=== PATIENT | male | born 1965 | race African-American/Black ===

== ENCOUNTER 2016-11-16 10:01 | Emergency (ER) | payer BC, OTHER ==
[2016-11-16 10:14] VITALS: TEMP 98.3; BMI 34.0
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
[2016-11-16] MEDS ORDERED: LOSARTAN POTASSIUM 50 MG TABLET (FP) PO ONE (10:40)
[2016-11-16] MEDS ORDERED: LOSARTAN POTASSIUM 25 MG TABLET ONE (10:47)
[2016-11-16] MEDS ORDERED: ACETAMINOPHEN 1000 MG/100 ML VIAL (NON FORMULARY) IVPB ONE (10:55)
[2016-11-16] MEDS ORDERED: METOCLOPRAMIDE HCL INJECTION 10 MG/2 ML VIAL IVPB ONE (10:55)
--- NOTE | 2016-11-16 10:58 | PDOC ---
*Physical Exam - Vital Signs Last Vital Signs Temp Pulse Resp BP Pulse Ox 98.3 F 112 H 18 164/114 100 11/16/16 10:10 11/16/16 10:10 11/16/16 10:10 11/16/16 10:10 11/16/16 10:10 ED Treatment Course - LABORATORY CBC & Chemistry Diagram: 11/16/16 10:41 11/16/16 10:41 Medical Decision Making - Medical Decision Making 11/16/16 10:57 Pt seen by the Advanced Practice Provider under my direct supervision Ancillary studies reviewed I agree with plan as outlined by the Advanced Practice Provider VEENA Sal *DC/Admit/Observation/Transfer Diagnosis at time of Disposition: Headache, Hyperglycemia, Elevated CK-MB level - Discharge Dispostion Disposition: AGAINST MEDICAL ADVICE Condition at time of disposition: Improved - Patient Instructions Additional Instructions: Return to the ER immediately with any worsening or concerning symptoms
[2016-11-16] MEDS ORDERED: METOCLOPRAMIDE HCL INJECTION 10 MG/2 ML VIAL ONE (11:07)
[2016-11-16 11:14] LABS: BASOPHIL 0.9 % (0-2.0); EOSINOPHIL 2.9 % (0-4.5); MCH 31.2 pg (25.7-33.7); MCHC 35.4 g/dl (32.0-35.9); NEUTROPHILS 60.9 % (42.8-82.8); PLATELET COUNT 208 K/MM3 (134-434); RDW 13.4 % (11.9-15.9)
[2016-11-16] MEDS ORDERED: ACETAMINOPHEN INJECTION 100 ML IVPB ONE (11:18)
[2016-11-16 11:33] LABS: ALBUMIN 3.9 g/dl (3.4-5.0); ANION GAP 12 (8-16); BILIRUBIN,TOTAL 0.5 mg/dL (0.2-1.0); CALCIUM 8.5 mg/dL (8.5-10.1); CO2 28 mmol/L (21-32); COCKROFT - GAULT 150.25
[2016-11-16 11:35] LABS: ALK PHOS 183 U/L (45-117); TROPONIN I < 0.02 ng/ml (0.00-0.05)
[2016-11-16] MEDS ORDERED: SODIUM CHLORIDE 1,000 ML IV STA ×2 (11:51→12:35)
[2016-11-16 11:58] LABS: INR 0.92 (0.82-1.09); PROTHROMBIN TIME (PATIENT) 10.1 SEC (9.98-11.88)
[2016-11-16 11:59] LABS: GLUCOSE,RANDOM 329 mg/dL (74-106)
[2016-11-16 13:23] VITALS: BP 146/82; PULSE 100
== END 2016-11-16 15:00 | disposition left against medical advice (07) ==
LOC: JER 10:01
PROC: 3E0337Z Introduction of Electrolytic and Water Balance Substance into Peripheral Vein, Percutaneous Approach (ICD-10-PCS; principal; 2016-11-16)
PROC: 3E033NZ Introduction of Analgesics, Hypnotics, Sedatives into Peripheral Vein, Percutaneous Approach (ICD-10-PCS; 2016-11-16)
PROC: 3E033GC Introduction of Other Therapeutic Substance into Peripheral Vein, Percutaneous Approach (ICD-10-PCS; 2016-11-16)
DX: R51 Headache (principal); E11.65 Type 2 diabetes mellitus with hyperglycemia; V44.5XXA Car driver injured in collision with heavy transport vehicle or bus in traffic accident, initial encounter; Y92.414 Local residential or business street as the place of occurrence of the external cause; Y93.89 Activity, other specified
CPT/HCPCS: 36415; 70450-TC; 80053; 82550; 82553; 84484; 85025; 85610; 86850; 86900; 86901; 99283-25

== ENCOUNTER 2017-01-09 05:21 | Observation (INO) | payer OTHER ==
[2017-01-09 05:38] VITALS: BMI 33.3
--- NOTE | 2017-01-09 05:48 | PDOC ---
History of Present Illness - General Chief Complaint: Chest Pain Stated Complaint: BLOOD PRESSURE PROBLEM Time Seen by Provider: 01/09/17 05:34 - History of Present Illness Initial Comments: 01/09/17 06:39 51M with pmh of untreated HTN IDDM2 presents with headache 9/10, nausea, dizziness and right flank pain waking him up in the middle of the night. Not taking medications. Last tested blood sugar 250's this afternoon. No episodes of vomiting. No sweating. 01/09/17 07:25 Past History - Past Medical History Allergies/Adverse Reactions: Allergies Allergy/AdvReac Type Severity Reaction Status Date / Time levofloxacin [From Levaquin] Allergy Verified 01/09/17 05:30 metformin Allergy Verified 01/09/17 05:30 Home Medications: Ambulatory Orders Glipizide [Glipizide ER] 30 mg PO DAILY 11/12/14 Insulin Glargine,Hum.rec.anlog [Lantus Solostar PEN -] 60 units SQ ASDIR Aspirin [Aspirin EC] 81 mg PO DAILY 08/27/15 Losartan Potassium [Cozaar] 25 mg PO DAILY 11/16/16 Diabetes: Yes HTN: Yes - Psycho/Social/Smoking Cessation Hx Anxiety: No Suicidal Ideation: No Smoking History: Never smoked Have you smoked in the past 12 months: No Information on smoking cessation initiated: No Hx Alcohol Use: No Drug/Substance Use Hx: No Substance Use Type: Alcohol Hx Substance Use Treatment: No Review of Systems - Review of Systems Constitutional: No: Chills, Diaphoresis, Night Sweats, Weakness HEENTM: No: Recent change in vision Respiratory: No: Cough, Orthopnea, Wheezing, Hemoptysis Cardiac (ROS): Yes: See HPI ABD/GI: Yes: Abdominal Distended, Abdominal cramping : No: Symptoms Reported Musculoskeletal: No: Symptoms Reported Neurological: Yes: Headache. No: Symptoms reported, Numbness *Physical Exam - Vital Signs Last Vital Signs Temp Pulse Resp BP Pulse Ox 98.5 F 128 H 18 151/86 98 01/09/17 05:30 01/09/17 05:30 01/09/17 05:30 01/09/17 05:30 01/09/17 05:30 - Physical Exam General Appearance: Yes: Nourished, Appropriately Dressed, Mild Distress HEENT: positive: EOMI, DANDRE, Normal Voice Respiratory/Chest: positive: Lungs Clear, Normal Breath Sounds. negative: Respiratory Distress Cardiovascular: positive: S1, S2, Tachycardia. negative: Edema Gastrointestinal/Abdominal: positive: Tenderness (on upper right quadrant) ED Treatment Course - LABORATORY CBC & Chemistry Diagram: 01/09/17 05:58 01/09/17 05:58 - ADDITIONAL ORDERS Additional order review: Laboratory Results 01/09/17 01/09/17 01/09/17 05:58 05:58 05:39 INR 0.91 PTT (Actin FS) 33.1 Sodium 129 L Potassium 3.6 Chloride 88 L Carbon Dioxide 28 Anion Gap 13 BUN 11 Creatinine 1.0 Creat Clearance w eGFR > 60 Random Glucose 337 H* Calcium 7.6 L Total Bilirubin 1.0 D Alkaline Phosphatase 194 H Creatine Kinase 234 D Troponin I < 0.02 Total Protein 7.3 Albumin 3.3 L Urine Color Ltyellow Urine Appearance Clear Urine pH 5.0 Urine Protein 2+ H Urine Glucose (UA) 3+ H Urine Ketones 1+ H Urine Blood 1+ H Urine Nitrite Negative Urine Bilirubin Negative Urine Urobilinogen Negative Ur Leukocyte Esterase Negative Urine RBC 1 Urine WBC <1 Hyaline Casts 1 Urine Mucus Rare 01/09/17 05:58 RBC 4.00 MCV 87.1 MCHC 39.1 H RDW 13.2 MPV 8.9 Neutrophils % 74.7 D Lymphocytes % 16.8 D Monocytes % 5.2 Eosinophils % 2.1 Basophils % 1.2 - RADIOLOGY Radiology Studies Ordered: Category Date Time Status ABDOMEN US -LIMITED [US] Stat Ultrasound 01/09/17 06:29 Ordered Medical Decision Making - Medical Decision Making 01/09/17 07:29 51M presenting with headache, abdominal pain and dizziness. Tachycardic. Patient was evaluated for acs. Sent EKG and troponin which showed Left ventricular hypertrophy and strain but with normal trops. No previous EKG to compare. glucose 350. R/o biliary colic vs acute cholecystitis vs pancreatitis vs gastritis. Ordered right upper quadrant ultrasound and labs. Consider CTA to rule out pulmonary embolism. Patient to be admitted
[2017-01-09 06:08] LABS: BASOPHIL 1.2 % (0-2.0); EOSINOPHIL 2.1 % (0-4.5); MCHC 39.1 g/dl (32.0-35.9); MEAN CELL VOLUME 87.1 fl (80-96); MEAN PLT VOLUME 8.9 fl (7.5-11.1); NEUTROPHILS 74.7 % (42.8-82.8); PLATELET COUNT 246 K/MM3 (134-434); RDW 13.2 % (11.9-15.9); WHITE BLOOD COUNT 7.4 K/mm3 (4.0-10.0)
[2017-01-09 06:22] LABS: INR 0.91 (0.82-1.09)
[2017-01-09 06:25] LABS: ACTIVATED PTT 33.1 SECONDS (26.9-34.4)
[2017-01-09 06:32] LABS: ALBUMIN 3.3 g/dl (3.4-5.0); ANION GAP 13 (8-16); CO2 28 mmol/L (21-32)
[2017-01-09 06:34] LABS: TROPONIN I < 0.02 ng/ml (0.00-0.05)
[2017-01-09 06:44] LABS: ALK PHOS 194 U/L (45-117); CALCIUM 7.6 mg/dL (8.5-10.1); TOT PROT 7.3 g/dl (6.4-8.2)
[2017-01-09 06:46] LABS: GLUCOSE,RANDOM 337 mg/dL (74-106)
[2017-01-09] MEDS ORDERED: SODIUM CHLORIDE 1,000 ML IV STA (06:48)
[2017-01-09 06:51] LABS: URINE APPEARANCE CLEAR; URINE BILIRUBIN NEGATIVE (NEGATIVE); URINE COLOR LTYELLOW; URINE GLUCOSE (UA) 3+ (NEGATIVE); URINE KETONE 1+ (NEGATIVE); URINE LEUK ESTERASE NEGATIVE (NEGATIVE); URINE NITRITE NEGATIVE (NEGATIVE); URINE UROBILINOGEN NEGATIVE mg/dL (0.2-1.0)
[2017-01-09] MEDS ORDERED: CALCIUM GLUCONATE 10% - 1,000 MG/10 ML VIAL IVPB ONE (06:51)
[2017-01-09 06:55] LABS: URINE BLOOD 1+ (NEGATIVE); URINE PROTEIN 2+ (NEGATIVE)
--- NOTE | 2017-01-09 06:55 | PDOC ---
Attending Attestation - Resident Resident Name: GrimesClifford - ED Attending Attestation I have performed the following: I have examined & evaluated the patient, The case was reviewed & discussed with the resident, I agree w/resident's findings & plan, Exceptions are as noted - HPI HPI: 01/09/17 06:47 51-year-old male with past medical history of hypertension, diabetes presents to the emergency department with chest pain and right upper quadrant pain. The patient reports that he ate some heavy foods yesterday including fries, pizza. What the bed in his usual state of health. Woke up approximately 2:00 in the morning with reproducible right arm pain, tension-like global headache my chest discomfort relieved with movements, dizziness and right upper quadrant pain. The patient reports nausea but denies vomiting. Denies fevers. Denies prior history of gallstones. Came into the ED for further evaluation. - Physicial Exam PE: 01/09/17 06:50 GENERAL: Awake, alert, and fully oriented, in no acute distress. HEAD: No signs of trauma EYES: PERRLA, EOMI, sclera anicteric, conjunctiva clear ENT: Auricles normal inspection, hearing grossly normal, nares patent, oropharynx clear without exudates. NECK: Normal ROM, supple, no lymphadenopathy, JVD, or masses LUNGS: Breath sounds equal, clear to auscultation bilaterally. No wheezes, and no crackles HEART: Regular rate and rhythm, normal S1 and S2, no murmurs, rubs or gallops. Tachycardic ABDOMEN: Soft, normoactive bowel sounds. No guarding, no rebound. No masses. TTP epigastric and RUQ. EXTREMITIES: Normal range of motion, no edema. No clubbing or cyanosis. No cords, erythema, or tenderness NEUROLOGICAL: Cranial nerves II through XII grossly intact. Normal speech, normal gait SKIN: Warm, Dry, normal turgor, no rashes or lesions noted. - Medical Decision Making 01/09/17 06:51 Patient's chest pain is somewhat atypical for acute coronary syndrome but given the risk factors, we will need to have troponin sent. What is also abnormal is the patient' EKG which shows left ventricular hypertrophy which strain and sent millimeter ST depressions in V4 through V6. We'll also need to rule out biliary colic versus acute cholecystitis versus pancreatitis versus gastritis. Right upper quadrant ultrasound and labs. Patient is noticeably uncomfortable and tachycardic. If the workup is negative, should consider potential CT angiogram to rule out pulmonary embolism. Ultimately, the patient admitted to the hospital for further evaluation. Heart Score/ECG Review - History History: Slightly suspicious - Electrocardiogram EKG: Non specific repolarization disturbance - Age Age: 45-65 - Risk Factors Risk Factors Heart Score: Yes Hx Hypertension, Yes Hx Diabetes Based on the list above the patient has:: 1-2 risk factors #1 ECG reviewed & interpreted by me at: 05:35 01/09/17 06:50 NSR 121, LVH with strain, submm STD V4-V6, QTC 462 msec, no ROBERT
[2017-01-09] MEDS ORDERED: CALCIUM GLUCONATE 10% - 1,000 MG/10 ML VIAL ONE (07:01)
[2017-01-09 07:03] LABS: URINE HYALINE CAST 1 /lpf; URINE MUCUS RARE; URINE RBC 1 /hpf (0-3); URINE WBC <1 /hpf (3-5)
--- NOTE | 2017-01-09 07:59 | PDOC ---
*Physical Exam - Vital Signs Last Vital Signs Temp Pulse Resp BP Pulse Ox 98.5 F 128 H 18 151/86 98 01/09/17 05:30 01/09/17 05:30 01/09/17 05:30 01/09/17 05:30 01/09/17 05:30 <Gian Pate - Last Filed: 01/09/17 13:33> - Vital Signs Last Vital Signs Temp Pulse Resp BP Pulse Ox 98.0 F 112 H 16 169/97 97 01/10/17 07:25 01/10/17 07:25 01/10/17 07:30 01/10/17 07:25 01/10/17 07:30 <Tita De La Paz - Last Filed: 01/10/17 08:27> ED Treatment Course - LABORATORY CBC & Chemistry Diagram: 01/09/17 05:58 01/09/17 05:58 - ADDITIONAL ORDERS Additional order review: Laboratory Results 01/09/17 01/09/17 01/09/17 05:58 05:58 05:58 INR 0.91 PTT (Actin FS) 33.1 Sodium 129 L Potassium 3.6 Chloride 88 L Carbon Dioxide 28 Anion Gap 13 BUN 11 Creatinine 1.0 Creat Clearance w eGFR > 60 Random Glucose 337 H* Calcium 7.6 L Total Bilirubin 1.0 D AST ALT Alkaline Phosphatase 194 H Creatine Kinase 234 D Creatine Kinase Index 1.2 CK-MB (CK-2) 2.713 CK-MB (CK-2) Rel Index Cancelled Troponin I < 0.02 Total Protein 7.3 Albumin 3.3 L Urine Color Urine Appearance Urine pH Urine Protein Urine Glucose (UA) Urine Ketones Urine Blood Urine Nitrite Urine Bilirubin Urine Urobilinogen Ur Leukocyte Esterase Urine RBC Urine WBC Hyaline Casts Urine Mucus 01/09/17 05:39 INR PTT (Actin FS) Sodium Potassium Chloride Carbon Dioxide Anion Gap BUN Creatinine Creat Clearance w eGFR Random Glucose Calcium Total Bilirubin AST ALT Alkaline Phosphatase Creatine Kinase Creatine Kinase Index CK-MB (CK-2) CK-MB (CK-2) Rel Index Troponin I Total Protein Albumin Urine Color Ltyellow Urine Appearance Clear Urine pH 5.0 Urine Protein 2+ H Urine Glucose (UA) 3+ H Urine Ketones 1+ H Urine Blood 1+ H Urine Nitrite Negative Urine Bilirubin Negative Urine Urobilinogen Negative Ur Leukocyte Esterase Negative Urine RBC 1 Urine WBC <1 Hyaline Casts 1 Urine Mucus Rare 01/09/17 05:58 RBC 4.00 MCV 87.1 MCHC 39.1 H RDW 13.2 MPV 8.9 Neutrophils % 74.7 D Lymphocytes % 16.8 D Monocytes % 5.2 Eosinophils % 2.1 Basophils % 1.2 <RioRealtroychari - Last Filed: 01/09/17 13:33> - LABORATORY CBC & Chemistry Diagram: 01/10/17 05:35 01/10/17 05:35 - ADDITIONAL ORDERS Additional order review: 01/09/17 01/09/17 09:41 05:58 RBC 4.00 MCV 87.1 MCHC 39.1 H RDW 13.2 MPV 8.9 Neutrophils % 74.7 D Lymphocytes % 16.8 D Monocytes % 5.2 Eosinophils % 2.1 Basophils % 1.2 POC Glucometer [id number] - Medications Given in the ED: ED Medications Discontinued Medications Generic Name Dose Route Start Last Admin Trade Name Freq PRN Reason Stop Dose Admin Amlodipine Besylate 10 mg 01/09/17 16:00 01/09/17 16:20 Norvasc - PO 10 mg DAILY PAULINA Administration Calcium Gluconate 1,000 mg 01/09/17 06:51 01/09/17 07:55 Calcium Gluconate 10% - IVPB 01/09/17 06:52 1,000 mg ONCE ONE Administration Sodium Chloride 1,000 mls @ 1,000 mls/hr 01/09/17 06:48 01/09/17 07:55 Normal Saline - IV 01/09/17 07:47 1,000 mls/hr ASDIR STA Administration Potassium Chloride 40 meq 01/09/17 15:44 01/09/17 16:20 K-Dur - PO 01/09/17 15:45 40 meq ONCE ONE Administration <Tita De La Paz - Last Filed: 01/10/17 08:27> Medical Decision Making - Medical Decision Making 01/09/17 07:55 Patient was signed out to the oncoming team at 7:10 AM as a possible admission for abdominal, chest and arm pain with multiple risk factors for thrombus or cardiac event. Trop negative but EKG with LV strain pattern possibly concerning for PE. Also at risk for biliary stone, particularly with the presenting story. Will hold of on CTA at the moment. Pending the rest of his labs and abdominal US. 01/09/17 07:59 01/09/17 09:50 Abd US negative and EKG although similar to an EKG from 07/2015, patient is still tachycardic so will scan for PE. Abd US did show fatty infiltration vs. hepatocellular disease. 01/09/17 09:52 01/09/17 13:33 CTA demonstrating possible Left Lower Segmental PE. Will admit patient to tele . <Gian Pate - Last Filed: 01/09/17 13:33> *DC/Admit/Observation/Transfer - Discharge Dispostion Admit: Yes - Attestations Physician Attestion: 01/09/17 13:35 I, Dr. Gian Pate, attest that this document has been prepared under my direction and personally reviewed by me in its entirety. I further attest, that it accurately reflects all work, treatment, procedures and medical decision -making performed by me. <Gian Pate - Last Filed: 01/09/17 13:33> <Tita De La Paz - Last Filed: 01/10/17 08:27> Diagnosis at time of Disposition: Pulmonary embolism - Discharge Dispostion Condition at time of disposition: Stable
[2017-01-09] MEDS: APIXABAN 5 MG TABLET PO SCH ×2 (13:36→21:11)
--- NOTE | 2017-01-09 13:51 | HP ---
Admitting History and Physical - Primary Care Physician PCP: Dr. Cindy Velazquez - Admission Chief Complaint: "Dizziness and abdominal gas" History of Present Illness: 51M with history of HTN HLD DM hypertriglyceridemia alcohol abuse who presents to the ED with a few hour history of dizziness and feeling "gassy". He states he woke up between 4:30am-5am and started to experience these symptoms. He also had palpitations during the episode. During the interview he stated he still feels his heart racing. He noted he had some right lateral thoracic cramping which went away with stretching. Nothing made it better but upon arrival to the ED he felt better. He also endorses mild nausea upon awakening but he states it was mostly not noticeable. He denies vomiting fevers chills chest pain or shortness of breath. He denies radiation to arm or jaw. He denies recent sick contacts or recent travel. In the ED patient had a CTA of the chest to rule out PE and there is concern for a RLL filling defect however per the radiologists read it is most likely artifact. He states his left leg swells at times and feels like it may be swollen when compared to the right. he states he has been laying in bed for most of the day lately and not moving around much. Patient has been non compliant with his medications. Per the patient last time he filled his prescriptions was in july and last time he took his medications was in august of this year. He states he has been having some insurance issues. History Source: Patient Limitations to Obtaining History: Poor Historian - Past Medical History Cardiovascular: Yes: HTN, Hyperlipdemia, Other (hypertriglyceridemia) Hepatobiliary: Yes: Other (fatty liver) Psych: Yes: Addictions (alcohol abuse) Endocrine: Yes: Diabetes Mellitus - Past Surgical History Past Surgical History: Yes: None Additional Past Surgical History: minor surgery-repair of wrist laceration - Smoking History Smoking history: Former smoker Have you smoked in the past 12 months: No - Alcohol/Substance Use Hx Alcohol Use: Yes Number of Drinks Daily: 6 History of Substance Use: reports: None - Social History ADL: Independent History of Recent Travel: No Home Medications - Allergies Allergies/Adverse Reactions: Allergies Allergy/AdvReac Type Severity Reaction Status Date / Time levofloxacin [From Levaquin] Allergy Verified 01/09/17 05:30 metformin Allergy Verified 01/09/17 05:30 - Home Medications Home Medications: Ambulatory Orders Aspirin [Aspirin EC] 81 mg PO DAILY 08/27/15 Losartan Potassium [Cozaar] 50 mg PO DAILY 11/16/16 Glipizide 10 mg PO BID 01/09/17 Insulin Degludec [Tresiba Flextouch U-100] 50 unit SQ DAILY 01/09/17 Family Disease History - Family Disease History Family Disease History: Diabetes: Mother, Heart Disease: Father ( of [place] in 40's ) Review of Systems - Review of Systems Constitutional: reports: No Symptoms Eyes: reports: No Symptoms HENT: reports: No Symptoms Neck: reports: No Symptoms Cardiovascular: reports: Palpitations Respiratory: reports: No Symptoms Gastrointestinal: reports: Bloating Genitourinary: reports: No Symptoms Breasts: reports: No Symptoms Reported Musculoskeletal: reports: Muscle Cramps (right lateral chest cramping briefly today) Integumentary: reports: No Symptoms Neurological: reports: Dizziness Endocrine: reports: No Symptoms Physical Examination Vital Signs: Vital Signs Temperature 98.5 F 01/09/17 05:30 Pulse Rate 116 H 01/09/17 09:30 Respiratory Rate 18 01/09/17 05:30 Blood Pressure 149/79 01/09/17 09:30 O2 Sat by Pulse Oximetry (%) 95 01/09/17 09:30 BP in both arms equal and elevated 160/100 Constitutional: Yes: Well Nourished, No Distress, Calm Eyes: Yes: Conjunctiva Clear HENT: Yes: Atraumatic, Normocephalic Neck: Yes: Supple, Trachea Midline Cardiovascular: Yes: Tachycardia, S1, S2. No: Murmur Respiratory: Yes: WNL, Regular, CTA Bilaterally Gastrointestinal: Yes: Normal Bowel Sounds, Soft Musculoskeletal: Yes: WNL Extremities: Yes: WNL. No: Calf Tenderness Edema: No Neurological: Yes: Alert, Oriented ...Motor Strength: WNL Psychiatric: Yes: Alert, Oriented Labs: CBC, BMP 01/09/17 05:58 01/09/17 05:58 Imaging - Results Cat Scan: Report Reviewed, Image Reviewed Ultrasound: Report Reviewed Assessment/Plan 51M with multiple medical problems non complicant with medications presents to the hospital with dizziness and bloating found to have a possible PE. Problem List: Pulmonary embolism-unprovoked event hyponatremia hypocalcemia lung nodules Dizziness uncontrolled hypertension uncontrolled IDDM hyperlipidemia hypertriglyceridemia Plan: Admit patient to telemetry Start eliquis 10mg po BID for 7 days then 5mg po BID Duplex US for DVT study Echo Insulin Sliding scale call pharmacy to verify medications Restart home medications once verified Will need hypercoagulable work up as outpatient Check HbA1c Lipid panel and triglycerides monitor for signs/symptoms of withdrawals-treat PRN Calcium repletion IVF pulmonology consult for lung nodule Trend CBC 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 - New Patient This patient is new to me today: Yes Date on this admission: 01/09/17 - Critical Care Critical Care patient: No
[2017-01-09] MEDS ORDERED: POTASSIUM CHLORIDE TABS 20 MEQ TABLET.ER (FP) PO ONE ×2 (15:44→16:23)
[2017-01-09] MEDS ORDERED: amLODIPine BESYLATE 5 MG TABLET (FP) PO SCH (15:45)
[2017-01-09] MEDS ORDERED: amLODIPine BESYLATE 10 MG TABLET (FP) PO SCH (16:00)
--- NOTE | 2017-01-09 16:19 | HP ---
CHIEF COMPLAINT: "My heart was pounding out of my chest" PCP: [facility] HISTORY OF PRESENT ILLNESS: Pt is an 51yo M with PMHx of HTN, HLD, DM2, Alcohol Use who presented to the ER after he woke up with sudden palpitations. The patient had been spending most of his hours in his bed for the past couple of days and woke up suddenly with palpitations, which were associated with mild headache, mild dizziness, and nausea. He had no shortness of breath, denies any pleuritic chest pain or chest pressure, denies fevers or chills. He has a history of leg swelling at times. Of note, patient had not been taking his HTN and DM2 medications for a couple of months because of an insurance issue. ER course was notable for: (1) Labs (2) EKG (new inverted T waves in lateral leads, signs of new LVH, no S1Q3T3 sign ), troponins (neg x2) (3) CTA Chest Recent Travel: Denies PAST MEDICAL HISTORY: HTN, HLD, HyperTG, DM2, Alcohol Use PAST SURGICAL HISTORY: '95 - cut to R arm --> shilo Social History: Smokin pack year smoking history Alcohol: 1 pint per day, last drink was yesterday, 2 glasses Drugs: Denies Family History: Allergies levofloxacin [From Levaquin] Allergy (Verified 01/09/17 05:30) metformin Allergy (Verified 01/09/17 05:30) HOME MEDICATIONS: Home Medications Medication Instructions Recorded Aspirin [Aspirin EC] 81 mg PO DAILY 08/27/15 Losartan Potassium [Cozaar] 50 mg PO DAILY 11/16/16 Glipizide 10 mg PO BID 01/09/17 Insulin Degludec [Tresiba 50 unit SQ DAILY 01/09/17 Flextouch U-100] REVIEW OF SYSTEMS CONSTITUTIONAL: Absent:fever, chills, diaphoresis, generalized weakness, malaise, loss of appetite, weight change HEENT: Absent: rhinorrhea, nasal congestion, throat pain, throat swelling, difficulty swallowing, mouth swelling, ear pain, eye pain, visual changes CARDIOVASCULAR: Absent: chest pain, syncope, irregular heart rate, lightheadedness Present: palpitations RESPIRATORY: Absent: cough, shortness of breath, dyspnea with exertion, orthopnea, wheezing, stridor, hemoptysis GASTROINTESTINAL: Absent: nausea, abdominal distension, vomiting, diarrhea, constipation, melena, hematochezia GENITOURINARY: Absent: dysuria, frequency, urgency, hesitancy, hematuria, flank pain, genital pain MUSCULOSKELETAL: Absent: myalgia, arthralgia, joint swelling, back pain, neck pain SKIN: Absent: rash, itching, pallor HEMATOLOGIC/IMMUNOLOGIC: Absent: easy bleeding, easy bruising, lymphadenopathy, frequent infections ENDOCRINE: Absent: unexplained weight gain, unexplained weight loss, heat intolerance, cold intolerance NEUROLOGIC: Absent: headache, focal weakness or paresthesias, dizziness, unsteady gait, seizure, mental status changes, bladder or bowel incontinence PSYCHIATRIC: Absent: anxiety, depression, suicidal or homicidal ideation, hallucinations. PHYSICAL EXAMINATION Vital Signs Temperature 98.5 F 01/09/17 05:30 Pulse Rate 113 H 01/09/17 13:30 Respiratory Rate 18 01/09/17 05:30 Blood Pressure 147/78 01/09/17 13:30 O2 Sat by Pulse Oximetry (%) 94 L 01/09/17 13:30 GENERAL: Awake, alert, and fully oriented, in no acute distress. Sitting comfortable in side of bed, no labored breathing HEENT: PERRLA, EOMi, supple neck, moist mucous membranes Heart: S1, S2, Tachycardia, regular rhythm. No murmurs, rubs, or gallops Lung: CTABL, no wheezes, no rhonchi, no rales Abd: Soft, nontender, obese but not distended, normoactive bowel sounds UPPER EXTREMITIES: 2+ pulses, warm, well-perfused. No cyanosis. No clubbing. No peripheral edema. LOWER EXTREMITIES: 2+ pulses, warm, well-perfused. No calf tenderness. No peripheral edema. DIABETIC FOOT EXAM: Scabbed ulcer on L sole + Scabbed ulcer on R great toe. No active open lesions. No proprioception or vibratory sensation on bilateral feet NEUROLOGICAL: Full neurological exam was completed. Oriented x3, Cranial nerves II-XII intact. Sensation was intact in face and body bilaterally, muscle strength was 5/5 in all extremities. Reflexes were 2+. FTN test was within normal limits. Normal speech. Normal gait. PSYCHIATRIC: Cooperative. Good eye contact. Appropriate mood and affect. LABS: CBC, BMP 01/09/17 05:58 01/09/17 05:58 Laboratory Results - last 24 hr 01/09/17 01/09/17 01/09/17 05:39 05:58 05:58 WBC 7.4 D RBC 4.00 Hgb 13.6 Hct 34.9 L MCV 87.1 MCH 34.0 H MCHC 39.1 H RDW 13.2 Plt Count 246 MPV 8.9 Neutrophils % 74.7 D Lymphocytes % 16.8 D Monocytes % 5.2 Eosinophils % 2.1 Basophils % 1.2 INR PTT (Actin FS) Sodium 129 L Potassium 3.6 Chloride 88 L Carbon Dioxide 28 Anion Gap 13 BUN 11 Creatinine 1.0 Creat Clearance w eGFR > 60 POC Glucometer Random Glucose 337 H* Calcium 7.6 L Total Bilirubin 1.0 D AST ALT Alkaline Phosphatase 194 H Creatine Kinase 234 D Creatine Kinase Index 1.2 CK-MB (CK-2) 2.713 CK-MB (CK-2) Rel Index Troponin I < 0.02 Total Protein 7.3 Albumin 3.3 L Urine Color Ltyellow Urine Appearance Clear Urine pH 5.0 Ur Specific [place] 1.015 Urine Protein 2+ H Urine Glucose (UA) 3+ H Urine Ketones 1+ H Urine Blood 1+ H Urine Nitrite Negative Urine Bilirubin Negative Urine Urobilinogen Negative Ur Leukocyte Esterase Negative Urine RBC 1 Urine WBC <1 Hyaline Casts 1 Urine Mucus Rare 01/09/17 01/09/17 01/09/17 05:58 05:58 09:41 WBC RBC Hgb Hct MCV MCH MCHC RDW Plt Count MPV Neutrophils % Lymphocytes % Monocytes % Eosinophils % Basophils % INR 0.91 PTT (Actin FS) 33.1 Sodium Potassium Chloride Carbon Dioxide Anion Gap BUN Creatinine Creat Clearance w eGFR POC Glucometer [phone] Random Glucose Calcium Total Bilirubin AST ALT Alkaline Phosphatase Creatine Kinase Creatine Kinase Index CK-MB (CK-2) CK-MB (CK-2) Rel Index Cancelled Troponin I Total Protein Albumin Urine Color Urine Appearance Urine pH Ur Specific [place] Urine Protein Urine Glucose (UA) Urine Ketones Urine Blood Urine Nitrite Urine Bilirubin Urine Urobilinogen Ur Leukocyte Esterase Urine RBC Urine WBC Hyaline Casts Urine Mucus Troponins - negative x2 Corrected Na+ for hyperglycemia is 131.4 Corrected Ca2+ for hypoalbuminemia is 8.2 ALP - 194 (months ago was 184) AST/ALT - WNL RADIOLOGY: RUQ U/S: No stones, liver disease (fatty liver vs hepatocellular disease) CTA Chest: Questionable linear Pulmonary Embolism in the RLL segment with incidental pulmonary nodules ASSESSMENT/PLAN: This is a 51yo male with a history of HTN, HLD, Alcohol Use who presented with tachycardia, found to have a findings of a probable PE on imaging. # Possible Pulmonary Embolism - The patient's sudden tachycardia and inadequate mobility are risk factors for a thromboembolic event - Findings on CTA could be PE vs Artifact, Radiologist Dr. Bhandari commented that the study quality was not ideal due to timing of contrast. - Spoke to patient about the risks and benefits of anticoagulation. Explained the different types of anticoagulation: Coumadin, Lovenox, NOACs. Discussed which agents were reversible, which were not. Also discussed the risks of not being put on anticoagulation. Pt has low risk of bleeds, pt chose NOACs. We will plan initially to start treatment of PE with Eliquis 10mg PO BID x 7days -- > 5mg PO BID for 3-6 months until we r/o PE - Will order a Duplex BLLE U/S to check for DVTs. If DVTs are positive, will continue tx for DVT. If DVT is negative, will ask patient if he wants to stay for another better quality CTA to r/o PE. - Echocardiogram pending # Hypertension - uncontrolled - Pt came in with high blood pressure after not taking his BP medications for 3 months - Pt takes Losartan at home, but will start treat patient with Amlodipine 10mg po QD incase plan is to do another CTA, Amlodipine is safer on kidneys - Monitor BPs # Insulin Dependent Diabetes Mellitus - uncontrolled - Pt came in with high blood glucose after not taking his insulin for 3 months - Will start Levemir 25U QHS + Sliding Scale Insulin - Monitor BGMs, A1C pending - Asked patient about starting neurontin for diabetic neuropathy, pt refused, but agreed to check his feet more often # Hyponatremia - Could be due to hypovolemia, on IVF NS 75mL/hr - There is also a component of pseudohyponatremia from hyperglycemia # Dizziness - Cold be due to hypovolemia, on IVF NS 75mL/hr # Hypocalcemia - Replace with Calcium + Vitamin D QD # Incidental Pulmonary Nodules - Pt has no hx of cancer, will consult pulmonology Dr. Gregory # Hx of Alcohol Abuse - The patient's last drink was yesterday, 2 glasses. Though the patient never had signs of withdrawal after cessation, will continue to monitor. If pt exhibits signs of withdrawal, consider Librium # Hx of Hyperlipidemia - Will order a lipid panel, check for hypertriglyceridemia - If LDL high, consider starting a statin # FEN - Fluids: IV NS 75mL/hr - Electrolytes: Monitor - Nutrition: Diabetic Diet # Prophylaxis - DVT: On Eliquis - GI: Not indicated # Disposition - Will work with casework manager to determine insurance issues. Pt states that he had [employer] BS when he was working, now on medicaid, pharmacy unable to fill meds. This patients medications have been reconciled with his home pharmacy This case was discussed with the Senior Resident Dr. Jacobson and the Attending Physician Dr. Scott, who agree with the plan. Visit type - Emergency Visit Emergency Visit: Yes ED Registration Date: 01/09/17 Care time: The patient presented to the Emergency Department on the above date and was hospitalized for further evaluation of their emergent condition. - New Patient This patient is new to me today: Yes Date on this admission: 01/09/17 - Critical Care Critical Care patient: No
[2017-01-09] MEDS: SODIUM CHLORIDE 1,000 ML IV SCH (16:20)
[2017-01-09] MEDS ORDERED: amLODIPine BESYLATE 5 MG TABLET (FP) ONE (16:23)
--- NOTE | 2017-01-09 16:36 | PN ---
Teaching Attending Note Name of Resident: Mckinley Llamas ATTENDING PHYSICIAN STATEMENT I saw and evaluated the patient. I reviewed the resident's note and discussed the case with the resident. I agree with the resident's findings and plan as documented. SUBJECTIVE: CC: palpitations and R sided CP . HPI: pt woke up this am with palpitatins and R sided chest pain described as cramps , which lasted fro few min . he denies chelsea SOB, of light headedness. he denied any cough or hemoptasis . he reports being sedentary in last 2-3 weeks with moving from bed to couch with loss of interest . he reprots drinking 1 pint of vodka almost daily, last drink 2 days ago. denies any withdrawal sx before . had h/p DM, HLP, hypertriglycederemia , and was hospitalized last year with acute pancreatitis . he also has h/o alchol abuse. OBJECTIVE: VS reviewed. NAD , awake , alert and oriented x 3 . HEENT: MMM, no facial droop, EOMI. round equal pupils , reactive to light . tongue and uvula at mid line . no JVD , no LAP in neck CV: RRR, no MRG. No JVD. Lungs : CTAB Abd : non pitting edema on L foot , DP 2+ b/l . Hufman sign Neg b/l. no edema or erythema on rest of LE , or on upper extremities. radial Pulse 2+ b/l . Neuro: no facial droop, EOMI. round equal pupils , reactive to light . tongue and uvula at mid line. nl facial sensation. strength 5/5 in upper and lower ext proximally and distally . EKG: L axis, sinus rhythm, inverted T waves in lateral leads. no S1, Qor T in III CT scan of chest reviewed. ASSESSMENT AND PLAN: 51 y/o man with h/o ALcohol abuse, pancreatitis , hypertriglyceredemia, HTN adn DM , who presented with palpitation and R sided transient CP. 1- Sinus tachycardia : given CT scan findings, and his recent immobilization , with sinus tachy and R sided CP , this could be representing symptoms and signs of PE, although the findings on Ct scan were with questionable artifact, after resident discussion with radiologist. Tachycardia can be due to hypovolemia , given his alcohol drinking and his hyponatremia. - Will treat as a PE , start eliquis 10 mg BID x 1 week then 5 BID x 3-6 months - check US of legs , given L foot swelling - offered repeat CT scan in 2 days after hydration , with risk of renal injury to confirm or r/o PE , but chose to be treated. - check echo . -He might need w/u for hypercoagulable state after AC is finished. - hemodynamically stable. trop neg x 2. - repeat EKD , to evaluate TWI inlateral leads ( probably due to tachycardia ) 2- Lung nodules , consult pulm 3- DM with sever hyperglycemia :not taking any medications at home - start levemir 25 units - SSI 4- Hyponatremia : corrected 131. likey due to volume depletion - gentle hydrationtill am - repeat level 5- Hyperlipidemia , and hypertriglyceredemia : repeat lipid panel in am 6- likely form fatty liver and alcohol use . US with dylan liver and no other pathology. trend dispo : tele monitoring
[2017-01-09] MEDS: INSULIN SLIDING SCALE (NOVOLOG) 1 VIAL SQ SCH ×2 (17:20→21:12)
[2017-01-09] MEDS ORDERED: INSULIN REGULAR HUMAN 100 UNITS/ML *VIAL ONE (17:27)
[2017-01-09] MEDS ORDERED: INSULIN (NOVOLOG) ASPART 100 UNITS/ML 10ML VIAL ONE (20:59)
[2017-01-09] MEDS: CALCIUM 500MG/VIT-D 200 UNITS COMBO TABLET (FP) PO SCH (21:12)
[2017-01-09] MEDS ORDERED: INSULIN DETEMIR 100 UNITS/ML MDV SQ SCH (22:00)
[2017-01-10] MEDS: SODIUM CHLORIDE 1,000 ML IV SCH ×2 (03:17→11:58)
[2017-01-10] MEDS: INSULIN SLIDING SCALE (NOVOLOG) 1 VIAL SQ SCH ×4 (06:21→21:52)
[2017-01-10 07:10] LABS: MCH 31.1 pg (25.7-33.7); MCHC 35.8 g/dl (32.0-35.9); MEAN PLT VOLUME 9.5 fl (7.5-11.1); PLATELET COUNT 191 K/MM3 (134-434); RDW 13.3 % (11.9-15.9); WHITE BLOOD COUNT 5.3 K/mm3 (4.0-10.0)
[2017-01-10 07:29] LABS: ALBUMIN 3.4 g/dl (3.4-5.0); ANION GAP 9 (8-16); CALCIUM 8.9 mg/dL (8.5-10.1); CHOLESTEROL 376 mg/dL (50-200); CO2 27 mmol/L (21-32); CREATININE 0.7 mg/dL (0.7-1.3); GLUCOSE,RANDOM 199 mg/dL (74-106); LDL CHOLESTEROL (ONLY SJRH) 91 mg/dL (5-100); TOT PROT 7.3 g/dl (6.4-8.2)
[2017-01-10 07:38] LABS: ALK PHOS 190 U/L (45-117); BILIRUBIN,TOTAL 0.9 mg/dL (0.2-1.0)
[2017-01-10 07:40] LABS: MAGNESIUM 1.8 mg/dL (1.8-2.4); SGOT/AST 68 U/L (15-37)
[2017-01-10] MEDS: APIXABAN 5 MG TABLET PO SCH ×2 (09:44→21:53)
[2017-01-10] MEDS: CALCIUM 500MG/VIT-D 200 UNITS COMBO TABLET (FP) PO SCH ×2 (09:44→21:53)
[2017-01-10] MEDS ORDERED: LOSARTAN POTASSIUM 50 MG TABLET (FP) PO SCH (10:00)
--- NOTE | 2017-01-10 10:43 | PN ---
Progress Note (short form) - Note Progress Note: PULMONARY CONSULTATION DICTATED 01/10/17 IMP ? RLL PE VS ARTIFACT BILATERAL PULMONARY NODULES ? MALIGNANT,?INFLAMMATORY HTN DM ETOH ABUSE HLD LIKELY OSAS PLAN ANTICOAGULATION CONSIDER REPEAT CTA ECHO PET SCAN OUTPATIENT SLEEP SCREEN DR SCHMIDT Problem List - Problems (1) Pulmonary embolism Code(s): I26.99 - OTHER PULMONARY EMBOLISM WITHOUT ACUTE COR PULMONALE (2) Hyperglycemia Code(s): R73.9 - HYPERGLYCEMIA, UNSPECIFIED (3) Insulin dependent diabetes mellitus Code(s): E11.9 - TYPE 2 DIABETES MELLITUS WITHOUT COMPLICATIONS Z79.4 - INTERNET ARCHITECT (CURRENT) USE OF INSULIN (4) Lung nodule, multiple Code(s): R91.8 - OTHER NONSPECIFIC ABNORMAL FINDING OF LUNG FIELD
--- NOTE | 2017-01-10 10:53 | PN ---
Progress Note (short form) - Note Progress Note: Subjective: no cp or SOB . had no fever or chills . denies palpitations Objective: Vital Signs: Last Vital Signs Temp Pulse Resp BP Pulse Ox 98.0 F 112 H 16 169/97 97 01/10/17 07:25 01/10/17 07:25 01/10/17 07:30 01/10/17 07:25 01/10/17 07:30 Laboratory Results - last 24 hr 01/09/17 01/09/17 01/09/17 05:39 17:15 17:18 WBC RBC Hgb Hct MCV MCH MCHC RDW Plt Count MPV D-Dimer Cancelled Sodium Potassium Chloride Carbon Dioxide Anion Gap BUN Creatinine Creat Clearance w eGFR POC Glucometer [phone] Random Glucose Hemoglobin A1c % Calcium Phosphorus Magnesium Total Bilirubin AST ALT Alkaline Phosphatase Total Protein Albumin Triglycerides Cholesterol Total LDL Cholesterol HDL Cholesterol Urine Color Ltyellow Urine Appearance Clear Urine pH 5.0 Ur Specific [place] 1.015 Urine Protein 2+ H Urine Glucose (UA) 3+ H Urine Ketones 1+ H Urine Blood 1+ H Urine Nitrite Negative Urine Bilirubin Negative Urine Urobilinogen Negative Ur Leukocyte Esterase Negative Urine RBC 1 Urine WBC <1 Hyaline Casts 1 Urine Mucus Rare 01/09/17 01/10/17 01/10/17 20:32 05:35 05:35 WBC 5.3 RBC 3.91 L Hgb 12.2 D Hct 34.0 L MCV 87.0 MCH 31.1 MCHC 35.8 RDW 13.3 Plt Count 191 D MPV 9.5 D-Dimer Sodium 132 L Potassium 3.7 Chloride 96 L Carbon Dioxide 27 Anion Gap 9 BUN 6 L D Creatinine 0.7 D Creat Clearance w eGFR > 60 POC Glucometer 328 Random Glucose 199 H D Hemoglobin A1c % Calcium 8.9 Phosphorus 3.0 D Magnesium 1.8 Total Bilirubin 0.9 AST 68 H D ALT TNP Alkaline Phosphatase 190 H Total Protein 7.3 Albumin 3.4 Triglycerides 1767 H Cholesterol 376 H Total LDL Cholesterol 91 HDL Cholesterol 56 Urine Color Urine Appearance Urine pH Ur Specific [place] Urine Protein Urine Glucose (UA) Urine Ketones Urine Blood Urine Nitrite Urine Bilirubin Urine Urobilinogen Ur Leukocyte Esterase Urine RBC Urine WBC Hyaline Casts Urine Mucus 01/10/17 01/10/17 01/10/17 05:35 05:36 06:20 WBC RBC Hgb Hct MCV MCH MCHC RDW Plt Count MPV D-Dimer 883 H Sodium Potassium Chloride Carbon Dioxide Anion Gap BUN Creatinine Creat Clearance w eGFR POC Glucometer 206 Random Glucose Hemoglobin A1c % 10.7 H Calcium Phosphorus Magnesium Total Bilirubin AST ALT Alkaline Phosphatase Total Protein Albumin Triglycerides Cholesterol Total LDL Cholesterol HDL Cholesterol Urine Color Urine Appearance Urine pH Ur Specific [place] Urine Protein Urine Glucose (UA) Urine Ketones Urine Blood Urine Nitrite Urine Bilirubin Urine Urobilinogen Ur Leukocyte Esterase Urine RBC Urine WBC Hyaline Casts Urine Mucus Physical Exam: NAD , awake , alert and oriented x 3. HEENT: MMM, . no JVD CV: RRR, no MRG. No JVD. Lungs : CTAB Ext : non pitting edema on L foot , DP 2+ b/l . Hufman sign Neg b/l. no edema or erythema on rest of LE , or on upper extremities. radial Pulse 2+ b/l . ASSESSMENT AND PLAN: 51 y/o man with h/o ALcohol abuse, pancreatitis , hypertriglyceredemia, HTN adn DM , who presented with palpitation and R sided transient CP. 1- Possible PE : seen on Ct scan . - cont AC with eliquis , day 08/04 on 10 bID - US with no DVT - echo pending - offered the pt again repeating CT scan after hydration, to confirm or r/o PE, given the risk of bleed with his alcohol use .Given his risk for contrast induced nephropathy, he is hesitant , and he will think about it - IVF to hydrate before CT scan 2- HTN: -dc losartan toprtect kidneys in case CT is repeated - add norvasc 3- Lung nodules ,d/w Dr. Gregory - PET scan as outpt 4- DM with sever hyperglycemia :not taking any medications at home - increase levemir to 30 - SSI 4- Hyponatremia : likey due to volume depletion - IVF 5- Hyperlipidemia , and hypertriglyceredemia : -Lipid panel shows TG > 1000. '' -He has no signs of pancreatitis. -start Gemfibrozil 600 BID - LDL is above goal , but will not start statin now , given his slightly elevated ALk phos , and his alcoholism. can be started as out pt if his LFTS remains stable. 6-LFTS abn, likely form fatty liver and alcohol use . US with dylan liver and no other pathology. 7- ALcohol dependence : monitor for signs of withdrawal Visit type - Emergency Visit Emergency Visit: Yes ED Registration Date: 01/09/17 Care time: The patient presented to the Emergency Department on the above date and was hospitalized for further evaluation of their emergent condition. - New Patient This patient is new to me today: No - Critical Care Critical Care patient: No
--- NOTE | 2017-01-10 13:31 | EKG ---
Test Reason : Blood Pressure : / mmHG Vent. Rate : 115 BPM Atrial Rate : 115 BPM P-R Int : 164 ms QRS Dur : 070 ms QT Int : 324 ms P-R-T Axes : 054 -18 124 degrees QTc Int : 448 ms SINUS TACHYCARDIA T WAVE ABNORMALITY, CONSIDER LATERAL ISCHEMIA ABNORMAL ECG WHEN COMPARED WITH ECG OF 09-JAN-2017 05:32, NO SIGNIFICANT CHANGE WAS FOUND Confirmed by TANJA CAMARENA MD ([id number]) on 01/10/2017 1:30:49 PM Referred By: Confirmed By:TANJA CAMARENA MD
--- NOTE | 2017-01-10 13:32 | EKG ---
Test Reason : Blood Pressure : / mmHG Vent. Rate : 121 BPM Atrial Rate : 121 BPM P-R Int : 156 ms QRS Dur : 070 ms QT Int : 326 ms P-R-T Axes : 059 -18 143 degrees QTc Int : 462 ms SINUS TACHYCARDIA LEFT VENTRICULAR HYPERTROPHY WITH REPOLARIZATION ABNORMALITY ABNORMAL ECG WHEN COMPARED WITH ECG OF 24-AUG-2015 22:01, CRITERIA FOR SEPTAL INFARCT ARE NO LONGER PRESENT INVERTED T WAVES HAVE REPLACED NONSPECIFIC T WAVE ABNORMALITY IN LATERAL LEADS Confirmed by TANJA CAMARENA MD ([id number]) on 01/10/2017 1:31:45 PM Referred By: Confirmed By:TANJA CAMARENA MD
--- NOTE | 2017-01-10 13:47 | EKG ---
Test Reason : Blood Pressure : / mmHG Vent. Rate : 105 BPM Atrial Rate : 105 BPM P-R Int : 158 ms QRS Dur : 072 ms QT Int : 344 ms P-R-T Axes : 046 -16 145 degrees QTc Int : 454 ms SINUS TACHYCARDIA POSSIBLE LEFT ATRIAL ENLARGEMENT LEFT VENTRICULAR HYPERTROPHY CANNOT RULE OUT SEPTAL INFARCT , AGE UNDETERMINED T WAVE ABNORMALITY, CONSIDER LATERAL ISCHEMIA ABNORMAL ECG WHEN COMPARED WITH ECG OF 09-JAN-2017 09:33, MINIMAL CRITERIA FOR SEPTAL INFARCT ARE NOW PRESENT Confirmed by TANJA CAMARENA MD ([id number]) on 01/10/2017 1:47:19 PM Referred By: Confirmed By:TANJA CAMARENA MD
[2017-01-10] MEDS: GEMFIBROZIL 600 MG TABLET (FP) PO SCH (17:11)
[2017-01-10] MEDS ORDERED: INSULIN DETEMIR 100 UNITS/ML MDV SQ SCH (22:00)
[2017-01-11] MEDS: GEMFIBROZIL 600 MG TABLET (FP) PO SCH ×2 (06:02→16:11)
[2017-01-11] MEDS: INSULIN SLIDING SCALE (NOVOLOG) 1 VIAL SQ SCH ×3 (06:02→16:11)
[2017-01-11] MEDS ORDERED: INSULIN DETEMIR 100 UNITS/ML MDV SQ ONE (07:36)
[2017-01-11 07:44] LABS: ALBUMIN 3.3 g/dl (3.4-5.0); ANION GAP 10 (8-16); BILIRUBIN,TOTAL 0.9 mg/dL (0.2-1.0); CALCIUM 8.8 mg/dL (8.5-10.1); CO2 28 mmol/L (21-32); CREATININE 0.8 mg/dL (0.7-1.3)
[2017-01-11 07:45] LABS: ALK PHOS 264 U/L (45-117)
[2017-01-11 08:02] LABS: BILIRUBIN,DIRECT 0.2 mg/dL (0.0-0.2)
[2017-01-11 08:05] LABS: GLUCOSE,RANDOM 303 mg/dL (74-106)
--- NOTE | 2017-01-11 08:20 | PN ---
Physical Exam: SUBJECTIVE: Patient seen and examined this AM. No complaints, no SOB, no CP, wants to go home as soon as possible. OBJECTIVE: Vital Signs Period Temp Pulse Resp BP Sys/Pena Pulse Ox Last 24 Hr 97.6 F-99 F 104-106 16-18 140-150/73-89 97-97 GENERAL: Awake, alert, and fully oriented, in no acute distress. Sitting comfortable in side of bed, no labored breathing HEENT: PERRLA, EOMi, supple neck, moist mucous membranes Heart: S1, S2, Tachycardia, regular rhythm. No murmurs, rubs, or gallops Lung: CTABL, no wheezes, no rhonchi, no rales Abd: Soft, nontender, obese but not distended, normoactive bowel sounds UPPER EXTREMITIES: 2+ pulses, warm, well-perfused. No cyanosis. No clubbing. No peripheral edema. LOWER EXTREMITIES: 2+ pulses, warm, well-perfused. No calf tenderness. No peripheral edema. DIABETIC FOOT EXAM: Scabbed ulcer on L sole + Scabbed ulcer on R great toe. No active open lesions. No proprioception or vibratory sensation on bilateral feet NEUROLOGICAL: Full neurological exam was completed. Oriented x3, Cranial nerves II-XII intact. Sensation was intact in face and body bilaterally, muscle strength was 5/5 in all extremities. Reflexes were 2+. FTN test was within normal limits. Normal speech. Normal gait. PSYCHIATRIC: Cooperative. Good eye contact. Appropriate mood and affect. Laboratory Results - last 24 hr 01/10/17 01/10/17 01/10/17 05:35 06:20 11:43 D-Dimer 883 H Sodium Potassium Chloride Carbon Dioxide Anion Gap BUN Creatinine POC Glucometer 329 Random Glucose Hemoglobin A1c % 10.7 H Calcium Total Bilirubin Direct Bilirubin AST ALT Alkaline Phosphatase Total Protein Albumin 01/10/17 01/10/17 01/11/17 17:13 21:51 05:28 D-Dimer Sodium Potassium Chloride Carbon Dioxide Anion Gap BUN Creatinine POC Glucometer 390 289 344 Random Glucose Hemoglobin A1c % Calcium Total Bilirubin Direct Bilirubin AST ALT Alkaline Phosphatase Total Protein Albumin 01/11/17 01/11/17 05:35 05:35 D-Dimer Sodium 132 L Potassium 4.2 Chloride 94 L Carbon Dioxide 28 Anion Gap 10 BUN 8 D Creatinine 0.8 POC Glucometer Random Glucose 303 H* D Hemoglobin A1c % Calcium 8.8 Total Bilirubin 0.9 Cancelled Direct Bilirubin 0.2 Cancelled AST TNP Cancelled ALT TNP Cancelled Alkaline Phosphatase 264 H D Cancelled Total Protein Cancelled Albumin 3.3 L Cancelled Active Medications Generic Name Dose Route Start Last Admin Trade Name Freq PRN Reason Stop Dose Admin Amlodipine Besylate 10 mg 01/11/17 10:00 Norvasc - PO DAILY PAULINA Apixaban 10 mg 01/09/17 13:15 01/10/17 21:53 Eliquis - PO 01/15/17 22:01 10 mg BID PAULINA Administration Calcium Carbonate/Cholecalciferol 1 tab 01/09/17 22:00 01/10/17 21:53 Os-Jus 500+D - PO 1 tab BID PAULINA Administration Gemfibrozil 600 mg 01/10/17 16:30 01/11/17 06:02 Lopid - PO 600 mg BID@0700,1630 PAULINA Administration Sodium Chloride 1,000 mls @ 100 mls/hr 01/10/17 11:00 01/10/17 11:58 Normal Saline - IV 100 mls/hr ASDIR PAULINA Administration Insulin Aspart 1 vial 01/09/17 16:30 01/11/17 06:02 Novolog Vial Sliding Scale - SQ 8 units ACHS PAULINA Administration Protocol Insulin Detemir 30 units 01/10/17 22:00 01/10/17 21:52 Levemir Vial SQ 30 units HS PAULINA Administration Insulin Detemir 15 units 01/11/17 07:36 01/11/17 07:53 Levemir Vial SQ 01/11/17 07:37 15 units ONCE ONE Administration ASSESSMENT/PLAN: This is a 51yo male with a history of HTN, HLD, Alcohol Use who presented with tachycardia, recent immobility, and found to have a findings of a probable PE on imaging. # Possible Pulmonary Embolism - Neg BLLE U/S; CTA questionable PE vs artifact, started PE treatment Eliquis 10mg PO BID x 7 days (until 01/15) --> 5mg PO BID for 3-6 months - Will order D-Dimer, if D-dimer negative, pt does not need AC; if positive --> V/Q - Will restart patient's home dose of Losartan 50mg PO - Echocardiogram pending - O/P workup for hypercoagulable state # Hypertension - uncontrolled - Was not taking home meds - Will restart patient's home dose of Losartan 50mg PO - Monitor BPs # Insulin Dependent Diabetes Mellitus - uncontrolled - Increased Levemir to 45mg QHS, continue SSI - Monitor BGMs, A1C 10.7 # Hyponatremia - resolving - Increased to 132 after IV NS # Hypocalcemia - resolved - Resolved after replacement with Calcium + Vitamin D QD # Incidental Pulmonary Nodules - Pt has no hx of cancer, will consult pulmonology Dr. Gregory # Hx of Alcohol Abuse -Last drink was on 01/08, no signs of withdrawal, continue to monitor # Hyperlipidemia w/ HyperTG - Total Chol 276, LDL 91, TG 1767, asymptomatic - Start Gemfibrozil 600mg PO BID - Pt is statin candidate (diabetic >40yo), increased risk of hepatic dysfunction with concominant alcohol use + baseline liver dz and increased risk of rhabdomyolysis - Manager Of [facility] about low chol diet # Liver Disease - RUQ U/S shows findings of liver disease, likely from alcohol Abuse + CALI. - Transaminitis AST 68 - F/u o/p # Possible TENA - Evaluate for sleep study outpatient # FEN - Fluids: IV NS 100mL/hr - Electrolytes: Monitor - Nutrition: Diabetic Diet # Prophylaxis - DVT: On Eliquis - GI: Not indicated # Disposition - Will work with counseling case manager to determine insurance issues. Visit type - Emergency Visit Emergency Visit: No - New Patient This patient is new to me today: No - Critical Care Critical Care patient: No - Discharge Referral Referred to [facility] Med P.C.: No
--- NOTE | 2017-01-11 08:41 | PN ---
Teaching Attending Note Name of Resident: Mckinley Llamas ATTENDING PHYSICIAN STATEMENT I saw and evaluated the patient. I reviewed the resident's note and discussed the case with the resident. I agree with the resident's findings and plan as documented. SUBJECTIVE: Patient pleasant and anxious to go home, and questioning about the timing of the exam. Denies any CP or SOB. OBJECTIVE: Vital Signs Temperature 98.7 F 01/11/17 07:17 Pulse Rate 106 H 01/11/17 07:17 Respiratory Rate 18 01/11/17 07:19 Blood Pressure 144/87 01/11/17 07:17 O2 Sat by Pulse Oximetry (%) 97 01/11/17 07:19 Gen: A&Ox3 in NAD, resting comfortably, no aggitation HEENT: PERRLA, EOMI, MMM CVS: RRR, no M/G/R Lungs: CTA, no R/W Abd: Soft , BS+ Ext: nl ROM, 2+ pulses, no edema Neuro: no focal deficits, no tremors ASSESSMENT AND PLAN: DM2 uncontrolled- increase basal insulin to 15 units am and continue 30Units pm and RISS, adjust as needed. hold losartan for today. R/O PE Ddimer positive- CTA stat, patient continuosly hydrated with NS @100cc to avoid gonzález and Mucomyst given prophylactically. Plans and risk and benefits discussed with patient in detail and he expressed understanding and agreement to have CTA done Case d/w senior technical architect Dr Gregory and CTA recommended instead of VQ for visualizing potential subsegmental PE. Alcohol dependence, not in W/D, continue to monitor and patient counselled on alcohol cessation and complications of alcoholism discussed. CAGE 1 ( annoyed by critizing).
[2017-01-11 08:55] LABS: TOT PROT 7.1 g/dl (6.4-8.2)
[2017-01-11] MEDS: LOSARTAN POTASSIUM 50 MG TABLET (FP) PO SCH ×2 (09:34→09:39)
[2017-01-11] MEDS: APIXABAN 5 MG TABLET PO SCH (09:39)
[2017-01-11] MEDS: CALCIUM 500MG/VIT-D 200 UNITS COMBO TABLET (FP) PO SCH (09:40)
[2017-01-11] MEDS ORDERED: amLODIPine BESYLATE 10 MG TABLET (FP) PO SCH (10:00)
--- NOTE | 2017-01-11 11:15 | PN ---
Progress Note, Physician History of Present Illness: PULMONARY ALERT,NAD,-CP,-SOB,-COUGH. PT REFUSED SLEEP SCREEN - Current Medication List Current Medications: Active Medications Apixaban (Eliquis -) 10 mg PO BID [facility] Stop: 01/15/17 22:01 Last Admin: 01/11/17 09:39 Dose: 10 mg Calcium Carbonate/Cholecalciferol (Os-Jus 500+D -) 1 tab PO BID [facility] Last Admin: 01/11/17 09:40 Dose: 1 tab Gemfibrozil (Lopid -) 600 mg PO BID@0700,1630 [facility] Last Admin: 01/11/17 06:02 Dose: 600 mg Sodium Chloride (Normal Saline -) 1,000 mls @ 100 mls/hr IV ASDIR [facility] Last Admin: 01/10/17 11:58 Dose: 100 mls/hr Insulin Aspart (Novolog Vial Sliding Scale -) 1 vial SQ ACHS [facility] PRN Reason: Protocol Last Admin: 01/11/17 06:02 Dose: 8 units Insulin Detemir (Levemir Vial) 30 units SQ HS [facility] Last Admin: 01/10/17 21:52 Dose: 30 units Losartan Potassium (Cozaar -) 50 mg PO DAILY [facility] Last Admin: 01/11/17 09:39 Dose: 50 mg - Objective Vital Signs: Vital Signs Temperature 98.7 F 01/11/17 07:17 Pulse Rate 106 H 01/11/17 07:17 Respiratory Rate 18 01/11/17 07:19 Blood Pressure 144/87 01/11/17 07:17 O2 Sat by Pulse Oximetry (%) 97 01/11/17 07:19 Constitutional: Yes: Well Nourished, Calm Eyes: Yes: WNL HENT: Yes: WNL Neck: Yes: Supple Cardiovascular: Yes: Regular Rate and Rhythm Extremities: Yes: WNL Edema: No Labs: CBC, BMP 01/10/17 05:35 01/11/17 05:35 INR, PTT INR 0.91 (0.82-1.09) 01/09/17 05:58 Problem List - Problems (1) Pulmonary embolism Code(s): I26.99 - OTHER PULMONARY EMBOLISM WITHOUT ACUTE COR PULMONALE (2) Hyperglycemia Code(s): R73.9 - HYPERGLYCEMIA, UNSPECIFIED (3) Insulin dependent diabetes mellitus Code(s): E11.9 - TYPE 2 DIABETES MELLITUS WITHOUT COMPLICATIONS Z79.4 - 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 RLL PE VS ARTIFACT BILATERAL PULMONARY NODULES ? MALIGNANT,?INFLAMMATORY HTN DM ETOH ABUSE HLD LIKELY OSAS PLAN ANTICOAGULATION REPEAT CTA PET SCAN OUTPATIENT SLEEP SCREEN DR SCHMIDT Problem List - Problems (1) Pulmonary embolism Code(s): I26.99 - OTHER PULMONARY EMBOLISM WITHOUT ACUTE COR PULMONALE (2) Hyperglycemia Code(s): R73.9 - HYPERGLYCEMIA, UNSPECIFIED (3) Insulin dependent diabetes mellitus Code(s): E11.9 - TYPE 2 DIABETES MELLITUS WITHOUT COMPLICATIONS Z79.4 - CORRECTION (CURRENT) USE OF INSULIN (4) Lung nodule, multiple Code(s): R91.8 - OTHER NONSPECIFIC ABNORMAL FINDING OF LUNG FIELD
[2017-01-11] MEDS: SODIUM CHLORIDE 1,000 ML IV SCH (11:36)
[2017-01-11] MEDS ORDERED: ACETYLCYSTEINE 20% 200MG/ML 4 ML VIAL *FOR ORAL / INH USE ONLY PO ONE (11:41)
[2017-01-11 14:16] VITALS: PULSE 102
[2017-01-11 18:26] VITALS: BP 159/94; TEMP 98
--- NOTE | 2017-01-11 19:19 | DS ---
Physical Exam: SUBJECTIVE: Patient seen and examined this AM. No CP, no SOB, no fever, no chills. OBJECTIVE: Vital Signs Period Temp Pulse Resp BP Sys/Pena Pulse Ox Last 24 Hr 97.6 F-99 F 102-106 18-18 126-159/73-94 97-97 PHYSICAL EXAM GENERAL: The patient is awake, alert, and fully oriented, in no acute distress. HEAD: Normal with no signs of trauma. EYES: PERRL, extraocular movements intact, sclera anicteric, conjunctiva clear. ENT: Ears normal, nares patent, oropharynx clear without exudates, moist mucous membranes. NECK: Trachea midline, full range of motion, supple. LUNGS: Breath sounds equal, clear to auscultation bilaterally, no wheezes, no crackles, no accessory muscle use. HEART: Regular rate and rhythm, S1, S2 without murmur, rub or gallop. ABDOMEN: Soft, nontender, nondistended, normoactive bowel sounds, no guarding, no rebound, no hepatosplenomegaly, no masses. EXTREMITIES: 2+ pulses, warm, well-perfused, no edema. NEUROLOGICAL: Cranial nerves II through XII grossly intact. Normal speech, gait not observed. PSYCH: Normal mood, normal affect. SKIN: Warm, dry, normal turgor, no rashes or lesions noted. LABS Laboratory Results - last 24 hr 01/10/17 01/11/17 01/11/17 21:51 05:28 05:35 D-Dimer Sodium 132 L Potassium 4.2 Chloride 94 L Carbon Dioxide 28 Anion Gap 10 BUN 8 D Creatinine 0.8 POC Glucometer 289 344 Random Glucose 303 H* D Calcium 8.8 Total Bilirubin 0.9 Direct Bilirubin 0.2 AST TNP ALT TNP Alkaline Phosphatase 264 H D Total Protein 7.1 Albumin 3.3 L 01/11/17 01/11/17 01/11/17 05:35 08:15 11:20 D-Dimer 755 H Sodium Potassium Chloride Carbon Dioxide Anion Gap BUN Creatinine POC Glucometer 289 Random Glucose Calcium Total Bilirubin Cancelled Direct Bilirubin Cancelled AST Cancelled ALT Cancelled Alkaline Phosphatase Cancelled Total Protein Cancelled Albumin Cancelled 01/11/17 15:45 D-Dimer Sodium Potassium Chloride Carbon Dioxide Anion Gap BUN Creatinine POC Glucometer 303 Random Glucose Calcium Total Bilirubin Direct Bilirubin AST ALT Alkaline Phosphatase Total Protein Albumin HOSPITAL COURSE: Date of Admission:01/09/17 Date of Discharge: 01/11/17 Mr. Negrete is a 51yo M with a history of HTN, HLD, Alcohol Use who presented with tachycardia, recent immobility, and found to have a findings of a probable Pulmonary Embolism on imaging, but second CTA two days later shows no Pulmonary Embolism. # Ruled Out Pulmonary Embolism - The initial CTA was a suboptimal study and showed questionable PE vs artifact , and was initially started on Eliquis. We obtained a d-dimer which was positive and bilateral duplex ultrasound was negative. The patient is a high risk for bleeding because he is an alcoholic. We decided to go forth with another CTA after fluids and N-acetylcysteine to protect his kidneys, which showed no pulmonary embolism, and anticoagulation was discontinued. # Hyperlipidemia w/ HyperTG - The patient's lipid panel shows total cholesterol 276, LDL 91, but patient's TG 1767, asymptomatic. We started Gemfibrozil 600mg PO BID. Though the patient is a statin candidate (diabetic >40yo), we did not put this patient on a statin because of an increased risk of hepatic dysfunction with concominant alcohol use and baseline liver disease. We counseled the patient about adhering to a low cholesterol diet. # Insulin Dependent Diabetes Mellitus - uncontrolled - The patient's A1C is 10.4. We will continue the patient's home insulin levemir and glipizide # Other - Hx of Alcohol Abuse -no signs of withdrawal in the hospital - HTN - Was not taking home meds due to an insurance issue. We continued the patient's home Losartan dose with stable BPs - Incidental Pulmonary Nodules - The patient has no hx of cancer and should be worked up for a hypercoagulable state as an outpatient - Liver Disease - A RUQ U/S shows findings of liver disease, likely from alcohol Abuse + CALI. We urge the patient to followup outpatient - Possible TENA - Evaluate for sleep study The patient was made aware of the hospital course and plan and is in accordance. Minutes to complete discharge: 55 Discharge Summary Reason For Visit: PULMONARY EMBOLISM Current Active Problems Lung nodule, multiple (Acute) Pulmonary embolism (Acute) Hyperglycemia (Chronic) Insulin dependent diabetes mellitus (Chronic) Condition: Improved - Instructions Diet, Activity, Other Instructions: You were admitted because your heart was beating too fast. We were worried about a blood clot in your lungs. We ordered a cat scan of your chest which showed a possible blood clot. We treated you with blood thinners, but because we were worried about you being on long-term blood thinners, we decided to repeat the cat scan. The repeat cat scan shows that you have no clot in your lungs so you do not have to be on blood thinners. We do want you do adhere to a strict low fat and low carb diet. We want you to stop drinking alcohol completely, because your liver is progressively getting worse. For your diabetes, we are going to continue your glipizide and your tresiba, but we also want you to have a sliding scale insulin. Someone from pharmacy should have come talked to you about how to use it. We are giving you supply for Insulin Sliding scale 1 vial only. Please call your insurance tomorrow and try to figure out the problem as your insurance doesn't cover Insulin at this time. Please reactivate the insurance. Please followup with your primary care doctor Dr. Velazquez. If you have any serious symptoms please return to the Emergency Department NOTE TO THE PRIMARY CARE DOCTOR: - Started patient on sliding scale insulin - We started the patient on fibrates because of hypertriglyceridemia, though patient is a statin candidate, we did not give it to him because of risk of rhabdo. - Please get a BMP in 1 week to check kidney function with Cr - Please get a sleep study outpatient - The patient has pulmonary nodules, recommend PET scan as outpatient Referrals: Isaiah Gregory MD [Staff Physician] - 1 Week Tee Ness MD [Staff Physician] - 1 Week Tish Velazquez [Non Staff, Medical] - 1 Week - Home Medications Comprehensive Discharge Medication List: Ambulatory Orders Aspirin [Aspirin EC] 81 mg PO DAILY 08/27/15 Insulin Degludec [Tresiba Flextouch U-100] 50 unit SQ DAILY 01/09/17 Gemfibrozil [Lopid -] 600 mg PO BID@0700,1630 #20 tablet 01/11/17 Glipizide 10 mg PO BID #20 tab 01/11/17 Insulin Lispro [Humalog Kwikpen U-200] 200 unit SQ AC #1 insuln.pen 01/11/17 Losartan Potassium [Cozaar] 50 mg PO DAILY #20 tab 01/11/17 This patient is new to me today: No Emergency Visit: No Critical Care patient: No - Discharge Referral Referred to [facility] Med P.C.: No
--- NOTE | 2017-01-12 08:34 | CONS ---
PULMONARY CONSULTATION DATE OF CONSULTATION: 01/10/2017 REFERRING PHYSICIAN: Daron Scott MD HISTORY OF PRESENT ILLNESS: The patient is a 51-year-old black male with a past medical history of hypertension, hyperlipidemia, insulin-dependent diabetes mellitus, hypertriglyceridemia, EtOH abuse, history of asthma during childhood, tobacco use, approximately 1 pack per day for 20 years, quit 10 years ago, admitted to [facility] with complaint of feeling lightheaded and gassy. Also states he woke up on the morning of admission with complaint of palpitations. He also had some right-sided chest discomfort. He denied any nausea or vomiting. He also complained of some right lateral thoracic cramping which would improve after stretching. He presented to the emergency room with the above. In the emergency room, he had a CT angiogram of the chest performed which revealed evidence of a questionable embolus in the right lower lobe segmental pulmonary artery versus possible artifact from 2 adjacent vessels. Patient was admitted. He was started on anticoagulation. He was also noted to have pulmonary nodules, 2 in the left upper lobe and left lower lobe and right lower lobe. has history of smoking, quit 10 years ago. He denies any history of occupational exposure to chemicals or fumes. He states for the past month or so, he has also been relatively sedentary, lying in bed, just not feeling himself. He states he is a heavy snore and has had witnessed apneic episodes. He denies any hemoptysis. Denies any weight loss or night sweats. There is no previous history of PE in the past. PAST MEDICAL HISTORY: Again includes hypertension, hyperlipidemia, EtOH, asthma, diabetes, and hypertriglyceridemia. SOCIAL HISTORY: No occupational exposure. History of smoking, quit 10 years ago. Positive EtOH on a daily basis. REVIEW OF SYSTEMS: No orthopnea. No PND. No chest pain at this time. Positive occasional palpitations. Positive tiredness. No fever. No weight loss. NO night sweats. No hemoptysis. No abdominal pain. CURRENT MEDICATIONS: Include Levemir, NovoLog, Norvasc, and Eliquis. PHYSICAL EXAMINATION: General: The patient is a well-developed, obese male, awake, alert, in no acute distress. Vital Signs: He is currently afebrile. Heart rate is 112, blood pressure 169/97, respiratory rate is 16, O2 saturation is 97% on room air. HEENT: Normocephalic, atraumatic. Neck: Supple. Heart: Tachycardic with a normal S1, S2. Chest: Clear. Abdomen: Soft. Bowel sounds are positive. Extremities: No cyanosis or edema. LABORATORY DATA: WBC is 5.3, hemoglobin 12.2, hematocrit 34.0, with a platelet count of 191,000. INR is 0.91. D-dimer is 883. Serum sodium is 132. Hemoglobin A1c is 10.7. BUN 6, creatinine 0.7. Triglycerides are 1767, cholesterol is 376. Chest CT as noted. IMPRESSION: 1. Questionable right lower lobe pulmonary embolism versus artifact. Patient is increased risk secondary to sedentary lifestyle. 2. Bilateral pulmonary nodules, etiology to be determined. Cannot exclude possible malignant etiology versus inflammatory. 3. Hypertension. 4. Likely obstructive sleep apnea syndrome. 5. Hyperlipidemia. PLAN: 1. Continue anticoagulation. 2. Would recommend followup CTA to get better visualization of the right lower lobe pulmonary arteries since patient is high risk for long-term anticoagulation due to history of EtOH. 3. Obtain sleep screen. 4. Also, outpatient followup of pulmonary nodules. Consider PET scan as an outpatient. BRIELLE SCHMIDT M.D. MILES/[id number]
== END 2017-01-11 20:18 | disposition home or self-care (01) ==
LOC: JER 05:21 → J4W 12:30 → INTOOBSV 13:35 → JERBED 13:35 → UNDOADMOB 13:35 → J4W 20:25 → JERBED 20:25
PROVIDERS: ADMIT Internal Medicine; ATTEND Internal Medicine
PROC: 3E013VG Introduction of Insulin into Subcutaneous Tissue, Percutaneous Approach (ICD-10-PCS; principal; 2017-01-09)
PROC: 3E0337Z Introduction of Electrolytic and Water Balance Substance into Peripheral Vein, Percutaneous Approach (ICD-10-PCS; 2017-01-09)
DX: I26.99 Other pulmonary embolism without acute cor pulmonale (principal); E87.1 Hypo-osmolality and hyponatremia; E83.51 Hypocalcemia; R91.8 Other nonspecific abnormal finding of lung field; R42 Dizziness and giddiness; I10 Essential (primary) hypertension; E11.65 Type 2 diabetes mellitus with hyperglycemia; Z79.4 Long term (current) use of insulin; E78.5 Hyperlipidemia, unspecified; E78.1 Pure hyperglyceridemia; F10.10 Alcohol abuse, uncomplicated; Z79.82 Long term (current) use of aspirin; K76.0 Fatty (change of) liver, not elsewhere classified; R00.2 Palpitations; Z79.01 Long term (current) use of anticoagulants
CPT/HCPCS: 36415; 71275-TC; 76705-TC; 80048; 80053; 80061; 80076; 81003; 81015; 82550; 82553; 83036; 83721; 83735; 84100; 84484; 85025; 85027; 85379; 85610; 85730; 93005; 93010; 93970-TC; 99284-25; G0378

== ENCOUNTER 2017-01-14 00:31 | Emergency (ER) | payer OTHER ==
[2017-01-14 00:58] VITALS: BP 104/60; PULSE 109; TEMP 98.2; BMI 32.1
--- NOTE | 2017-01-14 01:31 | PDOC ---
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 Pt describes it as the room spinning. He was seen in the ED and discharged on Wednesday after having a two-day evaluation for shortness of breath, tachycardia, and suspicion for PE. Tests turned out to be negative. He reports that he was started on a new medication which potential side effects can be dizziness but he admits that he has only taken a few doses. Pt denies any chest pain or palpitations. On exam, pt reports that he feels unsteady when ambulating. <Jesenia Boggs - Last Filed: 01/14/17 01:34> - General History Source: Patient <Jose Luis López - Last Filed: 01/14/17 03:14> - General Chief Complaint: Lightheaded Stated Complaint: DIZZINESS Time Seen by Provider: 01/14/17 01:21 Past History <Jesenia Boggs - Last Filed: 01/14/17 01:34> - Past Medical History Diabetes: Yes HTN: Yes - Psycho/Social/Smoking Cessation Hx Anxiety: No Suicidal Ideation: No Smoking History: Never smoked Have you smoked in the past 12 months: No Information on smoking cessation initiated: No Hx Alcohol Use: No Drug/Substance Use Hx: No Substance Use Type: Alcohol Hx Substance Use Treatment: No <Jose Luis López - Last Filed: 01/14/17 03:14> - Past Medical History Allergies/Adverse Reactions: Allergies Allergy/AdvReac Type Severity Reaction Status Date / Time levofloxacin [From Levaquin] Allergy Verified 01/09/17 05:30 metformin Allergy Verified 01/09/17 05:30 Home Medications: Ambulatory Orders Aspirin [Aspirin EC] 81 mg PO DAILY 08/27/15 Insulin Degludec [Tresiba Flextouch U-100] 50 unit SQ DAILY 01/09/17 Gemfibrozil [Lopid -] 600 mg PO BID@0700,1630 #20 tablet 01/11/17 Glipizide 10 mg PO BID #20 tab 01/11/17 Insulin Lispro [Humalog Kwikpen U-200] 200 unit SQ AC #1 insuln.pen 01/11/17 Losartan Potassium [Cozaar] 50 mg PO DAILY #20 tab 01/11/17 Review of Systems - Review of Systems Able to Perform ROS?: Yes Comments:: 01/14/17 01:35 CONSTITUTIONAL: Absent: fever, chills, diaphoresis, generalized weakness, malaise, loss of appetite HEENT: Absent: rhinorrhea, nasal congestion, throat pain, throat swelling, difficulty swallowing, mouth swelling, ear pain, eye pain, visual Changes CARDIOVASCULAR: Present: lightheadedness Absent: chest pain, syncope, palpitations, irregular heart rate, peripheral edema RESPIRATORY: Absent: cough, shortness of breath, dyspnea with exertion, orthopnea, wheezing, stridor, hemoptysis GASTROINTESTINAL: Absent: abdominal pain, abdominal distension, nausea, vomiting, diarrhea, constipation, melena, hematochezia GENITOURINARY: Absent: dysuria, frequency, urgency, hesitancy, hematuria, flank pain, genital pain MUSCULOSKELETAL: Absent: myalgia, arthralgia, joint swelling SKIN: Absent: rash, itching, pallor HEMATOLOGIC/IMMUNOLOGIC: Absent: easy bleeding, easy bruising, lymphadenopathy, frequent infections ENDOCRINE: Absent: unexplained weight gain, unexplained weight loss, heat intolerance, cold intolerance NEUROLOGIC: Present: dizziness, unsteady gait Absent: headache, focal weakness or paresthesias, seizure, mental status changes, bladder or bowel incontinence PSYCHIATRIC: Absent: anxiety, depression, suicidal or homicidal ideation, hallucinations. <Jesenia Boggs - Last Filed: 01/14/17 01:34> *Physical Exam - Vital Signs Last Vital Signs Temp Pulse Resp BP Pulse Ox 98.2 F 109 H 16 104/60 98 01/14/17 00:55 01/14/17 00:55 01/14/17 00:55 01/14/17 00:55 01/14/17 00:55 - Physical Exam Comments: 01/14/17 01:36 GENERAL: Well developed, well nourished. Awake and alert. No acute distress. HEENT: Normocephalic, atraumatic. PERRLA, EOMI. No conjunctival pallor. Sclera are non- icteric. Moist mucous membranes. Oropharynx is clear. NECK: Supple. Full ROM. No JVD. Carotid pulses 2+ and symmetric, without bruits. No thyromegaly. No lymphadenopathy. CARDIOVASCULAR: Regular rate and rhythm. No murmurs, rubs, or gallops. Distal pulses are 2+ and symmetric. PULMONARY: No evidence of respiratory distress. Lungs clear to auscultation bilaterally. No wheezing, rales or rhonchi. ABDOMINAL: Soft. Non-tender. Non-distended. No rebound or guarding. No organomegaly. Normoactive bowel sounds. MUSCULOSKELETAL Normal range of motion at all joints. No bony deformities or tenderness. No CVA tenderness. EXTREMITIES: No cyanosis. No clubbing. No edema. No calf tenderness. SKIN: Warm and dry. Normal capillary refill. No rashes. No jaundice. NEUROLOGICAL: Alert, awake, appropriate. Cranial nerves 2-12 intact. No deficits to light touch and temperature in face, upper extremities and lower extremities. No motor deficits in the in face, upper extremities and lower extremities. Normoreflexic in the upper and lower extremities. Normal speech. PSYCHIATRIC: Cooperative. Good eye contact. Appropriate mood and affect. <Jesenia Boggs - Last Filed: 01/14/17 01:34> - Vital Signs Last Vital Signs Temp Pulse Resp BP Pulse Ox 98.2 F 109 H 16 104/60 98 01/14/17 00:55 01/14/17 00:55 01/14/17 00:55 01/14/17 00:55 01/14/17 00:55 <Jose Luis López - Last Filed: 01/14/17 03:14> ED Treatment Course - ADDITIONAL ORDERS Additional order review: Laboratory Results 01/14/17 00:48 POC Glucometer [id number] 01/14/17 00:48 POC Glucometer [id number] <Jesenia Boggs - Last Filed: 01/14/17 01:34> - LABORATORY CBC & Chemistry Diagram: 01/14/17 01:55 01/14/17 01:55 - ADDITIONAL ORDERS Additional order review: Laboratory Results 01/14/17 00:48 POC Glucometer [id number] 01/14/17 00:48 POC Glucometer [id number] - RADIOLOGY Radiology Studies Ordered: Category Date Time Status CHEST X-RAY PORTABLE* [RAD] Stat Radiology 01/14/17 01:28 Ordered <Jose Luis López - Last Filed: 01/14/17 03:14> Medical Decision Making - Medical Decision Making 01/14/17 03:10 Dr. López: The scribe's documentation has been prepared under my direction and personally reviewed by me in its entirery. I confirm that the note above accurately reflects all work, treatment, procedures, and medical decision making performed by me. patient does not want to stay to follow-up total CPK. BP is 110 systolic. Patient will AGAINST MEDICAL ADVICE and take RESPONSIBILITY OF HIS CONDITION. <Jose Luis López - Last Filed: 01/14/17 03:14> *DC/Admit/Observation/Transfer - Attestations Scribe Attestion: 01/14/17 01:37 Documentation prepared by Jesenia Boggs, acting as spanish medical interpreter for Jose Luis López MD. <Jesenia Boggs - Last Filed: 01/14/17 01:34> - Discharge Dispostion Admit: No <Jose Luis López - Last Filed: 01/14/17 03:14> Diagnosis at time of Disposition: Left against medical advice, Dizziness, Lightheadedness - Discharge Dispostion Disposition: AGAINST MEDICAL ADVICE Condition at time of disposition: Guarded - Patient Instructions Printed Discharge Instructions: DI for Dizziness-Nonvertigo Additional Instructions: By signing against medical advise, you take on responsiblity of your care. Please follow up with your doctor as soon as possible to re-evaluate your symptoms.
[2017-01-14 02:07] LABS: BASO % 0.9 % (0-2.0); EOS % 2.1 % (0-4.5); HEMATOCRIT 36.2 % (35.4-49); HEMOGLOBIN 12.3 GM/dL (11.7-16.9); LYMPH % 26.8 % (8-40); MCH 29.6 pg (25.7-33.7); MCHC 33.9 g/dl (32.0-35.9); MEAN CELL VOLUME 87.4 fl (80-96); MEAN PLT VOLUME 9.2 fl (7.5-11.1); MONO % 8.3 % (3.8-10.2); NEUT % 61.9 % (42.8-82.8); PLATELET COUNT 211 K/MM3 (134-434); RBC 4.15 M/mm3 (4.00-5.60); RDW 13.3 % (11.9-15.9); WHITE BLOOD COUNT 5.1 K/mm3 (4.0-10.0)
[2017-01-14 02:16] LABS: INR 0.98 (0.82-1.09); PROTHROMBIN TIME (PATIENT) 10.8 SEC (9.98-11.88)
[2017-01-14 02:27] LABS: ALBUMIN 3.6 g/dl (3.4-5.0); ANION GAP 13 (8-16); BLOOD UREA NITROGEN 12 mg/dL (7-18); CALCIUM 9.2 mg/dL (8.5-10.1); CHLORIDE 96 mmol/L (98-107); CO2 25 mmol/L (21-32); CREATININE 1.5 mg/dL (0.7-1.3); GLUCOSE,RANDOM 198 mg/dL (74-106); LIPASE 184 U/L (73-393); MAGNESIUM 1.8 mg/dL (1.8-2.4); POTASSIUM 4.1 mmol/L (3.5-5.1); SGOT/AST 45 U/L (15-37); SGPT/ALT 71 U/L (12-78); SODIUM 134 mmol/L (136-145); TOT PROT 7.5 g/dl (6.4-8.2)
[2017-01-14 02:31] LABS: ALK PHOS 186 U/L (45-117); BILIRUBIN,TOTAL 0.8 mg/dL (0.2-1.0); CREATINE PHOSPHOKINASE 525 IU/L (39-308)
[2017-01-14 03:20] LABS: CK-MB 6.257 ng/ml (0.5-3.6)
[2017-01-14 03:22] LABS: CK INDEX 1.2 % (0.0-5.0)
--- NOTE | 2017-01-14 16:33 | EKG ---
Test Reason : Blood Pressure : / mmHG Vent. Rate : 104 BPM Atrial Rate : 104 BPM P-R Int : 158 ms QRS Dur : 074 ms QT Int : 344 ms P-R-T Axes : 050 -08 119 degrees QTc Int : 452 ms SINUS TACHYCARDIA MINIMAL VOLTAGE CRITERIA FOR LVH, MAY BE NORMAL VARIANT T WAVE ABNORMALITY, CONSIDER LATERAL ISCHEMIA ABNORMAL ECG WHEN COMPARED WITH ECG OF 09-JAN-2017 17:48, MINIMAL CRITERIA FOR SEPTAL INFARCT ARE NO LONGER PRESENT T WAVE INVERSION LESS EVIDENT IN LATERAL LEADS Confirmed by RENATA MONTOYA MD ([id number]) on 01/14/2017 4:33:19 PM Referred By: Confirmed By:RENATA MONTOYA MD
== END 2017-01-14 03:18 | disposition left against medical advice (07) ==
LOC: JER 00:31
DX: R42 Dizziness and giddiness (principal)
CPT/HCPCS: 36415; 71020-TC; 80053; 82550; 82553; 83690; 83735; 84484; 85025; 85610; 93005; 93010; 99281-25

== ENCOUNTER 2017-02-14 18:26 | Inpatient (IN) | payer OTHER ==
[2017-02-14 18:35] VITALS: BMI 33.0
[2017-02-14] MEDS ORDERED: SODIUM CHLORIDE 500 ML IV STA (19:50)
[2017-02-14] MEDS ORDERED: morphine CARPU-JECT 4 MG/1 ML DISP.SYRIN IVPUSH ONE (19:52)
[2017-02-14] MEDS ORDERED: VANCOMYCIN 1 GRAM (PRE-DOCKED) 250 ML IVPB ONE (20:53)
[2017-02-14] MEDS ORDERED: morphine CARPU-JECT 2 MG/1 ML DISP.SYRIN ONE (20:53)
[2017-02-14 21:10] LABS: BASOPHIL 1.1 % (0-2.0); EOSINOPHIL 0.8 % (0-4.5); MCH 30.6 pg (25.7-33.7); MCHC 34.8 g/dl (32.0-35.9); MEAN CELL VOLUME 87.9 fl (80-96); MEAN PLT VOLUME 8.3 fl (7.5-11.1); NEUTROPHILS 73.2 % (42.8-82.8); PLATELET COUNT 393 K/MM3 (134-434); RDW 13.5 % (11.9-15.9); WHITE BLOOD COUNT 9.3 K/mm3 (4.0-10.0)
[2017-02-14 21:36] LABS: ALBUMIN 3.5 g/dl (3.4-5.0); ALK PHOS 285 U/L (45-117); ANION GAP 6 (8-16); CALCIUM 9.1 mg/dL (8.5-10.1); CO2 29 mmol/L (21-32); GLUCOSE,RANDOM 132 mg/dL (74-106); SGOT/AST 50 U/L (15-37); SGPT/ALT 42 U/L (12-78); TOT PROT 7.9 g/dl (6.4-8.2)
[2017-02-14] MEDS: VANCOMYCIN 1,000 MG in DEXTROSE 5%-WATER - 250 ML IVPB SCH (22:16)
--- NOTE | 2017-02-14 22:19 | PDOC ---
History of Present Illness - General Chief Complaint: Wound Infection Stated Complaint: POST SURGERY Time Seen by Provider: 02/14/17 19:05 History Source: Patient, Significant Other Exam Limitations: No Limitations - History of Present Illness Initial Comments: 02/14/17 22:15 52yo Male patient w/ Pmhx: DM presents to ED c/o left great toe infection. Patient states Feb 02, went to see tours captain and had toe nails cut down, he states smelling foul odor beginning Wednesday, that got worse. Patient states he tried to clean foot with bleach and alcohol, but smell got worse, so he came in for evaluation. Associated Chills. Denies fever, rash, cough, CP, back pain, Abd pain, n/v/d, or any other complaints at this time. Timing/Duration: getting worse Severity: moderate Modifying Factors: worse with: cold therapy, eating, immobilization, medication , movement, rest, other Associated Symptoms: denies: denies symptoms, chest pain, cough, diaphoresis, fever/chills, headaches, loss of appetite, malaise, nausea/vomiting, rash, seizure, shortness of breath, syncope, weakness, other Aspirin Received prior to arrival: No: no aspirin today, unknown, 81 mg x 1, 81 mg x 2, 81 mg x 3, 81 mg x 4, 325 mg x 1, provided at home, provided by EMS, provided by ED [facility] Contraindications(Core Measure): No: Allergy, Other, Active Blding w/i 24 hrs., Plavix, Receiving Warfarin Past History - Travel Traveled outside of the country in the last 30 days: No Close contact w/someone who was outside of country & ill: No - Past Medical History Allergies/Adverse Reactions: Allergies Allergy/AdvReac Type Severity Reaction Status Date / Time levofloxacin [From Levaquin] Allergy Verified 02/14/17 18:30 metformin Allergy Verified 02/14/17 18:30 Home Medications: Ambulatory Orders Aspirin [Aspirin EC] 81 mg PO DAILY 08/27/15 Insulin Degludec [Tresiba Flextouch U-100] 50 unit SQ DAILY 01/09/17 Gemfibrozil [Lopid -] 600 mg PO BID@0700,1630 #20 tablet 01/11/17 Glipizide 10 mg PO BID #20 tab 01/11/17 Insulin Lispro [Humalog Kwikpen U-200] 200 unit SQ AC #1 insuln.pen 01/11/17 Losartan Potassium [Cozaar] 50 mg PO DAILY #20 tab 01/11/17 Diabetes: Yes HTN: Yes - Psycho/Social/Smoking Cessation Hx Anxiety: No Suicidal Ideation: No Smoking History: Never smoked Have you smoked in the past 12 months: No Information on smoking cessation initiated: No Hx Alcohol Use: No Drug/Substance Use Hx: No Substance Use Type: Alcohol Hx Substance Use Treatment: No Review of Systems - Review of Systems Able to Perform ROS?: Yes Is the patient limited Kazakh proficient: No Constitutional: Yes: Chills. No: Fever, Weakness Respiratory: No: Stridor, Wheezing Cardiac (ROS): No: Chest Pain ABD/GI: No: Constipated, Diarrhea, Nausea, Vomiting, Abdominal cramping : No: Burning, Dysuria, Hematuria Musculoskeletal: No: Back Pain Integumentary: No: Bruising, Erythema, Rash Neurological: No: Headache, Numbness, Tremors All Other Systems: Reviewed and Negative *Physical Exam - Vital Signs Last Vital Signs Temp Pulse Resp BP Pulse Ox 99.1 F 117 H 18 146/82 100 02/14/17 18:31 02/14/17 18:31 02/14/17 18:31 02/14/17 18:31 02/14/17 18:31 - Physical Exam General Appearance: Yes: Nourished, Appropriately Dressed. No: Apparent Distress, Mild Distress, Moderate Distress, Severe Distress Respiratory/Chest: positive: Lungs Clear, Normal Breath Sounds. negative: Chest Tender, Respiratory Distress, Accessory Muscle Use, Labored Respiration, Rapid RR, Stridor, Wheezing Cardiovascular: positive: Regular Rhythm, Regular Rate Gastrointestinal/Abdominal: positive: Normal Bowel Sounds, Soft. negative: Distended, Guarding, Rebound, Tenderness Musculoskeletal: positive: Normal Inspection. negative: CVA Tenderness, Decreased Range of Motion, Vertebral Tenderness Extremity: positive: Normal Range of Motion, Tender (LLE), Swelling (Left foot ) , Calf Tenderness (LLE). negative: Normal Inspection, Erythema, Inflammation Integumentary: positive: Normal Color, Dry, Warm, Swelling. negative: Erythema , Ecchymosis, Bruising Neurologic: positive: design center consultant II-XII NML intact, Fully Oriented, Alert, Normal Mood/ Affect, Normal Response, Motor Strength 10/30 ED Treatment Course - LABORATORY CBC & Chemistry Diagram: 02/14/17 21:00 02/14/17 21:00 - ADDITIONAL ORDERS Additional order review: Laboratory Results 02/14/17 02/14/17 21:00 21:00 Sodium 132 L Potassium 3.9 Chloride 97 L Carbon Dioxide 29 Anion Gap 6 L BUN 8 D Creatinine 1.0 D Creat Clearance w eGFR > 60 Random Glucose 132 H D Lactic Acid 2.3 H* Calcium 9.1 Total Bilirubin 1.0 D AST 50 H ALT 42 D Alkaline Phosphatase 285 H D Total Protein 7.9 Albumin 3.5 02/14/17 21:00 RBC 3.81 L MCV 87.9 MCHC 34.8 RDW 13.5 MPV 8.3 Neutrophils % 73.2 Lymphocytes % 16.8 D Monocytes % 8.1 Eosinophils % 0.8 Basophils % 1.1 - RADIOLOGY Radiology Studies Ordered: Category Date Time Status FOOT-LEFT [RAD] Stat Radiology 02/14/17 19:50 Ordered DUPLEX VASCUL US-1 LEG [US] Stat Ultrasound 02/14/17 19:51 Taken - Medications Given in the ED: ED Medications Discontinued Medications Generic Name Dose Route Start Last Admin Trade Name Freq PRN Reason Stop Dose Admin Sodium Chloride 500 mls @ 500 mls/hr 02/14/17 19:50 02/14/17 21:00 Normal Saline - IV 02/14/17 20:49 500 mls/hr ASDIR STA Administration Morphine Sulfate 4 mg 02/14/17 19:52 02/14/17 21:00 Morphine Injection - IVPUSH 02/14/17 19:53 4 mg ONCE ONE Administration *DC/Admit/Observation/Transfer Diagnosis at time of Disposition: Diabetic foot infection Cellulitis Qualifiers: Site of cellulitis: extremity Site of cellulitis of extremity: lower extremity Laterality: left Qualified Code(s): L03.116 - Cellulitis of left lower limb - Discharge Dispostion Condition at time of disposition: Stable Admit: Yes
[2017-02-15] MEDS ORDERED: PIPERACILLIN/TAZOB 3.375 GM/50 ML PRE-DOCKED IV ONE (03:04)
[2017-02-15] MEDS ORDERED: PIPERACILLIN/TAZOB 3.375 GM 50 ML IVPB ONE (03:09)
[2017-02-15] MEDS ORDERED: morphine CARPU-JECT 4 MG/1 ML DISP.SYRIN IVPUSH ONE (03:13)
[2017-02-15] MEDS ORDERED: morphine CARPU-JECT 10 MG/1 ML DISP.SYRIN ONE (03:16)
--- NOTE | 2017-02-15 04:22 | HP ---
CHIEF COMPLAINT: Left Great Toe Infection PCP: Doctor Not on Staff HISTORY OF PRESENT ILLNESS: This is a 52 y/o male with a past medical history of Diabetes Mellitus. Who presents to the ED with pain, foul smelling drainage from his left great toe. Patient reports having his toenails clipped by his network development coordinator on 02/02. He reports noting a foul smell in his shoe and removed his sock to see serous drainage last Wednesday. Patient now reports increased swelling and pain to his left great toe radiating to his LLE. Patient reports having a subjective fever and chills. Patient denies cough, dizziness, SOB, CP, AP, N/V/D, constipation, dysuria. Patient denies any recent sick contacts. ER course was notable for: (1) Sepsis Criteria met: T max 99.1, P 117, LA 2.3 (2) Doppler of LLE- neg DVT (3) Xray- no evidence of osteomyelitis Recent Travel: None PAST MEDICAL HISTORY: DM HTN HLD Alcohol Abuse PAST SURGICAL HISTORY: None Social History: Smoking: Never Alcohol: Alcohol Abuse hx Drugs: Denies Lives alone- Independent Family History: Allergies levofloxacin [From Levaquin] Allergy (Verified 02/14/17 18:30) metformin Allergy (Verified 02/14/17 18:30) HOME MEDICATIONS: Home Medications Medication Instructions Recorded Aspirin [Aspirin EC] 81 mg PO DAILY 08/27/15 Insulin Degludec [Tresiba 50 unit SQ DAILY 01/09/17 Flextouch U-100] Gemfibrozil [Lopid -] 600 mg PO BID@0700,1630 #20 tablet 01/11/17 Glipizide 10 mg PO BID #20 tab 01/11/17 Insulin Lispro [Humalog Kwikpen 200 unit SQ AC #1 insuln.pen 01/11/17 U-200] Losartan Potassium [Cozaar] 50 mg PO DAILY #20 tab 01/11/17 REVIEW OF SYSTEMS CONSTITUTIONAL: fever, chills Absent: diaphoresis, generalized weakness, malaise, loss of appetite, weight change HEENT: Absent: rhinorrhea, nasal congestion, throat pain, throat swelling, difficulty swallowing, mouth swelling, ear pain, eye pain, visual changes CARDIOVASCULAR: Absent: chest pain, syncope, palpitations, irregular heart rate, lightheadedness , peripheral edema RESPIRATORY: Absent: cough, shortness of breath, dyspnea with exertion, orthopnea, wheezing, stridor, hemoptysis GASTROINTESTINAL: Absent: abdominal pain, abdominal distension, nausea, vomiting, diarrhea, constipation, melena, hematochezia GENITOURINARY: Absent: dysuria, frequency, urgency, hesitancy, hematuria, flank pain, genital pain MUSCULOSKELETAL: LLE pain/swelling Absent: myalgia, arthralgia, joint swelling, back pain, neck pain SKIN: serous drainage, odor from L- Toe DIP Absent: rash, itching, pallor HEMATOLOGIC/IMMUNOLOGIC: Absent: easy bleeding, easy bruising, lymphadenopathy, frequent infections ENDOCRINE: Absent: unexplained weight gain, unexplained weight loss, heat intolerance, cold intolerance NEUROLOGIC: Absent: headache, focal weakness or paresthesias, dizziness, unsteady gait, seizure, mental status changes, bladder or bowel incontinence PSYCHIATRIC: Absent: anxiety, depression, suicidal or homicidal ideation, hallucinations. PHYSICAL EXAMINATION Vital Signs - 24 hr 02/14/17 18:31 Temperature 99.1 F Pulse Rate 117 H Respiratory 18 Rate Blood Pressure 146/82 O2 Sat by Pulse 100 Oximetry (%) GENERAL: Obese, awake, alert, and fully oriented, in no acute distress. HEAD: Normal with no signs of trauma. EYES: Pupils equal, round and reactive to light, extraocular movements intact, sclera anicteric, conjunctiva clear. No lid lag. EARS, NOSE, THROAT: Ears normal, nares patent, oropharynx clear without exudates. Moist mucous membranes. NECK: Normal range of motion, supple without lymphadenopathy, JVD, or masses. LUNGS: Breath sounds equal, clear to auscultation bilaterally. No wheezes, and no crackles. No accessory muscle use. HEART: Regular rate and rhythm, normal S1 and S2 without murmur, rub or gallop. ABDOMEN: Firm, nontender, distended, normoactive bowel sounds, no guarding, no rebound, no masses. No splenomegaly. +hepatomegaly MUSCULOSKELETAL: Normal range of motion at all joints. No bony deformities or tenderness. No CVA tenderness. UPPER EXTREMITIES: 2+ pulses, warm, well-perfused. No cyanosis. No clubbing. No peripheral edema. LOWER EXTREMITIES: 2+ pulses, warm, well-perfused. + left calf tenderness. +2 LLE peripheral edema. NEUROLOGICAL: Cranial nerves II-XII intact. Normal speech. Gait not observed. PSYCHIATRIC: Cooperative. Good eye contact. Appropriate mood and affect. SKIN: Warm, dry, normal turgor, no rashes, normal capillary refill. +callouses to B/L feet, dry flaky soles, diabetic ulcer approx. dime size to left great toe ventral aspect, with foul smelling odor noted. Laboratory Results - last 24 hr 02/14/17 02/14/17 02/14/17 21:00 21:00 21:00 WBC 9.3 D RBC 3.81 L Hgb 11.6 L Hct 33.5 L MCV 87.9 MCH 30.6 MCHC 34.8 RDW 13.5 Plt Count 393 D MPV 8.3 Neutrophils % 73.2 Lymphocytes % 16.8 D Monocytes % 8.1 Eosinophils % 0.8 Basophils % 1.1 Sodium 132 L Potassium 3.9 Chloride 97 L Carbon Dioxide 29 Anion Gap 6 L BUN 8 D Creatinine 1.0 D Creat Clearance w eGFR > 60 Random Glucose 132 H D Lactic Acid 2.3 H* Calcium 9.1 Total Bilirubin 1.0 D AST 50 H ALT 42 D Alkaline Phosphatase 285 H D Total Protein 7.9 Albumin 3.5 ASSESSMENT/PLAN: This is a 52 y/o male with a PMHx of: DM, HTN, HLD, Alcohol Abuse. Admitted to M /S Cellulitis of left Great Toe, Sepsis, Diabetic Foot Infection for further evaluation of their emergent condition. Impression: 1. Cellulitis - Started on Vancomycin/Zosyn in ED, - ID Consult, Continue Empiric Therapy for broad spectrum coverage - Vascular Consult- possible debridement - Wound Care Nurse - No leukocytosis, Low grade Temp, tacyhcardiac, LA elevated, given NS Bolus in ED - Trend LA - Doppler of LLE- neg DVT - Xray of left foot- neg osteomyelitis - Elevate extremity - Monitor vitals - Monitor CBC 2. Sepsis - Met- no leukocytosis, Low grade Temp, tacyhcardiac, LA elevated, given NS Bolus in ED - Blood Cultures -pending - Urinalysis- pending - Urine culture- pending - Follow up with LA - Started on Vanco/Zosyn - Monitor vitals - Monitor CBC,BMP 2. Diabetic Foot Infection See Above 3. Diabetes Mellitus - BGMs - ISS - HgbA1c in am - Monitor renal function 4. Hyperlipidemia - Continue home med 5. FEN - Tolerates PO fluids - Replete lytes prn - Low Na, Low Cholesterol, Diabetic Diet 6. DVT Prophylaxis - OOB - Heparin SQ Code Status: Full Code Requires Inpatient Admission Problem List - Problem (1) Cellulitis Code(s): L03.90 - CELLULITIS, UNSPECIFIED Qualifiers: Site of cellulitis: extremity Site of cellulitis of extremity: lower extremity Laterality: left Qualified Code(s): L03.116 - Cellulitis of left lower limb (2) Diabetic foot infection Code(s): E11.69 - TYPE 2 DIABETES MELLITUS WITH OTHER SPECIFIED COMPLICATION L08.9 - LOCAL INFECTION OF THE SKIN AND SUBCUTANEOUS TISSUE, UNSP (3) HTN (hypertension) Code(s): I10 - ESSENTIAL (PRIMARY) HYPERTENSION (4) HLD (hyperlipidemia) Code(s): E78.5 - HYPERLIPIDEMIA, UNSPECIFIED (5) Diabetes mellitus Code(s): E11.9 - TYPE 2 DIABETES MELLITUS WITHOUT COMPLICATIONS (6) DVT prophylaxis Code(s): UKG6643 - Visit type - Emergency Visit Emergency Visit: Yes ED Registration Date: 02/14/17 Care time: The patient presented to the Emergency Department on the above date and was hospitalized for further evaluation of their emergent condition. - New Patient This patient is new to me today: Yes Date on this admission: 02/15/17 - Critical Care Critical Care patient: No
[2017-02-15] MEDS: HEPARIN NA (PORCINE) 5,000 UNITS/ML 1ML VIAL SQ SCH ×3 (06:24→21:27)
[2017-02-15 09:23] LABS: BASOPHIL 0.6 % (0-2.0); EOSINOPHIL 1.4 % (0-4.5); MCH 30.9 pg (25.7-33.7); MCHC 35.4 g/dl (32.0-35.9); MEAN CELL VOLUME 87.3 fl (80-96); MEAN PLT VOLUME 9.3 fl (7.5-11.1); NEUTROPHILS 71.7 % (42.8-82.8); PLATELET COUNT 347 K/MM3 (134-434); RDW 13.7 % (11.9-15.9); WHITE BLOOD COUNT 7.8 K/mm3 (4.0-10.0)
[2017-02-15] MEDS ORDERED: PIPERACILLIN/TAZOB 3.375 GM/50 ML PRE-DOCKED IVPB SCH (10:00)
[2017-02-15] MEDS ORDERED: VANCOMYCIN 1,250 MG in DEXTROSE 5%-WATER - 250 ML IVPB SCH (10:00)
[2017-02-15] MEDS: VANCOMYCIN 1,000 MG in DEXTROSE 5%-WATER - 250 ML IVPB SCH (10:02)
[2017-02-15 10:05] LABS: ANION GAP 10 (8-16); CALCIUM 8.7 mg/dL (8.5-10.1); CO2 27 mmol/L (21-32); GLUCOSE,RANDOM 244 mg/dL (74-106)
--- NOTE | 2017-02-15 10:59 | EKG ---
Test Reason : Blood Pressure : / mmHG Vent. Rate : 102 BPM Atrial Rate : 102 BPM P-R Int : 164 ms QRS Dur : 084 ms QT Int : 348 ms P-R-T Axes : 057 -17 077 degrees QTc Int : 453 ms SINUS TACHYCARDIA POSSIBLE LEFT ATRIAL ENLARGEMENT CANNOT RULE OUT SEPTAL INFARCT , AGE UNDETERMINED POOR R WAVE PROGRESSION ABNORMAL ECG WHEN COMPARED WITH ECG OF 14-JAN-2017 01:49, T WAVE VARIATION Confirmed by BASILIA ROMERO, SOREN ([id number]) on 02/15/2017 10:58:50 AM Referred By: Confirmed By:SOREN CUI MD
[2017-02-15] MEDS ORDERED: DEXTROSE 5%-WATER - 50 ML IVPB ONE ×2 (11:09→20:30)
[2017-02-15] MEDS ORDERED: PIPERACILLIN/TAZOBACTAM 3.375 GM VIAL IVPB ONE ×2 (11:09→20:29)
[2017-02-15] MEDS ORDERED: PIPERACILLIN/TAZOB 3.375 GM 3.375 GM in DEXTROSE 5%-WATER - 50 ML IVPB ONE (11:15)
[2017-02-15] MEDS ORDERED: INSULIN (NOVOLOG) ASPART 100 UNITS/ML 10ML VIAL ONE ×2 (11:29→20:29)
--- NOTE | 2017-02-15 14:30 | CONSULT ---
Consult Consult Specialty:: infectious diseases Reason for Consultation:: lt foot great toe infection - History of Present Illness Chief Complaint: foul smell from the toe with swelling History of Present Illness: 52 y/o male with a past medical history of Diabetes Mellitus. admitted with pain, foul smelling drainage from his left great toe. 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 He reports noting a foul smell in his shoe and removed his sock to see serous drainage last Wednesday. Patient now reports increased swelling and pain to his left great toe radiating to his LLE. Patient reports having a subjective fever and chills. he mentions that when he was waking up he was sweating - History Source History Provided By: Patient Limitations to Obtaining History: No Limitations - Past Medical History Cardio/Vascular: Yes: HTN, Hyperlipdemia, Other (hypertriglyceridemia) Hepatobiliary: Yes: Other (fatty liver) Psych: Yes: Addictions (alcohol abuse) Endocrine: Yes: Diabetes Mellitus - Past Surgical History Past Surgical History: Yes: None - Alcohol/Substance Use Hx Alcohol Use: No Number of Drinks Daily: 6 History of Substance Use: reports: None - Smoking History Smoking history: Never smoked Have you smoked in the past 12 months: No - Social History ADL: Independent History of Recent Travel: No Home Medications - Allergies Allergies/Adverse Reactions: Allergies Allergy/AdvReac Type Severity Reaction Status Date / Time levofloxacin [From Levaquin] Allergy Verified 02/14/17 18:30 metformin Allergy Verified 02/14/17 18:30 - Home Medications Home Medications: Ambulatory Orders Aspirin [Aspirin EC] 81 mg PO DAILY 08/27/15 Insulin Degludec [Tresiba Flextouch U-100] 50 unit SQ DAILY 01/09/17 Gemfibrozil [Lopid -] 600 mg PO BID@0700,1630 #20 tablet 01/11/17 Glipizide 10 mg PO BID #20 tab 01/11/17 Insulin Lispro [Humalog Kwikpen U-200] 200 unit SQ AC #1 insuln.pen 01/11/17 Losartan Potassium [Cozaar] 50 mg PO DAILY #20 tab 01/11/17 Family Disease History - Family Disease History Family Disease History: Diabetes: Mother, Heart Disease: Father ( of [place] in 40's ) Review of Systems - Review of Systems Constitutional: reports: Fever, Night Sweats Eyes: reports: No Symptoms HENT: reports: No Symptoms Neck: reports: No Symptoms Cardiovascular: reports: No Symptoms Respiratory: reports: No Symptoms Gastrointestinal: reports: No Symptoms Musculoskeletal: reports: Muscle Pain, Other Integumentary: reports: Change in Color, Other Neurological: reports: No Symptoms Endocrine: reports: No Symptoms Hematology/Lymphatic: reports: No Symptoms Psychiatric: reports: No Symptoms Physical Exam Vital Signs: Vital Signs Temperature 100 F H 02/15/17 09:00 Pulse Rate 99 H 02/15/17 09:00 Respiratory Rate 18 02/15/17 09:00 Blood Pressure 104/60 02/15/17 09:00 O2 Sat by Pulse Oximetry (%) 94 L 02/15/17 09:00 Constitutional: Yes: Well Nourished, No Distress, Calm, Obese Eyes: Yes: Conjunctiva Clear HENT: Yes: Atraumatic Neck: Yes: Supple, Trachea Midline Cardiovascular: Yes: Regular Rate and Rhythm Respiratory: Yes: Regular, CTA Bilaterally Gastrointestinal: Yes: Normal Bowel Sounds, Soft Musculoskeletal: Yes: Other Extremities: Yes: Other Edema: LLE: 1+ Peripheral Pulses WNL: (left could not be felt) Integumentary: Yes: Onychomycosis, Other (swelling of the toe on the left foot callouses to B/L feet, dry flaky soles, diabetic ulcer to left great toe ventral aspect, with foul smelling odor noted.) Wound/Incision: Yes: Clean/Dry Neurological: Yes: Alert, Oriented Psychiatric: Yes: Alert, Oriented Labs: CBC, BMP 02/15/17 08:50 02/15/17 08:50 Imaging - Results X-ray: Image Reviewed Assessment/Plan looking at patients picture patient came in sepsis and i think it is coming from his foot I am also worried about osteo of that toe Cellulitis Sepsis Diabetic Foot Infection . Diabetes Mellitus Hyperlipidemia plan await for blood cx if there is draiange send wound cx get mri of the foot abx
[2017-02-15] MEDS ORDERED: PIPERACILLIN/TAZOB 3.375 GM 3.375 GM in DEXTROSE 5%-WATER - 50 ML IVPB SCH (14:45)
--- NOTE | 2017-02-15 15:16 | PN ---
Physical Exam: SUBJECTIVE: Patient seen and examined at the bedside. Denies any chest pain or shortness of breath. States his pain in controlled with the morphine. OBJECTIVE: Elevated BGMs: Levemir 10units @ hs, tighter glycemic Novolog scale Vital Signs Period Temp Pulse Resp BP Sys/Pena Pulse Ox Last 24 Hr 98.8 F-100 F 99-102 18-18 104-152/60-91 94-96 GENERAL: The patient is awake, alert, and fully oriented, in no acute distress. HEAD: Normal with no signs of trauma. EYES: PERRL, extraocular movements intact, sclera anicteric, conjunctiva clear. No ptosis. ENT: Ears normal, nares patent, oropharynx clear without exudates, moist mucous membranes. NECK: Trachea midline, full range of motion, supple. LUNGS: Breath sounds equal, clear to auscultation bilaterally, no wheezes, no crackles, no accessory muscle use. HEART: Regular rate and rhythm, S1, S2 without murmur, rub or gallop. ABDOMEN: Soft, nontender, nondistended, normoactive bowel sounds, no guarding, no rebound, no hepatosplenomegaly, no masses. NEUROLOGICAL: Normal speech, gait not observed. PSYCH: Normal mood, normal affect. LOWER EXTREMITIES: + left calf tenderness. +2 pitting edema, negative for DVT of left leg PSYCHIATRIC: Cooperative. Appropriate mood and affect. SKIN: dry callous scally heels, +fungal toe nails, dry flaky soles, round diabetic ulcer to left great toe ventral aspect, + foul smelling odor noted, no drainage Laboratory Results - last 24 hr 02/15/17 02/15/17 02/15/17 04:20 06:24 08:50 WBC 7.8 RBC 3.20 L Hgb 9.9 L D Hct 28.0 L D MCV 87.3 MCH 30.9 MCHC 35.4 RDW 13.7 Plt Count 347 MPV 9.3 D Neutrophils % 71.7 Lymphocytes % 16.1 Monocytes % 10.2 Eosinophils % 1.4 Basophils % 0.6 Sodium Potassium Chloride Carbon Dioxide Anion Gap BUN Creatinine POC Glucometer 226 Random Glucose Lactic Acid 1.0 Calcium 02/15/17 02/15/17 08:50 11:02 WBC RBC Hgb Hct MCV MCH MCHC RDW Plt Count MPV Neutrophils % Lymphocytes % Monocytes % Eosinophils % Basophils % Sodium 133 L Potassium 4.0 Chloride 96 L Carbon Dioxide 27 Anion Gap 10 BUN 10 D Creatinine 1.0 POC Glucometer 339 Random Glucose 244 H D Lactic Acid Calcium 8.7 Active Medications Generic Name Dose Route Start Last Admin Trade Name Freq PRN Reason Stop Dose Admin Heparin Sodium (Porcine) 5,000 unit 02/15/17 06:00 02/15/17 13:37 Heparin - SQ Not Given TID [facility] Vancomycin HCl 1,250 mg/ 250 mls @ 166.667 mls/hr 02/15/17 10:00 Dextrose IVPB Q12H [facility] Vancomycin HCl 1,250 mg/ 250 mls @ 250 mls/hr 02/15/17 14:45 Dextrose IVPB DAILY [facility] Protocol Piperacillin Sod/Tazobactam 50 mls @ 100 mls/hr 02/15/17 14:45 Sod 3.375 gm/ Dextrose IVPB Q8H-IV [facility] Protocol Insulin Aspart 1 vial 02/15/17 16:30 Novolog Vial Sliding Scale - SQ ACHS [facility] Protocol Morphine Sulfate 4 mg 02/15/17 05:33 Morphine Injection - IVPUSH Q6H PRN PAIN Piperacillin Sod/Tazobactam Sod 3.375 gm 02/15/17 10:00 Zosyn 3.375gm Ivpb (Pre-Docked) IVPB Q8H-IV [facility] Protocol ASSESSMENT/PLAN: Patient is a 52 year old male with a significant past medical history of diabetes mellitus, hypertension, hyperlipidemia and ETOH abuse. He was admitted on 02/15/2017 for cellulitis and foul odor of his left foot, great toe. ID SIRS: Sepsis secondary to left great toe cellulitis - acute A/P: Started on Vanco and Zosyn in the ER Vascular consulted, ID following LLE doppler negative for DVT MRI of left foot to rule out osteomylitis Pain management with Morphine Blood cultures pending Wound cultures ordered if wound begins to drain Lactic acidosis now resolved Monitor vitals, labs Endocrine: Diabetes - chronic A/P: elevated glucose Tighter glycemic control, started on Levemir @10 units at HS Hgba1c F.E.N. Fluids: tolerating PO Electrolytes: monitor with BMP, hyponatremia @133, NS @50cc/hr x 1 liter Nutrition: diabetic diet Prophylaxis: DVT: on Heparin GI: Protonix Disposition: Requires inpatient hospitalization. Full code. Visit type - Emergency Visit Emergency Visit: Yes ED Registration Date: 02/15/17 Care time: The patient presented to the Emergency Department on the above date and was hospitalized for further evaluation of their emergent condition. - New Patient This patient is new to me today: Yes Date on this admission: 02/15/17 - Critical Care Critical Care patient: No - Discharge Referral Referred to [facility] Med P.C.: No
[2017-02-15] MEDS: VANCOMYCIN 1,250 MG in DEXTROSE 5%-WATER - 250 ML IVPB SCH (15:56)
[2017-02-15] MEDS ORDERED: SODIUM CHLORIDE 1,000 ML IV SCH (16:00)
[2017-02-15] MEDS: INSULIN SLIDING SCALE (NOVOLOG) 1 VIAL SQ SCH ×2 (16:13→21:29)
[2017-02-15] MEDS ORDERED: INSULIN SLIDING SCALE (NOVOLOG) 1 VIAL SQ SCH (16:30)
[2017-02-15] MEDS: LOSARTAN POTASSIUM 25 MG TABLET PO SCH (17:13)
--- NOTE | 2017-02-15 20:38 | CONSULT ---
Consult - Past Medical History Cardio/Vascular: Yes: HTN, Hyperlipdemia, Other (hypertriglyceridemia) Hepatobiliary: Yes: Other (fatty liver) Psych: Yes: Addictions (alcohol abuse) Endocrine: Yes: Diabetes Mellitus - Past Surgical History Past Surgical History: Yes: None - Alcohol/Substance Use Hx Alcohol Use: No Number of Drinks Daily: 6 History of Substance Use: reports: None - Smoking History Smoking history: Never smoked Have you smoked in the past 12 months: No - Social History ADL: Independent History of Recent Travel: No Home Medications - Allergies Allergies/Adverse Reactions: Allergies Allergy/AdvReac Type Severity Reaction Status Date / Time levofloxacin [From Levaquin] Allergy Verified 02/14/17 18:30 metformin Allergy Verified 02/14/17 18:30 - Home Medications Home Medications: Ambulatory Orders Aspirin [Aspirin EC] 81 mg PO DAILY 08/27/15 Insulin Degludec [Tresiba Flextouch U-100] 50 unit SQ DAILY 01/09/17 Gemfibrozil [Lopid -] 600 mg PO BID@0700,1630 #20 tablet 01/11/17 Glipizide 10 mg PO BID #20 tab 01/11/17 Insulin Lispro [Humalog Kwikpen U-200] 200 unit SQ AC #1 insuln.pen 01/11/17 Losartan Potassium [Cozaar] 50 mg PO DAILY #20 tab 01/11/17 Family Disease History - Family Disease History Family Disease History: Diabetes: Mother, Heart Disease: Father ( of [place] in 40's ) Physical Exam Vital Signs: Vital Signs Temperature 98.3 F 02/15/17 15:43 Pulse Rate 95 H 02/15/17 15:43 Respiratory Rate 18 02/15/17 15:43 Blood Pressure 149/88 02/15/17 15:43 O2 Sat by Pulse Oximetry (%) 94 L 02/15/17 09:00 Labs: CBC, BMP 02/15/17 08:50 02/15/17 08:50 Assessment/Plan VAscular surgery 52yo Male patient w/ Pmhx: DM presents to ED c/o left great toe infection. Patient states Feb 02, went to see water pump assembler and had toe nails cut down, he states smelling foul odor beginning Wednesday, that got worse. Patient states he tried to clean foot with bleach and alcohol, but smell got worse, so he came in for evaluation. Associated Chills. Denies fever, rash, cough, CP, back pain, Abd pain, n/v/d, or any other complaints at this time. PE Head - NC/AT Lung - cTA Heart - RRR abd - soft,nt,nd ext - left great toe swelling, drainage. Wound on toe probes to subcutaneous tissue. odor present. Pt has palpable DP pulse in foot. A/P Left great toe wound secondary to neuropathy. Awaiting MRI to rule out osteo. From a vascular Standpoint -- pt has palpable pulses. If positive for osteo -- pt will need picc line and antibiotics. Pt is a candidate for Hyperbaric oxygen therapy. Gentamycin ointment to toe Sami Bland DO
[2017-02-15] MEDS: PIPERACILLIN/TAZOB 3.375 GM 3.375 GM in DEXTROSE 5%-WATER - 50 ML IVPB SCH (21:13)
[2017-02-15] MEDS: morphine CARPU-JECT 4 MG/1 ML DISP.SYRIN IVPUSH PRN (21:14)
[2017-02-15] MEDS: GENTAMICIN SO4 0.1% TOPICAL OINTMENT 15 GM/TUBE TUBE TP SCH (21:31)
[2017-02-15] MEDS ORDERED: INSULIN DETEMIR 100 UNITS/ML MDV SQ SCH (22:00)
[2017-02-16] MEDS ORDERED: PIPERACILLIN/TAZOBACTAM 3.375 GM VIAL IVPB ONE ×3 (01:43→17:10)
[2017-02-16] MEDS ORDERED: DEXTROSE 5%-WATER - 50 ML IVPB ONE ×3 (01:44→17:10)
[2017-02-16] MEDS: PIPERACILLIN/TAZOB 3.375 GM 3.375 GM in DEXTROSE 5%-WATER - 50 ML IVPB SCH ×3 (01:57→17:15)
[2017-02-16] MEDS ORDERED: glipiZIDE 5 MG TABLET (FP) ONE ×2 (06:07→16:35)
[2017-02-16] MEDS: glipiZIDE 10 MG TABLET (FP) PO SCH ×2 (06:18→16:45)
[2017-02-16] MEDS: HEPARIN NA (PORCINE) 5,000 UNITS/ML 1ML VIAL SQ SCH ×3 (06:18→21:49)
[2017-02-16] MEDS: GEMFIBROZIL 600 MG TABLET (FP) PO SCH ×2 (06:19→16:44)
[2017-02-16] MEDS: INSULIN SLIDING SCALE (NOVOLOG) 1 VIAL SQ SCH ×4 (06:19→21:51)
[2017-02-16] MEDS: morphine CARPU-JECT 4 MG/1 ML DISP.SYRIN IVPUSH PRN (06:25)
[2017-02-16] MEDS ORDERED: GEMFIBROZIL 600 MG TABLET (FP) PO SCH (07:00)
[2017-02-16] MEDS ORDERED: INSULIN DETEMIR 100 UNITS/ML MDV SQ ONE (07:52)
[2017-02-16 07:53] LABS: BASOPHIL 0.4 % (0-2.0); EOSINOPHIL 1.7 % (0-4.5); MCH 30.2 pg (25.7-33.7); MCHC 34.4 g/dl (32.0-35.9); MEAN CELL VOLUME 87.6 fl (80-96); MEAN PLT VOLUME 8.6 fl (7.5-11.1); NEUTROPHILS 74.5 % (42.8-82.8); PLATELET COUNT 356 K/MM3 (134-434); RDW 13.5 % (11.9-15.9); WHITE BLOOD COUNT 8.8 K/mm3 (4.0-10.0)
[2017-02-16] MEDS ORDERED: PT OWN MED DRAWER 7, Y5N ONE ×4 (07:53→16:42)
[2017-02-16] MEDS ORDERED: INSULIN (NOVOLOG) ASPART 100 UNITS/ML 10ML VIAL ONE ×2 (07:53→20:12)
[2017-02-16 08:14] LABS: ANION GAP 11 (8-16); CALCIUM 8.9 mg/dL (8.5-10.1); CO2 28 mmol/L (21-32)
[2017-02-16 08:19] LABS: ALK PHOS 259 U/L (45-117); BILIRUBIN,TOTAL 0.9 mg/dL (0.2-1.0); CREATININE 1.1 mg/dL (0.7-1.3); SGOT/AST 29 U/L (15-37); SGPT/ALT 33 U/L (12-78); TOT PROT 7.1 g/dl (6.4-8.2)
[2017-02-16] MEDS ORDERED: INSULIN DETEMIR 100 UNITS/ML MDV SQ SCH ×3 (08:45→10:30)
[2017-02-16 08:50] LABS: GLUCOSE,RANDOM 310 mg/dL (74-106)
[2017-02-16] MEDS: GENTAMICIN SO4 0.1% TOPICAL OINTMENT 15 GM/TUBE TUBE TP SCH (09:39)
[2017-02-16] MEDS: LOSARTAN POTASSIUM 25 MG TABLET PO SCH (09:39)
[2017-02-16] MEDS: VANCOMYCIN 1,250 MG in DEXTROSE 5%-WATER - 250 ML IVPB SCH (10:28)
--- NOTE | 2017-02-16 15:18 | PN ---
Progress Note, Physician History of Present Illness: patient stable doing well no new issues - Current Medication List Current Medications: Active Medications Gemfibrozil (Lopid -) 600 mg PO BID@0700,1630 [facility] Last Admin: 02/16/17 06:19 Dose: 600 mg Gentamicin Sulfate (Garamycin 0.1% Ointment -) 1 applic TP DAILY [facility] Last Admin: 02/16/17 09:39 Dose: 1 applic Glipizide (Glucotrol -) 10 mg PO BID@0700,1630 [facility] Last Admin: 02/16/17 06:18 Dose: 10 mg Heparin Sodium (Porcine) (Heparin -) 5,000 unit SQ TID [facility] Last Admin: 02/16/17 14:08 Dose: Not Given Vancomycin HCl 1,250 mg/ (Dextrose) 250 mls @ 250 mls/hr IVPB DAILY [facility] PRN Reason: Protocol Last Admin: 02/16/17 10:28 Dose: 250 mls/hr Piperacillin Sod/Tazobactam (Sod 3.375 gm/ Dextrose) 50 mls @ 100 mls/hr IVPB Q8H-IV [facility] PRN Reason: Protocol Last Admin: 02/16/17 09:38 Dose: 100 mls/hr Sodium Chloride (Normal Saline -) 1,000 mls @ 50 mls/hr IV ASDIR [facility] Stop: 02/16/17 15:50 Last Admin: 02/15/17 16:00 Dose: 50 mls/hr Insulin Aspart (Novolog Vial Sliding Scale -) 1 vial SQ ACHS [facility] PRN Reason: Protocol Last Admin: 02/16/17 11:34 Dose: 8 units Insulin Detemir (Levemir Vial) 15 units SQ BID@0700,2200 [facility] Last Admin: 02/16/17 10:28 Dose: 15 units Losartan Potassium (Cozaar -) 50 mg PO DAILY [facility] Last Admin: 02/16/17 09:39 Dose: 50 mg Morphine Sulfate (Morphine Injection -) 4 mg IVPUSH Q6H PRN PRN Reason: PAIN Last Admin: 02/16/17 06:25 Dose: 4 mg - Objective Vital Signs: Vital Signs Temperature 99 F 02/16/17 14:44 Pulse Rate 99 H 02/16/17 14:44 Respiratory Rate 17 02/16/17 14:44 Blood Pressure 141/87 02/16/17 14:44 O2 Sat by Pulse Oximetry (%) 94 L 02/16/17 09:00 Constitutional: Yes: No Distress, Calm, Obese Cardiovascular: Yes: Regular Rate and Rhythm Respiratory: Yes: Regular, CTA Bilaterally Gastrointestinal: Yes: Normal Bowel Sounds, Soft Musculoskeletal: Yes: WNL Extremities: Yes: Other Integumentary: Yes: Other Wound/Incision: Yes: Clean/Dry Neurological: Yes: Alert, Oriented Psychiatric: Yes: Alert, Oriented Labs: CBC, BMP 02/16/17 06:00 02/16/17 06:00 - ....Imaging MRI: Report Reviewed, Image Reviewed Assessment/Plan looking at patients picture patient came in sepsis and i think it is coming from his foot I am also worried about osteo of that toe Cellulitis Sepsis Diabetic Foot Infection . Diabetes Mellitus Hyperlipidemia wound cx pending mri of the foot noted plan i would suggest draiange of the abscess mri does show osteo depending on what podiatry does and the cx will plan further mgmt
--- NOTE | 2017-02-16 18:02 | PN ---
Physical Exam: SUBJECTIVE: Patient seen and examined. Denies pain or discomfort. OBJECTIVE: Elevated BGMs: Levemir adjusted to 20units BID for tighter glycemic Novolog scale Podiatry consulted Vital Signs Period Temp Pulse Resp BP Sys/Pena Pulse Ox Last 24 Hr 98.1 F-99.5 F 92-108 17-18 125-155/64-87 94-94 GENERAL: The patient is awake, alert, and fully oriented, in no acute distress. HEAD: Normal with no signs of trauma. EYES: PERRL, extraocular movements intact, sclera anicteric, conjunctiva clear. No ptosis. ENT: Ears normal, nares patent, oropharynx clear without exudates, moist mucous membranes. NECK: Trachea midline, full range of motion, supple. LUNGS: Breath sounds equal, clear to auscultation bilaterally, no wheezes, no crackles, no accessory muscle use. HEART: Regular rate and rhythm, S1, S2 without murmur, rub or gallop. ABDOMEN: Soft, nontender, nondistended, normoactive bowel sounds, no guarding, no rebound, no hepatosplenomegaly, no masses. NEUROLOGICAL: Normal speech, gait not observed. PSYCH: Normal mood, normal affect. LOWER EXTREMITIES: + left calf tenderness. +2 pitting edema, negative for DVT of left leg PSYCHIATRIC: Cooperative. Appropriate mood and affect. SKIN: dry callous scally heels, +fungal toe nails, dry flaky soles, round diabetic ulcer to left great toe ventral aspect, + foul smelling odor noted, no drainage Laboratory Results - last 24 hr 02/15/17 02/16/17 02/16/17 21:26 06:00 06:00 WBC 8.8 RBC 3.44 L Hgb 10.4 L Hct 30.2 L MCV 87.6 MCH 30.2 MCHC 34.4 RDW 13.5 Plt Count 356 MPV 8.6 Neutrophils % 74.5 Lymphocytes % 15.3 Monocytes % 8.1 Eosinophils % 1.7 Basophils % 0.4 Sodium 133 L Potassium 4.4 Chloride 94 L Carbon Dioxide 28 Anion Gap 11 BUN 13 D Creatinine 1.1 Creat Clearance w eGFR > 60 POC Glucometer 292 Random Glucose 310 H* D Hemoglobin A1c % Calcium 8.9 Total Bilirubin 0.9 AST 29 D ALT 33 D Alkaline Phosphatase 259 H Total Protein 7.1 Albumin 3.0 L 02/16/17 02/16/17 02/16/17 06:00 06:17 11:31 WBC RBC Hgb Hct MCV MCH MCHC RDW Plt Count MPV Neutrophils % Lymphocytes % Monocytes % Eosinophils % Basophils % Sodium Potassium Chloride Carbon Dioxide Anion Gap BUN Creatinine Creat Clearance w eGFR POC Glucometer 346 258 Random Glucose Hemoglobin A1c % 10.0 H D Calcium Total Bilirubin AST ALT Alkaline Phosphatase Total Protein Albumin 02/16/17 16:39 WBC RBC Hgb Hct MCV MCH MCHC RDW Plt Count MPV Neutrophils % Lymphocytes % Monocytes % Eosinophils % Basophils % Sodium Potassium Chloride Carbon Dioxide Anion Gap BUN Creatinine Creat Clearance w eGFR POC Glucometer 230 Random Glucose Hemoglobin A1c % Calcium Total Bilirubin AST ALT Alkaline Phosphatase Total Protein Albumin Active Medications Generic Name Dose Route Start Last Admin Trade Name Freq PRN Reason Stop Dose Admin Gemfibrozil 600 mg 02/15/17 16:44 02/16/17 16:44 Lopid - PO 600 mg BID@0700,1630 [facility] Administration Gentamicin Sulfate 1 applic 02/15/17 20:45 02/16/17 09:39 Garamycin 0.1% Ointment - TP 1 applic DAILY [facility] Administration Glipizide 10 mg 02/16/17 07:00 02/16/17 16:45 Glucotrol - PO 10 mg BID@0700,1630 [facility] Administration Heparin Sodium (Porcine) 5,000 unit 02/15/17 06:00 02/16/17 14:08 Heparin - SQ Not Given TID [facility] Vancomycin HCl 1,250 mg/ 250 mls @ 250 mls/hr 02/15/17 14:45 02/16/17 10:28 Dextrose IVPB 250 mls/hr DAILY [facility] Administration Protocol Piperacillin Sod/Tazobactam 50 mls @ 100 mls/hr 02/15/17 18:00 02/16/17 17:15 Sod 3.375 gm/ Dextrose IVPB 100 mls/hr Q8H-IV [facility] Administration Protocol Insulin Aspart 1 vial 02/15/17 16:30 02/16/17 16:45 Novolog Vial Sliding Scale - SQ 6 units ACHS [facility] Administration Protocol Insulin Detemir 15 units 02/16/17 10:30 02/16/17 10:28 Levemir Vial SQ 15 units BID@0700,2200 [facility] Administration Losartan Potassium 50 mg 02/15/17 16:45 02/16/17 09:39 Cozaar - PO 50 mg DAILY [facility] Administration Morphine Sulfate 4 mg 02/15/17 05:33 02/16/17 06:25 Morphine Injection - IVPUSH 4 mg Q6H PRN Administration PAIN ASSESSMENT/PLAN: Patient is a 52 year old male with a significant past medical history of diabetes mellitus, hypertension, hyperlipidemia and ETOH abuse. He was admitted on 02/15/2017 for cellulitis and foul odor of his left foot, great toe. 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 Fluids: tolerating PO/NS @ 50cc x 1 liter for hyponatremia Electrolytes: monitor with BMP Nutrition: diabetic diet Prophylaxis: DVT: on Heparin GI: Protonix Disposition: Requires inpatient hospitalization. Full code. Visit type - Emergency Visit Emergency Visit: Yes ED Registration Date: 02/15/17 Care time: The patient presented to the Emergency Department on the above date and was hospitalized for further evaluation of their emergent condition. - New Patient This patient is new to me today: No - Critical Care Critical Care patient: No - Discharge Referral Referred to [facility] Med P.C.: No
[2017-02-16] MEDS ORDERED: SODIUM CHLORIDE 1,000 ML IV SCH (18:15)
[2017-02-16] MEDS: INSULIN DETEMIR 100 UNITS/ML MDV SQ SCH (21:49)
[2017-02-17] MEDS ORDERED: PIPERACILLIN/TAZOBACTAM 3.375 GM VIAL IVPB ONE ×3 (00:42→17:03)
[2017-02-17] MEDS ORDERED: DEXTROSE 5%-WATER - 50 ML IVPB ONE ×3 (00:42→17:03)
[2017-02-17] MEDS: PIPERACILLIN/TAZOB 3.375 GM 3.375 GM in DEXTROSE 5%-WATER - 50 ML IVPB SCH ×4 (00:58→17:11)
[2017-02-17] MEDS ORDERED: glipiZIDE 5 MG TABLET (FP) ONE (05:37)
[2017-02-17] MEDS ORDERED: PT OWN MED DRAWER 7, Y5N ONE ×2 (05:38→07:43)
[2017-02-17] MEDS: HEPARIN NA (PORCINE) 5,000 UNITS/ML 1ML VIAL SQ SCH ×2 (06:00→14:26)
[2017-02-17 07:27] LABS: BASOPHIL 0.5 % (0-2.0); EOSINOPHIL 2.9 % (0-4.5); MCH 30.1 pg (25.7-33.7); MCHC 34.7 g/dl (32.0-35.9); MEAN CELL VOLUME 86.6 fl (80-96); MEAN PLT VOLUME 8.4 fl (7.5-11.1); NEUTROPHILS 72.1 % (42.8-82.8); PLATELET COUNT 333 K/MM3 (134-434); RDW 13.8 % (11.9-15.9); WHITE BLOOD COUNT 7.7 K/mm3 (4.0-10.0)
--- NOTE | 2017-02-17 07:39 | PN ---
Progress Note (short form) - Note Progress Note: PT presents for Podiatry consult with diabetic foot infection of the left foot. Seen at bedside in NAD. Pt states went to [employer] last week for routine diabetic foot care , subsequently developed infection , noticed foul smell from his foot and went to ER for evaluation and treatment. PT is a longstanding diabetic under fair control . Pt states there has been time where he was unable to take diabetic medications due to insurance but has been taking medications recently. PMH IDDM ,HTN ALL: Levaquin, Metformin PSH Hand sx for laceration WALLACE: Palpable pedal pulses . NVS decreased . Epicritic sensations grossly decreased . (++) edema noted left foot . Negative Danyell's sign Left great toe plantar ulceration. , (+) edema (+) erythema. Plantar fluctuance. Mal odor noted. Ulcer probes deep, negative undermining noted NO signs of granulation tissue Non tender on palpation. Negative adenopathy or lymphangitis MRI Suggestive of osteomyelitis left great toe. Impression : Diabetic foot infection left foot Osteomyelitis Plan: Labs Reviewed Diagnostic studies reviewed Sterile dressing change Pt to OR for Incision and Drainage , Bone biopsy and culture of left great toe for care home IVABX as per Infectious Disease Discussed risks , benefits , alternatives as well as possible complications of proposed surgical procedures. PT understands Thank you for courtesy of this consult
[2017-02-17] MEDS ORDERED: INSULIN DETEMIR 100 UNITS/ML MDV SQ ONE (07:43)
[2017-02-17] MEDS ORDERED: INSULIN (NOVOLOG) ASPART 100 UNITS/ML 10ML VIAL ONE ×2 (07:43→16:48)
[2017-02-17] MEDS: GENTAMICIN SO4 0.1% TOPICAL OINTMENT 15 GM/TUBE TUBE TP SCH (08:00)
[2017-02-17] MEDS: LOSARTAN POTASSIUM 25 MG TABLET PO SCH (10:12)
[2017-02-17 10:53] LABS: ALBUMIN 2.8 g/dl (3.4-5.0); ANION GAP 9 (8-16); BILIRUBIN,TOTAL 0.7 mg/dL (0.2-1.0); CALCIUM 9.1 mg/dL (8.5-10.1); CO2 25 mmol/L (21-32); CREATININE 0.8 mg/dL (0.7-1.3); GLUCOSE,RANDOM 148 mg/dL (74-106); SGOT/AST 63 U/L (15-37); SGPT/ALT 52 U/L (12-78)
[2017-02-17 10:54] LABS: ALK PHOS 286 U/L (45-117)
[2017-02-17] MEDS: VANCOMYCIN 1,250 MG in DEXTROSE 5%-WATER - 250 ML IVPB SCH (11:20)
[2017-02-17] MEDS: INSULIN SLIDING SCALE (NOVOLOG) 1 VIAL SQ SCH ×4 (11:24→22:30)
--- NOTE | 2017-02-17 16:33 | PN ---
Progress Note, Physician History of Present Illness: patient stable doing well no new issues patient going for surgery tomorrow - Current Medication List Current Medications: Active Medications Gemfibrozil (Lopid -) 600 mg PO BID@0700,1630 [facility] Last Admin: 02/16/17 16:44 Dose: 600 mg Gentamicin Sulfate (Garamycin 0.1% Ointment -) 1 applic TP DAILY [facility] Last Admin: 02/17/17 08:00 Dose: Not Given Glipizide (Glucotrol -) 10 mg PO BID@0700,1630 [facility] Last Admin: 02/16/17 16:45 Dose: 10 mg Heparin Sodium (Porcine) (Heparin -) 5,000 unit SQ TID [facility] Last Admin: 02/17/17 14:26 Dose: Not Given Vancomycin HCl 1,250 mg/ (Dextrose) 250 mls @ 250 mls/hr IVPB DAILY [facility] PRN Reason: Protocol Last Admin: 02/17/17 11:20 Dose: 250 mls/hr Piperacillin Sod/Tazobactam (Sod 3.375 gm/ Dextrose) 50 mls @ 100 mls/hr IVPB Q8H-IV [facility] PRN Reason: Protocol Last Admin: 02/17/17 10:13 Dose: 100 mls/hr Sodium Chloride (Normal Saline -) 1,000 mls @ 50 mls/hr IV ASDIR [facility] Stop: 02/17/17 18:12 Last Admin: 02/16/17 19:27 Dose: 50 mls/hr Insulin Aspart (Novolog Vial Sliding Scale -) 1 vial SQ ACHS [facility] PRN Reason: Protocol Last Admin: 02/17/17 11:24 Dose: Not Given Insulin Detemir (Levemir Vial) 20 units SQ BID@0700,2200 [facility] Last Admin: 02/16/17 21:49 Dose: 20 units Losartan Potassium (Cozaar -) 50 mg PO DAILY [facility] Last Admin: 02/17/17 10:12 Dose: 50 mg Morphine Sulfate (Morphine Injection -) 4 mg IVPUSH Q6H PRN PRN Reason: PAIN Last Admin: 02/16/17 06:25 Dose: 4 mg - Objective Vital Signs: Vital Signs Temperature 98.9 F 02/17/17 14:36 Pulse Rate 100 H 02/17/17 14:36 Respiratory Rate 17 02/17/17 14:36 Blood Pressure 147/91 08/23/17 14:36 O2 Sat by Pulse Oximetry (%) 94 L 02/17/17 09:00 Constitutional: Yes: No Distress, Calm, Obese Cardiovascular: Yes: Regular Rate and Rhythm Respiratory: Yes: Regular, CTA Bilaterally Gastrointestinal: Yes: Normal Bowel Sounds, Soft Musculoskeletal: Yes: WNL Extremities: Yes: Other Wound/Incision: Yes: Open to air, Draining Neurological: Yes: Alert, Oriented Labs: CBC, BMP 02/17/17 06:00 02/17/17 05:50 Assessment/Plan looking at patients picture patient came in sepsis and i think it is coming from his foot I am also worried about osteo of that toe Cellulitis Sepsis Diabetic Foot Infection . Diabetes Mellitus Hyperlipidemia wound cx pending mri of the foot noted plan continue current mgmt patient for or tomorrow
[2017-02-17] MEDS: GEMFIBROZIL 600 MG TABLET (FP) PO SCH ×2 (17:07→19:55)
[2017-02-17] MEDS: glipiZIDE 10 MG TABLET (FP) PO SCH ×2 (17:07→19:54)
[2017-02-17] MEDS: morphine CARPU-JECT 2 MG/1 ML DISP.SYRIN IVPUSH PRN (17:35)
--- NOTE | 2017-02-17 17:45 | PN ---
Progress Note (short form) - Note Progress Note: Subjective: The patient was seen and examined at the bedside, he has no complaints at this time. Current Medications Generic Name Dose Route Start Last Admin Trade Name Fresoham PRN Reason Stop Dose Admin Gemfibrozil 600 mg 02/15/17 16:44 02/17/17 17:07 Lopid - PO 600 mg BID@0700,1630 [facility] Administration Gentamicin Sulfate 1 applic 02/15/17 20:45 02/17/17 08:00 Garamycin 0.1% Ointment - TP Not Given DAILY [facility] Glipizide 10 mg 02/16/17 07:00 02/17/17 17:07 Glucotrol - PO 10 mg BID@0700,1630 [facility] Administration Heparin Sodium (Porcine) 5,000 unit 02/15/17 06:00 02/17/17 14:26 Heparin - SQ Not Given TID [facility] Vancomycin HCl 1,250 mg/ 250 mls @ 250 mls/hr 02/15/17 14:45 02/17/17 11:20 Dextrose IVPB 250 mls/hr DAILY [facility] Administration Protocol Piperacillin Sod/Tazobactam 50 mls @ 100 mls/hr 02/15/17 18:00 02/17/17 17:11 Sod 3.375 gm/ Dextrose IVPB 100 mls/hr Q8H-IV [facility] Administration Protocol Sodium Chloride 1,000 mls @ 50 mls/hr 02/16/17 18:15 02/16/17 19:27 Normal Saline - IV 02/17/17 18:12 50 mls/hr ASDIR [facility] Administration Insulin Aspart 1 vial 02/15/17 16:30 02/17/17 17:10 Novolog Vial Sliding Scale - SQ 8 units ACHS [facility] Administration Protocol Insulin Detemir 20 units 02/16/17 18:02 02/16/17 21:49 Levemir Vial SQ 20 units BID@0700,2200 [facility] Administration Losartan Potassium 50 mg 02/15/17 16:45 02/17/17 10:12 Cozaar - PO 50 mg DAILY [facility] Administration Morphine Sulfate 4 mg 02/17/17 17:27 Morphine Injection - IVPUSH Q6H PRN PAIN Objective: Vital Signs Period Temp Pulse Resp BP Sys/Pena Pulse Ox Last 24 Hr 98.9 F-99 F 97-100 17-20 119-147/82-98 94-94 Physical Exam: General: NAD, A&Ox3 Lungs: CTA bilaterally Heart: RRR, S1S2 Abd: Soft, non-tender, non-distended Ext: Warm, well-perfused. Dressing on left foot with yellowish drainage CBCD WBC 7.7 K/mm3 (4.0-10.0) 02/17/17 06:00 RBC 3.26 M/mm3 (4.00-5.60) L 02/17/17 06:00 Hgb 9.8 GM/dL (11.7-16.9) L 02/17/17 06:00 Hct 28.2 % (35.4-49) L 02/17/17 06:00 MCV 86.6 fl (80-96) 02/17/17 06:00 MCHC 34.7 g/dl (32.0-35.9) 02/17/17 06:00 RDW 13.8 % (11.9-15.9) 02/17/17 06:00 Plt Count 333 K/MM3 (134-434) 02/17/17 06:00 MPV 8.4 fl (7.5-11.1) 02/17/17 06:00 CMP Sodium 134 mmol/L (136-145) L 02/17/17 05:50 Potassium 4.0 mmol/L (3.5-5.1) 02/17/17 05:50 Chloride 100 mmol/L (98-107) 02/17/17 05:50 Carbon Dioxide 25 mmol/L (21-32) 02/17/17 05:50 Anion Gap 9 (8-16) 02/17/17 05:50 BUN 8 mg/dL (7-18) D 02/17/17 05:50 Creatinine 0.8 mg/dL (0.7-1.3) D 02/17/17 05:50 Creat Clearance w eGFR > 60 (>60) 02/17/17 05:50 Random Glucose 148 mg/dL (74-106) H D 02/17/17 05:50 Calcium 9.1 mg/dL (8.5-10.1) 02/17/17 05:50 Total Bilirubin 0.7 mg/dL (0.2-1.0) D 02/17/17 05:50 AST 63 U/L (15-37) H D 02/17/17 05:50 ALT 52 U/L (12-78) D 02/17/17 05:50 Alkaline Phosphatase 286 U/L (45-117) H 02/17/17 05:50 Total Protein 7.0 g/dl (6.4-8.2) 02/17/17 05:50 Albumin 2.8 g/dl (3.4-5.0) L 02/17/17 05:50 Microbiology 02/15/17 17:00 Toe - Left Hallux Gram Stain - Final 02/15/17 17:00 Toe - Left Hallux Wound Culture - Preliminary Strep Agalactiae Group B Presumptive Mssa (Pbp2a Neg) Pending Organism Streptococcus Viridans Diphtheroid/Corynebacterium 02/14/17 21:30 Blood - Peripheral Venous Blood Culture - Preliminary NO GROWTH OBTAINED AFTER 48 HOURS, INCUBATION TO CONTINUE FOR 3 DAYS. 02/14/17 21:00 Blood - Peripheral Venous Blood Culture - Preliminary NO GROWTH OBTAINED AFTER 48 HOURS, INCUBATION TO CONTINUE FOR 3 DAYS. Assessment: This is a 52 year old male with PMHx of DM, HTN, hyperlipidemia who presented to the ED with pain, foul smelling drainage from his left great toe. Plan: 1) ID: Left great toe osteomyelitis - Culture as above - Continue Vancomycin - Continue Zosyn - For I&D tomorrow, bone biopsy and culture - Will determine from results correction abx - Appreciate podiatry consult - Appreciate ID consult 2) Endocrine: DM - BGM ACHS - ISS ACHS - Continue Glipizide - Levemir 20u sq bid, dose increased on 02/16. Continue to monitor BGM and adjust dose accordingly 3) Cardiology: HTN - Losartan 50mg po daily 4) F/E/N: - Monitor electrolytes - Diabetic, low sodium diet 5) Prophylaxis: - Heparin 5000 u sq tid on hold for surgery tomorrow - OOB ambulating 6) Dispo: - Requires continued inpatient care CODE STATUS: FULL CODE Visit type - Emergency Visit Emergency Visit: Yes ED Registration Date: 02/15/17 Care time: The patient presented to the Emergency Department on the above date and was hospitalized for further evaluation of their emergent condition. - New Patient This patient is new to me today: Yes Date on this admission: 02/17/17 - Critical Care Critical Care patient: No
[2017-02-17] MEDS: INSULIN DETEMIR 100 UNITS/ML MDV SQ SCH ×2 (19:54→22:29)
[2017-02-18] MEDS ORDERED: PIPERACILLIN/TAZOBACTAM 3.375 GM VIAL IVPB ONE ×3 (02:25→17:41)
[2017-02-18] MEDS ORDERED: DEXTROSE 5%-WATER - 50 ML IVPB ONE ×3 (02:26→17:42)
[2017-02-18] MEDS: PIPERACILLIN/TAZOB 3.375 GM 3.375 GM in DEXTROSE 5%-WATER - 50 ML IVPB SCH ×3 (02:46→17:51)
[2017-02-18] MEDS: INSULIN SLIDING SCALE (NOVOLOG) 1 VIAL SQ SCH ×4 (06:35→21:56)
[2017-02-18] MEDS: GEMFIBROZIL 600 MG TABLET (FP) PO SCH ×2 (06:35→17:24)
[2017-02-18] MEDS: glipiZIDE 10 MG TABLET (FP) PO SCH ×2 (06:35→17:24)
[2017-02-18] MEDS: INSULIN DETEMIR 100 UNITS/ML MDV SQ SCH ×2 (06:35→21:57)
[2017-02-18] MEDS ORDERED: INSULIN DETEMIR 100 UNITS/ML MDV SQ ONE (07:04)
[2017-02-18] MEDS ORDERED: PT OWN MED DRAWER 7, Y5N ONE (07:05)
[2017-02-18 07:40] LABS: BASOPHIL 0.7 % (0-2.0); EOSINOPHIL 4.2 % (0-4.5); MCH 29.8 pg (25.7-33.7); MCHC 34.3 g/dl (32.0-35.9); MEAN CELL VOLUME 86.7 fl (80-96); MEAN PLT VOLUME 8.5 fl (7.5-11.1); NEUTROPHILS 68.4 % (42.8-82.8); PLATELET COUNT 399 K/MM3 (134-434); RDW 13.9 % (11.9-15.9); WHITE BLOOD COUNT 6.7 K/mm3 (4.0-10.0)
[2017-02-18 08:06] LABS: ALBUMIN 3.1 g/dl (3.4-5.0); ANION GAP 9 (8-16); CO2 26 mmol/L (21-32); GLUCOSE,RANDOM 223 mg/dL (74-106)
[2017-02-18 08:09] LABS: ALK PHOS 312 U/L (45-117); BILIRUBIN,TOTAL 0.6 mg/dL (0.2-1.0); INR 1.1 (0.82-1.09); PROTHROMBIN TIME (PATIENT) 12.1 SEC (9.98-11.88); SGOT/AST 51 U/L (15-37); SGPT/ALT 49 U/L (12-78); TOT PROT 7.4 g/dl (6.4-8.2)
[2017-02-18 08:12] LABS: ACTIVATED PTT 33.1 SECONDS (26.9-34.4)
[2017-02-18] MEDS: LOSARTAN POTASSIUM 25 MG TABLET PO SCH (09:57)
[2017-02-18] MEDS: VANCOMYCIN 1,250 MG in DEXTROSE 5%-WATER - 250 ML IVPB SCH (10:02)
[2017-02-18 10:24] LABS: URINE APPEARANCE CLEAR; URINE BILIRUBIN NEGATIVE (NEGATIVE); URINE BLOOD NEGATIVE (NEGATIVE); URINE COLOR YELLOW; URINE GLUCOSE (UA) 3+ (NEGATIVE); URINE KETONE NEGATIVE (NEGATIVE); URINE LEUK ESTERASE NEGATIVE (NEGATIVE); URINE NITRITE NEGATIVE (NEGATIVE); URINE UROBILINOGEN 4.0 E.U/dl mg/dL (0.2-1.0)
[2017-02-18 10:25] LABS: URINE PROTEIN 2+ (NEGATIVE)
[2017-02-18] MEDS: SODIUM CHLORIDE 1,000 ML IV SCH (11:27)
[2017-02-18] MEDS: GENTAMICIN SO4 0.1% TOPICAL OINTMENT 15 GM/TUBE TUBE TP SCH (12:23)
[2017-02-18] MEDS: morphine CARPU-JECT 2 MG/1 ML DISP.SYRIN IVPUSH PRN ×2 (12:31→22:08)
[2017-02-18] MEDS ORDERED: MIDAZOLAM HCL 2 MG/2 ML SINGLE DOSE VIAL ONE ×2 (14:09→14:22)
[2017-02-18] MEDS ORDERED: LIDOCAINE HCL/PF 2% SDV 5ML VIAL ONE (14:22)
[2017-02-18] MEDS ORDERED: PROPOFOL 20 ML ONE (14:23)
[2017-02-18] MEDS ORDERED: LIDOCAINE HCL/PF 2% SDV 5ML VIAL INF ONE (14:30)
[2017-02-18] MEDS ORDERED: LIDOCAINE HCL 2% (20ML MULTI-DOSE VIAL) NR ONE (14:32)
[2017-02-18] MEDS ORDERED: oxyCODONE HCL 5 MG TABLET PO PRN ×2 (14:34→15:09)
--- NOTE | 2017-02-18 14:34 | PN ---
Physical Exam: SUBJECTIVE: Patient seen and examined. He has tenderness to his L leg when touched, morphine helps the pain. OBJECTIVE: Vital Signs Period Temp Pulse Resp BP Sys/Pena Pulse Ox Last 24 Hr 98 F-98.9 F 94-100 16-21 139-163/77-97 94-94 PE Neuro: alert, awake, cn 2-12intact Pulm: CTAB CV: s1 s2 rrr no mrg Abd: s nt nd + bs Ext: L foot +1 edema. tenderness from ankle to posterior knee, great toe with yellow discharge CBCD WBC 6.7 K/mm3 (4.0-10.0) 02/18/17 06:00 RBC 3.56 M/mm3 (4.00-5.60) L 02/18/17 06:00 Hgb 10.6 GM/dL (11.7-16.9) L 02/18/17 06:00 Hct 30.9 % (35.4-49) L 02/18/17 06:00 MCV 86.7 fl (80-96) 02/18/17 06:00 MCHC 34.3 g/dl (32.0-35.9) 02/18/17 06:00 RDW 13.9 % (11.9-15.9) 02/18/17 06:00 Plt Count 399 K/MM3 (134-434) 02/18/17 06:00 MPV 8.5 fl (7.5-11.1) 02/18/17 06:00 CMP Sodium 133 mmol/L (136-145) L 02/18/17 06:00 Potassium 4.4 mmol/L (3.5-5.1) 02/18/17 06:00 Chloride 98 mmol/L (98-107) 02/18/17 06:00 Carbon Dioxide 26 mmol/L (21-32) 02/18/17 06:00 Anion Gap 9 (8-16) 02/18/17 06:00 BUN 14 mg/dL (7-18) D 02/18/17 06:00 Creatinine 1.0 mg/dL (0.7-1.3) D 02/18/17 06:00 Creat Clearance w eGFR > 60 (>60) 02/18/17 06:00 Calcium 9.0 mg/dL (8.5-10.1) 02/18/17 06:00 Total Bilirubin 0.6 mg/dL (0.2-1.0) 02/18/17 06:00 AST 51 U/L (15-37) H 02/18/17 06:00 ALT 49 U/L (12-78) 02/18/17 06:00 Alkaline Phosphatase 312 U/L (45-117) H 02/18/17 06:00 Total Protein 7.4 g/dl (6.4-8.2) 02/18/17 06:00 Albumin 3.1 g/dl (3.4-5.0) L 02/18/17 06:00 02/18/17 06:00 INR 1.10 PTT (Actin FS) 33.1 Active Medications Generic Name Dose Route Start Last Admin Trade Name Freq PRN Reason Stop Dose Admin Gemfibrozil 600 mg 02/15/17 16:44 02/18/17 06:35 Lopid - PO Not Given BID@0700,1630 [facility] Gentamicin Sulfate 1 applic 02/15/17 20:45 02/18/17 12:23 Garamycin 0.1% Ointment - TP 1 applic DAILY [facility] Administration Glipizide 10 mg 02/16/17 07:00 02/18/17 06:35 Glucotrol - PO Not Given BID@0700,1630 [facility] Heparin Sodium (Porcine) 5,000 unit 02/15/17 06:00 02/17/17 14:26 Heparin - SQ Not Given TID [facility] Vancomycin HCl 1,250 mg/ 250 mls @ 250 mls/hr 02/15/17 14:45 02/18/17 10:02 Dextrose IVPB 250 mls/hr DAILY [facility] Administration Protocol Piperacillin Sod/Tazobactam 50 mls @ 100 mls/hr 02/15/17 18:00 02/18/17 09:42 Sod 3.375 gm/ Dextrose IVPB 100 mls/hr Q8H-IV [facility] Administration Protocol Sodium Chloride 1,000 mls @ 83 mls/hr 02/18/17 11:00 02/18/17 11:27 Normal Saline - IV 83 mls/hr ASDIR [facility] Administration Insulin Aspart 1 vial 02/15/17 16:30 02/18/17 11:19 Novolog Vial Sliding Scale - SQ Not Given ACHS [facility] Protocol Insulin Detemir 20 units 02/16/17 18:02 02/18/17 06:35 Levemir Vial SQ Not Given BID@0700,2200 [facility] Losartan Potassium 50 mg 02/15/17 16:45 02/18/17 09:57 Cozaar - PO 50 mg DAILY [facility] Administration Morphine Sulfate 4 mg 02/17/17 17:27 02/18/17 12:31 Morphine Injection - IVPUSH 4 mg Q6H PRN Administration PAIN Microbiology 02/15/17 17:00 Gram Stain - Final Toe - Left Hallux Wound Culture - Preliminary Strep Agalactiae Group B Staphylococcus Aureus Pending Organism Streptococcus Viridans Diphtheroid/Corynebacterium 02/14/17 21:30 Blood Culture - Preliminary Blood - Peripheral Venous NO GROWTH OBTAINED AFTER 72 HOURS, INCUBATION TO CONTINUE FOR 2 DAYS. 02/14/17 21:00 Blood Culture - Preliminary Blood - Peripheral Venous NO GROWTH OBTAINED AFTER 72 HOURS, INCUBATION TO CONTINUE FOR 2 DAYS. Assessment: 52 year old male with PMHx of DM II, HTN, HLD admitted with foul smelling drainage from his left great toe. Plan: 1. Left great toe osteomyelitis - For biopsy and cx in OR today 1400 - Continue Vancomycin - Continue Zosyn - Will need PICC for roasterman abx 2. DM II - Increase Levemir 23units BID - BGM, ISS, ACHS - Continue Glipizide - Continue Gemfibrozil 3. HTN - Losartan 50mg daily 4. Elevated alk phos - Likely due to above process 5. Prophylaxis - Resume heparin tomorrow - OOB ambulating Visit type - Emergency Visit Emergency Visit: Yes ED Registration Date: 02/15/17 Care time: The patient presented to the Emergency Department on the above date and was hospitalized for further evaluation of their emergent condition. - New Patient This patient is new to me today: Yes Date on this admission: 02/18/17 - Critical Care Critical Care patient: No
--- NOTE | 2017-02-18 14:39 | PN ---
Progress Note (short form) - Note Progress Note: Seen in holding area of OR for Incision and drainage and cultures of right great toe Discussed risks benefits alternatives as well as possible complications Consent obtained Medically cleared PT to OR for proposed procedure
[2017-02-18] MEDS ORDERED: ceFAZolin SODIUM 1 GM VIAL IVPB ONE (14:48)
--- NOTE | 2017-02-18 15:05 | OP ---
Operative Note - Note: Operative Date: 02/18/17 Pre-Operative Diagnosis: osteomyelitis left great toe Operation: Incision and Drainage , bone biospy and culture left hallux Findings: bone infection Surgeon: Russ Diaz Specimens Removed: bone/soft tissue Drains & Tubes with Location: packing
[2017-02-18] MEDS ORDERED: PROMETHAZINE HCL 25 MG/1 ML VIAL IVPUSH PRN (15:09)
[2017-02-18] MEDS ORDERED: ONDANSETRON 4 MG/2 ML VIAL IVPUSH PRN (15:09)
--- NOTE | 2017-02-18 15:32 | PN ---
Progress Note, Physician History of Present Illness: doing well no new issues - Current Medication List Current Medications: Active Medications Docusate Sodium (Colace -) 100 mg PO BID [facility] Fentanyl (Sublimaze Injection -) 25 mcg IVPUSH [id number] PRN PRN Reason: PAIN Stop: 02/21/17 15:10 Gemfibrozil (Lopid -) 600 mg PO BID@0700,1630 [facility] Last Admin: 02/18/17 06:35 Dose: Not Given Gentamicin Sulfate (Garamycin 0.1% Ointment -) 1 applic TP DAILY [facility] Last Admin: 02/18/17 12:23 Dose: 1 applic Glipizide (Glucotrol -) 10 mg PO BID@0700,1630 [facility] Last Admin: 02/18/17 06:35 Dose: Not Given Heparin Sodium (Porcine) (Heparin -) 5,000 unit SQ TID [facility] Vancomycin HCl 1,250 mg/ (Dextrose) 250 mls @ 250 mls/hr IVPB DAILY [facility] PRN Reason: Protocol Last Admin: 02/18/17 10:02 Dose: 250 mls/hr Piperacillin Sod/Tazobactam (Sod 3.375 gm/ Dextrose) 50 mls @ 100 mls/hr IVPB Q8H-IV [facility] PRN Reason: Protocol Last Admin: 02/18/17 09:42 Dose: 100 mls/hr Sodium Chloride (Normal Saline -) 1,000 mls @ 83 mls/hr IV ASDIR [facility] Last Admin: 02/18/17 11:27 Dose: 83 mls/hr Insulin Aspart (Novolog Vial Sliding Scale -) 1 vial SQ ACHS [facility] PRN Reason: Protocol Last Admin: 02/18/17 11:19 Dose: Not Given Insulin Detemir (Levemir Vial) 23 units SQ BID@0700,2200 [facility] Losartan Potassium (Cozaar -) 50 mg PO DAILY [facility] Last Admin: 02/18/17 09:57 Dose: 50 mg Morphine Sulfate (Morphine Injection -) 4 mg IVPUSH Q6H PRN PRN Reason: PAIN Last Admin: 02/18/17 12:31 Dose: 4 mg Ondansetron HCl (Zofran Injection) 4 mg IVPUSH Q6H PRN PRN Reason: NAUSEA AND/OR VOMITING Stop: 02/18/17 21:10 Oxycodone HCl (Roxicodone -) 5 mg PO Q4H PRN PRN Reason: PAIN Oxycodone HCl (Roxicodone -) 5 mg PO Q4H PRN PRN Reason: MILD PAIN Stop: 02/19/17 15:08 Promethazine HCl (Phenergan Injection -) 12.5 mg IVPUSH Q6H PRN PRN Reason: NAUSEA-FOR RESCUE AFTER 15 MIN Stop: 02/18/17 21:10 - Objective Vital Signs: Vital Signs Temperature 98 F 02/18/17 13:50 Pulse Rate 96 H 02/18/17 13:50 Respiratory Rate 16 02/18/17 13:50 Blood Pressure 149/87 02/18/17 13:50 O2 Sat by Pulse Oximetry (%) 94 L 02/18/17 09:00 Constitutional: Yes: No Distress, Calm Cardiovascular: Yes: Regular Rate and Rhythm Respiratory: Yes: Regular, CTA Bilaterally Gastrointestinal: Yes: Normal Bowel Sounds, Soft Musculoskeletal: Yes: WNL Extremities: Yes: Other Neurological: Yes: Alert, Oriented Psychiatric: Yes: Alert Labs: CBC, BMP 02/18/17 06:00 02/18/17 06:00 INR, PTT INR 1.10 (0.82-1.09) 02/18/17 06:00 Assessment/Plan looking at patients picture patient came in sepsis and i think it is coming from his foot I am also worried about osteo of that toe Cellulitis Sepsis Diabetic Foot Infection . Diabetes Mellitus Hyperlipidemia plan await for final plan' once we have everything we will decie further rest as per primary
--- NOTE | 2017-02-18 15:44 | OP ---
DATE OF OPERATION: 02/18/2017 SURGEON: Russ Otero DPM SIFTING OPERATOR: Dr. Bassett, resident PREOPERATIVE DIAGNOSIS: Osteomyelitis, left foot, with diabetic foot infection. POSTOPERATIVE DIAGNOSIS: Osteomyelitis, left foot, with diabetic foot infection. PROCEDURE: Incision and drainage left great toe with bone biopsy and bone culture left great toe. DESCRIPTION OF PROCEDURE: Patient identified as the patient. He was brought to the operating room and placed on the operating room in supine position. No tourniquet was utilized during the procedure. The left foot and leg are prepped and draped in the usual sterile manner, utilizing aseptic technique. Attention was then directed to the distal aspect of the left foot where a well placed 3-cm fishmouth incision was made overlying the distal aspect of the hallux. The incision was deepened via sharp and blunt dissection, paying careful attention to all neurovascular structures, ligating encountered. The incision was deepened to the level of the distal phalanx which was identified, and at this time a soft tissue culture was done deep. The wound was then copiously flushed with sterile saline. At this time, the distal phalanx, and the distal tip of the distal phalanx, freed from all soft tissue attachments and resected utilizing a double action bone cutter. The area was then rasped to smooth contour taking great care to make sure no bony spicules emanated from this area. The wound was then pulse lavaged with normal saline and bacitracin. The wound was then packed with 1/4 inch iodoform gauze and loosely reapproximated with 3-0 nylon in simple suture fashion. At this time on the back table, the bone was sectioned off for a bone culture and a bone biopsy. Wound was then dressed in Xeroform, gauze, 4x4s, Chantel, and Abner wrap. The patient was noted to tolerate the procedure and anesthesia well, left the operating room with vital signs stable, neurovascular status intact. RUSS OTERO DPM [id number]
[2017-02-18] MEDS ORDERED: INSULIN (NOVOLOG) ASPART 100 UNITS/ML 10ML VIAL ONE (17:43)
[2017-02-18] MEDS: DOCUSATE SODIUM 100 MG CAPSULE (FP) PO SCH (21:58)
[2017-02-19] MEDS ORDERED: PIPERACILLIN/TAZOBACTAM 3.375 GM VIAL IVPB ONE ×3 (02:08→17:03)
[2017-02-19] MEDS ORDERED: DEXTROSE 5%-WATER - 50 ML IVPB ONE ×3 (02:08→17:03)
[2017-02-19] MEDS: PIPERACILLIN/TAZOB 3.375 GM 3.375 GM in DEXTROSE 5%-WATER - 50 ML IVPB SCH ×3 (02:42→17:40)
[2017-02-19] MEDS ORDERED: glipiZIDE 5 MG TABLET (FP) ONE (06:07)
[2017-02-19] MEDS ORDERED: PT OWN MED DRAWER 7, Y5N ONE ×3 (06:08→11:14)
[2017-02-19] MEDS: GEMFIBROZIL 600 MG TABLET (FP) PO SCH ×2 (06:30→17:39)
[2017-02-19] MEDS: HEPARIN NA (PORCINE) 5,000 UNITS/ML 1ML VIAL SQ SCH ×3 (06:31→22:13)
[2017-02-19] MEDS: INSULIN SLIDING SCALE (NOVOLOG) 1 VIAL SQ SCH ×4 (06:32→22:15)
[2017-02-19] MEDS: glipiZIDE 10 MG TABLET (FP) PO SCH ×2 (06:32→17:39)
[2017-02-19] MEDS: INSULIN DETEMIR 100 UNITS/ML MDV SQ SCH ×2 (06:33→22:14)
[2017-02-19] MEDS ORDERED: INSULIN DETEMIR 100 UNITS/ML MDV SQ ONE (06:49)
[2017-02-19] MEDS ORDERED: INSULIN (NOVOLOG) ASPART 100 UNITS/ML 10ML VIAL ONE ×2 (06:49→11:13)
[2017-02-19 07:37] LABS: ALBUMIN 3.1 g/dl (3.4-5.0); ANION GAP 8 (8-16); CALCIUM 9.5 mg/dL (8.5-10.1); CO2 27 mmol/L (21-32); GLUCOSE,RANDOM 261 mg/dL (74-106)
[2017-02-19 07:41] LABS: ALK PHOS 277 U/L (45-117); BILIRUBIN,TOTAL 0.8 mg/dL (0.2-1.0); CREATININE 1.1 mg/dL (0.7-1.3); SGOT/AST 22 U/L (15-37); SGPT/ALT 46 U/L (12-78)
--- NOTE | 2017-02-19 08:31 | PN ---
Progress Note (short form) - Note Progress Note: Podiatry: Seen/evaluated at bedside, NAD. Denies F/V/N/C/SOB/CP. S/p L great toe incision and drainage, bone bx POD # 1. AFebrile, VSS. Pain improved. WALLACE: L foot: post-surgical wound distal tuft of great toe with sutures, packing in place; no purulent drainage, no fluctuance, no periwound erythema, no ascending cellulitis, no soft tissue crepitus, no signs of active infection. Minimal tenderness to palpation. WBC: 6.7 OR Cx: pending L foot MRI: osteomyelitis, early abscess distal tuft of great toe Imp: 52 year old IDDM M s/p L great toe incision/drainage with bone bx POD # 1 1. C/w IV abx per ID 2. Packing removed, DSD L great toe 3. Will continue with local wound care until cultures return 4. Will need PICC line for Tx of osteomyelitis 5. Glycemic control 6. Upon discharge, will f/u with me in wound care center Rain Siddiqui DPM
[2017-02-19] MEDS: LOSARTAN POTASSIUM 25 MG TABLET PO SCH (11:10)
[2017-02-19] MEDS: DOCUSATE SODIUM 100 MG CAPSULE (FP) PO SCH ×3 (11:10→22:13)
[2017-02-19] MEDS: VANCOMYCIN 1,250 MG in DEXTROSE 5%-WATER - 250 ML IVPB SCH (11:15)
[2017-02-19] MEDS: SODIUM CHLORIDE 1,000 ML IV SCH (11:15)
[2017-02-19] MEDS: morphine CARPU-JECT 2 MG/1 ML DISP.SYRIN IVPUSH PRN (11:34)
--- NOTE | 2017-02-19 14:40 | PN ---
Progress Note, Physician History of Present Illness: patient stable doing well no new issues post op now - Current Medication List Current Medications: Active Medications Docusate Sodium (Colace -) 100 mg PO BID [facility] Last Admin: 02/19/17 11:29 Dose: Not Given Gemfibrozil (Lopid -) 600 mg PO BID@0700,1630 [facility] Last Admin: 02/19/17 06:30 Dose: Not Given Gentamicin Sulfate (Garamycin 0.1% Ointment -) 1 applic TP DAILY [facility] Last Admin: 02/18/17 12:23 Dose: 1 applic Glipizide (Glucotrol -) 10 mg PO BID@0700,1630 [facility] Last Admin: 02/19/17 06:32 Dose: 10 mg Heparin Sodium (Porcine) (Heparin -) 5,000 unit SQ TID [facility] Last Admin: 02/19/17 06:31 Dose: Not Given Vancomycin HCl 1,250 mg/ (Dextrose) 250 mls @ 250 mls/hr IVPB DAILY [facility] PRN Reason: Protocol Last Admin: 02/19/17 11:15 Dose: 250 mls/hr Piperacillin Sod/Tazobactam (Sod 3.375 gm/ Dextrose) 50 mls @ 100 mls/hr IVPB Q8H-IV [facility] PRN Reason: Protocol Last Admin: 02/19/17 11:09 Dose: 100 mls/hr Sodium Chloride (Normal Saline -) 1,000 mls @ 83 mls/hr IV ASDIR [facility] Last Admin: 02/19/17 11:15 Dose: 83 mls/hr Insulin Aspart (Novolog Vial Sliding Scale -) 1 vial SQ ACHS [facility] PRN Reason: Protocol Last Admin: 02/19/17 11:22 Dose: 6 units Insulin Detemir (Levemir Vial) 23 units SQ BID@0700,2200 [facility] Last Admin: 02/19/17 06:33 Dose: 23 units Losartan Potassium (Cozaar -) 50 mg PO DAILY [facility] Last Admin: 02/19/17 11:10 Dose: 50 mg Morphine Sulfate (Morphine Injection -) 4 mg IVPUSH Q6H PRN PRN Reason: PAIN Last Admin: 02/19/17 11:34 Dose: 4 mg Oxycodone HCl (Roxicodone -) 5 mg PO Q4H PRN PRN Reason: PAIN Oxycodone HCl (Roxicodone -) 5 mg PO Q4H PRN PRN Reason: MILD PAIN Stop: 02/19/17 15:08 - Objective Vital Signs: Vital Signs Temperature 98 F 02/19/17 11:07 Pulse Rate 92 H 02/19/17 11:07 Respiratory Rate 20 02/19/17 11:07 Blood Pressure 158/90 02/19/17 11:07 O2 Sat by Pulse Oximetry (%) 97 02/19/17 09:00 Constitutional: Yes: No Distress, Calm Cardiovascular: Yes: Regular Rate and Rhythm Respiratory: Yes: Regular, CTA Bilaterally Gastrointestinal: Yes: Normal Bowel Sounds, Soft Musculoskeletal: Yes: Other Extremities: Yes: Other Wound/Incision: Yes: Dressing Dry and Intact Neurological: Yes: Alert, Oriented Psychiatric: Yes: Alert Labs: CBC, BMP 02/18/17 06:00 02/19/17 06:15 INR, PTT INR 1.10 (0.82-1.09) 02/18/17 06:00 Assessment/Plan looking at patients picture patient came in sepsis and i think it is coming from his foot I am also worried about osteo of that toe Cellulitis Sepsis Diabetic Foot Infection . Diabetes Mellitus Hyperlipidemia wound cx pending mri of the foot noted plan continue current mgmt await for cx tomorrow
--- NOTE | 2017-02-19 16:30 | PN ---
Physical Exam: SUBJECTIVE: Patient seen and examined. He has no pain, morphine is helping. OBJECTIVE: Vital Signs Period Temp Pulse Resp BP Sys/Pena Pulse Ox Last 24 Hr 97 F-98.8 F 82-92 10-20 127-158/72-97 97-98 PE Neuro: alert, awake, cn 2-12intact Pulm: CTAB CV: s1 s2 rrr no mrg Abd: s nt nd + bs Ext: L foot in dressing, sanguinous drainage, no pitting edema Laboratory Results - last 24 hr 02/18/17 02/18/17 02/19/17 16:41 21:54 06:15 Sodium 132 L Potassium 4.4 Chloride 97 L Carbon Dioxide 27 Anion Gap 8 BUN 20 H D Creatinine 1.1 Creat Clearance w eGFR > 60 POC Glucometer 212 308 Random Glucose 261 H Calcium 9.5 Total Bilirubin 0.8 D AST 22 D ALT 46 Alkaline Phosphatase 277 H Total Protein 8.0 Albumin 3.1 L Active Medications Generic Name Dose Route Start Last Admin Trade Name Freq PRN Reason Stop Dose Admin Docusate Sodium 100 mg 02/18/17 22:00 02/19/17 11:29 Colace - PO Not Given BID [facility] Gemfibrozil 600 mg 02/15/17 16:44 02/19/17 06:30 Lopid - PO Not Given BID@0700,1630 [facility] Gentamicin Sulfate 1 applic 02/15/17 20:45 02/18/17 12:23 Garamycin 0.1% Ointment - TP 1 applic DAILY [facility] Administration Glipizide 10 mg 02/16/17 07:00 02/19/17 06:32 Glucotrol - PO 10 mg BID@0700,1630 [facility] Administration Heparin Sodium (Porcine) 5,000 unit 02/19/17 06:00 02/19/17 15:22 Heparin - SQ Not Given TID [facility] Vancomycin HCl 1,250 mg/ 250 mls @ 250 mls/hr 02/15/17 14:45 02/19/17 11:15 Dextrose IVPB 250 mls/hr DAILY [facility] Administration Protocol Piperacillin Sod/Tazobactam 50 mls @ 100 mls/hr 02/15/17 18:00 02/19/17 11:09 Sod 3.375 gm/ Dextrose IVPB 100 mls/hr Q8H-IV [facility] Administration Protocol Sodium Chloride 1,000 mls @ 83 mls/hr 02/18/17 11:00 02/19/17 11:15 Normal Saline - IV 83 mls/hr ASDIR [facility] Administration Insulin Aspart 1 vial 02/15/17 16:30 02/19/17 11:22 Novolog Vial Sliding Scale - SQ 6 units ACHS [facility] Administration Protocol Insulin Detemir 23 units 02/18/17 22:00 02/19/17 06:33 Levemir Vial SQ 23 units BID@0700,2200 [facility] Administration Losartan Potassium 50 mg 02/15/17 16:45 02/19/17 11:10 Cozaar - PO 50 mg DAILY [facility] Administration Morphine Sulfate 4 mg 02/17/17 17:27 02/19/17 11:34 Morphine Injection - IVPUSH 4 mg Q6H PRN Administration PAIN Oxycodone HCl 5 mg 02/18/17 14:34 Roxicodone - PO Q4H PRN PAIN Assessment: 52 year old male with PMHx of DM II, HTN, HLD admitted with foul smelling drainage from his left great toe. Plan: 1. Left great toe osteomyelitis - s/p L great toe incision/drainage with bone bx 02/18 - Cultures pending - Wound care follow up - PICC line for osteo once sensitivies return - Continue vanco/zosyn 2. DM II - Increase Levemir 25units BID - BGM, ISS, ACHS - Per pt no longer on PO antidiabetics, only on lantus and novolog - Will likely need additional coverage/standing with meals, will monitor sugars 3. HTN - Per pt takes lisinopril 10mg daily - Will stop losartan 50mg 4. Elevated alk phos - Downtrending - Likely due to above process 5. Prophylaxis - Heparin sq - OOB ambulating Visit type - Emergency Visit Emergency Visit: Yes ED Registration Date: 02/15/17 Care time: The patient presented to the Emergency Department on the above date and was hospitalized for further evaluation of their emergent condition. - New Patient This patient is new to me today: No - Critical Care Critical Care patient: No
[2017-02-19] MEDS ORDERED: morphine CARPU-JECT 2 MG/1 ML DISP.SYRIN IVPUSH PRN (16:57)
[2017-02-19] MEDS: GENTAMICIN SO4 0.1% TOPICAL OINTMENT 15 GM/TUBE TUBE TP SCH (17:39)
[2017-02-20] MEDS ORDERED: PIPERACILLIN/TAZOBACTAM 3.375 GM VIAL IVPB ONE ×3 (00:42→16:19)
[2017-02-20] MEDS ORDERED: DEXTROSE 5%-WATER - 50 ML IVPB ONE ×3 (00:42→16:20)
[2017-02-20] MEDS: PIPERACILLIN/TAZOB 3.375 GM 3.375 GM in DEXTROSE 5%-WATER - 50 ML IVPB SCH ×3 (02:10→17:14)
[2017-02-20] MEDS: SODIUM CHLORIDE 1,000 ML IV SCH ×3 (03:13→17:15)
[2017-02-20] MEDS: HEPARIN NA (PORCINE) 5,000 UNITS/ML 1ML VIAL SQ SCH ×3 (06:13→21:10)
[2017-02-20] MEDS: INSULIN DETEMIR 100 UNITS/ML MDV SQ SCH ×2 (06:19→22:27)
[2017-02-20] MEDS: INSULIN SLIDING SCALE (NOVOLOG) 1 VIAL SQ SCH ×4 (06:20→22:27)
[2017-02-20] MEDS ORDERED: INSULIN (NOVOLOG) ASPART 100 UNITS/ML 10ML VIAL ONE (07:40)
[2017-02-20] MEDS ORDERED: INSULIN DETEMIR 100 UNITS/ML MDV SQ ONE (07:40)
[2017-02-20] MEDS ORDERED: PT OWN MED DRAWER 7, Y5N ONE (08:07)
[2017-02-20] MEDS: DOCUSATE SODIUM 100 MG CAPSULE (FP) PO SCH ×2 (09:19→21:10)
[2017-02-20] MEDS: VANCOMYCIN 1,250 MG in DEXTROSE 5%-WATER - 250 ML IVPB SCH (09:22)
[2017-02-20] MEDS: LISINOPRIL 10 MG TABLET (FP) PO SCH (09:22)
[2017-02-20] MEDS: GENTAMICIN SO4 0.1% TOPICAL OINTMENT 15 GM/TUBE TUBE TP SCH (12:04)
--- NOTE | 2017-02-20 12:44 | PN ---
Progress Note, Physician History of Present Illness: patient stable doing well no new issues post op - Current Medication List Current Medications: Active Medications Docusate Sodium (Colace -) 100 mg PO BID [facility] Last Admin: 02/20/17 09:19 Dose: Not Given Gentamicin Sulfate (Garamycin 0.1% Ointment -) 1 applic TP DAILY [facility] Last Admin: 02/20/17 12:04 Dose: Not Given Heparin Sodium (Porcine) (Heparin -) 5,000 unit SQ TID [facility] Last Admin: 02/20/17 06:13 Dose: Not Given Vancomycin HCl 1,250 mg/ (Dextrose) 250 mls @ 250 mls/hr IVPB DAILY [facility] PRN Reason: Protocol Last Admin: 02/20/17 09:22 Dose: 250 mls/hr Piperacillin Sod/Tazobactam (Sod 3.375 gm/ Dextrose) 50 mls @ 100 mls/hr IVPB Q8H-IV [facility] PRN Reason: Protocol Last Admin: 02/20/17 09:22 Dose: 100 mls/hr Sodium Chloride (Normal Saline -) 1,000 mls @ 83 mls/hr IV ASDIR [facility] Last Admin: 02/20/17 11:41 Dose: Not Given Insulin Aspart (Novolog Vial Sliding Scale -) 1 vial SQ ACHS [facility] PRN Reason: Protocol Last Admin: 02/20/17 11:59 Dose: 8 units Insulin Detemir (Levemir Vial) 30 units SQ BID@0700,2200 [facility] Lisinopril (Prinivil) 10 mg PO DAILY [facility] Last Admin: 02/20/17 09:22 Dose: 10 mg Morphine Sulfate (Morphine Injection -) 2 mg IVPUSH Q6H PRN PRN Reason: PAIN Last Admin: 02/20/17 10:18 Dose: 2 mg Oxycodone HCl (Roxicodone -) 5 mg PO Q4H PRN PRN Reason: PAIN - Objective Vital Signs: Vital Signs Temperature 97.7 F 02/20/17 10:00 Pulse Rate 92 H 02/20/17 10:00 Respiratory Rate 18 02/20/17 10:00 Blood Pressure 168/81 02/20/17 10:00 O2 Sat by Pulse Oximetry (%) 97 02/20/17 10:00 Constitutional: Yes: No Distress, Calm, Obese Cardiovascular: Yes: Regular Rate and Rhythm Respiratory: Yes: Regular, CTA Bilaterally Gastrointestinal: Yes: Normal Bowel Sounds, Soft Musculoskeletal: Yes: Other Extremities: Yes: Other Wound/Incision: Yes: Dressing Dry and Intact Neurological: Yes: Alert, Oriented Psychiatric: Yes: Alert Labs: CBC, BMP 02/18/17 06:00 02/19/17 06:15 INR, PTT INR 1.10 (0.82-1.09) 02/18/17 06:00 Assessment/Plan looking at patients picture patient came in sepsis and i think it is coming from his foot I am also worried about osteo of that toe Cellulitis Sepsis Diabetic Foot Infection . Diabetes Mellitus Hyperlipidemia wound cx pending mri of the foot noted plan continue current mgmt will stop vanco cx reports noted awaiting for gram stain
--- NOTE | 2017-02-20 14:31 | PN ---
Physical Exam: SUBJECTIVE: Patient seen and examined at the bedside. He denies any pain or discomfort. OBJECTIVE: Levemir increased to 30 units BID for elevated blood sugars Hyponatremia - on IVF of NS @ 83 Vital Signs Period Temp Pulse Resp BP Sys/Pena Pulse Ox Last 24 Hr 97.7 F-98.3 F 91-101 18-20 140-168/77-90 97-97 GENERAL: The patient is awake, alert, and fully oriented, in no acute distress. HEAD: Normal with no signs of trauma. EYES: PERRL, extraocular movements intact, sclera anicteric, conjunctiva clear. No ptosis. ENT: Ears normal, nares patent, oropharynx clear without exudates, moist mucous membranes. NECK: Trachea midline, full range of motion, supple. LUNGS: Breath sounds equal, clear to auscultation bilaterally, no wheezes, no crackles, no accessory muscle use. HEART: Regular rate and rhythm, S1, S2 without murmur, rub or gallop. ABDOMEN: Soft, nontender, nondistended, normoactive bowel sounds, no guarding, no rebound, no hepatosplenomegaly, no masses. NEUROLOGICAL: Normal speech, gait not observed. PSYCH: Normal mood, normal affect. LOWER EXTREMITIES: + left calf tenderness. +2 pitting edema, negative for DVT of left leg PSYCHIATRIC: Cooperative. Appropriate mood and affect. SKIN: dry callous scally heels, +fungal toe nails, dry flaky soles - left foot bandage Laboratory Results - last 24 hr 02/19/17 02/19/17 02/20/17 17:35 22:13 06:17 POC Glucometer 266 250 336 02/20/17 11:58 POC Glucometer 261 Active Medications Generic Name Dose Route Start Last Admin Trade Name Freq PRN Reason Stop Dose Admin Docusate Sodium 100 mg 02/18/17 22:00 02/20/17 09:19 Colace - PO Not Given BID [facility] Gentamicin Sulfate 1 applic 02/15/17 20:45 02/20/17 12:04 Garamycin 0.1% Ointment - TP Not Given DAILY [facility] Heparin Sodium (Porcine) 5,000 unit 02/19/17 06:00 02/20/17 13:17 Heparin - SQ Not Given TID [facility] Piperacillin Sod/Tazobactam 50 mls @ 100 mls/hr 02/15/17 18:00 02/20/17 09:22 Sod 3.375 gm/ Dextrose IVPB 100 mls/hr Q8H-IV [facility] Administration Protocol Sodium Chloride 1,000 mls @ 83 mls/hr 02/18/17 11:00 02/20/17 11:41 Normal Saline - IV Not Given ASDIR [facility] Insulin Aspart 1 vial 02/15/17 16:30 02/20/17 11:59 Novolog Vial Sliding Scale - SQ 8 units ACHS [facility] Administration Protocol Insulin Detemir 30 units 02/20/17 22:00 Levemir Vial SQ BID@0700,2200 [facility] Lisinopril 10 mg 02/20/17 10:00 02/20/17 09:22 Prinivil PO 10 mg DAILY [facility] Administration Morphine Sulfate 2 mg 02/19/17 16:57 02/20/17 10:18 Morphine Injection - IVPUSH 2 mg Q6H PRN Administration PAIN Oxycodone HCl 5 mg 02/18/17 14:34 Roxicodone - PO Q4H PRN PAIN ASSESSMENT/PLAN: Patient is a 52 year old male with a significant past medical history of diabetes mellitus, hypertension, hyperlipidemia and ETOH abuse. He was admitted on 02/15/2017 for cellulitis and foul odor of his left foot, great toe. ID SIRS: Sepsis secondary to left great toe cellulitis - acute A/P: S/P L great toe incision/drainage with bone biopsy on 02/18/2017 Antibiotics stopped by ID, awaiting final wound cultures MRI of left foot consistent with osteomylitis, +abscess WBC stable On Gentamin ointment and wound care to left foot Blood cultures negative Monitor vitals, labs As per ID, patient will need correction antibiotics pending wound final report Will order PICC prior to discharge Endocrine: Diabetes - chronic A/P: elevated glucose Tighter glycemic control, Levemir @ 30 units BID F.E.N. Fluids: NS @ 83cc x 1 liter for hyponatremia Electrolytes: monitor with BMP Nutrition: diabetic diet Prophylaxis: DVT: on Heparin GI: Protonix Disposition: Requires inpatient hospitalization. Full code. Visit type - Emergency Visit Emergency Visit: Yes ED Registration Date: 02/15/17 Care time: The patient presented to the Emergency Department on the above date and was hospitalized for further evaluation of their emergent condition. - New Patient This patient is new to me today: No - Critical Care Critical Care patient: No - Discharge Referral Referred to [facility] Med P.C.: No
--- NOTE | 2017-02-20 15:13 | PN ---
Progress Note (short form) - Note Progress Note: Podiatry: Seen/evaluated at bedside, NAD. Pain controlled, denies F/V/N/C/SOB/CP. S/p L great toe incision and drainage, bone biopsy. Afebrile, VSS. WALLACE: L foot: dressing C/D/I, no active bleeding noted. Sutures coapted with some slough of surrounding skin, (+) serous drainage, no purulence, no fluctuance, no ascending cellulitis, no soft tissue crepitus, no signs of active infection. Minimal tenderness to palpation. WBC: 6.7 Bone Cx: strep B Imp: 52 year old DM M s/p L great toe incision/drainage, bone biopsy 1. C/w IV abx per ID 2. Awaiting finalized cultures. 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 Bactroban + DSD L great toe 4. Partial WB L foot with surgical shoe 5. F/u in wound care center upon discharge Rain Siddiqui DPM
[2017-02-20] MEDS ORDERED: MUPIROCIN 2% TOPICAL OINTMENT 22 GM TUBE TP SCH (22:00)
[2017-02-20] MEDS: morphine CARPU-JECT 4 MG/1 ML DISP.SYRIN IVPUSH PRN (23:56)
[2017-02-21] MEDS ORDERED: DEXTROSE 5%-WATER - 50 ML IVPB ONE ×2 (00:17→07:49)
[2017-02-21] MEDS ORDERED: PIPERACILLIN/TAZOBACTAM 3.375 GM VIAL IVPB ONE ×2 (00:17→07:49)
[2017-02-21] MEDS: PIPERACILLIN/TAZOB 3.375 GM 3.375 GM in DEXTROSE 5%-WATER - 50 ML IVPB SCH ×2 (01:16→09:52)
[2017-02-21] MEDS: HEPARIN NA (PORCINE) 5,000 UNITS/ML 1ML VIAL SQ SCH ×3 (05:51→21:41)
[2017-02-21] MEDS: INSULIN SLIDING SCALE (NOVOLOG) 1 VIAL SQ SCH ×4 (06:16→21:41)
[2017-02-21] MEDS: INSULIN DETEMIR 100 UNITS/ML MDV SQ SCH ×2 (06:31→21:40)
[2017-02-21 07:10] LABS: BASOPHIL 1.2 % (0-2.0); EOSINOPHIL 3.3 % (0-4.5); MCHC 34.5 g/dl (32.0-35.9); MEAN CELL VOLUME 86.7 fl (80-96); MEAN PLT VOLUME 8.3 fl (7.5-11.1); NEUTROPHILS 66.5 % (42.8-82.8); PLATELET COUNT 427 K/MM3 (134-434)
[2017-02-21 07:26] LABS: ALBUMIN 3.2 g/dl (3.4-5.0); ANION GAP 8 (8-16); CALCIUM 9.2 mg/dL (8.5-10.1); CO2 28 mmol/L (21-32); SGOT/AST 10 U/L (15-37); SGPT/ALT 28 U/L (12-78)
[2017-02-21 07:29] LABS: ALK PHOS 219 U/L (45-117); BILIRUBIN,TOTAL 0.4 mg/dL (0.2-1.0); GLUCOSE,RANDOM 327 mg/dL (74-106); TOT PROT 7.6 g/dl (6.4-8.2)
[2017-02-21] MEDS: morphine CARPU-JECT 4 MG/1 ML DISP.SYRIN IVPUSH PRN ×2 (09:51→21:50)
[2017-02-21] MEDS: MUPIROCIN 2% TOPICAL OINTMENT 22 GM TUBE TP SCH (09:52)
[2017-02-21] MEDS: LISINOPRIL 10 MG TABLET (FP) PO SCH (09:53)
[2017-02-21] MEDS: DOCUSATE SODIUM 100 MG CAPSULE (FP) PO SCH ×2 (09:53→21:42)
[2017-02-21] MEDS: SODIUM CHLORIDE 1,000 ML IV SCH (09:57)
[2017-02-21] MEDS ORDERED: LOSARTAN POTASSIUM 25 MG TABLET PO ONE (12:35)
[2017-02-21] MEDS ORDERED: PICC LINE 8 ML FLUSH PROTOCOL IVPUSH PRN (12:53)
--- NOTE | 2017-02-21 12:54 | PN ---
Physical Exam: SUBJECTIVE: Patient seen and examined at the bedside. He denies any chest pain or discomfort. States the pain is being managed with morphine. OBJECTIVE: PICC ordered for tomorrow/will need vanco for 4 weeks as per ID Discharge planning Will need to follow up in wound care center upon discharge Vital Signs Period Temp Pulse Resp BP Sys/Pena Pulse Ox Last 24 Hr 98.1 F-98.2 F 91-96 18-20 140-173/84-97 95-97 GENERAL: The patient is awake, alert, and fully oriented, in no acute distress. HEAD: Normal with no signs of trauma. EYES: PERRL, extraocular movements intact, sclera anicteric, conjunctiva clear. No ptosis. ENT: Ears normal, nares patent, oropharynx clear without exudates, moist mucous membranes. NECK: Trachea midline, full range of motion, supple. LUNGS: Breath sounds equal, clear to auscultation bilaterally, no wheezes, no crackles, no accessory muscle use. HEART: Regular rate and rhythm, S1, S2 without murmur, rub or gallop. ABDOMEN: Soft, nontender, nondistended, normoactive bowel sounds, no guarding, no rebound, no hepatosplenomegaly, no masses. NEUROLOGICAL: Normal speech, gait not observed. PSYCH: Normal mood, normal affect. LOWER EXTREMITIES: + left calf tenderness. +2 pitting edema, negative for DVT of left leg PSYCHIATRIC: Cooperative. Appropriate mood and affect. SKIN: dry callous scally heels, +fungal toe nails, dry flaky soles - left foot bandage Laboratory Results - last 24 hr 02/20/17 02/20/17 02/21/17 16:27 22:25 05:53 WBC RBC Hgb Hct MCV MCH MCHC RDW Plt Count MPV Neutrophils % Lymphocytes % Monocytes % Eosinophils % Basophils % Sodium Potassium Chloride Carbon Dioxide Anion Gap BUN Creatinine Creat Clearance w eGFR POC Glucometer 218 279 329 Random Glucose Calcium Total Bilirubin AST ALT Alkaline Phosphatase Total Protein Albumin 02/21/17 02/21/17 02/21/17 06:15 06:15 12:19 WBC 6.0 RBC 3.58 L Hgb 10.7 L Hct 31.1 L MCV 86.7 MCH 30.0 MCHC 34.5 RDW 14.0 Plt Count 427 MPV 8.3 Neutrophils % 66.5 Lymphocytes % 21.2 Monocytes % 7.8 Eosinophils % 3.3 Basophils % 1.2 Sodium 135 L Potassium 4.0 Chloride 99 Carbon Dioxide 28 Anion Gap 8 BUN 15 D Creatinine 1.0 Creat Clearance w eGFR > 60 POC Glucometer 278 Random Glucose 327 H* D Calcium 9.2 Total Bilirubin 0.4 D AST 10 L D ALT 28 D Alkaline Phosphatase 219 H D Total Protein 7.6 Albumin 3.2 L Active Medications Generic Name Dose Route Start Last Admin Trade Name Freq PRN Reason Stop Dose Admin Docusate Sodium 100 mg 02/18/17 22:00 02/21/17 09:53 Colace - PO Not Given BID [facility] Heparin Sodium (Porcine) 5,000 unit 02/19/17 06:00 02/21/17 05:51 Heparin - SQ Not Given TID [facility] Piperacillin Sod/Tazobactam 50 mls @ 100 mls/hr 02/15/17 18:00 02/21/17 09:52 Sod 3.375 gm/ Dextrose IVPB 100 mls/hr Q8H-IV [facility] Administration Protocol Insulin Aspart 1 vial 02/15/17 16:30 02/21/17 12:20 Novolog Vial Sliding Scale - SQ 8 units ACHS [facility] Administration Protocol Insulin Detemir 35 units 02/21/17 08:00 Levemir Vial SQ BID@0700,2200 [facility] Lisinopril 10 mg 02/21/17 12:33 Prinivil PO 02/21/17 12:34 ONCE ONE Lisinopril 20 mg 02/22/17 10:00 Prinivil PO DAILY [facility] Losartan Potassium 25 mg 02/21/17 12:35 Cozaar - PO 02/21/17 12:36 ONCE ONE Losartan Potassium 25 mg 02/22/17 10:00 Cozaar - PO DAILY [facility] Morphine Sulfate 2 mg 02/20/17 23:53 02/21/17 09:51 Morphine Injection - IVPUSH 2 mg Q6H PRN Administration PAIN Mupirocin 1 applic 02/21/17 10:00 02/21/17 09:52 Bactroban 2% Ointment - TP 1 applic DAILY [facility] Administration Oxycodone HCl 5 mg 02/18/17 14:34 Roxicodone - PO Q4H PRN PAIN ASSESSMENT/PLAN: Patient is a 52 year old male with a significant past medical history of diabetes mellitus, hypertension, hyperlipidemia and ETOH abuse. He was admitted on 02/15/2017 for cellulitis and foul odor of his left foot, great toe. ID SIRS: Sepsis secondary to left great toe cellulitis - improved A/P: S/P L great toe incision/drainage with bone biopsy on 02/18/2017 Wound/bone microbiology report noted As per ID, patient will need Vancomycin for 4 more weeks PICC line tomorrow Will need to follow up on wound clinic Blood cultures negative Endocrine: Diabetes - chronic A/P: elevated glucose Tighter glycemic control, Levemir @ 35 units BID F.E.N. Fluids: tolerating PO Electrolytes: monitor with BMP Nutrition: diabetic diet Prophylaxis: DVT: on Heparin GI: Protonix Disposition: Requires inpatient hospitalization. Full code. Visit type - Emergency Visit Emergency Visit: Yes ED Registration Date: 02/15/17 Care time: The patient presented to the Emergency Department on the above date and was hospitalized for further evaluation of their emergent condition. - New Patient This patient is new to me today: No - Critical Care Critical Care patient: No - Discharge Referral Referred to [facility] Med P.C.: No
[2017-02-21] MEDS ORDERED: LISINOPRIL 10 MG TABLET (FP) PO ONE (13:00)
--- NOTE | 2017-02-21 13:05 | PN ---
Progress Note, Physician History of Present Illness: doing well no new issues dressing changed no fevers - Current Medication List Current Medications: Active Medications Docusate Sodium (Colace -) 100 mg PO BID [facility] Last Admin: 02/21/17 09:53 Dose: Not Given Heparin Sodium (Porcine) (Heparin -) 5,000 unit SQ TID [facility] Last Admin: 02/21/17 05:51 Dose: Not Given IV Flush (Picc Line Flush) 8 ml IVPUSH PRN PRN PRN Reason: Protocol Piperacillin Sod/Tazobactam (Sod 3.375 gm/ Dextrose) 50 mls @ 100 mls/hr IVPB Q8H-IV [facility] PRN Reason: Protocol Last Admin: 02/21/17 09:52 Dose: 100 mls/hr Insulin Aspart (Novolog Vial Sliding Scale -) 1 vial SQ ACHS [facility] PRN Reason: Protocol Last Admin: 02/21/17 12:20 Dose: 8 units Insulin Detemir (Levemir Vial) 35 units SQ BID@0700,2200 [facility] Lisinopril (Prinivil) 20 mg PO DAILY [facility] Losartan Potassium (Cozaar -) 25 mg PO DAILY [facility] Morphine Sulfate (Morphine Injection -) 2 mg IVPUSH Q6H PRN PRN Reason: PAIN Last Admin: 02/21/17 09:51 Dose: 2 mg Mupirocin (Bactroban 2% Ointment -) 1 applic TP DAILY [facility] Last Admin: 02/21/17 09:52 Dose: 1 applic Oxycodone HCl (Roxicodone -) 5 mg PO Q4H PRN PRN Reason: PAIN - Objective Vital Signs: Vital Signs Temperature 98.1 F 02/21/17 09:30 Pulse Rate 96 H 02/21/17 09:30 Respiratory Rate 18 02/21/17 09:30 Blood Pressure 162/97 02/21/17 09:30 O2 Sat by Pulse Oximetry (%) 95 02/21/17 10:02 Constitutional: Yes: No Distress, Calm, Obese Cardiovascular: Yes: Regular Rate and Rhythm Respiratory: Yes: Regular, CTA Bilaterally Gastrointestinal: Yes: Normal Bowel Sounds, Soft Musculoskeletal: Yes: WNL Extremities: Yes: Other Wound/Incision: Yes: Dressing Dry and Intact Neurological: Yes: Alert, Oriented Psychiatric: Yes: Alert, Oriented Labs: CBC, BMP 02/21/17 06:15 08/27/17 06:15 INR, PTT INR 1.10 (0.82-1.09) 02/18/17 06:00 Assessment/Plan looking at patients picture patient came in sepsis and i think it is coming from his foot I am also worried about osteo of that toe Cellulitis Sepsis Diabetic Foot Infection . Diabetes Mellitus Hyperlipidemia wound cx pending mri of the foot noted plan continue current mgmt all cx result noted will start patient on vanco will stop all abx will need vanco for 4 weeks
[2017-02-21] MEDS: VANCOMYCIN 1,250 MG in DEXTROSE 5%-WATER - 250 ML IVPB SCH (14:54)
[2017-02-21] MEDS ORDERED: PT OWN MED DRAWER 7, Y5N ONE (15:24)
[2017-02-21] MEDS ORDERED: amLODIPine BESYLATE 10 MG TABLET (FP) PO ONE (18:15)
[2017-02-22] MEDS: HEPARIN NA (PORCINE) 5,000 UNITS/ML 1ML VIAL SQ SCH ×2 (06:18→14:07)
[2017-02-22] MEDS: INSULIN SLIDING SCALE (NOVOLOG) 1 VIAL SQ SCH ×3 (06:20→17:06)
[2017-02-22] MEDS: INSULIN DETEMIR 100 UNITS/ML MDV SQ SCH (06:20)
[2017-02-22 07:08] LABS: BASOPHIL 0.9 % (0-2.0); EOSINOPHIL 3.2 % (0-4.5); MCHC 34.7 g/dl (32.0-35.9); MEAN CELL VOLUME 86.6 fl (80-96); MEAN PLT VOLUME 8.2 fl (7.5-11.1); NEUTROPHILS 62.6 % (42.8-82.8); PLATELET COUNT 400 K/MM3 (134-434); RDW 13.8 % (11.9-15.9); WHITE BLOOD COUNT 5.5 K/mm3 (4.0-10.0)
[2017-02-22 07:27] LABS: ALBUMIN 3.2 g/dl (3.4-5.0); ANION GAP 8 (8-16); CALCIUM 9.1 mg/dL (8.5-10.1); CO2 28 mmol/L (21-32); CREATININE 0.9 mg/dL (0.7-1.3); GLUCOSE,RANDOM 300 mg/dL (74-106); SGOT/AST 11 U/L (15-37); SGPT/ALT 23 U/L (12-78)
[2017-02-22 07:29] LABS: ALK PHOS 192 U/L (45-117); BILIRUBIN,TOTAL 0.5 mg/dL (0.2-1.0); TOT PROT 7.4 g/dl (6.4-8.2)
--- NOTE | 2017-02-22 09:01 | DS ---
Physical Exam: SUBJECTIVE: Patient seen and examined. Patient is agreeing to be discharged to a nursing facility for continued IV antibiotics of Vanco and wound care. OBJECTIVE: For a PICC line today prior to d/c Vital Signs Period Temp Pulse Resp BP Sys/Pena Pulse Ox Last 24 Hr 97.7 F-98.6 F 91-99 18-20 139-183/81-107 95-95 PHYSICAL EXAM GENERAL: The patient is awake, alert, and fully oriented, in no acute distress. HEAD: Normal with no signs of trauma. EYES: PERRL, extraocular movements intact, sclera anicteric, conjunctiva clear. No ptosis. ENT: Ears normal, nares patent, oropharynx clear without exudates, moist mucous membranes. NECK: Trachea midline, full range of motion, supple. LUNGS: Breath sounds equal, clear to auscultation bilaterally, no wheezes, no crackles, no accessory muscle use. HEART: Regular rate and rhythm, S1, S2 without murmur, rub or gallop. ABDOMEN: Soft, nontender, nondistended, normoactive bowel sounds, no guarding, no rebound, no hepatosplenomegaly, no masses. NEUROLOGICAL: Normal speech, gait not observed. PSYCH: Normal mood, normal affect. LOWER EXTREMITIES: + left calf tenderness. +2 pitting edema, negative for DVT of left leg PSYCHIATRIC: Cooperative. Appropriate mood and affect. SKIN: dry callous scally heels, +fungal toe nails, dry flaky soles - left foot bandage . LABS Laboratory Results - last 24 hr 02/21/17 02/21/17 02/21/17 12:19 16:27 21:37 WBC RBC Hgb Hct MCV MCH MCHC RDW Plt Count MPV Neutrophils % Lymphocytes % Monocytes % Eosinophils % Basophils % Sodium Potassium Chloride Carbon Dioxide Anion Gap BUN Creatinine Creat Clearance w eGFR POC Glucometer 278 285 229 Random Glucose Calcium Total Bilirubin AST ALT Alkaline Phosphatase Total Protein Albumin 02/22/17 02/22/17 02/22/17 05:41 06:10 06:10 WBC 5.5 RBC 3.51 L Hgb 10.6 L Hct 30.4 L MCV 86.6 MCH 30.0 MCHC 34.7 RDW 13.8 Plt Count 400 MPV 8.2 Neutrophils % 62.6 Lymphocytes % 24.8 Monocytes % 8.5 Eosinophils % 3.2 Basophils % 0.9 Sodium 134 L Potassium 4.3 Chloride 98 Carbon Dioxide 28 Anion Gap 8 BUN 12 Creatinine 0.9 Creat Clearance w eGFR > 60 POC Glucometer 332 Random Glucose 300 H Calcium 9.1 Total Bilirubin 0.5 D AST 11 L ALT 23 Alkaline Phosphatase 192 H Total Protein 7.4 Albumin 3.2 L HOSPITAL COURSE: Date of Admission:02/15/17 Date of Discharge: 02/22/17 ASSESSMENT/PLAN: Patient is a 52 year old male with a significant past medical history of diabetes mellitus, hypertension, hyperlipidemia and ETOH abuse. He was admitted on 02/15/2017 for cellulitis and foul odor of his left foot, great toe. Imagin02/15/2017: MRI of left great toe compatible with osteomylitis ID: SIRS: Sepsis secondary to left great toe cellulitis - improving, will need an additional 4 weeks of Vancomycin A/P: S/P L great toe incision/drainage with bone biopsy on 02/18/2017 MRI of left great toe compatible with osteomylitis Wound/bone microbiology report noted As per ID, patient will need Vancomycin for 4 more weeks, PICC line prior to discharge today Daily wound care orders as outlined in d/c orders Blood cultures negative Endocrine: Diabetes - chronic A/P: elevated glucose Tighter glycemic control of the sliding scale, Levemir increased to @ 40 units BID Titrate Levemir if blood glucose remains elevated, check BGMs ac/hs Cardiology: Hypertension - BP elevated - chronic A/P: stopped infusion of IVF Added Norvasc 10 mg daily and increased Lisinopril to 20mg daily, on Cozaar Monitor blood pressures and titrate medications F.E.N. Fluids: tolerating PO Electrolytes: monitor with BMP, mild hyponatremia, monitor with labs Nutrition: diabetic diet Prophylaxis: DVT: on Heparin GI: Protonix Disposition: Patient is willing to go to rehab for continued antibiotic therapy. Full code. Minutes to complete discharge: 60 Discharge Summary Reason For Visit: DIABETIC FOOT INFECTION,CELLULITIS Current Active Problems Cellulitis (Acute) DVT prophylaxis (Acute) Diabetes mellitus (Acute) Diabetic foot infection (Acute) HLD (hyperlipidemia) (Acute) HTN (hypertension) (Acute) Condition: Stable - Instructions Diet, Activity, Other Instructions: Mr. Negrete You were admitted with a diabetic foot infection, cellulitis and osteomylitis of the left great toe. You will need 4 weeks of vancomycin daily. Please monitor VANCO trough and CBC, BMP, ESR and CRP weekly. Follow up in wound clinic as an outpatient with Dr. Bland at [phone] Please monitor blood pressures with the increase of Lisinopril and addition of Norvasc. Please call with any questions that you may have. WOUND CARE ORDERS to left toe, must be done daily and if soiled - Clean toe/foot with a sterile saline and pat dry - Bactroban + DSD L great toe - Partial WB L foot with surgical shoe - F/u in wound care center upon discharge Jesika Salazar [facility] [phone] Referrals: Madalyn Hennessy MD [Staff Physician] - Clint Siddiqui MD [Staff Physician] - Sami Bland MD [Staff Physician] - Disposition: RESIDENTIAL FACILITY - Home Medications Comprehensive Discharge Medication List: Ambulatory Orders Aspirin [Aspirin EC] 81 mg PO DAILY 08/27/15 Insulin Degludec [Tresiba Flextouch U-100] 50 unit SQ DAILY 01/09/17 Gemfibrozil [Lopid -] 600 mg PO BID@0700,1630 #20 tablet 01/11/17 Glipizide 10 mg PO BID #20 tab 01/11/17 Insulin Lispro [Humalog Kwikpen U-200] 200 unit SQ AC #1 insuln.pen 01/11/17 Losartan Potassium [Cozaar] 50 mg PO DAILY #20 tab 01/11/17 This patient is new to me today: No Emergency Visit: Yes ED Registration Date: 02/15/17 Care time: The patient presented to the Emergency Department on the above date and was hospitalized for further evaluation of their emergent condition. Critical Care patient: No - Discharge Referral Referred to [facility] Med P.C.: No
[2017-02-22] MEDS ORDERED: INSULIN DETEMIR 100 UNITS/ML MDV SQ SCH (09:27)
[2017-02-22] MEDS ORDERED: PT OWN MED DRAWER 7, Y5N ONE (09:33)
[2017-02-22] MEDS: DOCUSATE SODIUM 100 MG CAPSULE (FP) PO SCH (09:37)
[2017-02-22] MEDS ORDERED: oxyCODONE HCL 5 MG TABLET PO PRN (09:45)
[2017-02-22] MEDS ORDERED: LOSARTAN POTASSIUM 25 MG TABLET PO SCH (10:00)
[2017-02-22] MEDS ORDERED: amLODIPine BESYLATE 10 MG TABLET (FP) PO SCH (10:00)
[2017-02-22] MEDS ORDERED: amLODIPine BESYLATE 5 MG TABLET (FP) PO SCH (10:00)
[2017-02-22] MEDS ORDERED: LOSARTAN POTASSIUM 25 MG TABLET PO ONE (10:00)
[2017-02-22] MEDS ORDERED: LISINOPRIL 20 MG TABLET (FP) PO SCH (10:00)
[2017-02-22] MEDS: VANCOMYCIN 1,250 MG in DEXTROSE 5%-WATER - 250 ML IVPB SCH (11:29)
[2017-02-22] MEDS: MUPIROCIN 2% TOPICAL OINTMENT 22 GM TUBE TP SCH (11:59)
--- NOTE | 2017-02-22 12:45 | PN ---
Progress Note, Physician History of Present Illness: doing well no new issues - Current Medication List Current Medications: Active Medications Amlodipine Besylate (Norvasc -) 10 mg PO DAILY [facility] Last Admin: 02/22/17 09:37 Dose: 10 mg Docusate Sodium (Colace -) 100 mg PO BID [facility] Last Admin: 02/22/17 09:37 Dose: Not Given Heparin Sodium (Porcine) (Heparin -) 5,000 unit SQ TID [facility] Last Admin: 02/22/17 06:18 Dose: Not Given IV Flush (Picc Line Flush) 8 ml IVPUSH PRN PRN PRN Reason: Protocol Vancomycin HCl 1,250 mg/ (Dextrose) 250 mls @ 125 mls/hr IVPB DAILY [facility] PRN Reason: Protocol Last Admin: 02/22/17 11:29 Dose: 125 mls/hr Insulin Aspart (Novolog Vial Sliding Scale -) 1 vial SQ ACHS [facility] PRN Reason: Protocol Last Admin: 02/22/17 12:14 Dose: 6 units Insulin Detemir (Levemir Vial) 40 units SQ BID@0700,2200 [facility] Lisinopril (Prinivil) 20 mg PO DAILY [facility] Last Admin: 02/22/17 09:37 Dose: 20 mg Losartan Potassium (Cozaar -) 25 mg PO DAILY [facility] Last Admin: 02/22/17 09:37 Dose: 25 mg Morphine Sulfate (Morphine Injection -) 2 mg IVPUSH Q6H PRN PRN Reason: PAIN Last Admin: 02/21/17 21:50 Dose: 2 mg Mupirocin (Bactroban 2% Ointment -) 1 applic TP DAILY [facility] Last Admin: 02/22/17 11:59 Dose: 1 applic Oxycodone HCl (Roxicodone -) 10 mg PO Q4H PRN PRN Reason: PAIN Last Admin: 02/22/17 09:53 Dose: 10 mg - Objective Vital Signs: Vital Signs Temperature 98.4 F 02/22/17 09:47 Pulse Rate 95 H 02/22/17 09:47 Respiratory Rate 20 02/22/17 09:47 Blood Pressure 144/83 02/22/17 09:47 O2 Sat by Pulse Oximetry (%) 97 02/22/17 09:00 Constitutional: Yes: No Distress, Calm, Obese Respiratory: Yes: Regular, CTA Bilaterally Gastrointestinal: Yes: Normal Bowel Sounds, Soft Musculoskeletal: Yes: Other Extremities: Yes: Other Wound/Incision: Yes: Dressing Dry and Intact Neurological: Yes: Alert, Oriented Psychiatric: Yes: Alert, Oriented Labs: CBC, BMP 02/22/17 06:10 02/22/17 06:10 INR, PTT INR 1.10 (0.82-1.09) 02/18/17 06:00 Assessment/Plan looking at patients picture patient came in sepsis and i think it is coming from his foot I am also worried about osteo of that toe Cellulitis Sepsis Diabetic Foot Infection . Diabetes Mellitus Hyperlipidemia plan patient to continue abx for 4 weeks vanco trough to be followed and vanco dose adjusted cbc bmp esr,crp weekly rest as per priamry team
[2017-02-22 13:57] VITALS: BP 142/86; PULSE 91; TEMP 98.2
--- NOTE | 2017-02-22 15:25 | PATH ---
Surgical Pathology Report Patient Name: ANNA CLINE [facility]. Rec. #: [id number] /Age/Gender: 1965 (Age: 52) / M Account: [id number] Location: [address] [place] [address]/[facility] Taken: 02/18/2017 Received: 02/19/2017 Reported: 02/22/2017 Physicians: Russ Diaz M.D. Specimen(s) Received BONE BIOPSY LEFT GREAT TOE Clinical History Osteomyelitis left great toe Final Diagnosis BONE, LEFT GREAT TOE, BIOPSY: BONE WITH ACUTE OSTEOMYELITIS, AND SOFT TISSUE WITH GANGRENOUS NECROSIS. Electronically Signed Santos Bartlett M.D. Gross Description Received in formalin, labeled "bone biopsy left great toe" are 2 porras, irregular portions of bone measuring 0.7 and 1.0 cm. in greatest dimension. The specimens are submitted in toto in one cassette following decalcification. AF/02/19/2017 final/02/19/2017
== END 2017-02-22 17:54 | disposition home health service (06) | DRG 710 ==
LOC: JER 18:26 → JERBED 02-15 03:21 → J5S 02-15 05:22
PROVIDERS: ADMIT Internal Medicine; ATTEND Nurse Practitioner Family
PROC: 0QTP0ZZ Resection of Left Metatarsal, Open Approach (ICD-10-PCS; 2017-02-18)
PROC: 0H9NXZZ Drainage of Left Foot Skin, External Approach (ICD-10-PCS; principal; 2017-02-18 14:00)
PROC: 0QBR0ZX Excision of Left Toe Phalanx, Open Approach, Diagnostic (ICD-10-PCS; 2017-02-18 14:00)
PROC: 02HV33Z Insertion of Infusion Device into Superior Vena Cava, Percutaneous Approach (ICD-10-PCS; 2017-02-22)
DX: A41.9 Sepsis, unspecified organism (principal); E11.69 Type 2 diabetes mellitus with other specified complication; M86.172 Other acute osteomyelitis, left ankle and foot; I10 Essential (primary) hypertension; E78.5 Hyperlipidemia, unspecified; L03.032 Cellulitis of left toe; E87.1 Hypo-osmolality and hyponatremia; E11.40 Type 2 diabetes mellitus with diabetic neuropathy, unspecified
CPT/HCPCS: 36415; 36569; 71020-TC; 73630-TC-LT; 73718-LT; 77001-TC; 80048; 80053; 81003; 81015; 83036; 83605; 85025; 85610; 85730; 87040; 87070; 87075; 87186; 87205; 88304-TC; 88311-TC; 93005; 93010; 93971-TC; 94760; 99284-25; C1751

== ENCOUNTER 2018-12-21 03:41 | Emergency (ER) | payer OTHER ==
[2018-12-21 03:55] VITALS: BMI 33.2
[2018-12-21 04:44] LABS: INR 0.92 (0.83-1.09); PROTHROMBIN TIME (PATIENT) 10.8 SEC (9.7-13.0)
[2018-12-21 05:10] LABS: ALBUMIN 3.7 g/dl (3.4-5.0); BILIRUBIN,TOTAL 0.6 mg/dL (0.2-1); BLOOD UREA NITROGEN 12.8 mg/dL (7-18); CALCIUM 8.5 mg/dL (8.5-10.1); CREATININE 1.3 mg/dL (0.55-1.3); POTASSIUM 3.2 mmol/L (3.5-5.1); TOT PROT 7.5 g/dl (6.4-8.2)
--- NOTE | 2018-12-21 05:34 | PDOC ---
History of Present Illness - General Chief Complaint: Blood Sugar Problem Stated Complaint: BLOOD SUGAR PROBLEM Time Seen by Provider: 12/21/18 03:43 - History of Present Illness Initial Comments: 12/21/18 05:29 53 yo M With h/o HTN, Etoh abuse, IDDM (poorly controlled), who p/w AMS, hypoglycemia. EMS report patient with increased somnolence and BS~47 on arrival. BS improved to 90 following oral glucose. Patient poor historian. Somnolent on encounter. Patient poor historian. Patient states that he called EMS following home sugar 30's. Patient partially responding to questioning. Now without complaints. Denies LOC. Endorses alcohol use the evening of 12/20/18. Patient denies SAEED, vision change, palpitations, cough, wheezing, orthopena, PND , leg swelling/pain, N/V, F,C, CP, SOB, urinary complaints, hematuria, BPR, abdominal pain, diarrhea, constipation, lightheadedness, sensory changes. PMHx: as noted above ROS: as noted SHx: IVDA, tobacco use Allergies: Levaquin, Metformin Past History - Past Medical History Allergies/Adverse Reactions: Allergies Allergy/AdvReac Type Severity Reaction Status Date / Time levofloxacin [From Levaquin] Allergy Verified 02/14/17 18:30 metformin Allergy Verified 02/14/17 18:30 Home Medications: Ambulatory Orders Aspirin [Aspirin EC] 81 mg PO DAILY 08/27/15 Gemfibrozil [Lopid -] 600 mg PO BID@0700,1630 #20 tablet 01/11/17 Glipizide 10 mg PO BID #20 tab 01/11/17 Amlodipine Besylate [Norvasc -] 10 mg PO DAILY #30 tablet 02/22/17 Docusate Sodium [Colace -] 100 mg PO BID #30 tab 02/22/17 Insulin (Levemir) [Levemir Vial] 40 units SQ BID@0700,2200 ml 02/22/17 Insulin Sliding Scale [Novolog Vial Sliding Scale -] 1 vial SQ ACHS units 02/22 Lisinopril [Prinivil] 20 mg PO DAILY tablet 02/22/17 Losartan Potassium [Cozaar] 25 mg PO DAILY #30 tablet 02/22/17 Mupirocin Ointment [Bactroban 2% Ointment -] 1 applic TP DAILY applic 02/22/17 Collagenase Clostridium Hist. [Santyl] 1 applic TP DAILY #90 oint...g. 03/12/17 Collagenase Clostridium Hist. [Santyl] 1 applic TP DAILY #90 oint...g. 03/26/17 Diabetes: Yes HTN: Yes - Suicide/Smoking/Psychosocial Hx Smoking History: Unknown if ever smoked Have you smoked in the past 12 months: No Hx Alcohol Use: No Drug/Substance Use Hx: No Substance Use Type: Alcohol Hx Substance Use Treatment: No Review of Systems - Review of Systems Comments:: 12/21/18 06:07 GENERAL/CONSTITUTIONAL: + Weakness. No fever or chills. HEAD, EYES, EARS, NOSE AND THROAT: No change in vision. No ear pain or discharge. No sore throat. CARDIOVASCULAR: No chest pain or shortness of breath RESPIRATORY: No cough, wheezing, or hemoptysis. GASTROINTESTINAL: No nausea, vomiting, diarrhea or constipation. GENITOURINARY: No dysuria, frequency, or change in urination. MUSCULOSKELETAL: No joint or muscle swelling or pain. No neck or back pain. SKIN: No rash NEUROLOGIC: No headache, vertigo, loss of consciousness, or change in strength/ sensation. ENDOCRINE: No increased thirst. No abnormal weight change HEMATOLOGIC/LYMPHATIC: No anemia, easy bleeding, or history of blood clots. ALLERGIC/IMMUNOLOGIC: No hives or skin allergy. *Physical Exam - Vital Signs Last Vital Signs Temp Pulse Resp BP Pulse Ox 98.1 F 81 16 110/71 96 12/21/18 03:45 12/21/18 03:45 12/21/18 03:45 12/21/18 03:45 12/21/18 03:45 - Physical Exam Comments: 12/21/18 06:07 GENERAL: Awake, alert, and fully oriented, in no acute distress HEAD: No signs of trauma, normocephalic, atraumatic EYES: PERRLA, EOMI, sclera anicteric, conjunctiva clear ENT: Auricles normal inspection, hearing grossly normal, nares patent, oropharynx clear without exudates. Moist mucosa NECK: Normal ROM, supple, no lymphadenopathy, JVD, or masses LUNGS: No distress, speaks full sentences, clear to auscultation bilaterally HEART: Regular rate and rhythm, normal S1 and S2, no murmurs, rubs or gallops, peripheral pulses normal and equal bilaterally. ABDOMEN: Soft, nontender, normoactive bowel sounds. No guarding, no rebound. No masses EXTREMITIES : Normal inspection, Normal range of motion, no edema. No clubbing or cyanosis. NEUROLOGICAL: Cranial nerves II through XII grossly intact. Normal speech, normal gait, no focal sensorimotor deficits SKIN: Warm, Dry, normal turgor, no rashes or lesions noted ED Treatment Course - LABORATORY CBC & Chemistry Diagram: 12/21/18 04:00 12/21/18 04:00 - ADDITIONAL ORDERS Additional order review: Laboratory Results 12/21/18 12/21/18 12/21/18 04:00 04:00 03:46 PT with INR 10.80 INR 0.92 Sodium 135 L Potassium 3.2 L Chloride 98 Carbon Dioxide 23 Anion Gap 13 BUN 12.8 Creatinine 1.3 Est GFR (CKD-EPI)AfAm 72.71 Est GFR (CKD-EPI)NonAf 62.73 POC Glucometer 131 Random Glucose 133 H Calcium 8.5 Total Bilirubin 0.6 AST 73 H ALT 55 Alkaline Phosphatase 124 H Total Protein 7.5 Albumin 3.7 Alcohol, Quantitative 197.8 H 12/21/18 03:46 POC Glucometer 131 Medical Decision Making - Medical Decision Making 12/21/18 06:01 53 yo M With h/o HTN, Etoh abuse, IDDM (poorly controlled), who p/w AMS, hypoglycemia. Vitals wnl, AF, A&OX3. Physical exam unremarkable. Denies oral anti-hyperglycemic control. Suspect hypoglycemia 2/2 Etoh and Insulin use. Will evaluate for medication or exogenous insulin overdose, adrenal insufficency, systemic illness. 12/21/18 06:02 ED course: 12/21/18 06:03 Laboratory Tests EKG: NSR with absent LVH. TWI I, AvL. Qt 517. Absent ROBERT, STD. Nml R wave progression. Absent Q waves. 12/21/18 12/21/18 04:00 04:00 WBC 4.4 Hgb 12.3 Hct 34.1 L Plt Count 247 D Sodium 135 L Potassium 3.2 L BUN 12.8 Creatinine 1.3 Random Glucose 133 H Alcohol, Quantitative 197.8 H 12/21/18 06:07 Patient awake, alert, interactive on exam Stable for d/c with return precautions Advised to f/u pmd *DC/Admit/Observation/Transfer Diagnosis at time of Disposition: Hypoglycemia - Discharge Dispostion Condition at time of disposition: Stable Decision to Admit order: No - Referrals - Patient Instructions Printed Discharge Instructions: DI for Hypoglycemia Additional Instructions: Please return to the emergency department with any new or worsening symptoms or concerns. Please follow up with your primary care physician within 72 hours. - Post Discharge Activity
[2018-12-21 05:41] LABS: BASO % 0.7 % (0-2.0); EOS % 0.6 % (0-4.5); HEMATOCRIT 34.1 % (35.4-49); HEMOGLOBIN 12.3 GM/dL (11.7-16.9); LYMPH % 20.7 % (8-40); MEAN CELL VOLUME 94.5 fl (80-96); MONO % 6.9 % (3.8-10.2); NEUT % 71.1 % (42.8-82.8); PLATELET COUNT 247 K/MM3 (134-434); RDW 15.2 % (11.9-15.9); WHITE BLOOD COUNT 4.4 K/mm3 (4.0-10.0)
--- NOTE | 2018-12-21 06:02 | PDOC ---
Documentation entered by Juan Vitale SCRIBE, acting as scribe for Edelmira Mcbride DO. Edelmira Mcbride DO: This documentation has been prepared by the Iam renteria Daniel, SCRIBE, under my direction and personally reviewed by me in its entirety. I confirm that the documentation accurately reflects all work , treatment, procedures, and medical decision making performed by me. Attending Attestation - Resident Resident Name: Venkat Hankins - ED Attending Attestation I have performed the following: I have examined & evaluated the patient, The case was reviewed & discussed with the resident, I agree w/resident's findings & plan - HPI HPI: 12/21/18 03:58 The patient is a 53 year old male with a past medical history of diabetes brought in today for evaluation of unresponsiveness. As per EMS, the patient was found unresponsive and had a blood sugar in the 40s and was given glucagon. EMS reports that his blood sugar shelton to the 90s and became responsive again. Patient reports that he called EMS because he felt tired. Patient has blood sugar in 120s in ER. Patient denies headache, lightheadedness. Denies fever, chills. Denies chest pain, shortness of breath. Denies nausea, vomiting, diarrhea, abdominal pain. Allergies: levofloxacin, metformin - Physicial Exam PE: 12/21/18 03:58 Agree with the resident's physical exam. - Medical Decision Making 12/21/18 06:01 53-year-old male called EMS because he felt sleepy Found to have a blood sugar in the 40s on arrival which responded to glucagon Condition improved, he is easily arousable in the emergency department Blood alcohol level also elevated consistent with given history Patient states that he did eat dinner Patient advised not to mix insulin with alcohol intake He has no further complaints at this time Patient to be discharged home with recommended follow up with his primary care physician for review of insulin regimen
[2018-12-21 07:23] VITALS: BP 124/77; PULSE 90; TEMP 98
--- NOTE | 2018-12-21 08:05 | EKG ---
Test Reason : Blood Pressure : / mmHG Vent. Rate : 083 BPM Atrial Rate : 083 BPM P-R Int : 166 ms QRS Dur : 084 ms QT Int : 440 ms P-R-T Axes : 045 -16 097 degrees QTc Int : 517 ms NORMAL SINUS RHYTHM MINIMAL VOLTAGE CRITERIA FOR LVH, MAY BE NORMAL VARIANT T WAVE ABNORMALITY, CONSIDER LATERAL ISCHEMIA PROLONGED QT ABNORMAL ECG WHEN COMPARED WITH ECG OF 15-FEB-2017 04:17, CRITERIA FOR SEPTAL INFARCT ARE NO LONGER PRESENT INVERTED T WAVES HAVE REPLACED NONSPECIFIC T WAVE ABNORMALITY IN LATERAL LEADS QT HAS LENGTHENED Confirmed by MIGUE ROMERO, TANJA ([id number]) on 12/21/2018 8:04:52 AM Referred By: Confirmed By:TANJA CAMARENA MD
== END 2018-12-21 06:00 | disposition home or self-care (01) ==
LOC: JER 03:41
DX: E11.649 Type 2 diabetes mellitus with hypoglycemia without coma (principal); I10 Essential (primary) hypertension
CPT/HCPCS: 36415; 80053; 80307; 82962; 85025; 85610; 93005; 93010; 99282-25

== ENCOUNTER 2019-02-16 16:46 | Inpatient (IN) | payer OTHER ==
[2019-02-16 17:01] VITALS: BMI 33.5
[2019-02-16] MEDS ORDERED: SODIUM CHLORIDE 1,000 ML IV STA (17:07)
[2019-02-16] MEDS ORDERED: ONDANSETRON 4 MG/2 ML VIAL IVPUSH ONE (17:07)
--- NOTE | 2019-02-16 17:09 | PDOC ---
Rapid Medical Evaluation Chief Complaint: Syncope/Near Syncope Time Seen by Provider: 02/16/19 17:06 Medical Evaluation: Allergies Allergy/AdvReac Type Severity Reaction Status Date / Time levofloxacin [From Levaquin] Allergy Verified 02/16/19 16:56 metformin Allergy Verified 02/16/19 16:56 Vital Signs Temp Pulse Resp BP Pulse Ox 98.2 F 102 H 17 162/101 H 95 02/16/19 16:56 02/16/19 16:56 02/16/19 16:56 02/16/19 16:56 02/16/19 16:56 02/16/19 17:08 Pt c/o: dizziness, n/v, had head ct done at [facility] last week but did not get results, on Pt on brief exam: hr 102, 162/101, + vomiting in triage x 1 Pt ordered for: labs, ekg, ivf, zofrna, urine, cxr Pt to proceed to the ED Discharge Disposition - Diagnosis Dizziness - Referrals Referrals: Rich Arauz MD [Primary Care Provider] - - Patient Instructions - Post Discharge Activity
--- NOTE | 2019-02-16 18:04 | PDOC ---
History of Present Illness - General Chief Complaint: Syncope/Near Syncope Stated Complaint: DIZZZINESS/VOMITING Time Seen by Provider: 02/16/19 17:06 - History of Present Illness Initial Comments: 02/16/19 18:02 54m with pmh of etoh abuse, HTN and diabetes presetns to the ed after a fall sustained today associated with nausea and vomiting. Nausea worse upon movement. Patient states that for the past month he has suffered frequent falls and loss of consciousness associated with nausea. Says he already got a ct scan that was normal, was supposed to get an MRI and a heart monitor but that never materialized. PCP: Rich Arauz, allegedly. Past History - Past Medical History Allergies/Adverse Reactions: Allergies Allergy/AdvReac Type Severity Reaction Status Date / Time levofloxacin [From Levaquin] Allergy Verified 02/16/19 16:56 metformin Allergy Verified 02/16/19 16:56 Home Medications: Ambulatory Orders Aspirin [Aspirin EC] 81 mg PO DAILY 08/27/15 Gemfibrozil [Lopid -] 600 mg PO BID@0700,1630 #20 tablet 01/11/17 Amlodipine Besylate [Norvasc -] 10 mg PO DAILY #30 tablet 02/22/17 Docusate Sodium [Colace -] 100 mg PO BID #30 tab 02/22/17 Insulin (Levemir) [Levemir Vial] 40 units SQ BID@0700,2200 ml 02/22/17 Insulin Sliding Scale [Novolog Vial Sliding Scale -] 1 vial SQ ACHS units 02/22 Lisinopril [Prinivil] 20 mg PO DAILY tablet 02/22/17 Losartan Potassium [Cozaar] 25 mg PO DAILY #30 tablet 02/22/17 Collagenase Clostridium Hist. [Santyl] 1 applic TP DAILY #90 oint...g. 03/12/17 Collagenase Clostridium Hist. [Santyl] 1 applic TP DAILY #90 oint...g. 03/26/17 COPD: No Diabetes: Yes HTN: Yes - Suicide/Smoking/Psychosocial Hx Smoking History: Never smoked Have you smoked in the past 12 months: No Hx Alcohol Use: No Drug/Substance Use Hx: No Substance Use Type: Alcohol Hx Substance Use Treatment: No *Physical Exam - Vital Signs Last Vital Signs Temp Pulse Resp BP Pulse Ox 98.2 F 102 H 17 162/101 H 95 08/22/19 16:56 02/16/19 16:56 02/16/19 16:56 02/16/19 16:56 02/16/19 16:56 - Physical Exam General Appearance: Yes: Nourished, Appropriately Dressed, Moderate Distress HEENT: positive: EOMI, DANDRE, Normal ENT Inspection Respiratory/Chest: positive: Lungs Clear, Normal Breath Sounds. negative: Chest Tender, Respiratory Distress Cardiovascular: positive: Regular Rhythm, S1, S2, Tachycardia Gastrointestinal/Abdominal: positive: Normal Bowel Sounds, Soft, Protuberent. negative: Tender Musculoskeletal: positive: Normal Inspection. negative: CVA Tenderness Extremity: positive: Normal Capillary Refill, Normal Inspection, Normal Range of Motion Integumentary: positive: Normal Color, Dry, Warm Neurologic: positive: Fully Oriented, Alert, Normal Response, Other (slow speech ) ED Treatment Course - LABORATORY CBC & Chemistry Diagram: 02/16/19 18:00 02/16/19 18:00 Medical Decision Making - Medical Decision Making 02/16/19 18:46 54m with pmh of dm2, htn presents with a month of vertigo, syncope. Will r.o arrhythmia, cerebellar stroke, hypoglycemia, BPPV,. Will giove meclizine, already got zofran in triage. CT head pending and labs including cardiac profile. Probable admission to [facility] observation. 02/16/19 19:02 EKG: Normal sinus rhythm, Possible left atrial enlargement. T wave abnormality, consider lateral ischemia Patient signed out to Dr. Diggs for continued care. *DC/Admit/Observation/Transfer Diagnosis at time of Disposition: Dizziness - Referrals Referrals: Rich Arauz MD [Primary Care Provider] - - Patient Instructions - Post Discharge Activity
[2019-02-16] MEDS ORDERED: ONDANSETRON 4 MG/2 ML VIAL ONE ×2 (18:15→23:24)
[2019-02-16] MEDS ORDERED: MECLIZINE HCL 25 MG TABLET (FP) PO ONE (18:38)
[2019-02-16 18:39] LABS: BASO % 0.4 % (0-2.0); EOS % 0.7 % (0-4.5); HEMATOCRIT 35.3 % (35.4-49); HEMOGLOBIN 12.4 GM/dL (11.7-16.9); LYMPH % 19.1 % (8-40); MCH 32.6 pg (25.7-33.7); MCHC 35.1 g/dl (32.0-35.9); MEAN CELL VOLUME 92.7 fl (80-96); MEAN PLT VOLUME 8.7 fl (7.5-11.1); MONO % 5.5 % (3.8-10.2); NEUT % 74.3 % (42.8-82.8); PLATELET COUNT 229 K/MM3 (134-434); RBC 3.81 M/mm3 (4.00-5.60); WHITE BLOOD COUNT 4.4 K/mm3 (4.0-10.0)
[2019-02-16 19:16] LABS: ALBUMIN 4.2 g/dl (3.4-5.0); ALK PHOS 137 U/L (45-117); ANION GAP 11 MMOL/L (8-16); BILIRUBIN,TOTAL 1.4 mg/dL (0.2-1); BLOOD UREA NITROGEN 9.1 mg/dL (7-18); CALCIUM 9.3 mg/dL (8.5-10.1); CHLORIDE 98 mmol/L (98-107); CO2 28 mmol/L (21-32); POTASSIUM 4.4 mmol/L (3.5-5.1); SGOT/AST 39 U/L (15-37); SGPT/ALT 33 U/L (13-61); SODIUM 137 mmol/L (136-145); TOT PROT 8.2 g/dl (6.4-8.2)
[2019-02-16 19:19] LABS: GLUCOSE,RANDOM 324 mg/dL (74-106)
--- NOTE | 2019-02-16 19:36 | PDOC ---
*Physical Exam - Vital Signs Last Vital Signs Temp Pulse Resp BP Pulse Ox 98.2 F 102 H 17 162/101 H 95 02/16/19 16:56 02/16/19 16:56 02/16/19 16:56 02/16/19 16:56 02/16/19 16:56 Vital Signs - Vital Signs #1 Blood Pressure: 180/100 MAP: 126 BP Location: Left Arm Blood Pressure Position: Sitting Pulse Rate: 82 Respiratory Rate: 14 O2 Sat by Pulse Oximetry (%): 98 Oxygen Delivery Method: Room Air ED Treatment Course - LABORATORY CBC & Chemistry Diagram: 02/16/19 18:00 02/16/19 18:00 - ADDITIONAL ORDERS Additional order review: Laboratory Results 02/16/19 02/16/19 18:00 18:00 Sodium 137 Potassium 4.4 Chloride 98 Carbon Dioxide 28 Anion Gap 11 BUN 9.1 Creatinine 1.0 Est GFR (CKD-EPI)AfAm 99.15 Est GFR (CKD-EPI)NonAf 85.55 Random Glucose 324 H* Calcium 9.3 Magnesium 2.0 Total Bilirubin 1.4 H AST 39 H ALT 33 Alkaline Phosphatase 137 H Creatine Kinase 254 Creatine Kinase Index 1.8 CK-MB (CK-2) 4.6 H Troponin I < 0.02 Total Protein 8.2 Albumin 4.2 Alcohol, Quantitative < 3.0 02/16/19 18:00 RBC 3.81 L MCV 92.7 MCHC 35.1 RDW 14.0 MPV 8.7 Neutrophils % 74.3 Lymphocytes % 19.1 Monocytes % 5.5 Eosinophils % 0.7 Basophils % 0.4 - Medications Given in the ED: ED Medications Discontinued Medications Generic Name Dose Route Start Last Admin Trade Name Freq PRN Reason Stop Dose Admin Sodium Chloride 1,000 mls @ 1,000 mls/hr 02/16/19 17:07 02/16/19 18:05 Normal Saline - IV 02/16/19 18:06 1,000 mls/hr ASDIR STA Administration Ondansetron HCl 4 mg 02/16/19 17:07 02/16/19 18:10 Zofran Injection IVPUSH 02/16/19 17:08 4 mg ONCE ONE Administration Medical Decision Making - Medical Decision Making Pt was signed out to me by resident Dr. Grimes, who explained the presentation, ED course, any pending results, and needed interventions. Pending results include CT scan and admission. Pt is currently stable and is lying comfortably. 02/16/19 19:33 Labs WNL for pt, troponin and ECG with no changes. 02/16/19 19:35 Pt being admitted to hospitalist team for intractable vertigo -- team paged Provided insulin and home dose amlodipine as pt unable to take his medications this morning. pt still vertiginous after zofran, 1 L IV NS, and meclizine 02/16/19 19:50 Pt admitted to hospitalist team (Dr. 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
[2019-02-16] MEDS ORDERED: INSULIN REGULAR HUMAN 100 UNITS/ML *VIAL SQ ONE (19:37)
[2019-02-16] MEDS ORDERED: amLODIPine BESYLATE 10 MG TABLET (FP) PO ONE (19:47)
[2019-02-16] MEDS ORDERED: MECLIZINE HCL 25 MG TABLET (FP) ONE (20:01)
[2019-02-16] MEDS ORDERED: amLODIPine BESYLATE 5 MG TABLET (FP) ONE (20:01)
[2019-02-16] MEDS ORDERED: INSULIN (NOVOLOG) ASPART 100 UNITS/ML 10ML VIAL ONE (20:35)
[2019-02-16] MEDS: INSULIN SLIDING SCALE (NOVOLOG) 1 VIAL SQ SCH (20:45)
--- NOTE | 2019-02-16 21:15 | PDOC ---
Documentation entered by Ashley Dominguez SCRIBE, acting as scribe for Sydney Wise MD. Sydney Wise MD: This documentation has been prepared by the scribe, Ashley Dominguez SCRIBE, under my direction and personally reviewed by me in its entirety. I confirm that the documentation accurately reflects all work, treatment, procedures, and medical decision making performed by me. Attending Attestation - Resident Resident Name: Clifford Grimes - [facility] HPI: 02/16/19 19:29 The patient is a 54-year-old male with a past medical history of HTN, DM, and ETOH abuse presents to the emergency department for evaluation for multiple syncopal episodes, with a new onset of nausea and vomiting. The patient reports a history of spontaneous syncopal episodes for the past month, with intermittent episodes of dizziness before passing out. The patient reports when he woke up today, he felt dizzy. The patient reports he stayed in bed, and when he stood up, he immediately passed out. The patient reports the episode felt like someone hit me on the head prior to passing out. The patient reports he had 4 episodes of LOC today, denies being confused after gaining conscious. The patient reports today he felt nauseous and had multiple episodes of vomiting, which is a new presentation. The patient reports about 2 weeks prior he was noted to have slurred speech, and the patient states hes been speaking more slowly than usual. Denies urinary or bowel incontinence. - Physicial Exam PE: 02/16/19 20:18 GENERAL: Awake and alert. Mildly uncomfortable. LUNGS: Breath sounds equal, clear to auscultation bilaterally. No wheezes, and no crackles HEART: Regular rate and rhythm, normal S1 and S2, no murmurs, rubs or gallops ABDOMEN: Soft, nontender, nondistended. EXTREMITIES: No lower extremity edema. NEUROLOGICAL: Alert and oriented x3. Cranial nerve grossly intact. Speech appropriate but somewhat slow. Very mild word finding difficulty. - Medical Decision Making 02/16/19 21:11 Pt presents to the ED complaining of intermittent syncope and vertigo. Vomiting an vertiginous in the ED. Differential includes CVA, BPV, less likely ACS. Labs are unremarkable. CT checked to rule out intracranial bleed or other intracranial pathology and is negative. EKG shows no arrhythmia. Will admit to medicine for syncope work up and MRI.
[2019-02-16] MEDS ORDERED: ONDANSETRON 8 MG TABLET (FP) PO PRN (21:17)
[2019-02-16 21:34] LABS: ACETONE SERUM TRACE (NEGATIVE)
[2019-02-16] MEDS ORDERED: HEPARIN NA (PORCINE) 5,000 UNITS/ML 1ML VIAL ONE (21:48)
--- NOTE | 2019-02-16 21:59 | HP ---
CHIEF COMPLAINT: Dizziness, fall PCP: Dr. Rich Arauz HISTORY OF PRESENT ILLNESS: Patient is a 54 year old male with PMH of HTN, IDDM, and ETOH use who presents with persistent dizziness and syncopal episodes over the past month. Pt has been experiencing intermittent dizziness one year ago. Over the past month, he has had several syncopal episodes that he does not fully remember. He usually experiences dizziness and nausea prior to these episodes, but denies vertigo, lightheadedness, chest pain, SOB, palpitations, or tinnitus. Several of these episodes have been witnessed by his sons who say he usually is out for only several seconds. He denies any residual weakness, confusion, urinary incontinence, or slurred speech after these episodes. Today, pt felt increasingly nauseous and vomited nbnb x4. He denies any fevers or chills. He had another syncopal episode this afternoon. Pt states that he has addressed these issues with his PCP who had him f/u with a installation tech. Per pt, he recently received an echo and carotid US that were unremarkable. He denies a history of any arrhythmias or valvular problems. He was supposed to f/u with a holter monitor and stress test but has not yet done so. Pt has never seen a neurologist or ENT for these issues. ER course was notable for: (1) CT head: no acute intracranial pathology (2) EKG: NSR, no ischemic changes (3) Recent Travel: denies PAST MEDICAL HISTORY: HTN IDDM HLD PAST SURGICAL HISTORY: Wrist sx L toe sx Social History: Smoking: denies Alcohol: 2 drinks/day, last drink 48 hours ago, CIWA: 1 Drugs: denies Family History: Father: [place] Mother: [place] Allergies levofloxacin [From Levaquin] Allergy (Verified 02/16/19 16:56) metformin Allergy (Verified 02/16/19 16:56) HOME MEDICATIONS: Home Medications Medication Instructions Recorded Aspirin [Aspirin EC] 81 mg PO DAILY 08/27/15 Gemfibrozil [Lopid -] 600 mg PO BID@0700,1630 #20 tablet 01/11/17 Amlodipine Besylate [Norvasc -] 10 mg PO DAILY #30 tablet 02/22/17 Docusate Sodium [Colace -] 100 mg PO BID #30 tab 02/22/17 Insulin (Levemir) [Levemir Vial] 40 units SQ BID@0700,2200 ml 02/22/17 Insulin Sliding Scale [Novolog 1 vial SQ ACHS units 02/22/17 Vial Sliding Scale -] Lisinopril [Prinivil] 20 mg PO DAILY tablet 02/22/17 Losartan Potassium [Cozaar] 25 mg PO DAILY #30 tablet 02/22/17 Collagenase Clostridium Hist. 1 applic TP DAILY #90 oint...g. 03/12/17 [Santyl] Collagenase Clostridium Hist. 1 applic TP DAILY #90 oint...g. 03/26/17 [Santyl] REVIEW OF SYSTEMS CONSTITUTIONAL: Absent: fever, chills, diaphoresis, generalized weakness, malaise, loss of appetite, weight change HEENT: Absent: rhinorrhea, nasal congestion, throat pain, throat swelling, difficulty swallowing, mouth swelling, ear pain, eye pain, visual changes CARDIOVASCULAR: syncope Absent: chest pain, palpitations, irregular heart rate, lightheadedness, peripheral edema RESPIRATORY: Absent: cough, shortness of breath, dyspnea with exertion, orthopnea, wheezing, stridor, hemoptysis GASTROINTESTINAL: nausea, vomiting Absent: abdominal pain, abdominal distension, diarrhea, constipation, melena, hematochezia GENITOURINARY: Absent: dysuria, frequency, urgency, hesitancy, hematuria, flank pain, genital pain MUSCULOSKELETAL: Absent: myalgia, arthralgia, joint swelling, back pain, neck pain SKIN: Absent: rash, itching, pallor HEMATOLOGIC/IMMUNOLOGIC: Absent: easy bleeding, easy bruising, lymphadenopathy, frequent infections ENDOCRINE: Absent: unexplained weight gain, unexplained weight loss, heat intolerance, cold intolerance NEUROLOGIC: dizziness Absent: headache, focal weakness or paresthesias, unsteady gait, seizure, mental status changes, bladder or bowel incontinence PSYCHIATRIC: Absent: anxiety, depression, suicidal or homicidal ideation, hallucinations. PHYSICAL EXAMINATION Vital Signs - 24 hr 02/16/19 02/16/19 16:56 20:02 Temperature 98.2 F Pulse Rate 102 H Pulse Rate [#1] 82 Respiratory 17 Rate Respiratory 14 Rate [#1] Blood Pressure 162/101 H Blood Pressure 180/100 H [#1] O2 Sat by Pulse 95 Oximetry (%) O2 Sat by Pulse 98 Oximetry (%) [ #1] GENERAL: Awake, alert, and fully oriented, in no acute distress. HEAD: Normal with no signs of trauma. EYES: Pupils equal, round and reactive to light, extraocular movements intact, sclera anicteric, conjunctiva clear. No lid lag. EARS, NOSE, THROAT: Ears normal, nares patent, oropharynx clear without exudates. Moist mucous membranes. NECK: Normal range of motion, supple without lymphadenopathy, JVD, or masses. LUNGS: Breath sounds equal, clear to auscultation bilaterally. No wheezes, and no crackles. No accessory muscle use. HEART: Regular rate and rhythm, normal S1 and S2 without murmur, rub or gallop. ABDOMEN: Soft, nontender, not distended, normoactive bowel sounds, no guarding, no rebound, no masses. No hepatomegaly or splenomegaly. MUSCULOSKELETAL: Normal range of motion at all joints. No bony deformities or tenderness. No CVA tenderness. UPPER EXTREMITIES: 2+ pulses, warm, well-perfused. No cyanosis. No clubbing. No peripheral edema. LOWER EXTREMITIES: 2+ pulses, warm, well-perfused. No calf tenderness. No peripheral edema. NEUROLOGICAL: Cranial nerves II-XII intact. Normal speech. Normal gait. [place] Hallpike = no nystagmus PSYCHIATRIC: Cooperative. Good eye contact. Appropriate mood and affect. SKIN: Warm, dry, normal turgor, no rashes or lesions noted, normal capillary refill. Laboratory Results - last 24 hr CBC, BMP 02/16/19 18:00 02/16/19 18:00 ASSESSMENT/PLAN: Patient is a 54 year old male with PMH of HTN, IDDM, and ETOH use who presents with persistent dizziness and syncopal episodes over the past month. #Dizziness and syncope Likely 2/2 autonomic neuropathy from uncontrolled diabetes. Pt has 25+ year hx of diabetes with several year hx of peripheral neuropathy. Last Hgb A1c: 10.2. Unlikely orthostatic hypotension, neg orthatics on exam Unlikely cardiogenic, EKG: NSR, no ischemia, recent echo & carotids done as outpatient, but will obtain records in am. Cannot fully r/o though, so will montior on tele. Recommend holter monitor and stress test as outpt Unlikely BPPV. [place] hallpike: no nystagmus. Pt denies vertigo symptoms CT head: no acute intracranial pathology F/u ESR, CRP, HIV, RPR, UA, Utox for any other underlying etiologi #EtOH Use Pt is a daily drinker. Could also be contributing to dizziness/syncope He states last drink was 48 hours ago, CIWA: 1. EtOH level: <3.0 Gave banana bag in ED Will give thiamine 100mg and folate 1mg daily Frequent CIWA monitoring, check for withdrawal symptoms #IDDM Poorly controlled, Hgb A1C (06/07/17): 10.2%, UA: 3+ glucose Pt takes levemir 35 units SQ at home Will start SSI during admission Frequent FSG monitoring F/u new Hgb A1C #Bilirubinemia Pt denies any abd symptoms F/u RUQ US and direct bili to r/o mechanical obstruction or inflammation #HTN Cont home meds: lisinopril 20mg daily, norvasc 10mg daily Will med-rec in am #DVT ppx Heparin SQ TID #FEN IV NS @ 100ml/hr Diabetic/sodium-controlled diet #Dispo Monitor on tele Visit type - Emergency Visit Emergency Visit: Yes ED Registration Date: 02/16/19 Care time: The patient presented to the Emergency Department on the above date and was hospitalized for further evaluation of their emergent condition. - New Patient This patient is new to me today: Yes Date on this admission: 02/17/19 - Critical Care Critical Care patient: No ATTENDING PHYSICIAN STATEMENT I saw and evaluated the patient. I reviewed the resident's note and discussed the case with the resident. I agree with the resident's findings and plan as documented. SUBJECTIVE: OBJECTIVE: ASSESSMENT AND PLAN:
[2019-02-16] MEDS ORDERED: SODIUM CHLORIDE 1,000 ML IV SCH (22:15)
[2019-02-16] MEDS ORDERED: FOLIC ACID INJECTION - 1 MG, THIAMINE HCL 100 MG, MULTIVIT INJECTION ADULT 10 ML in SOD... IVPB ONE (22:30)
[2019-02-16] MEDS: HEPARIN NA (PORCINE) 5,000 UNITS/ML 1ML VIAL SQ SCH (22:30)
--- NOTE | 2019-02-16 22:56 | PN ---
Teaching Attending Note ATTENDING PHYSICIAN STATEMENT I saw and evaluated the patient. I reviewed the resident's note and discussed the case with the resident. I agree with the resident's findings and plan as documented. Seen and examined; please refer to resident note for further historical information. Briefly, this is a 54 y/o male presenting to the ER for syncope/ falls; he is found to be hyperglycemic and with hypertensive urgency. He did not take his AM medications today. Has been having falls with LOC as OP and was supposed to get workup but was apparently not completed (stress test, etc.) . He reveals a history of 1 year of nausea/vomiting (initially hemetemesis that resolved) VS, labs, imaging reviewed NAD, AAO, resting in bed NC AT EOMI PERRLA RRR s1/2 NT ND _BS CN2-12 wnl, no fnd Normal mood, appropriate behavior EKG reviewed Telemetry ordered ASSESSMENT AND PLAN: Patient presents with syncope; he is noted to be hyperglycemic and have slight elevated bili, alk phos, and CK-MB # Syncope with recurring falls (R/O cardiogenic, neurogenic causes. Not acute and has been going on for months. Consider orthostatic with vomiting and recurring sx; can also consider MRI, etc. but non-acute. He is afebrile and hemodynamcially stable; can also consider autonomic neuropathy). # Hypertensive urgency # Uncontrolled DM with hyperglycemia (followup # Recent likely H. Pylori (Described what appears to be triple therapy; recurring symptoms so will consult Dr. Suarez and review his records before ordering further studies)
[2019-02-16] MEDS ORDERED: ONDANSETRON 4 MG/2 ML VIAL IVPB ONE (23:36)
[2019-02-16] MEDS ORDERED: LISINOPRIL 20 MG TABLET (FP) PO ONE (23:36)
[2019-02-17 00:28] LABS: BILIRUBIN,DIRECT 0.4 mg/dL (0.0-0.2)
[2019-02-17 01:20] LABS: EPI CELLS 0.2 /HPF (0-5/HPF); HYALINE CASTS 0 /lpf (0-8); PH,URINE 6.5 (5.0-8.0); URINE APPEARANCE CLEAR; URINE BACTERIA 0.7 /hpf (NEGATIVE); URINE BILIRUBIN NEGATIVE (NEGATIVE); URINE COLOR YELLOW; URINE GLUCOSE (UA) 3+ (NEGATIVE); URINE KETONE 1+ (NEGATIVE); URINE LEUK ESTERASE NEGATIVE (NEGATIVE); URINE NITRITE NEGATIVE (NEGATIVE); URINE PROTEIN 1+ (NEGATIVE); URINE RBC 0 /hpf (0-4); URINE UROBILINOGEN 0.2 mg/dL (0.2-1.0); URINE WBC 0 /hpf (0-5)
[2019-02-17 01:32] LABS: COCAINE, UR NEGATIVE ng/ml (CUTOFF=300); METHADONE, UR NEGATIVE ng/ml (CUTOFF=300); OPIATES, URI NEGATIVE ng/ml (CUTOFF=300); PHENCYCLIDINE,URINE NEGATIVE ng/ml (CUTOFF=25); URINE AMPHETAMINES NEGATIVE ng/ml (CUTOFF=500); URINE BARBITURATES NEGATIVE ng/ml (CUTOFF=200); URINE BENZODIAZEPINES NEGATIVE ng/ml (CUTOFF=200)
[2019-02-17] MEDS: HEPARIN NA (PORCINE) 5,000 UNITS/ML 1ML VIAL SQ SCH ×3 (06:50→22:03)
[2019-02-17] MEDS: INSULIN SLIDING SCALE (NOVOLOG) 1 VIAL SQ SCH ×3 (07:37→17:20)
[2019-02-17 07:58] LABS: BASO % 0.7 % (0-2.0); EOS % 1.1 % (0-4.5); HEMATOCRIT 33.1 % (35.4-49); HEMOGLOBIN 11.6 GM/dL (11.7-16.9); LYMPH % 25.5 % (8-40); MCH 32.8 pg (25.7-33.7); MCHC 35.1 g/dl (32.0-35.9); MEAN CELL VOLUME 93.4 fl (80-96); MEAN PLT VOLUME 8.7 fl (7.5-11.1); NEUT % 64.7 % (42.8-82.8); PLATELET COUNT 194 K/MM3 (134-434); RBC 3.54 M/mm3 (4.00-5.60); RDW 14.4 % (11.9-15.9); WHITE BLOOD COUNT 4.1 K/mm3 (4.0-10.0)
[2019-02-17] MEDS ORDERED: INSULIN (LEVEMIR) 100 UNITS/ML UNITS SQ ONE (08:11)
[2019-02-17 08:27] LABS: ALBUMIN 3.7 g/dl (3.4-5.0); BILIRUBIN,TOTAL 1.5 mg/dL (0.2-1); BLOOD UREA NITROGEN 8.4 mg/dL (7-18); CALCIUM 8.8 mg/dL (8.5-10.1); CREATININE 0.9 mg/dL (0.55-1.3); MAGNESIUM 1.9 mg/dL (1.8-2.4); POTASSIUM 3.9 mmol/L (3.5-5.1); TOT PROT 7.4 g/dl (6.4-8.2)
[2019-02-17] MEDS ORDERED: diazePAM 2 MG TABLET PO ONE (09:25)
[2019-02-17] MEDS: SODIUM CHLORIDE 1,000 ML IV SCH ×2 (09:40→18:28)
[2019-02-17] MEDS: ASPIRIN COATED 81 MG TABLET.EC PO SCH (10:04)
[2019-02-17] MEDS: FOLIC ACID 1 MG TABLET (FP) PO SCH (10:04)
[2019-02-17] MEDS: amLODIPine BESYLATE 10 MG TABLET (FP) PO SCH (10:05)
[2019-02-17] MEDS: THIAMINE HCL 100 MG TABLET (FP) PO SCH (10:05)
[2019-02-17] MEDS: LISINOPRIL 20 MG TABLET (FP) PO SCH (10:05)
--- NOTE | 2019-02-17 11:46 | EKG ---
Test Reason : Blood Pressure : / mmHG Vent. Rate : 099 BPM Atrial Rate : 099 BPM P-R Int : 156 ms QRS Dur : 072 ms QT Int : 372 ms P-R-T Axes : 049 -28 105 degrees QTc Int : 477 ms NORMAL SINUS RHYTHM POSSIBLE LEFT ATRIAL ENLARGEMENT LEFT VENTRICULAR HYPERTROPHY T WAVE ABNORMALITY, CONSIDER LATERAL ISCHEMIA PROLONGED QT ABNORMAL ECG WHEN COMPARED WITH ECG OF 21-DEC-2018 04:22, NO SIGNIFICANT CHANGE WAS FOUND Confirmed by LINDSAY ROMERO, RENATA ([id number]) on 02/17/2019 11:45:58 AM Referred By: Confirmed By:RENATA MONTOYA MD
--- NOTE | 2019-02-17 13:54 | PN ---
Teaching Attending Note Name of Resident: Kurt Connelly ATTENDING PHYSICIAN STATEMENT I saw and evaluated the patient. I reviewed the resident's note and discussed the case with the resident. I agree with the resident's findings and plan as documented. SUBJECTIVE: No fever or chills. feels very dizzy ( spinning ) , keeps his eyes closed . vertigo is worse with position change in bed and with sitting up. has been having intermittent vertigo in past month but this episode if the longest in duration. due to vertigo, he feels unsteady . OBJECTIVE: NAD, awake, alert, cooperative , no facial droop. EOMI. no JVD CV: possible 2/6 Sm at EZIO. Lungs: CTAB Ext : no edema or erythema. Abd: obese, soft, NT, ND , NL BS Neuro: EOMi , round equal pupils, reactive to light , no facial drorop. tongue at mid line. strength 5/5 in upper and lower extremities proximally and distally . sensation to light touch is absent half way down the leg and in feet. absent proprioception reflexes 1+ knee jerk and 1+ biceps b/l nose to finger Nl declined [place] Halpike ASSESSMENT AND PLAN: 54 y/o man with h/o ETOH abuse, HTN, DM, HLP, long nodules, and other medical problems who presented with dizziness and syncope 1- Vertigo: possible BPV, but need to r/o posterior fossa lesions ( tumor, stroke, ,,,etc). doubt vestibular neuritis. Doubt it is cardiac in origin - start standing meclizine - IVF - get MRI of brain - trial of valium . - tele monitoring - dc zofran and start compazine due to prolonged QTc - checlk B12, and Lyme titers 2- DM: he takes Humolog 30 units TID AC and 30 of Lantus at HS. - received 30 of levemir in am . - cont SSI - will give a smaller dose of levemir in Am, to switch him to his full dose in HS 3- HTN : cont perez emeds 4- Transaminitis: likely due to fatty liver . US reviewed 5- Dispo: HLOC PT eval
[2019-02-17] MEDS ORDERED: PROCHLORPERAZINE INJECTION 10 MG/2 ML VIAL IVPB PRN (14:03)
[2019-02-17] MEDS ORDERED: HEPARIN NA (PORCINE) 5,000 UNITS/ML 1ML VIAL ONE (14:05)
[2019-02-17] MEDS ORDERED: MECLIZINE HCL 25 MG TABLET (FP) ONE (14:05)
[2019-02-17] MEDS: MECLIZINE HCL 25 MG TABLET (FP) PO SCH ×2 (14:18→22:08)
--- NOTE | 2019-02-17 17:42 | PN ---
Physical Exam: SUBJECTIVE: Patient seen at bedside. Discussed his statin medication hes taking. OBJECTIVE: Vital Signs Period Temp Pulse Resp BP Sys/Pena Pulse Ox Last 24 Hr 98.4 F 82-102 14-20 150-180/84-100 94-98 Laboratory Results - last 24 hr 02/16/19 02/16/19 02/16/19 18:00 18:00 18:00 WBC 4.4 RBC 3.81 L Hgb 12.4 Hct 35.3 L MCV 92.7 MCH 32.6 MCHC 35.1 RDW 14.0 Plt Count 229 MPV 8.7 Absolute Neuts (auto) 3.3 Neutrophils % 74.3 Lymphocytes % 19.1 Monocytes % 5.5 Eosinophils % 0.7 Basophils % 0.4 Nucleated RBC % 0 Sodium 137 Potassium 4.4 Chloride 98 Carbon Dioxide 28 Anion Gap 11 BUN 9.1 Creatinine 1.0 Est GFR (CKD-EPI)AfAm 99.15 Est GFR (CKD-EPI)NonAf 85.55 POC Glucometer Random Glucose 324 H* Hemoglobin A1c % Calcium 9.3 Magnesium 2.0 Total Bilirubin 1.4 H Direct Bilirubin 0.4 H AST 39 H ALT 33 Alkaline Phosphatase 137 H Creatine Kinase 254 Creatine Kinase Index 1.8 CK-MB (CK-2) 4.6 H Troponin I < 0.02 C-Reactive Protein 0.3 Total Protein 8.2 Albumin 4.2 TSH 1.09 Urine Color Urine Appearance Urine pH Ur Specific [place] Urine Protein Urine Glucose (UA) Urine Ketones Urine Blood Urine Nitrite Urine Bilirubin Urine Urobilinogen Ur Leukocyte Esterase Urine WBC (Auto) Urine RBC (Auto) Urine Casts (Auto) U Epithel Cells (Auto) Urine Bacteria (Auto) Opiates Screen Methadone Screen Barbiturate Screen Phencyclidine Screen Ur Amphetamines Screen MDMA (Ecstasy) Screen Benzodiazepines Screen Cocaine Screen U Marijuana (THC) Screen Alcohol, Quantitative < 3.0 Acetone, Qual Trace 02/16/19 02/17/19 02/17/19 22:59 00:15 00:15 WBC RBC Hgb Hct MCV MCH MCHC RDW Plt Count MPV Absolute Neuts (auto) Neutrophils % Lymphocytes % Monocytes % Eosinophils % Basophils % Nucleated RBC % Sodium Potassium Chloride Carbon Dioxide Anion Gap BUN Creatinine Est GFR (CKD-EPI)AfAm Est GFR (CKD-EPI)NonAf POC Glucometer 194 Random Glucose Hemoglobin A1c % Calcium Magnesium Total Bilirubin Direct Bilirubin AST ALT Alkaline Phosphatase Creatine Kinase Creatine Kinase Index CK-MB (CK-2) Troponin I C-Reactive Protein Total Protein Albumin TSH Urine Color Yellow Urine Appearance Clear Urine pH 6.5 Ur Specific [place] 1.024 Urine Protein 1+ H Urine Glucose (UA) 3+ H Urine Ketones 1+ H Urine Blood Trace Urine Nitrite Negative Urine Bilirubin Negative Urine Urobilinogen 0.2 Ur Leukocyte Esterase Negative Urine WBC (Auto) 0 Urine RBC (Auto) 0 Urine Casts (Auto) 0 U Epithel Cells (Auto) 0.2 Urine Bacteria (Auto) 0.7 Opiates Screen Negative Methadone Screen Negative Barbiturate Screen Negative Phencyclidine Screen Negative Ur Amphetamines Screen Negative MDMA (Ecstasy) Screen Negative Benzodiazepines Screen Negative Cocaine Screen Negative U Marijuana (THC) Screen Negative Alcohol, Quantitative Acetone, Qual 02/17/19 02/17/19 02/17/19 04:23 06:48 07:04 WBC 4.1 RBC 3.54 L Hgb 11.6 L Hct 33.1 L MCV 93.4 MCH 32.8 MCHC 35.1 RDW 14.4 Plt Count 194 MPV 8.7 Absolute Neuts (auto) 2.7 Neutrophils % 64.7 Lymphocytes % 25.5 D Monocytes % 8.0 Eosinophils % 1.1 Basophils % 0.7 Nucleated RBC % 0 Sodium Potassium Chloride Carbon Dioxide Anion Gap BUN Creatinine Est GFR (CKD-EPI)AfAm Est GFR (CKD-EPI)NonAf POC Glucometer 179 186 Random Glucose Hemoglobin A1c % Calcium Magnesium Total Bilirubin Direct Bilirubin AST ALT Alkaline Phosphatase Creatine Kinase Creatine Kinase Index CK-MB (CK-2) Troponin I C-Reactive Protein Total Protein Albumin TSH Urine Color Urine Appearance Urine pH Ur Specific [place] Urine Protein Urine Glucose (UA) Urine Ketones Urine Blood Urine Nitrite Urine Bilirubin Urine Urobilinogen Ur Leukocyte Esterase Urine WBC (Auto) Urine RBC (Auto) Urine Casts (Auto) U Epithel Cells (Auto) Urine Bacteria (Auto) Opiates Screen Methadone Screen Barbiturate Screen Phencyclidine Screen Ur Amphetamines Screen MDMA (Ecstasy) Screen Benzodiazepines Screen Cocaine Screen U Marijuana (THC) Screen Alcohol, Quantitative Acetone, Qual 02/17/19 02/17/19 02/17/19 07:04 07:04 17:19 WBC RBC Hgb Hct MCV MCH MCHC RDW Plt Count MPV Absolute Neuts (auto) Neutrophils % Lymphocytes % Monocytes % Eosinophils % Basophils % Nucleated RBC % Sodium 138 Potassium 3.9 Chloride 102 Carbon Dioxide 26 Anion Gap 9 BUN 8.4 Creatinine 0.9 Est GFR (CKD-EPI)AfAm 112.62 Est GFR (CKD-EPI)NonAf 97.17 POC Glucometer 167 Random Glucose 187 H Hemoglobin A1c % 9.4 H Calcium 8.8 Magnesium 1.9 Total Bilirubin 1.5 H Direct Bilirubin AST 30 ALT 27 Alkaline Phosphatase 109 Creatine Kinase Creatine Kinase Index CK-MB (CK-2) Troponin I C-Reactive Protein Total Protein 7.4 Albumin 3.7 TSH Urine Color Urine Appearance Urine pH Ur Specific [place] Urine Protein Urine Glucose (UA) Urine Ketones Urine Blood Urine Nitrite Urine Bilirubin Urine Urobilinogen Ur Leukocyte Esterase Urine WBC (Auto) Urine RBC (Auto) Urine Casts (Auto) U Epithel Cells (Auto) Urine Bacteria (Auto) Opiates Screen Methadone Screen Barbiturate Screen Phencyclidine Screen Ur Amphetamines Screen MDMA (Ecstasy) Screen Benzodiazepines Screen Cocaine Screen U Marijuana (THC) Screen Alcohol, Quantitative Acetone, Qual Active Medications Generic Name Dose Route Start Last Admin Trade Name Freq PRN Reason Stop Dose Admin Amlodipine Besylate 10 mg 02/17/19 10:00 02/17/19 10:05 Norvasc - PO 10 mg DAILY PAULINA Administration Aspirin 81 mg 02/17/19 10:00 02/17/19 10:04 Ecotrin - PO 81 mg DAILY PAULINA Administration Atorvastatin Calcium 40 mg 02/17/19 22:00 Lipitor - PO HS PAULINA Folic Acid 1 mg 02/17/19 10:00 02/17/19 10:04 Folic Acid - PO 1 mg DAILY PAULINA Administration Heparin Sodium (Porcine) 5,000 unit 02/16/19 22:00 02/17/19 14:18 Heparin - SQ Not Given TID [facility] Sodium Chloride 1,000 mls @ 75 mls/hr 02/17/19 09:30 02/17/19 09:40 Normal Saline - IV 75 mls/hr ASDIR [facility] Administration Insulin Aspart 1 vial 02/17/19 11:00 02/17/19 17:20 Novolog Vial Sliding Scale - SQ Not Given TIDAC [facility] Protocol Lisinopril 20 mg 02/17/19 10:00 02/17/19 10:05 Prinivil PO Not Given DAILY [facility] Meclizine HCl 25 mg 02/17/19 14:00 02/17/19 14:18 Antivert - PO 25 mg TID PAULINA Administration Prochlorperazine Edisylate 10 mg 02/17/19 14:03 Compazine Injection - IVPB Q6H PRN NAUSEA AND/OR VOMITING Thiamine HCl 100 mg 02/17/19 10:00 02/17/19 10:05 Vitamin B1 - PO 100 mg DAILY PAULINA Administration ASSESSMENT/PLAN: Patient is a 54 year old male with PMH of HTN, IDDM, and ETOH use who presents with persistent dizziness and syncopal episodes over the past month. #Dizziness and syncope possible BPV - need to r/o posterior fossa lesions ( tumor, stroke, ,,,etc). doubt vestibular neuritis. Doubt it is cardiac in origin- negative echo per pt. carotid showing slight closure per pt. recommend holter, stress test as o/p - on standing meclizine - IVF - MRI of brain - small size recent lacunar infarct, focus of restricted diffusion seen in left supraganglionic white matter. - on valium . - tele monitoring - compazine for nausea due to prolonged QTc - checlk B12, and Lyme titers - Last Hgb A1c: 10.2. doubt orthostatic hypotension, neg orthostatics on exam #EtOH Use Pt is a daily drinker. - Could be contributing to dizziness/syncope He states last drink was 48 hours ago, CIWA: 1. EtOH level: <3.0 Gave banana bag in ED on thiamine 100mg and folate 1mg daily Frequent CIWA monitoring, check for withdrawal symptoms #IDDM UA: 3+ glucose 30 units TID AC and 30 of Lantus at HS. - received 30 of levemir in am . Will start SSI during admission Frequent FSG monitoring #Bilirubinemia Pt denies any abd symptoms F/u RUQ US- fatty infiltrate in liver - pt has allergy to metformin will continue to monitor, started pt on atorvastatin 40 M,W,F #HTN Cont home meds: lisinopril 20mg daily, norvasc 10mg daily #DVT ppx Heparin SQ TID #FEN IV NS @ 100ml/hr Diabetic/sodium-controlled diet #Dispo Monitor on tele Visit type - Emergency Visit Emergency Visit: Yes ED Registration Date: 02/16/19 Care time: The patient presented to the Emergency Department on the above date and was hospitalized for further evaluation of their emergent condition. - New Patient This patient is new to me today: No - Critical Care Critical Care patient: No - Discharge Referral Referred to [facility] Med P.C.: No ATTENDING PHYSICIAN STATEMENT I saw and evaluated the patient. I reviewed the resident's note and discussed the case with the resident. I agree with the resident's findings and plan as documented. SUBJECTIVE: OBJECTIVE: ASSESSMENT AND PLAN:
[2019-02-17] MEDS ORDERED: ATORVASTATIN CA 40 MG TABLET (FP) PO SCH (22:00)
[2019-02-18] MEDS: HEPARIN NA (PORCINE) 5,000 UNITS/ML 1ML VIAL SQ SCH ×3 (06:32→21:32)
[2019-02-18] MEDS: MECLIZINE HCL 25 MG TABLET (FP) PO SCH ×3 (06:39→21:49)
[2019-02-18] MEDS: INSULIN SLIDING SCALE (NOVOLOG) 1 VIAL SQ SCH ×3 (06:42→17:36)
--- NOTE | 2019-02-18 09:10 | PN ---
Physical Exam: SUBJECTIVE: Patient seen and examined. Still complains of unsteadiness. Says he feels as if he is moving around in circles. Says he is feeling slightly better than yesterday. He says he is now able to get up on his bed to eat his food. OBJECTIVE: Vital Signs Period Temp Pulse Resp BP Sys/Pena Pulse Ox Last 24 Hr 97.9 F-98.4 F 97-107 18-20 128-158/75-90 95-97 GENERAL: Sitting up in bed. EYES: PERRL, extraocular movements intact, no nystagmus ENT: oropharynx clear without exudates, moist mucous membranes. NECK: supple. LUNGS: Breath sounds equal, clear to auscultation bilaterally HEART: tachycardic, regular rhythm, no Murmurs appreciated ABDOMEN: Soft, nontender, nondistended, normoactive bowel sounds EXTREMITIES: 2+ pulses, warm, well-perfused, no edema. NEUROLOGICAL: Cranial nerves II through XII grossly intact. No facial droop. face symmetric. no nystagmus. sensations intact throughout and equal. 5/5 strength throughout. Laboratory Results - last 24 hr 02/17/19 02/17/19 02/18/19 17:19 22:09 06:34 POC Glucometer 167 234 268 ASSESSMENT/PLAN: Patient is a 54 year old male with PMH of HTN, IDDM, and ETOH use who presents with persistent dizziness and syncopal episodes over the past month. #Vertigo/Dizziness -improvement from yesterday. -positive payal hallpike maneuver -on Meclizine 25mg TID, compazine, -pending lyme titers, hiv -check b12 -neg orthostats on previous exams #Recent Lacunar infarct on MRI -Brain MRI- small size recent lacunar infarct, focus of restricted diffusion seen in left supraganglionic white matter. -neuro consult for MRI findings -tight glucose control -lipid panel with 517 triglyceride -start fenofibrate -decrease lipitor to 20mg #IDDM -tight glucose monitoring.. -transition Lantus back to PM dose -will give 15 U this am and 15 U tonight -SSI -BGMs -9.4 A1c (10.2 in 2017) #Tachycardia -says he's be told that for years, and was supposed to follow up outpatient with a kindergartner. -will check tele -monitor #HTN -cont home lisinopril 20mg, norvasc 10mg #FEN -NS@75 -monitor -diabetic diet #Dvt ppx -hep sq Visit type - Emergency Visit Emergency Visit: Yes ED Registration Date: 02/16/19 Care time: The patient presented to the Emergency Department on the above date and was hospitalized for further evaluation of their emergent condition. - New Patient This patient is new to me today: Yes Date on this admission: 02/18/19 - Critical Care Critical Care patient: No ATTENDING PHYSICIAN STATEMENT I saw and evaluated the patient. I reviewed the resident's note and discussed the case with the resident. I agree with the resident's findings and plan as documented. SUBJECTIVE: OBJECTIVE: ASSESSMENT AND PLAN:
[2019-02-18 09:12] LABS: CHOLESTEROL 170 mg/dL (50-200); HDL CHOLESTEROL 57 mg/dL (40-60); TRIGLYCERIDES 517 mg/dL (0-150)
--- NOTE | 2019-02-18 09:29 | PN ---
Teaching Attending Note Name of Resident: Elizabeth Cancino ATTENDING PHYSICIAN STATEMENT I saw and evaluated the patient. I reviewed the resident's note and discussed the case with the resident. I agree with the resident's findings and plan as documented. SUBJECTIVE: No fever or chills. he still feels dizzy but better than yesterday. vertigo is worse with position change in bed and when he sits up. still can't walk due to unsteadiness OBJECTIVE: NAD, more comfortable and cooperative than yesterday CV: RRR, NO MRG Lungs: CTAB Ext : no edema or erythema. Neuro: EOMI , round equal pupils, reactive to light , no facial drorop.No nystagmus, tongue at mid line. strength 5/5 in upper and lower extremities proximally and distally . sensation to light touch is absent half way down the leg and in feet. absent proprioception in big toes reflexes 2+ knee jerk and 1+ biceps b/l + [place] Halpike on both sides ASSESSMENT AND PLAN: 54 y/o man with h/o ETOH abuse, HTN, DM, HLP, long nodules, and other medical problems who presented with dizziness and syncope 1- Vertigo: likely due to BPV. significantly Improved with current treatment - cont IVF and standing meclizine - tele with no events - MRI showed subacute lacunar infarct, and asmall area of restricted perfusion in L supraganglional area, but this is not contributing to his sx - Lyme and B12 pending . Nl TSH 2- Incidental finding of lacunar infarcts on MRI - Dm and BP control - LDL 63, decrease lipitor to 20 mg daily - cont ASA - neuro input 3- DM: - cont SSI - give 15 units of levemir in am and HS today in transition to his HS 30 units 3- HTN : cont perez Meds 4- Transaminitis: likely due to fatty liver . 5- Dispo: HLOC PT eval dietitian irma
[2019-02-18] MEDS: LISINOPRIL 20 MG TABLET (FP) PO SCH (09:32)
[2019-02-18] MEDS: FOLIC ACID 1 MG TABLET (FP) PO SCH (09:32)
[2019-02-18] MEDS: amLODIPine BESYLATE 10 MG TABLET (FP) PO SCH (09:32)
[2019-02-18] MEDS: ASPIRIN COATED 81 MG TABLET.EC PO SCH (09:33)
[2019-02-18] MEDS: SODIUM CHLORIDE 1,000 ML IV SCH (09:33)
[2019-02-18] MEDS: THIAMINE HCL 100 MG TABLET (FP) PO SCH (09:33)
[2019-02-18] MEDS ORDERED: INSULIN (LEVEMIR) 100 UNITS/ML UNITS SQ ONE ×3 (09:33→22:00)
--- NOTE | 2019-02-18 10:19 | CONSULT ---
Consult - text type - Consultation Consultation Note: PCP: Dr. Rich Arauz HISTORY OF PRESENT ILLNESS: Patient is a 54 year old male with PMH of HTN, IDDM, and ETOH use who presented with persistent dizziness and syncopal episodes over the past month. Pt has been experiencing intermittent dizziness one year ago. Over the past month, he has had several syncopal episodes that he does not fully remember. He usually experiences dizziness and nausea prior to these episodes, but denies vertigo, lightheadedness, chest pain, SOB, palpitations, or tinnitus. Several of these episodes have been witnessed by his sons who say he usually is out for only several seconds. He denies any residual weakness, confusion, urinary incontinence, or slurred speech after these episodes. Today, pt felt increasingly nauseous and vomited nbnb x4. He denies any fevers or chills. He had another syncopal episode this afternoon. Pt states that he has addressed these issues with his PCP who had him f/u with a luggage attendant. Per pt, he recently received an echo and carotid US that were unremarkable. He denies a history of any arrhythmias or valvular problems. He was supposed to f/u with a holter monitor and stress test but has not yet done so. Pt has never seen a neurologist or ENT for these issues. Head CT completed - no acute changes. Brain MRI completed - restricted diffusion in the left supraganglionic white matter measuring 2mm x 4mm., small szie recent lacunar infract. Discussed with hospitalist. Patient reports taking ASA 81mg at home, advised increase to 325mg as patient had CVA on low dose ASA and does not want to take twice daily Aggrenox. Extenisuve conversation about cardiovascular prevention, lifestyle modifications, weight loss, diet adjustment. Patient surprised to learn he had CVA but informed him that therapy can help with symptoms (speech disturbance most noticeable) and measures to prevent recurrence. LDL noted, 63 within normal limits. Has dizziness, improved with mecleizine, likely BPPV. Recent Travel: denies PAST MEDICAL HISTORY: HTN IDDM HLD PAST SURGICAL HISTORY: Wrist sx L toe sx Social History: Smoking: denies Alcohol: 2 drinks/day, last drink 48 hours ago, CIWA: 1 Drugs: denies Family History: Father: [place] Mother: [place] Allergies levofloxacin [From Levaquin] Allergy (Verified 02/16/19 16:56) metformin Allergy (Verified 02/16/19 16:56) HOME MEDICATIONS Ambulatory Orders Aspirin [Aspirin EC] 81 mg PO DAILY 08/27/15 Gemfibrozil [Lopid -] 600 mg PO BID@0700,1630 #20 tablet 01/11/17 Amlodipine Besylate [Norvasc -] 10 mg PO DAILY #30 tablet 02/22/17 Docusate Sodium [Colace -] 100 mg PO BID #30 tab 02/22/17 Insulin (Levemir) [Levemir Vial] 40 units SQ BID@0700,2200 ml 02/22/17 Insulin Sliding Scale [Novolog Vial Sliding Scale -] 1 vial SQ ACHS units 02/22 Lisinopril [Prinivil] 20 mg PO DAILY tablet 02/22/17 Losartan Potassium [Cozaar] 25 mg PO DAILY #30 tablet 02/22/17 Collagenase Clostridium Hist. [Santyl] 1 applic TP DAILY #90 oint...g. 03/12/17 Collagenase Clostridium Hist. [Santyl] 1 applic TP DAILY #90 oint...g. 03/26/17 Dapagliflozin Propanediol [Farxiga] 10 mg PO DAILY 02/17/19 Ezetimibe [Zetia] 10 mg PO DAILY 02/17/19 Insulin Glargine,Hum.rec.anlog [Basaglar Kwikpen U-100] 35 units SQ HS 02/17/19 Insulin Lispro [Admelog] 35 units SQ ASDIR 02/17/19 Lansoprazole [Prevacid] 30 mg PO BID 02/17/19 Losartan Potassium 50 mg PO DAILY 02/17/19 Simvastatin 40 mg PO ASDIR 02/17/19 REVIEW OF SYSTEMS CONSTITUTIONAL: Absent: fever, chills, diaphoresis, generalized weakness, malaise, loss of appetite, weight change HEENT: Absent: rhinorrhea, nasal congestion, throat pain, throat swelling, difficulty swallowing, mouth swelling, ear pain, eye pain, visual changes CARDIOVASCULAR: syncope Absent: chest pain, palpitations, irregular heart rate, lightheadedness, peripheral edema RESPIRATORY: Absent: cough, shortness of breath, dyspnea with exertion, orthopnea, wheezing, stridor, hemoptysis GASTROINTESTINAL: nausea, vomiting Absent: abdominal pain, abdominal distension, diarrhea, constipation, melena, hematochezia GENITOURINARY: Absent: dysuria, frequency, urgency, hesitancy, hematuria, flank pain, genital pain MUSCULOSKELETAL: Absent: myalgia, arthralgia, joint swelling, back pain, neck pain SKIN: Absent: rash, itching, pallor HEMATOLOGIC/IMMUNOLOGIC: Absent: easy bleeding, easy bruising, lymphadenopathy, frequent infections ENDOCRINE: Absent: unexplained weight gain, unexplained weight loss, heat intolerance, cold intolerance NEUROLOGIC: dizziness Absent: headache, focal weakness or paresthesias, unsteady gait, seizure, mental status changes, bladder or bowel incontinence PSYCHIATRIC: Absent: anxiety, depression, suicidal or homicidal ideation, hallucinations. PHYSICAL EXAMINATION Vital Signs Temperature 98.4 F 02/18/19 06:00 Pulse Rate 102 H 02/18/19 06:00 Respiratory Rate 18 02/18/19 06:00 Blood Pressure 128/75 02/18/19 06:00 O2 Sat by Pulse Oximetry (%) 95 02/17/19 21:00 GENERAL: Awake, alert, and fully oriented, in no acute distress. HEAD: Normal with no signs of trauma. EYES: Pupils equal, round and reactive to light, extraocular movements intact, sclera anicteric, conjunctiva clear. No lid lag. EARS, NOSE, THROAT: Ears normal, nares patent, oropharynx clear without exudates. Moist mucous membranes. NECK: Normal range of motion, supple without lymphadenopathy, JVD, or masses. LUNGS: Breath sounds equal, clear to auscultation bilaterally. No wheezes, and no crackles. No accessory muscle use. HEART: Regular rate and rhythm, normal S1 and S2 without murmur, rub or gallop. ABDOMEN: Soft, nontender, not distended, normoactive bowel sounds, no guarding, no rebound, no masses. No hepatomegaly or splenomegaly. MUSCULOSKELETAL: Normal range of motion at all joints. No bony deformities or tenderness. No CVA tenderness. UPPER EXTREMITIES: 2+ pulses, warm, well-perfused. No cyanosis. No clubbing. No peripheral edema. LOWER EXTREMITIES: 2+ pulses, warm, well-perfused. No calf tenderness. No peripheral edema. NEUROLOGICAL: Cranial nerves II-XII intact. Normal speech. Normal gait. [place] Hallpike = no nystagmus PSYCHIATRIC: Cooperative. Good eye contact. Appropriate mood and affect. SKIN: Warm, dry, normal turgor, no rashes or lesions noted, normal capillary refill. CBCD WBC 4.1 K/mm3 (4.0-10.0) 02/17/19 07:04 RBC 3.54 M/mm3 (4.00-5.60) L 02/17/19 07:04 Hgb 11.6 GM/dL (11.7-16.9) L 02/17/19 07:04 Hct 33.1 % (35.4-49) L 02/17/19 07:04 MCV 93.4 fl (80-96) 02/17/19 07:04 MCHC 35.1 g/dl (32.0-35.9) 02/17/19 07:04 RDW 14.4 % (11.9-15.9) 02/17/19 07:04 Plt Count 194 K/MM3 (134-434) 02/17/19 07:04 MPV 8.7 fl (7.5-11.1) 02/17/19 07:04 CMP Sodium 138 mmol/L (136-145) 02/17/19 07:04 Potassium 3.9 mmol/L (3.5-5.1) 02/17/19 07:04 Chloride 102 mmol/L (98-107) 02/17/19 07:04 Carbon Dioxide 26 mmol/L (21-32) 02/17/19 07:04 Anion Gap 9 MMOL/L (8-16) 02/17/19 07:04 BUN 8.4 mg/dL (7-18) 02/17/19 07:04 Creatinine 0.9 mg/dL (0.55-1.3) 02/17/19 07:04 Random Glucose 187 mg/dL (74-106) H 02/17/19 07:04 Calcium 8.8 mg/dL (8.5-10.1) 02/17/19 07:04 Total Bilirubin 1.5 mg/dL (0.2-1) H 02/17/19 07:04 AST 30 U/L (15-37) 02/17/19 07:04 ALT 27 U/L (13-61) 02/17/19 07:04 Alkaline Phosphatase 109 U/L (45-117) 02/17/19 07:04 Total Protein 7.4 g/dl (6.4-8.2) 02/17/19 07:04 Albumin 3.7 g/dl (3.4-5.0) 02/17/19 07:04 CARDIAC ENZYMES Creatine Kinase 254 U/L (26-308) 02/16/19 18:00 Troponin I < 0.02 ng/ml (0.00-0.05) 02/16/19 18:00 ASSESSMENT/PLAN: Patient is a 54 year old male with PMH of HTN, IDDM, and ETOH use who presented with persistent dizziness and syncopal episodes over the past month. Pt has been experiencing intermittent dizziness one year ago. Over the past month, he has had several syncopal episodes that he does not fully remember. He usually experiences dizziness and nausea prior to these episodes, but denies vertigo, lightheadedness, chest pain, SOB, palpitations, or tinnitus. Several of these episodes have been witnessed by his sons who say he usually is out for only several seconds. He denies any residual weakness, confusion, urinary incontinence, or slurred speech after these episodes. Today, pt felt increasingly nauseous and vomited nbnb x4. He denies any fevers or chills. He had another syncopal episode this afternoon. Pt states that he has addressed these issues with his PCP who had him f/u with a luggage attendant. Per pt, he recently received an echo and carotid US that were unremarkable. He denies a history of any arrhythmias or valvular problems. He was supposed to f/u with a holter monitor and stress test but has not yet done so. Pt has never seen a neurologist or ENT for these issues. Head CT completed - no acute changes. Brain MRI completed - restricted diffusion in the left supraganglionic white matter measuring 2mm x 4mm., small szie recent lacunar infract. Discussed with hospitalist. Patient reports taking ASA 81mg at home, advised increase to 325mg as patient had CVA on low dose ASA and does not want to take twice daily Aggrenox. Extenisuve conversation about cardiovascular prevention, lifestyle modifications, weight loss, diet adjustment. Patient surprised to learn he had CVA but informed him that therapy can help with symptoms (speech disturbance most noticeable) and measures to prevent recurrence. LDL noted, 63 within normal limits. Has dizziness, improved with mecleizine, likely BPPV. Continue CVA work up, follow up carotid dopplers, echo. Speech/swallow eval. Medication compliance. Monitor glucose, goal A1C < 6. Goal BMI < 30.
[2019-02-18] MEDS ORDERED: PT OWN MED DRAWER 7, Y5N ONE ×2 (11:04→11:32)
[2019-02-18] MEDS: FENOFIBRIC ACID 135 MG CAP PO SCH (11:11)
[2019-02-18 14:24] LABS: RPR REACTIVE 1:1 (NONREACTIVE)
[2019-02-18] MEDS ORDERED: INSULIN (NOVOLOG) ASPART 100 UNITS/ML 10ML VIAL SQ ONE (21:37)
[2019-02-18] MEDS: ATORVASTATIN CA 20 MG TABLET (FP) PO SCH (21:49)
[2019-02-19] MEDS: HEPARIN NA (PORCINE) 5,000 UNITS/ML 1ML VIAL SQ SCH ×3 (05:03→22:31)
[2019-02-19] MEDS: MECLIZINE HCL 25 MG TABLET (FP) PO SCH ×3 (06:44→22:32)
[2019-02-19] MEDS: INSULIN SLIDING SCALE (NOVOLOG) 1 VIAL SQ SCH ×3 (06:44→17:14)
[2019-02-19] MEDS: amLODIPine BESYLATE 10 MG TABLET (FP) PO SCH (09:55)
[2019-02-19] MEDS: LISINOPRIL 20 MG TABLET (FP) PO SCH (09:55)
[2019-02-19] MEDS: ASPIRIN 325 MG ENTERIC COATED TABLET (FP) PO SCH (09:55)
[2019-02-19] MEDS: FOLIC ACID 1 MG TABLET (FP) PO SCH (09:55)
[2019-02-19] MEDS: THIAMINE HCL 100 MG TABLET (FP) PO SCH (09:56)
--- NOTE | 2019-02-19 10:56 | PN ---
Progress Note (short form) - Note Progress Note: Neurology PCP: Dr. Rich Arauz HISTORY OF PRESENT ILLNESS: Patient is a 54 year old male with PMH of HTN, IDDM, and ETOH use who presented with persistent dizziness and syncopal episodes over the past month. Pt has been experiencing intermittent dizziness one year ago. Over the past month, he has had several syncopal episodes that he does not fully remember. He usually experiences dizziness and nausea prior to these episodes, but denies vertigo, lightheadedness, chest pain, SOB, palpitations, or tinnitus. Several of these episodes have been witnessed by his sons who say he usually is out for only several seconds. He denies any residual weakness, confusion, urinary incontinence, or slurred speech after these episodes. On day of admission, pt felt increasingly nauseous and vomited nbnb x4. He denies any fevers or chills. He had another syncopal episode this afternoon. Pt states that he has addressed these issues with his PCP who had him f/u with a carton counter feeder. Per pt, he recently received an echo and carotid US that were unremarkable. He denies a history of any arrhythmias or valvular problems. He was supposed to f/u with a holter monitor and stress test but has not yet done so. Pt has never seen a neurologist or ENT for these issues. Head CT completed - no acute changes. Brain MRI completed - restricted diffusion in the left supraganglionic white matter measuring 2mm x 4mm., small szie recent lacunar infract. Discussed with hospitalist. Patient reports taking ASA 81mg at home, advised increase to 325mg as patient had CVA on low dose ASA and does not want to take twice daily Aggrenox. Extenisuve conversation about cardiovascular prevention, lifestyle modifications, weight loss, diet adjustment. Patient surprised to learn he had CVA but informed him that therapy can help with symptoms (speech disturbance most noticeable) and measures to prevent recurrence. LDL noted, 63 within normal limits, patient on 20mg statin. Has dizziness, improved with mecleizine, likely BPPV. Carotid doppler completed - small calcified plaque at the right mid common carotid artery, small to moderate size calcified plaques at the right common bifurcation without significant stenosis; small plaques with calcifications at the left common carotid bifurcation without significant stenosis. Allergies Allergy/AdvReac Type Severity Reaction Status Date / Time levofloxacin [From Levaquin] Allergy Verified 02/16/19 16:56 metformin Allergy Verified 02/16/19 16:56 Active Medications Amlodipine Besylate (Norvasc -) 10 mg PO DAILY [facility] Last Admin: 02/19/19 09:55 Dose: 10 mg Aspirin (Ecotrin -) 325 mg PO DAILY [facility] Last Admin: 02/19/19 09:55 Dose: 325 mg Atorvastatin Calcium (Lipitor -) 20 mg PO [facility] Last Admin: 02/18/19 21:49 Dose: 20 mg Fenofibric Acid (Trilipix -) 135 mg PO DAILY [facility] Last Admin: 02/18/19 11:11 Dose: 135 mg Folic Acid (Folic Acid -) 1 mg PO DAILY [facility] Last Admin: 02/19/19 09:55 Dose: 1 mg Heparin Sodium (Porcine) (Heparin -) 5,000 unit SQ TID [facility] Last Admin: 02/19/19 05:03 Dose: Not Given Sodium Chloride (Normal Saline -) 1,000 mls @ 75 mls/hr IV ASDIR [facility] Last Admin: 02/18/19 09:33 Dose: 75 mls/hr Insulin Aspart (Novolog Vial Sliding Scale -) [facility] Last Admin: 02/19/19 06:44 Dose: Not Given Insulin Detemir (Levemir Vial) 30 units SQ [facility] Lisinopril (Prinivil) 20 mg PO DAILY [facility] Last Admin: 02/19/19 09:55 Dose: 20 mg Meclizine HCl (Antivert -) 25 mg PO TID [facility] Last Admin: 02/19/19 06:44 Dose: 25 mg Prochlorperazine Edisylate (Compazine Injection -) 10 mg IVPB Q6H PRN PRN Reason: NAUSEA AND/OR VOMITING Thiamine HCl (Vitamin B1 -) 100 mg PO DAILY [facility] Last Admin: 02/19/19 09:56 Dose: 100 mg PHYSICAL EXAMINATION Vital Signs Temperature 98.4 F 02/18/19 06:00 Pulse Rate 102 H 02/18/19 06:00 Respiratory Rate 18 02/18/19 06:00 Blood Pressure 128/75 02/18/19 06:00 O2 Sat by Pulse Oximetry (%) 95 02/17/19 21:00 GENERAL: Awake, alert, and fully oriented, in no acute distress. HEAD: Normal with no signs of trauma. EYES: Pupils equal, round and reactive to light, extraocular movements intact, sclera anicteric, conjunctiva clear. No lid lag. EARS, NOSE, THROAT: Ears normal, nares patent, oropharynx clear without exudates. Moist mucous membranes. NECK: Normal range of motion, supple without lymphadenopathy, JVD, or masses. LUNGS: Breath sounds equal, clear to auscultation bilaterally. No wheezes, and no crackles. No accessory muscle use. HEART: Regular rate and rhythm, normal S1 and S2 without murmur, rub or gallop. ABDOMEN: Soft, nontender, not distended, normoactive bowel sounds, no guarding, no rebound, no masses. No hepatomegaly or splenomegaly. MUSCULOSKELETAL: Normal range of motion at all joints. No bony deformities or tenderness. No CVA tenderness. UPPER EXTREMITIES: 2+ pulses, warm, well-perfused. No cyanosis. No clubbing. No peripheral edema. LOWER EXTREMITIES: 2+ pulses, warm, well-perfused. No calf tenderness. No peripheral edema. NEUROLOGICAL: Cn intact except slurred speech, right hand 5-/5, sensory intact , gait deferred PSYCHIATRIC: Cooperative. Good eye contact. Appropriate mood and affect. SKIN: Warm, dry, normal turgor, no rashes or lesions noted, normal capillary refill. CBCD WBC 4.1 K/mm3 (4.0-10.0) 02/17/19 07:04 RBC 3.54 M/mm3 (4.00-5.60) L 02/17/19 07:04 Hgb 11.6 GM/dL (11.7-16.9) L 02/17/19 07:04 Hct 33.1 % (35.4-49) L 02/17/19 07:04 MCV 93.4 fl (80-96) 02/17/19 07:04 MCHC 35.1 g/dl (32.0-35.9) 02/17/19 07:04 RDW 14.4 % (11.9-15.9) 02/17/19 07:04 Plt Count 194 K/MM3 (134-434) 02/17/19 07:04 MPV 8.7 fl (7.5-11.1) 02/17/19 07:04 CMP Sodium 138 mmol/L (136-145) 02/17/19 07:04 Potassium 3.9 mmol/L (3.5-5.1) 02/17/19 07:04 Chloride 102 mmol/L (98-107) 02/17/19 07:04 Carbon Dioxide 26 mmol/L (21-32) 02/17/19 07:04 Anion Gap 9 MMOL/L (8-16) 02/17/19 07:04 BUN 8.4 mg/dL (7-18) 02/17/19 07:04 Creatinine 0.9 mg/dL (0.55-1.3) 02/17/19 07:04 Random Glucose 187 mg/dL (74-106) H 02/17/19 07:04 Calcium 8.8 mg/dL (8.5-10.1) 02/17/19 07:04 Total Bilirubin 1.5 mg/dL (0.2-1) H 02/17/19 07:04 AST 30 U/L (15-37) 02/17/19 07:04 ALT 27 U/L (13-61) 02/17/19 07:04 Alkaline Phosphatase 109 U/L (45-117) 02/17/19 07:04 Total Protein 7.4 g/dl (6.4-8.2) 02/17/19 07:04 Albumin 3.7 g/dl (3.4-5.0) 02/17/19 07:04 CARDIAC ENZYMES Creatine Kinase 254 U/L (26-308) 02/16/19 18:00 Troponin I < 0.02 ng/ml (0.00-0.05) 02/16/19 18:00 ASSESSMENT/PLAN: Patient is a 54 year old male with PMH of HTN, IDDM, and ETOH use who presented with persistent dizziness and syncopal episodes over the past month. Pt has been experiencing intermittent dizziness one year ago. Over the past month, he has had several syncopal episodes that he does not fully remember. He usually experiences dizziness and nausea prior to these episodes, but denies vertigo, lightheadedness, chest pain, SOB, palpitations, or tinnitus. Several of these episodes have been witnessed by his sons who say he usually is out for only several seconds. He denies any residual weakness, confusion, urinary incontinence, or slurred speech after these episodes. Today, pt felt increasingly nauseous and vomited nbnb x4. He denies any fevers or chills. He had another syncopal episode this afternoon. Pt states that he has addressed these issues with his PCP who had him f/u with a carton counter feeder. Per pt, he recently received an echo and carotid US that were unremarkable. He denies a history of any arrhythmias or valvular problems. He was supposed to f/u with a holter monitor and stress test but has not yet done so. Pt has never seen a neurologist or ENT for these issues. Head CT completed - no acute changes. Brain MRI completed - restricted diffusion in the left supraganglionic white matter measuring 2mm x 4mm., small szie recent lacunar infract. Discussed with hospitalist. Patient reports taking ASA 81mg at home, advised increase to 325mg as patient had CVA on low dose ASA and does not want to take twice daily Aggrenox. Extenisuve conversation about cardiovascular prevention, lifestyle modifications, weight loss, diet adjustment. Patient surprised to learn he had CVA but informed him that therapy can help with symptoms (speech disturbance most noticeable) and measures to prevent recurrence. LDL noted, 63 within normal limits.LDL noted, 63 within normal limits, patient on 20mg statin. Has dizziness, improved with mecleizine, likely BPPV. Carotid doppler completed - small calcified plaque at the right mid common carotid artery, small to moderate size calcified plaques at the right common bifurcation without significant stenosis; small plaques with calcifications at the left common carotid bifurcation without significant stenosis. Continue CVA work up, echo. Speech/swallow eval. Medication compliance. Monitor glucose, goal A1C < 6. Goal BMI < 30. Likely to benefit from short term rehab, discussed in detail, patient seemed interested as a good transition before going home.
[2019-02-19] MEDS: FENOFIBRIC ACID 135 MG CAP PO SCH (12:16)
[2019-02-19] MEDS: SODIUM CHLORIDE 1,000 ML IV SCH (12:16)
--- NOTE | 2019-02-19 14:58 | PN ---
Progress Note (short form) - Note Progress Note: Subjective: no fever or chills. No SAEED . vertigo is better Objective: Vital Signs: Last Vital Signs Temp Pulse Resp BP Pulse Ox 98.4 F 103 H 20 134/72 97 02/19/19 13:42 02/19/19 13:42 02/19/19 13:42 02/19/19 13:42 02/18/19 21:00 Laboratory Results - last 24 hr 02/17/19 02/18/19 02/18/19 13:00 16:59 20:33 POC Glucometer 325 297 Lyme Screen IgG & IgM <0.91 02/19/19 02/19/19 06:40 11:45 POC Glucometer 153 204 Lyme Screen IgG & IgM Physical Exam: NAD CV: RRR, NO MRG Lungs: CTAB Ext: no edema or erythema. Neuro: EOMI , round equal pupils, reactive to light , no facial drorop.No nystagmus, tongue at mid line. strength 5/5 in upper and lower extremities proximally and distally . sensation to light touch is absent half way down the leg and in feet. absent proprioception in big toes reflexes 2+ knee jerk and 1+ biceps b/l ASSESSMENT AND PLAN: 54 y/o man with h/o ETOH abuse, HTN, DM, HLP, long nodules, and other medical problems who presented with dizziness and syncope 1- Vertigo: likely due to BPV. significantly Improved with current treatment - cont IVF and standing meclizine - tele with no events today - Lyme neg. b12 low normal , start B12 po daily - RPR pending . 2- Incidental finding of lacunar infarcts on MRI : slurred speech might be due to it - Dm and BP control - lipitor - cont ASA - neuro input 3- DM: - cont SSI - cont HS 30 units 3- HTN : cont home Meds 4- Transaminitis: likely due to fatty liver . 5- Hypertriglyceridemia : cont fibrate 5- Dispo: HLOC PT eval Visit type - Emergency Visit Emergency Visit: Yes ED Registration Date: 02/16/19 Care time: The patient presented to the Emergency Department on the above date and was hospitalized for further evaluation of their emergent condition. - New Patient This patient is new to me today: No - Critical Care Critical Care patient: No
[2019-02-19 15:30] LABS: TREPONEMA ANTIBODY REACTIVE (NONREACTIVE)
[2019-02-19] MEDS ORDERED: INSULIN (NOVOLOG) ASPART 100 UNITS/ML 10ML VIAL SQ ONE (21:37)
[2019-02-19] MEDS: ATORVASTATIN CA 20 MG TABLET (FP) PO SCH (22:32)
[2019-02-19] MEDS: INSULIN (LEVEMIR) 100 UNITS/ML UNITS SQ SCH (22:32)
[2019-02-20] MEDS: HEPARIN NA (PORCINE) 5,000 UNITS/ML 1ML VIAL SQ SCH ×3 (06:27→22:30)
[2019-02-20] MEDS: MECLIZINE HCL 25 MG TABLET (FP) PO SCH ×3 (06:28→22:29)
[2019-02-20] MEDS: INSULIN SLIDING SCALE (NOVOLOG) 1 VIAL SQ SCH ×3 (06:28→16:49)
[2019-02-20] MEDS ORDERED: INSULIN (LEVEMIR) 100 UNITS/ML UNITS SQ ONE (07:50)
[2019-02-20] MEDS ORDERED: PT OWN MED DRAWER 7, Y5N ONE (09:04)
--- NOTE | 2019-02-20 09:33 | PN ---
Progress Note (short form) - Note Progress Note: Neurology PCP: Dr. Rich Arauz HISTORY OF PRESENT ILLNESS: Patient is a 54 year old male with PMH of HTN, IDDM, and ETOH use who presented with persistent dizziness and syncopal episodes over the past month. Pt has been experiencing intermittent dizziness one year ago. Over the past month, he has had several syncopal episodes that he does not fully remember. He usually experiences dizziness and nausea prior to these episodes, but denies vertigo, lightheadedness, chest pain, SOB, palpitations, or tinnitus. Several of these episodes have been witnessed by his sons who say he usually is out for only several seconds. He denies any residual weakness, confusion, urinary incontinence, or slurred speech after these episodes. On day of admission, pt felt increasingly nauseous and vomited nbnb x4. He denies any fevers or chills. He had another syncopal episode this afternoon. Pt states that he has addressed these issues with his PCP who had him f/u with a fiscal analyst. Per pt, he recently received an echo and carotid US that were unremarkable. He denies a history of any arrhythmias or valvular problems. He was supposed to f/u with a holter monitor and stress test but has not yet done so. Pt has never seen a neurologist or ENT for these issues. Head CT completed - no acute changes. Brain MRI completed - restricted diffusion in the left supraganglionic white matter measuring 2mm x 4mm., small szie recent lacunar infract. Discussed with hospitalist. Patient reports taking ASA 81mg at home, advised increase to 325mg as patient had CVA on low dose ASA and does not want to take twice daily Aggrenox. Extenisuve conversation about cardiovascular prevention, lifestyle modifications, weight loss, diet adjustment. Patient surprised to learn he had CVA but informed him that therapy can help with symptoms (speech disturbance most noticeable) and measures to prevent recurrence. LDL noted, 63 within normal limits, patient on 20mg statin. Has dizziness, improved with mecleizine, likely BPPV. Carotid doppler completed - small calcified plaque at the right mid common carotid artery, small to moderate size calcified plaques at the right common bifurcation without significant stenosis; small plaques with calcifications at the left common carotid bifurcation without significant stenosis. No new neurologic events, speech seems to be slightly improved. Allergies Allergy/AdvReac Type Severity Reaction Status Date / Time levofloxacin [From Levaquin] Allergy Verified 02/16/19 16:56 metformin Allergy Verified 02/16/19 16:56 Active Medications Amlodipine Besylate (Norvasc -) 10 mg PO DAILY [facility] Last Admin: 02/19/19 09:55 Dose: 10 mg Aspirin (Ecotrin -) 325 mg PO DAILY [facility] Last Admin: 02/19/19 09:55 Dose: 325 mg Atorvastatin Calcium (Lipitor -) 20 mg PO HS [facility] Last Admin: 02/19/19 22:32 Dose: 20 mg Fenofibric Acid (Trilipix -) 135 mg PO DAILY [facility] Last Admin: 02/19/19 12:16 Dose: 135 mg Folic Acid (Folic Acid -) 1 mg PO DAILY [facility] Last Admin: 02/19/19 09:55 Dose: 1 mg Heparin Sodium (Porcine) (Heparin -) 5,000 unit SQ TID [facility] Last Admin: 02/20/19 06:27 Dose: Not Given Sodium Chloride (Normal Saline -) 1,000 mls @ 75 mls/hr IV ASDIR [facility] Last Admin: 02/19/19 12:16 Dose: 75 mls/hr Insulin Aspart (Novolog Vial Sliding Scale -) [facility] Protocol Last Admin: 02/20/19 06:28 Dose: 8 units Insulin Detemir (Levemir Vial) 30 units SQ [facility] Last Admin: 02/19/19 22:32 Dose: 30 units Lisinopril (Prinivil) 20 mg PO DAILY [facility] Last Admin: 02/19/19 09:55 Dose: 20 mg Meclizine HCl (Antivert -) 25 mg PO TID [facility] Last Admin: 02/20/19 06:28 Dose: 25 mg Prochlorperazine Edisylate (Compazine Injection -) 10 mg IVPB Q6H PRN PRN Reason: NAUSEA AND/OR VOMITING Thiamine HCl (Vitamin B1 -) 100 mg PO DAILY [facility] Last Admin: 02/19/19 09:56 Dose: 100 mg PHYSICAL EXAMINATION Vital Signs Period Temp Pulse Resp BP Sys/Pena Pulse Ox Last 24 Hr 97.9 F-98.4 F 94-113 16-20 129-158/72-93 98 GENERAL: Awake, alert, and fully oriented, in no acute distress. HEAD: Normal with no signs of trauma. EYES: Pupils equal, round and reactive to light, extraocular movements intact, sclera anicteric, conjunctiva clear. No lid lag. EARS, NOSE, THROAT: Ears normal, nares patent, oropharynx clear without exudates. Moist mucous membranes. NECK: Normal range of motion, supple without lymphadenopathy, JVD, or masses. LUNGS: Breath sounds equal, clear to auscultation bilaterally. No wheezes, and no crackles. No accessory muscle use. HEART: Regular rate and rhythm, normal S1 and S2 without murmur, rub or gallop. ABDOMEN: Soft, nontender, not distended, normoactive bowel sounds, no guarding, no rebound, no masses. No hepatomegaly or splenomegaly. MUSCULOSKELETAL: Normal range of motion at all joints. No bony deformities or tenderness. No CVA tenderness. UPPER EXTREMITIES: 2+ pulses, warm, well-perfused. No cyanosis. No clubbing. No peripheral edema. LOWER EXTREMITIES: 2+ pulses, warm, well-perfused. No calf tenderness. No peripheral edema. NEUROLOGICAL: Cn intact except slurred speech, right hand 5-/5, sensory intact , gait deferred PSYCHIATRIC: Cooperative. Good eye contact. Appropriate mood and affect. SKIN: Warm, dry, normal turgor, no rashes or lesions noted, normal capillary refill. CBCD WBC 4.1 K/mm3 (4.0-10.0) 02/17/19 07:04 RBC 3.54 M/mm3 (4.00-5.60) L 02/17/19 07:04 Hgb 11.6 GM/dL (11.7-16.9) L 02/17/19 07:04 Hct 33.1 % (35.4-49) L 02/17/19 07:04 MCV 93.4 fl (80-96) 02/17/19 07:04 MCHC 35.1 g/dl (32.0-35.9) 02/17/19 07:04 RDW 14.4 % (11.9-15.9) 02/17/19 07:04 Plt Count 194 K/MM3 (134-434) 02/17/19 07:04 MPV 8.7 fl (7.5-11.1) 02/17/19 07:04 CMP Sodium 138 mmol/L (136-145) 02/17/19 07:04 Potassium 3.9 mmol/L (3.5-5.1) 02/17/19 07:04 Chloride 102 mmol/L (98-107) 02/17/19 07:04 Carbon Dioxide 26 mmol/L (21-32) 02/17/19 07:04 Anion Gap 9 MMOL/L (8-16) 02/17/19 07:04 BUN 8.4 mg/dL (7-18) 02/17/19 07:04 Creatinine 0.9 mg/dL (0.55-1.3) 02/17/19 07:04 Random Glucose 187 mg/dL (74-106) H 02/17/19 07:04 Calcium 8.8 mg/dL (8.5-10.1) 02/17/19 07:04 Total Bilirubin 1.5 mg/dL (0.2-1) H 02/17/19 07:04 AST 30 U/L (15-37) 02/17/19 07:04 ALT 27 U/L (13-61) 02/17/19 07:04 Alkaline Phosphatase 109 U/L (45-117) 02/17/19 07:04 Total Protein 7.4 g/dl (6.4-8.2) 02/17/19 07:04 Albumin 3.7 g/dl (3.4-5.0) 02/17/19 07:04 CARDIAC ENZYMES Creatine Kinase 254 U/L (26-308) 02/16/19 18:00 Troponin I < 0.02 ng/ml (0.00-0.05) 02/16/19 18:00 ASSESSMENT/PLAN: Patient is a 54 year old male with PMH of HTN, IDDM, and ETOH use who presented with persistent dizziness and syncopal episodes over the past month. Pt has been experiencing intermittent dizziness one year ago. Over the past month, he has had several syncopal episodes that he does not fully remember. He usually experiences dizziness and nausea prior to these episodes, but denies vertigo, lightheadedness, chest pain, SOB, palpitations, or tinnitus. Several of these episodes have been witnessed by his sons who say he usually is out for only several seconds. He denies any residual weakness, confusion, urinary incontinence, or slurred speech after these episodes. Today, pt felt increasingly nauseous and vomited nbnb x4. He denies any fevers or chills. He had another syncopal episode this afternoon. Pt states that he has addressed these issues with his PCP who had him f/u with a fiscal analyst. Per pt, he recently received an echo and carotid US that were unremarkable. He denies a history of any arrhythmias or valvular problems. He was supposed to f/u with a holter monitor and stress test but has not yet done so. Pt has never seen a neurologist or ENT for these issues. Head CT completed - no acute changes. Brain MRI completed - restricted diffusion in the left supraganglionic white matter measuring 2mm x 4mm., small szie recent lacunar infract. Discussed with hospitalist. Patient reports taking ASA 81mg at home, advised increase to 325mg as patient had CVA on low dose ASA and does not want to take twice daily Aggrenox. Extenisuve conversation about cardiovascular prevention, lifestyle modifications, weight loss, diet adjustment. Patient surprised to learn he had CVA but informed him that therapy can help with symptoms (speech disturbance most noticeable) and measures to prevent recurrence. LDL noted, 63 within normal limits.LDL noted, 63 within normal limits, patient on 20mg statin. Has dizziness, improved with mecleizine, likely BPPV. Carotid doppler completed - small calcified plaque at the right mid common carotid artery, small to moderate size calcified plaques at the right common bifurcation without significant stenosis; small plaques with calcifications at the left common carotid bifurcation without significant stenosis. Continue CVA work up, echo. Speech/swallow eval. Medication compliance. Monitor glucose, goal A1C < 6. Goal BMI < 30. Likely to benefit from short term rehab, discussed in detail, patient seemed interested as a good transition before going home.
[2019-02-20] MEDS: amLODIPine BESYLATE 10 MG TABLET (FP) PO SCH (10:15)
[2019-02-20] MEDS: THIAMINE HCL 100 MG TABLET (FP) PO SCH (10:15)
[2019-02-20] MEDS: ASPIRIN 325 MG ENTERIC COATED TABLET (FP) PO SCH (10:16)
[2019-02-20] MEDS: LISINOPRIL 20 MG TABLET (FP) PO SCH (10:16)
[2019-02-20] MEDS: FOLIC ACID 1 MG TABLET (FP) PO SCH (10:16)
[2019-02-20] MEDS: FENOFIBRIC ACID 135 MG CAP PO SCH (10:16)
[2019-02-20] MEDS: SODIUM CHLORIDE 1,000 ML IV SCH (10:17)
--- NOTE | 2019-02-20 10:49 | CONSULT ---
Admitting History and Physical - Primary Care Physician PCP: Daron Scott - Admission History of Present Illness: Patient is a 54 year old male with PMH of HTN, IDDM, and ETOH use who presents with persistent dizziness and syncopal episodes over the past month. 54 y/o man with h/o ETOH abuse, HTN, DM, HLP, lung nodules, and other medical problems who presented with dizziness and syncope Vertigo: likely due to BPV Lacunar infarcts on MRI History Source: Patient, Medical Record Limitations to Obtaining History: No Limitations - Past Medical History Cardiovascular: Yes: HTN, Hyperlipdemia, Other (hypertriglyceridemia) Hepatobiliary: Yes: Other (fatty liver) Psych: Yes: Addictions (alcohol abuse) Endocrine: Yes: Diabetes Mellitus - Past Surgical History Past Surgical History: Yes: None - Smoking History Smoking history: Never smoked Have you smoked in the past 12 months: No - Alcohol/Substance Use Hx Alcohol Use: Yes Number of Drinks Daily: 6 History of Substance Use: reports: None - Social History ADL: Independent History of Recent Travel: No History - Admission Reason For Visit: VERTIGO/RECURRENT FALLS - Diagnostics X-ray: Report Reviewed CT Scan: Report Reviewed MRI: Report Reviewed - General Mental Status: Alert and Oriented, Awake and Alert, Able to Follow Commands Attention: Intact Ability to Follow Directions: Excellent Head/Neck Control: WFL - Hearing Hearing: Functional Speech Evaluation - Communication Primary Language: FILIPINO Communication: Yes: Within Normal Limits - Speech Production Able to Make Needs Known: Yes: WNL Intelligibility: Yes: Mildly Impaired (when speaking rapidly) - Speech Characteristics Voice Loudness: Normal Voice Pitch: Yes: Normal Voice Phonatory-based Quality: Yes: Normal Speech Clarity: < 100% Nasal Resonance: Normal Articulation: Yes: Precise Rate of Speech: Too Fast - Language/Auditory Comprehension Follows: Yes: 2 Stage Simple Commands - Language/Verbal Expression Able to Respond to Simple Queries: Yes: WNL Able to Communicate Wants and Needs: Yes: WNL Functional Communication Status: Yes: WNL - Swallow Evaluation/Bedside Assessment Current Nutritional Intake: Regular, Thin Liquids Oral Secretions: Yes: WFL Dentition: Yes: Adequate Facial Symmetry at Rest: Symmetrical Facial Symmetry on Retraction: Symmetrical Facial Movement: Controlled Against Resistance Opening: Normal Against Resistance Closing: Normal Pucker Lips: Normal Smile: Normal Lingual Movement: Normal, Symmetric Lingual Speed of Movement: Normal Lingual Movement Strgth Against Opposition: Normal Lingual Movement Characteristics: Normal Velopharyngeal Movement: Normal Laryngeal Elevation: WFL Laryngeal Movement: Able to Palpate Rate of Intake: WFL Bolus Size: WFL Labial Seal: WFL Chewing: WFL Oral Prep Time: WFL A-P Transit: WFL Pocketing: None Timing of Swallow: WFL Coughing/Throat Clear: No Change in Voice: No Recommendations - Speech Evaluation, Impression/Plan Impression: Mildly impaired intelligibility if speaking rapidly. Oral- peripheral cursory evaluation (-). Diadichokinesis of articluators WNL. Swallowing/language intact. Pt reports reflux, reclines frequently after meals , ETOH abuse. He reports coughing after meals at times, says he gets a tickle in his throat. r/o Laryngopharyngeal reflux.Educated pt on GERD precautions. - Dysphagia Impressions/Plan Swallowing Skills: WFL Dysphagia Impressions: No Impairment *Silent aspiration: cannot be R/O at bedside - Recommendations Diet Consistency: Regular Medication Administration: Whole with water Liquids: Thin Liquids
--- NOTE | 2019-02-20 14:16 | PN ---
Teaching Attending Note Name of Resident: Sherrie Wright ATTENDING PHYSICIAN STATEMENT I saw and evaluated the patient. I reviewed the resident's note and discussed the case with the resident. I agree with the resident's findings and plan as documented. SUBJECTIVE: No fever or chills. No SAEED . feels much better , no more spinning but feels his head is not right. OBJECTIVE: NAD CV: RRR, NO MRG Lungs: CTAB Ext: no edema or erythema. Neuro: EOMI , round equal pupils, reactive to light , no facial droop.No nystagmus, tongue at mid line. strength 5/5 in upper and lower extremities proximally and distally . sensation to light touch is absent half way down the leg and in feet. reflexes 1+ knee jerk and 1+ biceps b/l ASSESSMENT AND PLAN: 54 y/o man with h/o ETOH abuse, HTN, DM, HLP, long nodules, and other medical problems who presented with dizziness and syncope 1- Vertigo: likely due to BPV. significantly Improved - DC IVF. make meclizine PRN fro vertigo - tele with no events - Lyme neg. b12 low normal , start B12 po daily - RPR showed reactive treponemal and low titer of nontreponema.----> will ask about any h/o treated syphilis in past. if any h/o syphilis will call [facility] for previous titers. will ask Id input 2- Incidental finding of lacunar infarcts on MRI: - lipitor - cont ASA - neuro input 3- DM: - cont SSI - cont HS 30 units 3- HTN : cont home Meds 4- Transaminitis: likely due to fatty liver . 5- Hypertriglyceridemia : cont fibrate 5- Dispo: HLOC PT eval . dispo : depends on his ability to ambulate and on ID w/u ( might be need to follow as out pt )
--- NOTE | 2019-02-20 15:11 | ECHO ---
Name: ANNA CLINE Exam:Adult Echocardiogram Study Date: 02/20/2019 08:19 AM Age: 54 yrs Reason For Study: CVA Height: 74 in Weight: 261 lb BSA: 2.4 m2 MMode/2D Measurements & Calculations IVSd: 1.3 cm Ao root diam: 2.7 cm LVIDd: 4.3 cm LA dimension: 3.7 cm LVIDs: 2.8 cm LVPWd: 1.2 cm EDV(Teich): 82.7 ml LVOT diam: 2.0 cm ESV(Teich): 29.5 ml LAV (MOD-bp): 58.5 ml Doppler Measurements & Calculations MV E max arnel: 83.9 cm/sec Ao V2 max: 131.2 cm/sec MV A max arnel: 94.6 cm/sec Ao max P.9 mmHg MV E/A: 0.89 AI P1/2t: 576.1 msec MV dec time: 0.08 sec NIKOLAY(V,D): 2.2 cm2 AI max arnel: 380.1 cm/sec LV V1 max P.4 mmHg AI max P.8 mmHg LV V1 max: 91.7 cm/sec AI dec slope: 193.2 cm/sec2 MR max arnel: 317.4 cm/sec PA V2 max: 112.7 cm/sec MR max P.3 mmHg PA max P.1 mmHg Med Peak E' Arnel: 8.4 cm/sec PI Vmax: 149.3 cm/sec Med E/e': 10.0 Lat Peak E' Arnel: 7.0 cm/sec Lat E/e': 12.1 Procedure A complete two-dimensional transthoracic echocardiogram was performed (2D, M-mode, Doppler and color flow Doppler). Left Ventricle The left ventricle is normal in size. There is mild concentric left ventricular hypertrophy. Left kelli tricular systolic function is normal. Ejection Fraction = 60-65%. No regional wall motion abnormalities noted. Right Ventricle The right ventricle is normal size. The right ventricular systolic function is normal. Atria The left atrial size is normal. LA volume index is 24 ml/m2. Right atrial size is normal. Mitral Valve The mitral valve is normal in structure and function. There is mild mitral regurgitation. Tricuspid Valve The tricuspid valve is normal in structure and function. There is mild tricuspid regurgitation. Aortic Valve There is mild aortic sclerosis.;. Mild aortic regurgitation. Pulmonic Valve The pulmonic valve is not well visualized. Great Vessels The aortic root is normal size. Pericardium/Pleura There is no pericardial effusion. Interpretation Summary The left ventricle is normal in size. There is mild concentric left ventricular hypertrophy. Left ventricular systolic function is normal. No regional wall motion abnormalities noted. Ejection Fraction = 60-65%. The right ventricular systolic function is normal. The left atrial size is normal. Right atrial size is normal. There is mild mitral regurgitation. There is mild tricuspid regurgitation. There is mild aortic sclerosis. Mild aortic regurgitation. There is no pericardial effusion. Previous study is not available for comparison Ciro Bassett MD 02/20/2019 03:10 PM
--- NOTE | 2019-02-20 20:06 | PN ---
Physical Exam: SUBJECTIVE: Patient seen and examined at the bedside. No acute events overnight , patient still endorsing dizziness this morning in addition to blurry vision. Denies blurry vision, CP, SOB, palpitations, or weakness. OBJECTIVE: Vital Signs Period Temp Pulse Resp BP Sys/Pena Pulse Ox Last 24 Hr 97.8 F-98.8 F 94-105 16-19 129-158/72-93 97-98 GENERAL: The patient is awake, alert, and fully oriented, in no acute distress. HEAD: Normal with no signs of trauma. EYES: PERRL, extraocular movements intact, sclera anicteric, conjunctiva clear. No ptosis. No nystagmus. ENT: Ears normal, nares patent, oropharynx clear without exudates, moist mucous membranes. NECK: Trachea midline, supple. LUNGS: Breath sounds equal, clear to auscultation bilaterally, no wheezes, no crackles, no accessory muscle use. HEART: Regular rhythm, tachycardic, normal S1, S2 without murmur. ABDOMEN: Soft, nontender, nondistended, normoactive bowel sounds, no guarding, no rebound. EXTREMITIES: 2+ pulses, warm, well-perfused, no edema. NEUROLOGICAL: Cranial nerves II through XII grossly intact. Normal speech, gait not observed. 5/5 strength throughout. PSYCH: Normal mood, normal affect. SKIN: Warm, dry, normal turgor, no rashes or lesions noted Laboratory Results - last 24 hr 02/19/19 02/20/19 02/20/19 22:30 06:26 11:57 POC Glucometer 225 349 216 02/20/19 16:47 POC Glucometer 210 Active Medications Generic Name Dose Route Start Last Admin Trade Name Grant PRN Reason Stop Dose Admin Amlodipine Besylate 10 mg 02/17/19 10:00 02/20/19 10:15 Norvasc - PO 10 mg DAILY [facility] Administration Aspirin 325 mg 02/19/19 10:00 02/20/19 10:16 Ecotrin - PO 325 mg DAILY [facility] Administration Atorvastatin Calcium 20 mg 02/18/19 09:44 02/19/19 22:32 Lipitor - PO 20 mg HS [facility] Administration Cyanocobalamin 1,000 mcg 02/21/19 10:00 Vitamin B12 - PO DAILY [facility] Fenofibric Acid 135 mg 02/18/19 10:00 02/20/19 10:16 Trilipix - PO 135 mg DAILY [facility] Administration Folic Acid 1 mg 02/17/19 10:00 02/20/19 10:16 Folic Acid - PO 1 mg DAILY [facility] Administration Heparin Sodium (Porcine) 5,000 unit 02/16/19 22:00 02/20/19 14:31 Heparin - SQ Not Given TID [facility] Insulin Aspart 1 vial 02/17/19 11:00 02/20/19 16:49 Novolog Vial Sliding Scale - SQ 4 units TIDAC [facility] Administration Protocol Insulin Detemir 30 units 02/19/19 22:00 02/19/19 22:32 Levemir Vial SQ 30 units HS [facility] Administration Lisinopril 20 mg 02/17/19 10:00 02/20/19 10:16 Prinivil PO 20 mg DAILY [facility] Administration Meclizine HCl 25 mg 02/17/19 14:00 02/20/19 14:26 Antivert - PO 25 mg TID [facility] Administration Prochlorperazine Edisylate 10 mg 02/17/19 14:03 Compazine Injection - IVPB Q6H PRN NAUSEA AND/OR VOMITING Thiamine HCl 100 mg 02/17/19 10:00 02/20/19 10:15 Vitamin B1 - PO 100 mg DAILY [facility] Administration ASSESSMENT/PLAN: Patient is a 54 year old male with PMH of HTN, IDDM, and ETOH use who presents with persistent dizziness and syncopal episodes over the past month. #Vertigo/Dizziness - most likely 2/2 BPV -improved but still present. -continue Meclizine 25mg TID, compazine, - Lyme titers negative - hiv negative - b12 low nl range - PO B12 100mg qDaily -neg orthostats on previous exams - RPR - reactive with low titer, reactive Ab test> patient reported he was previously treated for syphillis at a free clinic in [place] between 200-2001. W - F/U with department of health to find out dates of treatment, titers, and what tx the patient received. #Recent Lacunar infarct on MRI -most likely 2/2 poorly controlled HTN or DM -Brain MRI- small size recent lacunar infarct, focus of restricted diffusion seen in left supraganglionic white matter. -neuro following, appreciate recommendations -tight glucose control -decrease lipitor to 20mg - increase ASA to 325mg PO daily - Speech consult> swallow preserved, full diet with thin liquids #IDDM -tight glucose monitoring.. -Lantus 30 units qHS -SSI -BGMs -9.4 A1c (10.2 in 2017) # Transaminitis- most likely 2/2 fatty liver -lipid panel with 517 triglyceride -start fenofibrate 135mg daily #HTN -cont home lisinopril 20mg, norvasc 10mg #FEN -NS@75 -monitor -diabetic diet #Dvt ppx -hep sq Visit type - Emergency Visit Emergency Visit: Yes ED Registration Date: 02/16/19 Care time: The patient presented to the Emergency Department on the above date and was hospitalized for further evaluation of their emergent condition. - New Patient This patient is new to me today: Yes Date on this admission: 02/20/19 - Critical Care Critical Care patient: No ATTENDING PHYSICIAN STATEMENT I saw and evaluated the patient. I reviewed the resident's note and discussed the case with the resident. I agree with the resident's findings and plan as documented. SUBJECTIVE: OBJECTIVE: ASSESSMENT AND PLAN:
[2019-02-20] MEDS: ATORVASTATIN CA 20 MG TABLET (FP) PO SCH (22:29)
[2019-02-20] MEDS: INSULIN (LEVEMIR) 100 UNITS/ML UNITS SQ SCH (22:30)
[2019-02-21] MEDS: INSULIN SLIDING SCALE (NOVOLOG) 1 VIAL SQ SCH ×3 (06:31→17:07)
[2019-02-21] MEDS: MECLIZINE HCL 25 MG TABLET (FP) PO SCH ×2 (06:31→13:40)
[2019-02-21] MEDS: HEPARIN NA (PORCINE) 5,000 UNITS/ML 1ML VIAL SQ SCH ×2 (06:32→13:42)
--- NOTE | 2019-02-21 09:29 | PN ---
Progress Note (short form) - Note Progress Note: Neurology PCP: Dr. Rich Arauz HISTORY OF PRESENT ILLNESS: Patient is a 54 year old male with PMH of HTN, IDDM, and ETOH use who presented with persistent dizziness and syncopal episodes over the past month. Pt has been experiencing intermittent dizziness one year ago. Over the past month, he has had several syncopal episodes that he does not fully remember. He usually experiences dizziness and nausea prior to these episodes, but denies vertigo, lightheadedness, chest pain, SOB, palpitations, or tinnitus. Several of these episodes have been witnessed by his sons who say he usually is out for only several seconds. He denies any residual weakness, confusion, urinary incontinence, or slurred speech after these episodes. On day of admission, pt felt increasingly nauseous and vomited nbnb x4. He denies any fevers or chills. He had another syncopal episode this afternoon. Pt states that he has addressed these issues with his PCP who had him f/u with a property caretaker. Per pt, he recently received an echo and carotid US that were unremarkable. He denies a history of any arrhythmias or valvular problems. He was supposed to f/u with a holter monitor and stress test but has not yet done so. Pt has never seen a neurologist or ENT for these issues. Head CT completed - no acute changes. Brain MRI completed - restricted diffusion in the left supraganglionic white matter measuring 2mm x 4mm., small szie recent lacunar infract. Discussed with hospitalist. Patient reports taking ASA 81mg at home, advised increase to 325mg as patient had CVA on low dose ASA and does not want to take twice daily Aggrenox. Extenisuve conversation about cardiovascular prevention, lifestyle modifications, weight loss, diet adjustment. Patient surprised to learn he had CVA but informed him that therapy can help with symptoms (speech disturbance most noticeable) and measures to prevent recurrence. LDL noted, 63 within normal limits, patient on 20mg statin. Has dizziness, improved with mecleizine, likely BPPV. Carotid doppler completed - small calcified plaque at the right mid common carotid artery, small to moderate size calcified plaques at the right common bifurcation without significant stenosis; small plaques with calcifications at the left common carotid bifurcation without significant stenosis. No new neurologic events, speech seems to be slightly improved. Echo reviewed and discussed with patient indicating normal left ventricular function along with mild left ventricular hypertrophy and ejection fraction 60-65%. patient inquiring about alcohol intake in which I advised to minimize if not discontinue altogether. Allergies Allergy/AdvReac Type Severity Reaction Status Date / Time levofloxacin [From Levaquin] Allergy Verified 02/16/19 16:56 metformin Allergy Verified 02/16/19 16:56 Active Medications Amlodipine Besylate (Norvasc -) 10 mg PO DAILY [facility] Last Admin: 02/20/19 10:15 Dose: 10 mg Aspirin (Ecotrin -) 325 mg PO DAILY [facility] Last Admin: 02/20/19 10:16 Dose: 325 mg Atorvastatin Calcium (Lipitor -) 20 mg PO HS [facility] Last Admin: 02/20/19 22:29 Dose: 20 mg Cyanocobalamin (Vitamin B12 -) 1,000 mcg PO DAILY [facility] Fenofibric Acid (Trilipix -) 135 mg PO DAILY [facility] Last Admin: 02/20/19 10:16 Dose: 135 mg Folic Acid (Folic Acid -) 1 mg PO DAILY [facility] Last Admin: 02/20/19 10:16 Dose: 1 mg Heparin Sodium (Porcine) (Heparin -) 5,000 unit SQ TID [facility] Last Admin: 02/21/19 06:32 Dose: Not Given Insulin Aspart ([facility]olog Vial Sliding [facility] -) [facility] Last Admin: 02/21/19 06:31 Dose: 2 units Insulin Detemir (Levemir Vial) 30 units SQ [facility] Last Admin: 02/20/19 22:30 Dose: 30 units Lisinopril (Prinivil) 20 mg PO DAILY [facility] Last Admin: 02/20/19 10:16 Dose: 20 mg Meclizine HCl (Antivert -) 25 mg PO TID [facility] Last Admin: 02/21/19 06:31 Dose: 25 mg Prochlorperazine Edisylate (Compazine Injection -) 10 mg IVPB Q6H PRN PRN Reason: NAUSEA AND/OR VOMITING Thiamine HCl (Vitamin B1 -) 100 mg PO DAILY [facility] Last Admin: 02/20/19 10:15 Dose: 100 mg PHYSICAL EXAMINATION Vital Signs Period Temp Pulse Resp BP Sys/Pena Pulse Ox Last 24 Hr 97.3 F-98.8 F 90-102 16-18 144-156/77-88 96-97 GENERAL: Awake, alert, and fully oriented, in no acute distress. HEAD: Normal with no signs of trauma. EYES: Pupils equal, round and reactive to light, extraocular movements intact, sclera anicteric, conjunctiva clear. No lid lag. EARS, NOSE, THROAT: Ears normal, nares patent, oropharynx clear without exudates. Moist mucous membranes. NECK: Normal range of motion, supple without lymphadenopathy, JVD, or masses. LUNGS: Breath sounds equal, clear to auscultation bilaterally. No wheezes, and no crackles. No accessory muscle use. HEART: Regular rate and rhythm, normal S1 and S2 without murmur, rub or gallop. ABDOMEN: Soft, nontender, not distended, normoactive bowel sounds, no guarding, no rebound, no masses. No hepatomegaly or splenomegaly. MUSCULOSKELETAL: Normal range of motion at all joints. No bony deformities or tenderness. No CVA tenderness. UPPER EXTREMITIES: 2+ pulses, warm, well-perfused. No cyanosis. No clubbing. No peripheral edema. LOWER EXTREMITIES: 2+ pulses, warm, well-perfused. No calf tenderness. No peripheral edema. NEUROLOGICAL: Cn intact except slurred speech, right hand 5-/5, sensory intact , gait deferred PSYCHIATRIC: Cooperative. Good eye contact. Appropriate mood and affect. SKIN: Warm, dry, normal turgor, no rashes or lesions noted, normal capillary refill. CBCD WBC 4.1 K/mm3 (4.0-10.0) 02/17/19 07:04 RBC 3.54 M/mm3 (4.00-5.60) L 02/17/19 07:04 Hgb 11.6 GM/dL (11.7-16.9) L 02/17/19 07:04 Hct 33.1 % (35.4-49) L 02/17/19 07:04 MCV 93.4 fl (80-96) 02/17/19 07:04 MCHC 35.1 g/dl (32.0-35.9) 02/17/19 07:04 RDW 14.4 % (11.9-15.9) 02/17/19 07:04 Plt Count 194 K/MM3 (134-434) 02/17/19 07:04 MPV 8.7 fl (7.5-11.1) 02/17/19 07:04 CMP Sodium 138 mmol/L (136-145) 02/17/19 07:04 Potassium 3.9 mmol/L (3.5-5.1) 02/17/19 07:04 Chloride 102 mmol/L (98-107) 02/17/19 07:04 Carbon Dioxide 26 mmol/L (21-32) 02/17/19 07:04 Anion Gap 9 MMOL/L (8-16) 02/17/19 07:04 BUN 8.4 mg/dL (7-18) 02/17/19 07:04 Creatinine 0.9 mg/dL (0.55-1.3) 02/17/19 07:04 Random Glucose 187 mg/dL (74-106) H 02/17/19 07:04 Calcium 8.8 mg/dL (8.5-10.1) 02/17/19 07:04 Total Bilirubin 1.5 mg/dL (0.2-1) H 02/17/19 07:04 AST 30 U/L (15-37) 02/17/19 07:04 ALT 27 U/L (13-61) 02/17/19 07:04 Alkaline Phosphatase 109 U/L (45-117) 02/17/19 07:04 Total Protein 7.4 g/dl (6.4-8.2) 02/17/19 07:04 Albumin 3.7 g/dl (3.4-5.0) 02/17/19 07:04 CARDIAC ENZYMES Creatine Kinase 254 U/L (26-308) 02/16/19 18:00 Troponin I < 0.02 ng/ml (0.00-0.05) 02/16/19 18:00 ASSESSMENT/PLAN: Patient is a 54 year old male with PMH of HTN, IDDM, and ETOH use who presented with persistent dizziness and syncopal episodes over the past month. Pt has been experiencing intermittent dizziness one year ago. Over the past month, he has had several syncopal episodes that he does not fully remember. He usually experiences dizziness and nausea prior to these episodes, but denies vertigo, lightheadedness, chest pain, SOB, palpitations, or tinnitus. Several of these episodes have been witnessed by his sons who say he usually is out for only several seconds. He denies any residual weakness, confusion, urinary incontinence, or slurred speech after these episodes. Today, pt felt increasingly nauseous and vomited nbnb x4. He denies any fevers or chills. He had another syncopal episode this afternoon. Pt states that he has addressed these issues with his PCP who had him f/u with a property caretaker. Per pt, he recently received an echo and carotid US that were unremarkable. He denies a history of any arrhythmias or valvular problems. He was supposed to f/u with a holter monitor and stress test but has not yet done so. Pt has never seen a neurologist or ENT for these issues. Head CT completed - no acute changes. Brain MRI completed - restricted diffusion in the left supraganglionic white matter measuring 2mm x 4mm., small szie recent lacunar infract. Discussed with hospitalist. Patient reports taking ASA 81mg at home, advised increase to 325mg as patient had CVA on low dose ASA and does not want to take twice daily Aggrenox. Extenisuve conversation about cardiovascular prevention, lifestyle modifications, weight loss, diet adjustment. Patient surprised to learn he had CVA but informed him that therapy can help with symptoms (speech disturbance most noticeable) and measures to prevent recurrence. LDL noted, 63 within normal limits.LDL noted, 63 within normal limits, patient on 20mg statin. Has dizziness, improved with mecleizine, likely BPPV. Carotid doppler completed - small calcified plaque at the right mid common carotid artery, small to moderate size calcified plaques at the right common bifurcation without significant stenosis; small plaques with calcifications at the left common carotid bifurcation without significant stenosis. Echo reviewed and discussed with patient indicating normal left ventricular function along with mild left ventricular hypertrophy and ejection fraction 60-65%. patient inquiring about alcohol intake in which I advised to minimize if not discontinue altogether. Medication compliance. Monitor glucose, goal A1C < 6. Goal BMI < 30. Still being planned for short-term rehabilitation, does not feel steady with his gait
[2019-02-21] MEDS ORDERED: CYANOCOBALAMIN 1,000 MCG TABLET (FP) PO SCH (10:00)
--- NOTE | 2019-02-21 10:34 | PN ---
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 Speech intelligibility improves with reduced speech rate. For placement.
[2019-02-21] MEDS ORDERED: PT OWN MED DRAWER 7, Y5N ONE (10:48)
[2019-02-21] MEDS: ASPIRIN 325 MG ENTERIC COATED TABLET (FP) PO SCH (11:03)
[2019-02-21] MEDS: FOLIC ACID 1 MG TABLET (FP) PO SCH (11:03)
[2019-02-21] MEDS: LISINOPRIL 20 MG TABLET (FP) PO SCH (11:03)
[2019-02-21] MEDS: FENOFIBRIC ACID 135 MG CAP PO SCH (11:03)
[2019-02-21] MEDS: amLODIPine BESYLATE 10 MG TABLET (FP) PO SCH (11:04)
[2019-02-21] MEDS: THIAMINE HCL 100 MG TABLET (FP) PO SCH (11:13)
[2019-02-21 13:45] VITALS: BP 129/73; PULSE 97; TEMP 98.2
--- NOTE | 2019-02-21 15:06 | PN ---
Teaching Attending Note Name of Resident: Sherrie Wright ATTENDING PHYSICIAN STATEMENT I saw and evaluated the patient. I reviewed the resident's note and discussed the case with the resident. I agree with the resident's findings and plan as documented. SUBJECTIVE: feels better .still slightly dizzy OBJECTIVE: NAD CV: RRR, NO MRG Lungs: CTAB Ext: no edema or erythema. ASSESSMENT AND PLAN: 54 y/o man with h/o ETOH abuse, HTN, DM, HLP, long nodules, and other medical problems who presented with dizziness and syncope 1- Vertigo: likely due to BPV. -make meclizine PRN - tele with no events again today - start B12 po daily at dc - RPR showed reactive treponemal and low titer of nontreponema.. he was treated in past as per him. will refer to ID for detailed evaluation 2- Incidental finding of lacunar infarcts on MRI: - lipitor - cont ASA - neuro input 3- DM: - cont SSI - cont HS 30 units 3- HTN : cont home Meds 4- Transaminitis: likely due to fatty liver . 5- Hypertriglyceridemia : cont fibrate and need repeat in few weeks 5-dc to rehab .
--- NOTE | 2019-02-21 15:59 | PN ---
Progress Note (short form) - Note Progress Note: ID CONSULT DICTATED PT GIVES HX OF IM PCN TREATMENT FOR SYPHILIS AROUND 2000 IN [place] [facility] CONTACTED AND CONFIRM PT HAS BEEN "SEROFAST" AT 1:1 DATING BACK TO AT LEAST 2009 NO ADDITIONAL TREATMENT ADVISED
--- NOTE | 2019-02-21 17:09 | CONS ---
DATE OF CONSULTATION: DATE OF DICTATION: 02/21/2019 INFECTIOUS DISEASE CONSULTATION HISTORY OF PRESENT ILLNESS: The patient is a 54-year-old male evaluated for positive syphilis serology. The patient was admitted to the hospital on February 16, 2019 with complaints of recurrent syncopal episodes, dizziness, nausea and vomiting for approximately 1 month. He was admitted to the hospital where he was seen in consultation by neurology. MRI showed a recent lacunar infarct. As part of the workup a syphilis serology was performed and was found to be positive 1 to 1 with a positive FTA. The patient reports having primary syphilis around 2000. He was diagnosed in [place], [place], and reports receiving at least 2 IM injections of penicillin. He denies any possibility of reexposure since that time. I contacted the [facility] and confirmed that the patient has had a persistently positive titer of 1 to 1 dating back to at least 2009. They were able to report that he had positive serology in February 2010, January 2013, and November 2018. Titer has remained 1 to 1. They have no records of treatment history. At the present time he is awake, he has no symptoms referable to a sexually transmitted disease. His HIV test and Lyme titer are negative. PAST MEDICAL HISTORY: Positive for diabetes mellitus, hypertension. LABORATORY DATA: White count 4.1, hematocrit 33.1, platelets 194, creatinine 0.9. PHYSICAL EXAMINATION: General: On exam, he is awake and alert, he is not acutely toxic appearing. Vital signs: Afebrile. Temperature 98.2, blood pressure 129/73, pulse 97 regular respirations 20 per minute. HEENT: Sclerae anicteric. Cardiovascular: Heart sounds S1, S2. No murmur. Lungs: Clear. Abdomen: Soft, nontender. Extremities: Negative for edema. IMPRESSION: "Serofast" syphilis serology. [facility] confirmed that patient has been serofast at 1 to 1 dating back to at least 2009. No additional treatment is advised. JAKY PINZON M.D. [id number]
--- NOTE | 2019-02-21 18:00 | DS ---
Physical Exam: SUBJECTIVE: Patient seen and examined at the bedside. No acute events overnight. Patient states he is ready for transfer to [facility]. OBJECTIVE: Vital Signs Period Temp Pulse Resp BP Sys/Pena Pulse Ox Last 24 Hr 97.3 F-98.8 F 90-102 16-18 129-156/73-88 96-97 PHYSICAL EXAM GENERAL: The patient is awake, alert, and fully oriented, in no acute distress. HEAD: Normal with no signs of trauma. EYES: PERRL, extraocular movements intact, sclera anicteric, conjunctiva clear. No ptosis. No nystagmus. ENT: Ears normal, nares patent, oropharynx clear without exudates, moist mucous membranes. NECK: Trachea midline, supple. LUNGS: Breath sounds equal, clear to auscultation bilaterally, no wheezes, no crackles, no accessory muscle use. HEART: Regular rhythm, tachycardic, normal S1, S2 without murmur. ABDOMEN: Soft, nontender, nondistended, normoactive bowel sounds, no guarding, no rebound. EXTREMITIES: 2+ pulses, warm, well-perfused, no edema. NEUROLOGICAL: Cranial nerves II through XII grossly intact. Normal speech, gait not observed. 5/5 strength throughout. PSYCH: Normal mood, normal affect. SKIN: Warm, dry, normal turgor, no rashes or lesions noted LABS Laboratory Results - last 24 hr 02/20/19 02/21/19 02/21/19 22:29 05:38 11:11 POC Glucometer 248 198 323 02/21/19 17:05 POC Glucometer 271 HOSPITAL COURSE: Date of Admission:02/16/19 Patient is a 54 year old male with PMH of HTN, IDDM, and ETOH use who presented with persistent dizziness and syncopal episodes over the past month. Patient had begin outpatient workup of his symptoms and had an echo and carotid ultrasound which didn't show any acute pathology. On this admission he had a carotid doppler which revealed small plaques in the R and L common carotids without hemodynamically significant stenosis. Orthostatics exam was negative, EKG NSR without ischemia. He also had an MRI which revealed old lacunar infarcts. The patient also had poorly controlled DM and HTN. Given the workup, patient was diagnosed as having benign positonal vertigo in addition to old CVA without obvious neurologic deficits. Patient was discharged to a rehab facility because PT found him slightly unsteady when walking. Patient was discharged on meclazine 25mg TID, ASA 325mg daily, Fibrate 135mg in addition to his home meds. He was instructed to follow up with PCP and Neurology. Date of Discharge: 02/21/19 Minutes to complete discharge: 40 Discharge Summary Reason For Visit: VERTIGO/RECURRENT FALLS Condition: Improved - Instructions Diet, Activity, Other Instructions: You were hospitalized on 02/16/2019 due to persistent dizziness associated with fainting, nausea, and vomiting. You had an echocardiogram of the heart which was normal , and carotid Doppler which showed a mild blockage in the carotid artery. You had an MRI of the brain which showed a small lacunar infarct, but no acute pathology. You were seen by physical therapy who felt that you would benefit from short term rehab and you agreed. You symptoms improved and you were stable to go to rehab. MEDICATIONS: Home Medicines - Continue home medications as prescribed with the following changes: -We increased your Aspirin from 81 mg to 325 mg to be taken daily -We increased your meclizine from twice a day to three times a day. take as needed only -We changed your cholesterol medication from Simvastatin to Lipitor 20mg to be taken at night - you are on a new medication fro your triglycerides. fenofibrate. important to take to avoid pancreatitis -you are to continue taking vitamin b12 daily -For your diabetes, in addition to your levemir 30 units at night we are sending you home with an insulin sliding scale based on your sugar level Sugar Level: #of Units 101-150 0 151-200 2 201-250 4 251-300 6 301-250 8 351-400 10 >400 12 (please call your primary care physician or go to the hospital) Please follow up with Dr. Arauz within one week Please follow up with the neurologist, Dr. Romero within one week Please follow up with the infectious disease doctor, Dr. Almanza, for follow up with your previous syphillis diagnosis If you experience any neurologic symptoms like weakness, numbness, lack of sensation in your extremities, slurring speech, vision changes or experiences chest pain or shortness of breath, please return to the Emergency Department. Referrals: Pia Almanza MD [Staff Physician] - 1 Week George Romero MD [Staff Physician] - 1 Week (Mr. Negrete was incedentally found to haveold lacunar infarcts on MRI. ) Rich Arauz MD [Primary Care Provider] - 1 Week (Mr. Negrete was recently hospitalized for BPPV and subsequently found to have old lacunar infarcts on MRI. ) Disposition: HALFWAY FACILITY - Home Medications Comprehensive Discharge Medication List: Ambulatory Orders Dapagliflozin Propanediol [Farxiga] 10 mg PO DAILY 02/17/19 Insulin Glargine,Hum.rec.anlog [Basaglar Kwikpen U-100] 30 units SQ HS 02/17/19 Lansoprazole [Prevacid] 60 mg PO DAILY 02/17/19 Losartan Potassium 50 mg PO DAILY 02/17/19 Aspirin Coated [Ecotrin -] 325 mg PO DAILY #30 tablet. 02/21/19 Atorvastatin Ca [Lipitor] 20 mg PO HS #30 tablet 02/21/19 Fenofibric Acid [Trilipix -] 135 mg PO DAILY #30 cap 02/21/19 Insulin Sliding Scale [Novolog Vial Sliding Scale -] 1 vial SQ TIDAC #10 vial Lancets [Lancets Thin] 1 each MC DAILY #50 each 02/21/19 Meclizine HCl [Antivert -] 25 mg PO TID PRN #21 tablet 02/21/19 Miscellaneous Medical Supply [Glucometer Device] 1 each AD ASDIR #1 kit Thiamine HCl [Vitamin B1 -] 100 mg PO DAILY #30 tablet 02/21/19 This patient is new to me today: No Emergency Visit: Yes ED Registration Date: 02/16/19 Care time: The patient presented to the Emergency Department on the above date and was hospitalized for further evaluation of their emergent condition. Critical Care patient: No - Discharge Referral Referred to [facility] No ATTENDING PHYSICIAN STATEMENT I saw and evaluated the patient. I reviewed the resident's note and discussed the case with the resident. I agree with the resident's findings and plan as documented. SUBJECTIVE: OBJECTIVE: ASSESSMENT AND PLAN:
== END 2019-02-21 18:13 | DRG 111 ==
LOC: JER 16:46 → JERBED 19:48 → J4S 02-17 16:45
PROVIDERS: ADMIT Internal Medicine; ATTEND Internal Medicine
DX: H81.10 Benign paroxysmal vertigo, unspecified ear (principal); I10 Essential (primary) hypertension; E78.5 Hyperlipidemia, unspecified; F10.10 Alcohol abuse, uncomplicated; Z79.4 Long term (current) use of insulin; E11.40 Type 2 diabetes mellitus with diabetic neuropathy, unspecified; K76.0 Fatty (change of) liver, not elsewhere classified; E11.65 Type 2 diabetes mellitus with hyperglycemia; R55 Syncope and collapse; R91.1 Solitary pulmonary nodule; I45.81 Long QT syndrome; I16.0 Hypertensive urgency; R00.0 Tachycardia, unspecified; R47.81 Slurred speech; E78.1 Pure hyperglyceridemia; I69.398 Other sequelae of cerebral infarction; I65.23 Occlusion and stenosis of bilateral carotid arteries; W19.XXXA Unspecified fall, initial encounter
CPT/HCPCS: 36415; 70450-TC; 70551-TC; 71045-TC-FY; 76700-TC; 80053; 80061; 80307; 81003; 82009; 82248; 82550; 82553; 82607; 82962; 83036; 83721; 83735; 84443; 84484; 85025; 86140; 86593; 86618; 86780; 87086; 87389; 93005; 93010; 93306-TC; 93880-TC; 97116-GP; 97161-GP; 99285-25; J7030

== ENCOUNTER 2020-02-15 05:55 | Inpatient (IN) | payer OTHER ==
[2020-02-15] MEDS ORDERED: methylPREDNISolone NA SUCC 125 MG/2 ML VIAL IVPUSH ONE (06:27)
[2020-02-15] MEDS ORDERED: SODIUM CHLORIDE 1,000 ML IV STA (06:29)
[2020-02-15] MEDS ORDERED: methylPREDNISolone NA SUCC 125 MG/2 ML VIAL ONE (06:35)
--- NOTE | 2020-02-15 07:49 | PDOC ---
History of Present Illness <Madhuri Vuong - Last Filed: 02/15/20 12:44> - General History Source: Patient Exam Limitations: No Limitations - History of Present Illness Initial Comments: 02/15/20 07:48 55M PMH HTN, HLD, DM c/o painful swelling of the right face and lips since 8pm last night w/o f/c, sob, difficulty breathing, difficulty swallowing, cp, n/v/d, hives. Endorses mild pain w/ swallowing. States metformin allergy but has not taken. Is on an ARB but no TOBIN. Pt cannot recall any inciting events. Poor historian. <Randal Venegas - Last Filed: 02/15/20 18:44> - General Chief Complaint: Allergic Reaction Stated Complaint: ALLERGIC REACTION Time Seen by Provider: 02/15/20 07:17 Past History <Madhuri Vuong - Last Filed: 02/15/20 12:44> - Medical History COPD: No Diabetes: Yes HTN: Yes - Psycho-Social/Smoking History Smoking History: Never smoked Have you smoked in the past 12 months: No Information on smoking cessation initiated: No - Substance Abuse Hx (Audit-C & DAST Scrn) How often the patient has a drink containing alcohol: Never Score: In Men: 4 or > Positive; In Women: 3 or > Positive: 0 Screen Result (Pos requires Nsg. Audit-10AR): Negative In the last yr the pt used illegal drug/Rx for NonMed reason: No Score: Yes response is considered Positive: 0 Screen Result (Positive result requires Nsg. DAST-10): Negative <Randal Venegas - Last Filed: 02/15/20 18:44> - Medical History Allergies/Adverse Reactions: Allergies Allergy/AdvReac Type Severity Reaction Status Date / Time levofloxacin [From Levaquin] Allergy Verified 02/15/20 06:27 metformin Allergy Verified 02/15/20 06:27 Home Medications: Ambulatory Orders Dapagliflozin Propanediol [Farxiga] 10 mg PO DAILY 02/17/19 Insulin Glargine,Hum.rec.anlog [Basaglar Kwikpen U-100] 30 units SQ HS 02/17/19 Lansoprazole [Prevacid] 60 mg PO DAILY 02/17/19 Losartan Potassium 50 mg PO DAILY 02/17/19 Aspirin Coated [Ecotrin -] 325 mg PO DAILY #30 tablet. 02/21/19 Fenofibric Acid [Trilipix -] 135 mg PO DAILY #30 cap 02/21/19 Insulin Sliding Scale [Novolog Vial Sliding Scale -] 1 vial SQ TIDAC #10 vial 02/21/19 Lancets [Lancets Thin] 1 each MC DAILY #50 each 02/21/19 Meclizine HCl [Antivert -] 25 mg PO TID PRN #21 tablet 02/21/19 Miscellaneous Medical Supply [Glucometer Device] 1 each AD ASDIR #1 kit 02/21/19 Thiamine HCl [Vitamin B1 -] 100 mg PO DAILY #30 tablet 02/21/19 Review of Systems - Review of Systems Comments:: 02/15/20 18:43 CONSTITUTIONAL: Denies F / C HEENT: + right sided face pain and swelling; denies difficulty swallowing and breathing RESP: Denies SOB, cough CARD: Denies chest pain GI: Denies N / V / D, abdominal pain, bloody stool, inability to tolerate PO : Denies dysuria, hematuria NEURO: Denies numbness, tingling, weakness MSK: Denies back pain SKIN: Denies rashes <Randal Venegas - Last Filed: 02/15/20 18:44> *Physical Exam - Vital Signs Last Vital Signs Temp Pulse Resp BP Pulse Ox 98.8 F 122 H 20 175/95 H 96 02/15/20 06:00 02/15/20 06:00 02/15/20 06:00 02/15/20 06:00 02/15/20 06:00 <Madhuri Vuong - Last Filed: 02/15/20 12:44> - Vital Signs Last Vital Signs Temp Pulse Resp BP Pulse Ox 98.8 F 122 H 20 175/95 H 96 02/15/20 06:00 02/15/20 06:00 02/15/20 06:00 02/15/20 06:00 02/15/20 06:00 - Physical Exam 02/15/20 18:43 GEN: NAD, comfortable. AAOx3. HEENT: NC/AT. Right sided facial swelling w/o external erythema or fluctuance. No drainage or erythema of the buccal mucosa. Moist mucous membranes. Normal voice. Supple neck w/ FROM; no tenderness of neck soft tissue, no LAD noted. CV: S1/S2, tachycardic, no m/r/g LUNG: Nondistressed normal respiratory effort, nonstridorous, nonwheezing, CTAB GI: Soft, ndnt, +BS, no guarding, no rebound. No masses. Neg CVAT b/l. MSK: 2+ distal pulses. No LE edema. No obvious deformities of all extremities. SKIN: Warm, dry, no rashes appreciated. PSYCH: odd affect NEURO: Moving all extremities well. ambulates w/ normal gait. <Randal Venegas - Last Filed: 02/15/20 18:44> ED Treatment Course - LABORATORY CBC & Chemistry Diagram: 02/15/20 08:51 02/15/20 08:51 <Madhuri Vuong - Last Filed: 02/15/20 12:44> - LABORATORY CBC & Chemistry Diagram: 02/15/20 08:51 02/15/20 08:51 - Medications Given in the ED: ED Medications Discontinued Medications Generic Name Dose Route Start Last Admin Trade Name Grant PRN Reason Stop Dose Admin Diphenhydramine HCl 50 mg 02/15/20 06:27 02/15/20 06:50 Benadryl Injection - IVPUSH 02/15/20 06:28 50 mg ONCE ONE Administration Sodium Chloride 1,000 mls @ 1,000 mls/hr 02/15/20 06:29 02/15/20 06:50 Normal Saline - IV 02/15/20 07:28 1,000 mls/hr ASDIR STA Administration Methylprednisolone Sodium Succinate 125 mg 02/15/20 06:27 02/15/20 06:50 Solu-Medrol - IVPUSH 02/15/20 06:28 125 mg ONCE ONE Administration <Randal Venegas - Last Filed: 02/15/20 18:44> Medical Decision Making - Medical Decision Making 55 year old male with 1 prior allergic reaction to unknown substance reported to ED this AM for right sided throat swelling since last night. Pt had no uvular swelling on presentation, no wheezing, mild nausea without vomiting. Pt was only able to hum yes or no to answer questions. Initial Vital Signs Temp Pulse Resp BP Pulse Ox 98.8 F 122 H 20 175/95 H 96 02/15/20 06:00 02/15/20 06:00 02/15/20 06:00 02/15/20 06:00 02/15/20 06:00 Medications given Diphenhydramine [Benadryl Injection -] 50 mg IVPUSH ONCE ONE Famotidine 20 mg/50 ml Ivpb [Pepcid 20 mg Premixed Ivpb -] 20 mg in 50 ml IVPB ONCE Methylprednisolone Na Succ [Solu-Medrol -] 125 mg .ROUTE .STK-MED ONE Sodium Chloride [Normal Saline -] 1,000 ml IV ASDIR Upon re-examination patient in ambulatory without difficulty, speaking full sentences. 02/15/20 12:33 Pt improved initially, but now has a bit of more muffling of voice. CT reported cellulitis vs stranding around parotitis. No tenderness along parotid or submandibular area, but tenderness to medial right lower mandible. -Do not suspect parotidis clinically Pt is high risk for worsening cellulitis, as he is a diabetic. Pt is also high risk for airway compromise, cellulitis swelling could compromise quickly, pt is also obese. Will admit for IV antibiotics, airway monitoring. Last benadryl 0630 AM - will give Benadryl 25 mg IV once now for muffled voice. <Madhuri Vuong - Last Filed: 02/15/20 12:44> - Medical Decision Making < Randal Venegas > 02/15/20 07:48 55M w/ right face pain and swelling. tachycardic and hypertensive o/w reassuring exam; airway intact. Tenderness of the right face w/o LAD or neck involvement. - Benadryl, steroids, famotidine, fluids - CBC, CMP 02/15/20 08:46 unresolved tachycardia s/p tx will obtain basic labs consider CT concern for abscess 02/15/20 11:[address] soft tissue 02/15/20 12:41 CT report reviewed will cover with frankie and katy admit tele for possible soft tissue infection; higher risk for serious infection 2/2 DM. Risk of airway compromise given location and comorbidities 02/15/20 12:[address] Padgett for admission 02/15/20 13:35 will consult ICU Pt states symptomatically feeling better, less drooling now 02/15/20 14:04 ICU aware 02/15/20 15:14 f/u ICU note, admit to floors <Randal Venegas - Last Filed: 02/15/20 18:44> Discharge - Discharge Information Problems reviewed: Yes - Admission Yes <Madhuri Vuong - Last Filed: 02/15/20 12:44> <Randal Venegas - Last Filed: 02/15/20 18:44> - Discharge Information Clinical Impression/Diagnosis: Allergic reaction, Throat swelling, SIRS (systemic inflammatory response syndrome) Condition: Guarded
[2020-02-15] MEDS ORDERED: FAMOTIDINE 20 MG/50 ML IVPB 20 MG/50 ML MG IVPB ONE ×2 (07:52→08:58)
--- NOTE | 2020-02-15 09:35 | PDOC ---
Documentation entered by Ashley Dominguez SCRIBE, acting as scribe for Dain Bui MD. Dain Bui MD: This documentation has been prepared by the kristiibdoris, Ashley Dominguez SCRIBE, under my direction and personally reviewed by me in its entirety. I confirm that the documentation accurately reflects all work, treatment, procedures, and medical decision making performed by me. Attending Attestation - Resident Resident Name: Randal Venegas - ED Attending Attestation I have performed the following: I have examined & evaluated the patient, The case was reviewed & discussed with the resident, I agree w/resident's findings & plan, Exceptions are as noted - HPI HPI: 02/15/20 09:29 The patient is a 55-year-old male with a past medical history significant for HTN, HLD and DM who presents to the emergency department with right-sided facial and lip swelling since 8:00 pm last night. The patient reports an allergy to metformin, however, denies any recent ingestion of the medication. Denies shortness of breath, nausea, or vomiting. Pt Denies tongue swelling. Denies throat swelling. Denies difficulty swallowing or breathing. No voice changes. - Physicial Exam PE: 02/15/20 09:35 See resident exam - Medical Decision Making 02/15/20 09:35 55 M with R facial swelling. Possible angioedema. Pt not on any ACEI but is taking ARB. Also consider infectious process. - Labs - Benadryl, steroids Discharge - Discharge Information Problems reviewed: Yes Clinical Impression/Diagnosis: SIRS (systemic inflammatory response syndrome), Facial swelling Cellulitis Qualifiers: Site of cellulitis: extremity Site of cellulitis of extremity: lower extremity Laterality: left Qualified Code(s): L03.116 - Cellulitis of left lower limb Condition: Good Disposition: HOME - Follow up/Referral - Patient Discharge Instructions - Post Discharge Activity
[2020-02-15 09:41] LABS: BASO % 0.4 % (0-2.0); EOS % 0.2 % (0-4.5); HEMATOCRIT 34.9 % (35.4-49); HEMOGLOBIN 12.2 GM/dL (11.7-16.9); LYMPH % 10.6 % (8-40); MCH 32.3 pg (25.7-33.7); MCHC 34.9 g/dl (32.0-35.9); MEAN CELL VOLUME 92.5 fl (80-96); MEAN PLT VOLUME 8.2 fl (7.5-11.1); NEUT % 85.8 % (42.8-82.8); PLATELET COUNT 248 K/MM3 (134-434); RBC 3.78 M/mm3 (4.00-5.60); RDW 16.6 % (11.9-15.9); WHITE BLOOD COUNT 7.6 K/mm3 (4.0-10.0)
[2020-02-15 10:27] LABS: ALBUMIN 3.8 g/dl (3.4-5.0); BILIRUBIN,TOTAL 1.1 mg/dL (0.2-1); BLOOD UREA NITROGEN 6.9 mg/dL (7-18); CALCIUM 9.6 mg/dL (8.5-10.1); CREATININE 1.1 mg/dL (0.55-1.3); POTASSIUM 4.2 mmol/L (3.5-5.1)
[2020-02-15] MEDS ORDERED: VANCOMYCIN 1 GM in D5W (PRE-DOCKED) 1,000 MG/250 ML IVPB ONE (12:39)
[2020-02-15] MEDS ORDERED: PIPERACILLIN/TAZOB 3.375 GM 3.375 GM in DEXTROSE 5%-WATER - 50 ML IVPB ONE (12:39)
[2020-02-15] MEDS ORDERED: PIPERACILLIN/TAZOB 3.375 GM 3.375 GM/50 ML BAG IVPB ONE ×2 (13:01→13:50)
[2020-02-15] MEDS ORDERED: VANCOMYCIN 1 GRAM (PRE-DOCKED) 1,000 MG/250 ML BAG IVPB ONE (13:01)
[2020-02-15] MEDS ORDERED: morphine SULFATE 4 MG/ML VIAL ONE (14:32)
--- NOTE | 2020-02-15 14:58 | EKG ---
Test Reason : Blood Pressure : / mmHG Vent. Rate : 114 BPM Atrial Rate : 114 BPM P-R Int : 160 ms QRS Dur : 066 ms QT Int : 342 ms P-R-T Axes : 056 -23 077 degrees QTc Int : 471 ms SINUS TACHYCARDIA T WAVE ABNORMALITY, CONSIDER LATERAL ISCHEMIA ABNORMAL ECG WHEN COMPARED WITH ECG OF 16-FEB-2019 17:04, NO SIGNIFICANT CHANGE WAS FOUND Confirmed by LINDSAY ROMERO, RENATA ([id number]) on 02/15/2020 2:58:26 PM Referred By: Confirmed By:RENATA MONTOYA MD
--- NOTE | 2020-02-15 15:04 | CON.ID ---
Consult Consult Specialty:: infectious diseases Referred by:: Reason for Consultation:: swelling and cellulitis of the face - History of Present Illness Chief Complaint: pain and swelling of the face History of Present Illness: 55-year-old male with a past medical history significant for HTN, HLD and DM who presents to the emergency department with right-sided facial and lip swelling since 8:00 pm last night. The patient reports an allergy to metformin, however, denies any recent ingestion of the medication. Denies shortness of breath, nausea, or vomiting. Pt Denies tongue swelling. Denies throat swelling. Denies difficulty swallowing or breathing. No voice changes. patient has tenderness on the rt side of the face - History Source History Provided By: Patient Limitations to Obtaining History: No Limitations - Past Medical History Cardio/Vascular: Yes: HTN, Hyperlipdemia, Other (hypertriglyceridemia) Hepatobiliary: Yes: Other (fatty liver) Psych: Yes: Addictions (alcohol abuse) Endocrine: Yes: Diabetes Mellitus - Past Surgical History Past Surgical History: Yes: None - Alcohol/Substance Use Hx Alcohol Use: Yes Number of Drinks Daily: 6 History of Substance Use: reports: None - Smoking History Smoking history: Never smoked Have you smoked in the past 12 months: No - Social History ADL: Independent History of Recent Travel: No Home Medications - Allergies Allergies/Adverse Reactions: Allergies Allergy/AdvReac Type Severity Reaction Status Date / Time levofloxacin [From Levaquin] Allergy Verified 02/15/20 06:27 metformin Allergy Verified 02/15/20 06:27 - Home Medications Home Medications: Ambulatory Orders RX: Dapagliflozin Propanediol [Farxiga] 10 mg PO DAILY 02/17/19 RX: Insulin Glargine,Hum.rec.anlog [Basaglar Kwikpen U-100] 30 units SQ HS 02/17/19 RX: Lansoprazole [Prevacid] 60 mg PO DAILY 02/17/19 RX: Aspirin Coated [Ecotrin -] 325 mg PO DAILY #30 tablet. 02/21/19 RX: Fenofibric Acid [Trilipix -] 135 mg PO DAILY #30 cap 02/21/19 RX: Insulin Sliding Scale [Novolog Vial Sliding Scale -] 1 vial SQ TIDAC #10 vial 02/21/19 RX: Lancets [Lancets Thin] 1 each MC DAILY #50 each 02/21/19 RX: Meclizine HCl [Antivert -] 25 mg PO TID PRN #21 tablet 02/21/19 RX: Miscellaneous Medical Supply [Glucometer Device] 1 each AD ASDIR #1 kit 02/21/19 RX: Thiamine HCl [Vitamin B1 -] 100 mg PO DAILY #30 tablet 02/21/19 Amoxicillin/Potassium Clav [Augmentin 875-125 Tablet] 1 each PO BID #20 tablet 02/17/20 RX: Losartan Potassium [Cozaar -] 100 mg PO DAILY #30 tablet 02/17/20 Review of Systems - Review of Systems Constitutional: reports: Other (facial pain) Eyes: reports: No Symptoms HENT: reports: Mouth Swelling, Other Neck: reports: No Symptoms Cardiovascular: reports: No Symptoms Respiratory: reports: No Symptoms Gastrointestinal: reports: No Symptoms Genitourinary: reports: No Symptoms Musculoskeletal: reports: No Symptoms Integumentary: reports: No Symptoms Neurological: reports: No Symptoms Endocrine: reports: No Symptoms Hematology/Lymphatic: reports: No Symptoms Psychiatric: reports: No Symptoms Physical Exam Vital Signs: Vital Signs Temperature 98.5 F 02/15/20 12:32 Pulse Rate 102 H 02/15/20 12:32 Respiratory Rate 19 02/15/20 12:32 Blood Pressure 171/79 H 02/15/20 12:32 O2 Sat by Pulse Oximetry (%) 96 02/15/20 13:30 Constitutional: Yes: Calm, Mild Distress, Obese Eyes: Yes: Conjunctiva Clear HENT: Yes: Atraumatic, Normocephalic, Other (swelling of the face swelling of the lower gum on the rt side--at missing tooth) Neck: Yes: Supple, Trachea Midline Cardiovascular: Yes: Regular Rate and Rhythm Respiratory: Yes: Regular, CTA Bilaterally Gastrointestinal: Yes: Normal Bowel Sounds, Soft Musculoskeletal: Yes: WNL Extremities: Yes: WNL Neurological: Yes: Alert, Oriented Psychiatric: Yes: Alert, Oriented Labs: CBC, BMP 02/15/20 08:51 02/15/20 08:51 Imaging - Results Chest X-ray: Report Reviewed, Image Reviewed Cat Scan: Report Reviewed, Image Reviewed Assessment/Plan Right sided mandibular face swelling (?) related to dental caries cellulitis of the face dental absces obesity plan will start on broad spectrum abx will need dental surgeon close monitoring for further swelling rest as per the team
--- NOTE | 2020-02-15 15:31 | CONSULT ---
Consultation: REQUESTING PROVIDER: ED CONSULT REQUEST: We have been asked to medically evaluate this patient for airway management. HISTORY OF PRESENT ILLNESS: Patient woke up this morning with right sided facial pain and swelling. [place] that he was having difficulty breathing and swallowing. Patient has been in the ER received steroids, benadryl, famotidine with some response. Swelling still present. Consulted for airway management. Patient reports he is feeling a little better but still has pain. REVIEW OF SYSTEMS: Positive: right facial swelling, Pain inside of mouth , tight throat negative: itching, change of vision, difficulty breathing. PHYSICAL EXAMINATION Vital Signs - 24 hr 02/15/20 02/15/20 02/15/20 06:00 09:00 12:32 Temperature 98.8 F 98.5 F Pulse Rate 122 H Pulse Rate [ 110 H 102 H Apical] Respiratory 20 24 H 19 Rate Blood Pressure 175/95 H Blood Pressure 190/110 H 171/79 H [Right Arm] O2 Sat by Pulse 96 97 94 L Oximetry (%) 02/15/20 13:30 Temperature Pulse Rate Pulse Rate [ Apical] Respiratory Rate Blood Pressure Blood Pressure [Right Arm] O2 Sat by Pulse 96 Oximetry (%) General: awake, alert, oriented HEENT: right sided facial swelling, tenderness over right side, tender on the inside, no lyphadenopathy felt, no airway edema noted, no swelling over left cheek, no stridor heard Lungs: CTAL Heart: RRR Extremities: normal ROM Laboratory Results - last 24 hr 02/15/20 02/15/20 08:51 08:51 WBC 7.6 RBC 3.78 L Hgb 12.2 Hct 34.9 L MCV 92.5 MCH 32.3 MCHC 34.9 RDW 16.6 H Plt Count 248 D MPV 8.2 Absolute Neuts (auto) 6.5 Neutrophils % 85.8 H D Lymphocytes % 10.6 D Monocytes % 3.0 L Eosinophils % 0.2 D Basophils % 0.4 Nucleated RBC % 0 Sodium 136 Potassium 4.2 Chloride 98 Carbon Dioxide 29 Anion Gap 8 BUN 6.9 L Creatinine 1.1 Est GFR (CKD-EPI)AfAm 87.74 Est GFR (CKD-EPI)NonAf 75.70 Random Glucose 235 H Calcium 9.6 Total Bilirubin 1.1 H AST 56 H ALT 46 Alkaline Phosphatase 135 H Total Protein 8.0 Albumin 3.8 Active Medications Generic Name Dose Route Start Last Admin Trade Name Freq PRN Reason Stop Dose Admin Piperacillin Sod/Tazobactam 50 mls @ 100 mls/hr 02/15/20 18:00 Sod 3.375 gm/ Dextrose IVPB Q8H-IV PAULINA Protocol Clindamycin Phosphate 600 mg in 50 mls @ 100 mls/hr 02/15/20 15:15 Cleocin 600 Mg Premix Ivpb - IVPB Q8H-IV PAULINA Protocol ASSESSMENT/PLAN: 55 y/o male with a history of HTN and DM who is consulted for ICU management of airway. #Right sided mandibular face swelling - likely parotits vs sialolithiasis vs dental abscess - CT shows patent airway throughout, does not need ICU monitoring at this time - recommend continuation of IV antibiotics to r/o abscess, recommend US of parotid gland - monitor oxygen status closely, maintain above 92 Dispo: reconsult as necessary for ICU higher care monitoring Visit type - Emergency Visit Emergency Visit: Yes ED Registration Date: 02/15/20 Care time: The patient presented to the Emergency Department on the above date and was hospitalized for further evaluation of their emergent condition. - New Patient This patient is new to me today: Yes Date on this admission: 02/16/20 - Critical Care Critical Care patient: No ATTENDING PHYSICIAN STATEMENT I saw and evaluated the patient. I reviewed the resident's note and discussed the case with the resident. I agree with the resident's findings and plan as documented. SUBJECTIVE: OBJECTIVE: ASSESSMENT AND PLAN:
[2020-02-15] MEDS: CLINDAMYCIN 600MG PREMIX IVPB 600 MG/50 ML BAG IVPB SCH ×2 (16:59→21:49)
--- NOTE | 2020-02-15 17:17 | PN ---
Teaching Attending Note Name of Resident: Alfreda Maxwell ATTENDING PHYSICIAN STATEMENT I saw and evaluated the patient. I reviewed the resident's note and discussed the case with the resident. I agree with the resident's findings and plan as documented. SUBJECTIVE: 55 M, with listed past medical history. Admitted via the ER due to acute onset of right sided facial pain and swelling. Reports a similar episode years ago but the etiology was not determined. Does report a brief period of SOB but now is comfortable on RA. He does report some mild pooling of saliva but is able to swallow normally now. He reports right sided tooth pain. He was given steroids, benadryl, famotidine with some improvement in symptoms. CT : reviewed : non-specific findings / No radiographic evidence of airway compression or compromise. REVIEW OF SYSTEMS: Positive: right facial swelling, Pain inside of mouth , tight throat negative: itching, change of vision, difficulty breathing. PHYSICAL EXAMINATION Vital Signs - 24 hr 02/15/20 02/15/20 02/15/20 06:00 09:00 12:32 Temperature 98.8 F 98.5 F Pulse Rate 122 H Pulse Rate [ 110 H 102 H Apical] Respiratory 20 24 H 19 Rate Blood Pressure 175/95 H Blood Pressure 190/110 H 171/79 H [Right Arm] O2 Sat by Pulse 96 97 94 L Oximetry (%) 02/15/20 13:30 Temperature Pulse Rate Pulse Rate [ Apical] Respiratory Rate Blood Pressure Blood Pressure [Right Arm] O2 Sat by Pulse 96 Oximetry (%) General: awake, alert, oriented HEENT: right sided facial swelling, tenderness over right side, (-) crepitations, no lyphadenopathy Lungs: CTA Heart: RRR Extremities: normal ROM Laboratory Results - last 24 hr 02/15/20 02/15/20 08:51 08:51 WBC 7.6 RBC 3.78 L Hgb 12.2 Hct 34.9 L MCV 92.5 MCH 32.3 MCHC 34.9 RDW 16.6 H Plt Count 248 D MPV 8.2 Absolute Neuts (auto) 6.5 Neutrophils % 85.8 H D Lymphocytes % 10.6 D Monocytes % 3.0 L Eosinophils % 0.2 D Basophils % 0.4 Nucleated RBC % 0 Sodium 136 Potassium 4.2 Chloride 98 Carbon Dioxide 29 Anion Gap 8 BUN 6.9 L Creatinine 1.1 Est GFR (CKD-EPI)AfAm 87.74 Est GFR (CKD-EPI)NonAf 75.70 Random Glucose 235 H Calcium 9.6 Total Bilirubin 1.1 H AST 56 H ALT 46 Alkaline Phosphatase 135 H Total Protein 8.0 Albumin 3.8 Active Medications Generic Name Dose Route Start Last Admin Trade Name Freq PRN Reason Stop Dose Admin Piperacillin Sod/Tazobactam 50 mls @ 100 mls/hr 02/15/20 18:00 Sod 3.375 gm/ Dextrose IVPB Q8H-IV PAULINA Protocol Clindamycin Phosphate 600 mg in 50 mls @ 100 mls/hr 02/15/20 15:15 Cleocin 600 Mg Premix Ivpb - IVPB Q8H-IV PAULINA Protocol ASSESSMENT/PLAN: Right sided mandibular face swelling (?) related to dental caries R/O parotitis vs sialolithiasis (low suspicion) No evidence clinically or radiographically of airway compromise No need for ICU monitoring at this time ABX coverage Pain control Will need a dental evaluation after DC VTE prophylaxis Please call for change in clinical condition or questions Thank you. Dr San
[2020-02-15 17:43] VITALS: BMI 33.4
[2020-02-15] MEDS ORDERED: ACETAMINOPHEN 325 MG TABLET (FP) PO PRN (17:52)
[2020-02-15] MEDS: LOSARTAN POTASSIUM 50 MG TABLET (FP) PO SCH (18:23)
[2020-02-15] MEDS: methylPREDNISolone NA SUCC 40 MG/1 ML VIAL IVPUSH SCH (18:24)
[2020-02-15] MEDS: INSULIN (NOVOLOG) ASPART 100 UNITS/ML 10ML VIAL SQ ONE ×2 (18:25→18:27)
[2020-02-15] MEDS ORDERED: PIPERACILLIN/TAZOBACTAM 3.375 GM VIAL IVPB ONE (18:52)
[2020-02-15] MEDS ORDERED: DEXTROSE 5%-WATER - 50 ML IVPB ONE (18:53)
[2020-02-15] MEDS: INSULIN (LEVEMIR) 100 UNITS/ML UNITS SQ SCH (21:59)
[2020-02-15] MEDS: INSULIN SLIDING SCALE (NOVOLOG) 1 VIAL SQ SCH (22:01)
[2020-02-15] MEDS: ATORVASTATIN CA 20 MG TABLET (FP) PO SCH (22:01)
--- NOTE | 2020-02-15 22:04 | HP ---
Admitting History and Physical - Past Medical History Cardiovascular: Yes: HTN, Hyperlipdemia, Other (hypertriglyceridemia) Hepatobiliary: Yes: Other (fatty liver) Psych: Yes: Addictions (alcohol abuse) Endocrine: Yes: Diabetes Mellitus - Past Surgical History Past Surgical History: Yes: None - Smoking History Smoking history: Never smoked Have you smoked in the past 12 months: No - Alcohol/Substance Use Hx Alcohol Use: Yes Number of Drinks Daily: 6 History of Substance Use: reports: None - Social History ADL: Independent History of Recent Travel: No Home Medications - Allergies Allergies/Adverse Reactions: Allergies Allergy/AdvReac Type Severity Reaction Status Date / Time levofloxacin [From Levaquin] Allergy Verified 02/15/20 06:27 metformin Allergy Verified 02/15/20 06:27 - Home Medications Home Medications: Ambulatory Orders Dapagliflozin Propanediol [Farxiga] 10 mg PO DAILY 02/17/19 Insulin Glargine,Hum.rec.anlog [Basaglar Kwikpen U-100] 30 units SQ HS 02/17/19 Lansoprazole [Prevacid] 60 mg PO DAILY 02/17/19 Losartan Potassium 50 mg PO DAILY 02/17/19 Aspirin Coated [Ecotrin -] 325 mg PO DAILY #30 tablet. 02/21/19 Fenofibric Acid [Trilipix -] 135 mg PO DAILY #30 cap 02/21/19 Insulin Sliding Scale [Novolog Vial Sliding Scale -] 1 vial SQ TIDAC #10 vial 02/21/19 Lancets [Lancets Thin] 1 each MC DAILY #50 each 02/21/19 Meclizine HCl [Antivert -] 25 mg PO TID PRN #21 tablet 02/21/19 Miscellaneous Medical Supply [Glucometer Device] 1 each AD ASDIR #1 kit 02/21/19 Thiamine HCl [Vitamin B1 -] 100 mg PO DAILY #30 tablet 02/21/19 Physical Examination Vital Signs: Vital Signs Temperature 98.9 F 02/15/20 16:17 Pulse Rate 103 H 02/15/20 16:17 Respiratory Rate 19 02/15/20 16:17 Blood Pressure 168/103 H 02/15/20 16:17 O2 Sat by Pulse Oximetry (%) 98 02/15/20 17:30 Labs: CBC, BMP 02/15/20 08:51 02/15/20 08:51
[2020-02-15] MEDS: PIPERACILLIN/TAZOB 3.375 GM 3.375 GM in DEXTROSE 5%-WATER - 50 ML IVPB SCH (22:38)
[2020-02-16] MEDS: methylPREDNISolone NA SUCC 40 MG/1 ML VIAL IVPUSH SCH ×3 (02:33→17:06)
[2020-02-16] MEDS: CLINDAMYCIN 600MG PREMIX IVPB 600 MG/50 ML BAG IVPB SCH ×3 (02:33→17:06)
[2020-02-16] MEDS ORDERED: DEXTROSE 5%-WATER - 50 ML IVPB ONE ×3 (02:57→16:40)
[2020-02-16] MEDS ORDERED: PIPERACILLIN/TAZOBACTAM 3.375 GM VIAL IVPB ONE ×3 (02:57→16:40)
[2020-02-16] MEDS: PIPERACILLIN/TAZOB 3.375 GM 3.375 GM in DEXTROSE 5%-WATER - 50 ML IVPB SCH ×3 (03:08→17:06)
[2020-02-16] MEDS: INSULIN SLIDING SCALE (NOVOLOG) 1 VIAL SQ SCH ×4 (06:14→23:07)
[2020-02-16 06:41] LABS: BASO % 0.2 % (0-2.0); HEMATOCRIT 35.8 % (35.4-49); HEMOGLOBIN 12.2 GM/dL (11.7-16.9); LYMPH % 9.6 % (8-40); MCH 31.4 pg (25.7-33.7); MEAN CELL VOLUME 92.4 fl (80-96); MEAN PLT VOLUME 8.4 fl (7.5-11.1); MONO % 4.8 % (3.8-10.2); NEUT % 85.4 % (42.8-82.8); PLATELET COUNT 254 K/MM3 (134-434); RBC 3.88 M/mm3 (4.00-5.60); RDW 16.5 % (11.9-15.9); WHITE BLOOD COUNT 7.8 K/mm3 (4.0-10.0)
[2020-02-16 06:56] LABS: ALBUMIN 3.6 g/dl (3.4-5.0); BILIRUBIN,TOTAL 1.9 mg/dL (0.2-1); CALCIUM 9.3 mg/dL (8.5-10.1); CREATININE 1.3 mg/dL (0.55-1.3); TOT PROT 7.9 g/dl (6.4-8.2)
[2020-02-16] MEDS: PANTOPRAZOLE 40 MG TABLET PO SCH ×2 (09:13→09:27)
[2020-02-16] MEDS: LOSARTAN POTASSIUM 50 MG TABLET (FP) PO SCH (09:14)
[2020-02-16] MEDS: ENOXAPARIN NA (PORCINE) 40 MG/0.4 ML DISP.SYRIN SQ SCH ×2 (09:15→09:26)
[2020-02-16] MEDS: THIAMINE HCL 100 MG TABLET (FP) PO SCH ×2 (09:15→09:27)
[2020-02-16] MEDS: ASPIRIN 325 MG ENTERIC COATED TABLET (FP) PO SCH (09:29)
[2020-02-16] MEDS: FENOFIBRIC ACID 135 MG CAP PO SCH (09:30)
[2020-02-16] MEDS ORDERED: INSULIN (NOVOLOG) ASPART 100 UNITS/ML 10ML VIAL ONE ×2 (11:09→17:12)
--- NOTE | 2020-02-16 12:16 | PN ---
Progress Note, Physician History of Present Illness: stable swelling better - Current Medication List Current Medications: Active Medications Acetaminophen (Tylenol -) 650 mg PO Q6H PRN PRN Reason: PAIN LEVEL 1 - 3 Aspirin (Ecotrin -) 325 mg PO DAILY [facility] Last Admin: 02/16/20 09:29 Dose: 325 mg Documented by: Atorvastatin Calcium (Lipitor -) 20 mg PO HS [facility] Last Admin: 02/15/20 22:01 Dose: Not Given Documented by: Enoxaparin Sodium (Lovenox -) 40 mg SQ DAILY [facility] Last Admin: 02/16/20 09:26 Dose: Not Given Documented by: Fenofibric Acid (Trilipix -) 135 mg PO DAILY [facility] Last Admin: 02/16/20 09:30 Dose: Not Given Documented by: Piperacillin Sod/Tazobactam (Sod 3.375 gm/ Dextrose) 50 mls @ 100 mls/hr IVPB Q8H-IV [facility]; Protocol Last Admin: 02/16/20 09:13 Dose: 100 mls/hr Documented by: Clindamycin Phosphate (Cleocin 600 Mg Premix Ivpb -) 600 mg in 50 mls @ 100 mls/hr IVPB Q8H-IV [facility]; Protocol Last Admin: 02/16/20 09:14 Dose: 100 mls/hr Documented by: Insulin Aspart (Novolog Vial Sliding Scale -) 1 vial SQ [facility]; Protocol Last Admin: 02/16/20 11:50 Dose: 6 units Documented by: Insulin Detemir (Levemir Vial) 20 units SQ [facility] Last Admin: 02/15/20 21:59 Dose: 20 units Documented by: Losartan Potassium (Cozaar -) 50 mg PO DAILY [facility] Last Admin: 02/16/20 09:14 Dose: 50 mg Documented by: Methylprednisolone Sodium Succinate (Solu-Medrol -) 40 mg IVPUSH Q8H-IV [facility] Last Admin: 02/16/20 09:14 Dose: 40 mg Documented by: Pantoprazole Sodium (Protonix -) 40 mg PO DAILY [facility] Last Admin: 02/16/20 09:27 Dose: Not Given Documented by: Thiamine HCl (Vitamin B1 -) 100 mg PO DAILY [facility] Last Admin: 02/16/20 09:27 Dose: Not Given Documented by: - Objective Vital Signs: Vital Signs Temperature 97.5 F L 02/16/20 09:00 Pulse Rate 91 H 02/16/20 09:00 Respiratory Rate 18 02/16/20 09:00 Blood Pressure 149/88 02/16/20 09:00 O2 Sat by Pulse Oximetry (%) 95 02/16/20 09:00 Constitutional: Yes: No Distress, Calm HENT: Yes: Other (facial swelling) Cardiovascular: Yes: S1, S2 Respiratory: Yes: Regular, CTA Bilaterally Gastrointestinal: Yes: Normal Bowel Sounds, Soft Musculoskeletal: Yes: WNL Extremities: Yes: WNL Neurological: Yes: Alert, Oriented Psychiatric: Yes: Alert, Oriented Labs: CBC, BMP 02/16/20 05:51 02/16/20 05:51 Assessment/Plan Right sided mandibular face swelling (?) related to dental caries cellulitis of the face pain ploan continue abx will need dental rest as per the team
[2020-02-16] MEDS: ATORVASTATIN CA 20 MG TABLET (FP) PO SCH (22:26)
[2020-02-16] MEDS: INSULIN (LEVEMIR) 100 UNITS/ML UNITS SQ SCH (22:26)
--- NOTE | 2020-02-16 22:57 | PN ---
Progress Note, Physician - Current Medication List Current Medications: Active Medications Acetaminophen (Tylenol -) 650 mg PO Q6H PRN PRN Reason: PAIN LEVEL 1 - 3 Aspirin (Ecotrin -) 325 mg PO DAILY [facility] Last Admin: 02/16/20 09:29 Dose: 325 mg Documented by: Atorvastatin Calcium (Lipitor -) 20 mg PO HS [facility] Last Admin: 02/16/20 22:26 Dose: 20 mg Documented by: Enoxaparin Sodium (Lovenox -) 40 mg SQ DAILY [facility] Last Admin: 02/16/20 09:26 Dose: Not Given Documented by: Fenofibric Acid (Trilipix -) 135 mg PO DAILY [facility] Last Admin: 02/16/20 09:30 Dose: Not Given Documented by: Piperacillin Sod/Tazobactam (Sod 3.375 gm/ Dextrose) 50 mls @ 100 mls/hr IVPB Q8H-IV [facility]; Protocol Last Admin: 02/16/20 17:06 Dose: 100 mls/hr Documented by: Clindamycin Phosphate (Cleocin 600 Mg Premix Ivpb -) 600 mg in 50 mls @ 100 mls/hr IVPB Q8H-IV [facility]; Protocol Last Admin: 02/16/20 17:06 Dose: 100 mls/hr Documented by: Insulin Aspart (Novolog Vial Sliding Scale -) 1 vial SQ [facility]; Protocol Last Admin: 02/16/20 17:04 Dose: 4 units Documented by: Insulin Detemir (Levemir Vial) 20 units SQ HS [facility] Last Admin: 02/16/20 22:26 Dose: 20 units Documented by: Losartan Potassium (Cozaar -) 100 mg PO DAILY [facility] Methylprednisolone Sodium Succinate (Solu-Medrol -) 40 mg IVPUSH Q8H-IV [facility] Last Admin: 02/16/20 17:06 Dose: 40 mg Documented by: Pantoprazole Sodium (Protonix -) 40 mg PO DAILY [facility] Last Admin: 02/16/20 09:27 Dose: Not Given Documented by: Thiamine HCl (Vitamin B1 -) 100 mg PO DAILY [facility] Last Admin: 02/16/20 09:27 Dose: Not Given Documented by: - Objective Vital Signs: Vital Signs Temperature 98.0 F 02/16/20 14:14 Pulse Rate 101 H 02/16/20 14:14 Respiratory Rate 18 08/21/20 14:14 Blood Pressure 165/92 08/21/20 14:14 O2 Sat by Pulse Oximetry (%) 97 02/16/20 14:14 Labs: CBC, BMP 02/16/20 05:51 02/16/20 05:51 Problem List - Problems (1) Cellulitis Code(s): L03.90 - CELLULITIS, UNSPECIFIED Qualifiers: Site of cellulitis: extremity Site of cellulitis of extremity: lower extremity Laterality: left Qualified Code(s): L03.116 - Cellulitis of left lower limb (2) Diabetes mellitus Code(s): E11.9 - TYPE 2 DIABETES MELLITUS WITHOUT COMPLICATIONS Qualifiers: Diabetes mellitus type: type 2 Diabetes mellitus long-term insulin use: with intermediate designer use Diabetes mellitus complication status: with other specified complication Qualified Code(s): E11.69 - Type 2 diabetes mellitus with other specified complication; Z79.4 - intermediate (current) use of insulin (3) HLD (hyperlipidemia) Code(s): E78.5 - HYPERLIPIDEMIA, UNSPECIFIED (4) HTN (hypertension) Code(s): I10 - ESSENTIAL (PRIMARY) HYPERTENSION
[2020-02-17] MEDS ORDERED: DEXTROSE 5%-WATER - 50 ML IVPB ONE ×2 (00:55→09:53)
[2020-02-17] MEDS ORDERED: PIPERACILLIN/TAZOBACTAM 3.375 GM VIAL IVPB ONE ×2 (00:55→09:53)
[2020-02-17] MEDS: PIPERACILLIN/TAZOB 3.375 GM 3.375 GM in DEXTROSE 5%-WATER - 50 ML IVPB SCH ×2 (01:42→10:22)
[2020-02-17] MEDS: methylPREDNISolone NA SUCC 40 MG/1 ML VIAL IVPUSH SCH ×2 (01:42→10:23)
[2020-02-17] MEDS: CLINDAMYCIN 600MG PREMIX IVPB 600 MG/50 ML BAG IVPB SCH ×2 (01:42→10:22)
[2020-02-17] MEDS ORDERED: INSULIN (NOVOLOG) ASPART 100 UNITS/ML 10ML VIAL ONE ×2 (06:26→11:25)
[2020-02-17] MEDS: INSULIN SLIDING SCALE (NOVOLOG) 1 VIAL SQ SCH ×2 (06:51→11:27)
[2020-02-17] MEDS ORDERED: PT OWN MED DRAWER 7, Y5N ONE (09:52)
[2020-02-17] MEDS ORDERED: LOSARTAN POTASSIUM 50 MG TABLET (FP) PO SCH (10:00)
[2020-02-17] MEDS: ASPIRIN 325 MG ENTERIC COATED TABLET (FP) PO SCH (10:28)
[2020-02-17] MEDS: PANTOPRAZOLE 40 MG TABLET PO SCH (10:30)
[2020-02-17] MEDS: ENOXAPARIN NA (PORCINE) 40 MG/0.4 ML DISP.SYRIN SQ SCH (10:30)
[2020-02-17] MEDS: THIAMINE HCL 100 MG TABLET (FP) PO SCH (10:31)
[2020-02-17] MEDS: FENOFIBRIC ACID 135 MG CAP PO SCH (10:31)
[2020-02-17 10:33] VITALS: BP 141/77; PULSE 98; TEMP 98.4
--- NOTE | 2020-02-17 12:49 | PN ---
Progress Note, Physician History of Present Illness: swelling of the face still present pain still present patient wants to go home - Current Medication List Current Medications: Active Medications Acetaminophen (Tylenol -) 650 mg PO Q6H PRN PRN Reason: PAIN LEVEL 1 - 3 Aspirin (Ecotrin -) 325 mg PO DAILY [facility] Last Admin: 02/17/20 10:28 Dose: 325 mg Documented by: Atorvastatin Calcium (Lipitor -) 20 mg PO HS [facility] Last Admin: 02/16/20 22:26 Dose: 20 mg Documented by: Enoxaparin Sodium (Lovenox -) 40 mg SQ DAILY [facility] Last Admin: 02/17/20 10:30 Dose: Not Given Documented by: Fenofibric Acid (Trilipix -) 135 mg PO DAILY [facility] Last Admin: 02/17/20 10:31 Dose: Not Given Documented by: Piperacillin Sod/Tazobactam (Sod 3.375 gm/ Dextrose) 50 mls @ 100 mls/hr IVPB Q8H-IV [facility]; Protocol Last Admin: 02/17/20 10:22 Dose: 100 mls/hr Documented by: Clindamycin Phosphate (Cleocin 600 Mg Premix Ivpb -) 600 mg in 50 mls @ 100 mls/hr IVPB Q8H-IV [facility]; Protocol Last Admin: 02/17/20 10:22 Dose: 100 mls/hr Documented by: Insulin Aspart (Novolog Vial Sliding Scale -) 1 vial SQ [facility]; Protocol Last Admin: 02/17/20 11:27 Dose: 8 units Documented by: Insulin Detemir (Levemir Vial) 20 units SQ [facility] Last Admin: 02/16/20 22:26 Dose: 20 units Documented by: Losartan Potassium (Cozaar -) 100 mg PO DAILY [facility] Last Admin: 02/17/20 10:29 Dose: 100 mg Documented by: Methylprednisolone Sodium Succinate (Solu-Medrol -) 40 mg IVPUSH Q8H-IV [facility] Last Admin: 02/17/20 10:23 Dose: 40 mg Documented by: Pantoprazole Sodium (Protonix -) 40 mg PO DAILY [facility] Last Admin: 02/17/20 10:30 Dose: 40 mg Documented by: Thiamine HCl (Vitamin B1 -) 100 mg PO DAILY [facility] Last Admin: 02/17/20 10:31 Dose: Not Given Documented by: - Objective Vital Signs: Vital Signs Temperature 98.4 F 02/17/20 10:00 Pulse Rate 98 H 02/17/20 10:00 Respiratory Rate 16 02/17/20 10:00 Blood Pressure 141/77 02/17/20 10:00 O2 Sat by Pulse Oximetry (%) 97 02/17/20 06:00 Constitutional: Yes: Calm, Mild Distress HENT: Yes: Other (swelling of the face) Cardiovascular: Yes: S1, S2 Respiratory: Yes: Regular, CTA Bilaterally Gastrointestinal: Yes: Normal Bowel Sounds, Soft Musculoskeletal: Yes: WNL Extremities: Yes: WNL Neurological: Yes: Alert, Oriented Psychiatric: Yes: Alert, Oriented Labs: CBC, BMP 02/16/20 05:51 02/16/20 05:51 Assessment/Plan Right sided mandibular face swelling (?) related to dental caries cellulitis of the face pain ploan continue abx will need dental rest as per the team if patient insists on going home then send him on clinda 300 mg every 8 hrly for 10 days with augmentin for same duration
== END 2020-02-17 13:36 | disposition home or self-care (01) | DRG 114 ==
LOC: JER 05:55 → JERBED 13:32 → J7W 15:47
PROVIDERS: ADMIT Internal Medicine; ATTEND Internal Medicine
DX: K02.9 Dental caries, unspecified (principal); K04.7 Periapical abscess without sinus; I10 Essential (primary) hypertension; E78.5 Hyperlipidemia, unspecified; E11.9 Type 2 diabetes mellitus without complications; K76.0 Fatty (change of) liver, not elsewhere classified; L03.211 Cellulitis of face; E78.1 Pure hyperglyceridemia
CPT/HCPCS: 36415; 70487-TC; 70491-TC; 80053; 82962; 85025; 93005; 93010; 99285-25; Q9967; U0003

== ENCOUNTER 2020-05-24 12:27 | Inpatient (IN) | payer OTHER ==
[2020-05-24 13:55] LABS: BASO % 1.2 % (0-2.0); EOS % 0.4 % (0-4.5); HEMOGLOBIN 11.5 GM/dL (11.7-16.9); MCH 30.7 pg (25.7-33.7); MCHC 33.9 g/dl (32.0-35.9); MEAN CELL VOLUME 90.4 fl (80-96); MEAN PLT VOLUME 8.6 fl (7.5-11.1); MONO % 5.8 % (3.8-10.2); NEUT % 74.6 % (42.8-82.8); PLATELET COUNT 283 K/MM3 (134-434); RBC 3.76 M/mm3 (4.00-5.60); RDW 15.9 % (11.9-15.9); WHITE BLOOD COUNT 5.7 K/mm3 (4.0-10.0)
[2020-05-24 14:01] LABS: INR 1.03 (0.83-1.09); PROTHROMBIN TIME (PATIENT) 12.7 SEC (9.7-13.0)
[2020-05-24 14:04] LABS: ACTIVATED PTT 29.3 SECONDS (25.2-36.5)
[2020-05-24 14:20] LABS: CALCIUM 8.3 mg/dL (8.5-10.1)
[2020-05-24 14:21] LABS: ALBUMIN 3.6 g/dl (3.4-5.0); BLOOD UREA NITROGEN 13.7 mg/dL (7-18)
[2020-05-24 14:24] LABS: CREATININE 1.1 mg/dL (0.55-1.3)
[2020-05-24 14:26] LABS: BILIRUBIN,TOTAL 1.7 mg/dL (0.2-1); TOT PROT 7.4 g/dl (6.4-8.2)
[2020-05-24 14:32] LABS: ERYTHROCYTE SEDIMENTATION RATE 6 mm/hr (0-20)
[2020-05-24] MEDS ORDERED: VANCOMYCIN 1 GM in D5W (PRE-DOCKED) 1,000 MG/250 ML IVPB ONE (14:41)
[2020-05-24] MEDS ORDERED: PIPERACILLIN/TAZOB 3.375 GM 3.375 GM in DEXTROSE 5%-WATER - 50 ML IVPB ONE (14:42)
[2020-05-24 14:52] LABS: POTASSIUM 2.8 mmol/L (3.5-5.1)
[2020-05-24] MEDS ORDERED: POTASSIUM CHLORIDE TABS 20 MEQ TABLET.ER (FP) PO ONE ×2 (14:54→15:09)
[2020-05-24] MEDS ORDERED: VANCOMYCIN 1 GRAM (PRE-DOCKED) 1,000 MG/250 ML BAG IVPB ONE (15:10)
[2020-05-24] MEDS ORDERED: PIPERACILLIN/TAZOB 3.375 GM 3.375 GM/50 ML BAG IVPB ONE (15:11)
[2020-05-24] MEDS ORDERED: KCL 10 MEQ IVPB 10 MEQ/100 ML INFUS.BAG IVPB ONE ×2 (15:12→18:10)
[2020-05-24] MEDS: KCL 10 MEQ IVPB 10 MEQ/100 ML INFUS.BAG IVPB SCH ×3 (15:38→18:47)
[2020-05-24] MEDS ORDERED: SODIUM CHLORIDE 500 ML IV STA (18:18)
[2020-05-25] MEDS ORDERED: PIPERACILLIN/TAZOBACTAM 3.375 GM VIAL IVPB ONE ×3 (01:48→17:31)
[2020-05-25] MEDS ORDERED: DEXTROSE 5%-WATER - 50 ML IVPB ONE ×3 (01:48→17:32)
[2020-05-25] MEDS: PIPERACILLIN/TAZOB 3.375 GM 3.375 GM in DEXTROSE 5%-WATER - 50 ML IVPB SCH ×3 (01:54→17:38)
[2020-05-25] MEDS: LOSARTAN POTASSIUM 50 MG TABLET PO SCH (05:57)
[2020-05-25] MEDS: INSULIN SLIDING SCALE (NOVOLOG) 1 VIAL SQ SCH ×4 (06:02→21:27)
[2020-05-25 08:02] LABS: BASO % 0.5 % (0-2.0); EOS % 1.4 % (0-4.5); HEMATOCRIT 33.1 % (35.4-49); HEMOGLOBIN 11.4 GM/dL (11.7-16.9); LYMPH % 19.6 % (8-40); MCHC 34.3 g/dl (32.0-35.9); MEAN CELL VOLUME 90.5 fl (80-96); MEAN PLT VOLUME 8.7 fl (7.5-11.1); MONO % 7.1 % (3.8-10.2); NEUT % 71.4 % (42.8-82.8); PLATELET COUNT 262 K/MM3 (134-434); RBC 3.66 M/mm3 (4.00-5.60); RDW 15.9 % (11.9-15.9); WHITE BLOOD COUNT 5.7 K/mm3 (4.0-10.0)
[2020-05-25 08:17] LABS: ALBUMIN 3.5 g/dl (3.4-5.0); BLOOD UREA NITROGEN 13.6 mg/dL (7-18); CALCIUM 7.8 mg/dL (8.5-10.1)
[2020-05-25 08:20] LABS: CREATININE 1.3 mg/dL (0.55-1.3)
[2020-05-25 08:22] LABS: BILIRUBIN,TOTAL 1.8 mg/dL (0.2-1); TOT PROT 7.4 g/dl (6.4-8.2)
[2020-05-25] MEDS: THIAMINE HCL 100 MG TABLET (FP) PO SCH (10:39)
[2020-05-25] MEDS: ASPIRIN 325 MG ENTERIC COATED TABLET (FP) PO SCH (10:40)
[2020-05-25] MEDS: HEPARIN NA (PORCINE) 5,000 UNITS/ML 1ML VIAL SQ SCH ×2 (10:40→21:27)
[2020-05-25] MEDS: FENOFIBRIC ACID 135 MG CAP PO SCH (10:41)
[2020-05-25] MEDS: POTASSIUM CHLORIDE ORAL LIQUID 20 MEQ/15 ML PO ONE ×2 (21:27→21:52)
[2020-05-25] MEDS: INSULIN (LEVEMIR) 100 UNITS/ML UNITS SQ SCH (21:28)
[2020-05-26] MEDS ORDERED: DEXTROSE 5%-WATER - 50 ML IVPB ONE ×3 (01:56→17:04)
[2020-05-26] MEDS ORDERED: PIPERACILLIN/TAZOBACTAM 3.375 GM VIAL IVPB ONE ×3 (01:56→17:04)
[2020-05-26] MEDS ORDERED: PIPERACILLIN/TAZOB 3.375 GM 3.375 GM in DEXTROSE 5%-WATER - 50 ML IVPB SCH (02:00)
[2020-05-26] MEDS: PIPERACILLIN/TAZOB 3.375 GM 3.375 GM in DEXTROSE 5%-WATER - 50 ML IVPB SCH ×3 (02:15→17:10)
[2020-05-26] MEDS: INSULIN SLIDING SCALE (NOVOLOG) 1 VIAL SQ SCH ×4 (06:07→21:35)
[2020-05-26 08:10] LABS: BASO % 0.6 % (0-2.0); EOS % 3.4 % (0-4.5); HEMATOCRIT 32.9 % (35.4-49); HEMOGLOBIN 11.4 GM/dL (11.7-16.9); LYMPH % 19.3 % (8-40); MCH 31.6 pg (25.7-33.7); MCHC 34.6 g/dl (32.0-35.9); MEAN CELL VOLUME 91.4 fl (80-96); MEAN PLT VOLUME 8.9 fl (7.5-11.1); MONO % 5.3 % (3.8-10.2); NEUT % 71.4 % (42.8-82.8); PLATELET COUNT 251 K/MM3 (134-434); WHITE BLOOD COUNT 4.9 K/mm3 (4.0-10.0)
[2020-05-26 08:27] LABS: POTASSIUM 3.5 mmol/L (3.5-5.1)
[2020-05-26 08:30] LABS: ALBUMIN 3.2 g/dl (3.4-5.0); BLOOD UREA NITROGEN 14.6 mg/dL (7-18)
[2020-05-26 08:31] LABS: CALCIUM 7.8 mg/dL (8.5-10.1)
[2020-05-26 08:33] LABS: CREATININE 1.6 mg/dL (0.55-1.3)
[2020-05-26 08:34] LABS: TOT PROT 6.6 g/dl (6.4-8.2)
[2020-05-26] MEDS ORDERED: PT OWN MED DRAWER 7, Y5N ONE ×2 (10:57→14:56)
[2020-05-26] MEDS: HEPARIN NA (PORCINE) 5,000 UNITS/ML 1ML VIAL SQ SCH ×2 (10:59→21:35)
[2020-05-26] MEDS: THIAMINE HCL 100 MG TABLET (FP) PO SCH (11:15)
[2020-05-26] MEDS: LOSARTAN POTASSIUM 50 MG TABLET PO SCH (11:16)
[2020-05-26] MEDS: FENOFIBRIC ACID 135 MG CAP PO SCH (11:16)
[2020-05-26] MEDS: ASPIRIN 325 MG ENTERIC COATED TABLET (FP) PO SCH (11:17)
[2020-05-26] MEDS: COLLAGENASE CLOSTRIDIUM HIST. 30 GRAMS TUBE TP SCH (14:58)
[2020-05-26] MEDS: TOLNAFTATE 1% POWDER 45 GM POW TP SCH ×2 (14:59→21:42)
[2020-05-26] MEDS: MINERAL OIL/PET HY-PHL TOPICAL OINTMENT 454 GM JAR TP SCH (14:59)
[2020-05-26] MEDS: INSULIN (LEVEMIR) 100 UNITS/ML UNITS SQ SCH (21:40)
[2020-05-27] MEDS ORDERED: DEXTROSE 5%-WATER - 50 ML IVPB ONE ×3 (01:16→17:31)
[2020-05-27] MEDS ORDERED: PIPERACILLIN/TAZOBACTAM 3.375 GM VIAL IVPB ONE ×3 (01:16→17:31)
[2020-05-27] MEDS: PIPERACILLIN/TAZOB 3.375 GM 3.375 GM in DEXTROSE 5%-WATER - 50 ML IVPB SCH ×3 (01:24→17:33)
[2020-05-27] MEDS: INSULIN SLIDING SCALE (NOVOLOG) 1 VIAL SQ SCH ×4 (06:24→21:17)
[2020-05-27 08:27] LABS: BASO % 0.6 % (0-2.0); EOS % 4.3 % (0-4.5); HEMATOCRIT 32.3 % (35.4-49); LYMPH % 20.3 % (8-40); MCH 31.4 pg (25.7-33.7); MCHC 34.1 g/dl (32.0-35.9); MEAN PLT VOLUME 9.3 fl (7.5-11.1); MONO % 6.3 % (3.8-10.2); NEUT % 68.5 % (42.8-82.8); PLATELET COUNT 266 K/MM3 (134-434); RBC 3.51 M/mm3 (4.00-5.60); RDW 15.8 % (11.9-15.9)
[2020-05-27 08:52] LABS: POTASSIUM 3.4 mmol/L (3.5-5.1)
[2020-05-27 08:57] LABS: ALBUMIN 3.4 g/dl (3.4-5.0)
[2020-05-27 08:58] LABS: BLOOD UREA NITROGEN 12.4 mg/dL (7-18); CALCIUM 8.1 mg/dL (8.5-10.1)
[2020-05-27 08:59] LABS: CREATININE 1.3 mg/dL (0.55-1.3)
[2020-05-27 09:01] LABS: TOT PROT 7.3 g/dl (6.4-8.2)
[2020-05-27 09:02] LABS: BILIRUBIN,TOTAL 1.2 mg/dL (0.2-1)
[2020-05-27] MEDS ORDERED: PT OWN MED DRAWER 7, Y5N ONE (10:44)
[2020-05-27] MEDS: FENOFIBRIC ACID 135 MG CAP PO SCH ×2 (10:48→10:56)
[2020-05-27] MEDS: LOSARTAN POTASSIUM 50 MG TABLET PO SCH (10:48)
[2020-05-27] MEDS: ASPIRIN 325 MG ENTERIC COATED TABLET (FP) PO SCH (10:48)
[2020-05-27] MEDS: THIAMINE HCL 100 MG TABLET (FP) PO SCH (10:48)
[2020-05-27] MEDS: HEPARIN NA (PORCINE) 5,000 UNITS/ML 1ML VIAL SQ SCH ×3 (10:48→21:11)
[2020-05-27] MEDS: MINERAL OIL/PET HY-PHL TOPICAL OINTMENT 454 GM JAR TP SCH (10:49)
[2020-05-27] MEDS: COLLAGENASE CLOSTRIDIUM HIST. 30 GRAMS TUBE TP SCH (10:50)
[2020-05-27] MEDS: TOLNAFTATE 1% POWDER 45 GM POW TP SCH ×2 (10:51→22:15)
[2020-05-27] MEDS ORDERED: POTASSIUM CHLORIDE TABS 20 MEQ TABLET.ER (FP) PO ONE (20:27)
[2020-05-27] MEDS: INSULIN (LEVEMIR) 100 UNITS/ML UNITS SQ SCH (22:18)
[2020-05-28] MEDS ORDERED: PIPERACILLIN/TAZOBACTAM 3.375 GM VIAL IVPB ONE ×3 (01:53→17:27)
[2020-05-28] MEDS: PIPERACILLIN/TAZOB 3.375 GM 3.375 GM in DEXTROSE 5%-WATER - 50 ML IVPB SCH ×3 (01:57→18:11)
[2020-05-28] MEDS: INSULIN SLIDING SCALE (NOVOLOG) 1 VIAL SQ SCH ×4 (06:39→21:46)
[2020-05-28] MEDS ORDERED: DEXTROSE 5%-WATER - 50 ML IVPB ONE ×2 (10:39→17:27)
[2020-05-28] MEDS ORDERED: PT OWN MED DRAWER 7, Y5N ONE (10:39)
[2020-05-28] MEDS: FENOFIBRIC ACID 135 MG CAP PO SCH (10:46)
[2020-05-28] MEDS: HEPARIN NA (PORCINE) 5,000 UNITS/ML 1ML VIAL SQ SCH ×3 (10:47→21:37)
[2020-05-28] MEDS: LOSARTAN POTASSIUM 50 MG TABLET PO SCH (10:47)
[2020-05-28] MEDS: ASPIRIN 325 MG ENTERIC COATED TABLET (FP) PO SCH (10:47)
[2020-05-28] MEDS: MINERAL OIL/PET HY-PHL TOPICAL OINTMENT 454 GM JAR TP SCH (10:48)
[2020-05-28] MEDS: COLLAGENASE CLOSTRIDIUM HIST. 30 GRAMS TUBE TP SCH (10:48)
[2020-05-28] MEDS: THIAMINE HCL 100 MG TABLET (FP) PO SCH (11:03)
[2020-05-28] MEDS: TOLNAFTATE 1% POWDER 45 GM POW TP SCH ×2 (11:04→22:34)
[2020-05-28] MEDS: INSULIN (LEVEMIR) 100 UNITS/ML UNITS SQ SCH (21:46)
[2020-05-28] MEDS: amLODIPine BESYLATE 2.5 MG TABLET (FP) PO SCH (23:15)
[2020-05-29] MEDS ORDERED: DEXTROSE 5%-WATER - 50 ML IVPB ONE ×3 (00:57→17:05)
[2020-05-29] MEDS ORDERED: PIPERACILLIN/TAZOBACTAM 3.375 GM VIAL IVPB ONE ×3 (00:57→17:05)
[2020-05-29] MEDS: PIPERACILLIN/TAZOB 3.375 GM 3.375 GM in DEXTROSE 5%-WATER - 50 ML IVPB SCH ×3 (01:01→17:10)
[2020-05-29] MEDS: INSULIN SLIDING SCALE (NOVOLOG) 1 VIAL SQ SCH ×4 (06:20→21:12)
[2020-05-29 08:15] LABS: BASO % 1.3 % (0-2.0); EOS % 3.7 % (0-4.5); HEMATOCRIT 32.2 % (35.4-49); HEMOGLOBIN 11.1 GM/dL (11.7-16.9); LYMPH % 18.3 % (8-40); MCHC 34.4 g/dl (32.0-35.9); MEAN CELL VOLUME 90.2 fl (80-96); MEAN PLT VOLUME 9.1 fl (7.5-11.1); MONO % 7.1 % (3.8-10.2); NEUT % 69.6 % (42.8-82.8); PLATELET COUNT 279 K/MM3 (134-434); RBC 3.57 M/mm3 (4.00-5.60); RDW 15.8 % (11.9-15.9); WHITE BLOOD COUNT 5.8 K/mm3 (4.0-10.0)
[2020-05-29 09:05] LABS: POTASSIUM 3.2 mmol/L (3.5-5.1)
[2020-05-29 09:08] LABS: ALBUMIN 3.2 g/dl (3.4-5.0); BLOOD UREA NITROGEN 8.2 mg/dL (7-18); CALCIUM 7.6 mg/dL (8.5-10.1)
[2020-05-29 09:11] LABS: CREATININE 1.1 mg/dL (0.55-1.3)
[2020-05-29 09:13] LABS: TOT PROT 6.9 g/dl (6.4-8.2)
[2020-05-29 09:15] LABS: BILIRUBIN,TOTAL 1.4 mg/dL (0.2-1)
[2020-05-29] MEDS ORDERED: PT OWN MED DRAWER 7, Y5N ONE (09:37)
[2020-05-29] MEDS: THIAMINE HCL 100 MG TABLET (FP) PO SCH (09:43)
[2020-05-29] MEDS: FENOFIBRIC ACID 135 MG CAP PO SCH ×2 (09:43→09:51)
[2020-05-29] MEDS: HEPARIN NA (PORCINE) 5,000 UNITS/ML 1ML VIAL SQ SCH ×3 (09:43→21:13)
[2020-05-29] MEDS: amLODIPine BESYLATE 2.5 MG TABLET (FP) PO SCH ×2 (09:44→09:50)
[2020-05-29] MEDS: ASPIRIN 325 MG ENTERIC COATED TABLET (FP) PO SCH (09:44)
[2020-05-29] MEDS: LOSARTAN POTASSIUM 50 MG TABLET PO SCH (09:44)
[2020-05-29] MEDS: MINERAL OIL/PET HY-PHL TOPICAL OINTMENT 454 GM JAR TP SCH (09:46)
[2020-05-29] MEDS: TOLNAFTATE 1% POWDER 45 GM POW TP SCH ×2 (09:47→21:16)
[2020-05-29] MEDS: COLLAGENASE CLOSTRIDIUM HIST. 30 GRAMS TUBE TP SCH (09:47)
[2020-05-29] MEDS ORDERED: INSULIN (NOVOLOG) ASPART 100 UNITS/ML 10ML VIAL ONE (10:39)
[2020-05-29] MEDS ORDERED: POTASSIUM CHLORIDE TABS 20 MEQ TABLET.ER (FP) PO ONE (16:45)
[2020-05-29] MEDS: INSULIN (LEVEMIR) 100 UNITS/ML UNITS SQ SCH (21:12)
[2020-05-30] MEDS ORDERED: PIPERACILLIN/TAZOBACTAM 3.375 GM VIAL IVPB ONE ×3 (01:14→17:27)
[2020-05-30] MEDS ORDERED: DEXTROSE 5%-WATER - 50 ML IVPB ONE ×3 (01:14→17:27)
[2020-05-30] MEDS: PIPERACILLIN/TAZOB 3.375 GM 3.375 GM in DEXTROSE 5%-WATER - 50 ML IVPB SCH ×3 (01:40→17:39)
[2020-05-30] MEDS: INSULIN SLIDING SCALE (NOVOLOG) 1 VIAL SQ SCH ×4 (06:47→21:47)
[2020-05-30 08:25] LABS: BASO % 0.9 % (0-2.0); EOS % 2.7 % (0-4.5); HEMATOCRIT 31.2 % (35.4-49); HEMOGLOBIN 10.6 GM/dL (11.7-16.9); LYMPH % 19.1 % (8-40); MCH 31.1 pg (25.7-33.7); MCHC 33.9 g/dl (32.0-35.9); MEAN CELL VOLUME 91.6 fl (80-96); MEAN PLT VOLUME 9.1 fl (7.5-11.1); MONO % 7.3 % (3.8-10.2); PLATELET COUNT 319 K/MM3 (134-434); RBC 3.41 M/mm3 (4.00-5.60); RDW 15.9 % (11.9-15.9); WHITE BLOOD COUNT 6.5 K/mm3 (4.0-10.0)
[2020-05-30 08:27] LABS: INR 1.08 (0.83-1.09); PROTHROMBIN TIME (PATIENT) 13.3 SEC (9.7-13.0)
[2020-05-30 08:33] LABS: CHLORIDE 100 mmol/L (98-107); POTASSIUM 3.6 mmol/L (3.5-5.1); SODIUM 140 mmol/L (136-145)
[2020-05-30 08:35] LABS: CALCIUM 7.9 mg/dL (8.5-10.1)
[2020-05-30 08:36] LABS: ALBUMIN 3.2 g/dl (3.4-5.0); ANION GAP 8 MMOL/L (8-16); BLOOD UREA NITROGEN 8.6 mg/dL (7-18); CO2 32 mmol/L (21-32); GLUCOSE,RANDOM 209 mg/dL (74-106)
[2020-05-30 08:39] LABS: SGOT/AST 183 U/L (15-37); SGPT/ALT 99 U/L (13-61)
[2020-05-30 08:41] LABS: BILIRUBIN,TOTAL 1.4 mg/dL (0.2-1); TOT PROT 7.2 g/dl (6.4-8.2)
[2020-05-30 08:42] LABS: ALK PHOS 252 U/L (45-117)
[2020-05-30 09:11] LABS: MAGNESIUM 1.2 mg/dL (1.8-2.4)
[2020-05-30] MEDS: LOSARTAN POTASSIUM 50 MG TABLET PO SCH (10:20)
[2020-05-30] MEDS: MINERAL OIL/PET HY-PHL TOPICAL OINTMENT 454 GM JAR TP SCH (10:20)
[2020-05-30] MEDS: ASPIRIN 325 MG ENTERIC COATED TABLET (FP) PO SCH (10:21)
[2020-05-30] MEDS: TOLNAFTATE 1% POWDER 45 GM POW TP SCH ×2 (10:23→22:16)
[2020-05-30] MEDS: COLLAGENASE CLOSTRIDIUM HIST. 30 GRAMS TUBE TP SCH (10:23)
[2020-05-30] MEDS: THIAMINE HCL 100 MG TABLET (FP) PO SCH (10:24)
[2020-05-30] MEDS: HEPARIN NA (PORCINE) 5,000 UNITS/ML 1ML VIAL SQ SCH ×2 (10:25→21:51)
[2020-05-30] MEDS: amLODIPine BESYLATE 2.5 MG TABLET (FP) PO SCH (10:25)
[2020-05-30] MEDS ORDERED: amLODIPine BESYLATE 2.5 MG TABLET (FP) PO ONE (15:07)
[2020-05-30] MEDS: MAGNESIUM 2GM/50ML STERILE WATER IVPB IVPB SCH ×2 (16:24→18:23)
[2020-05-30] MEDS: INSULIN (LEVEMIR) 100 UNITS/ML UNITS SQ SCH (21:47)
[2020-05-30] MEDS ORDERED: PT OWN MED DRAWER 7, Y5N ONE ×2 (21:55→22:08)
[2020-05-31] MEDS ORDERED: DEXTROSE 5%-WATER - 50 ML IVPB ONE ×3 (01:10→17:38)
[2020-05-31] MEDS ORDERED: PIPERACILLIN/TAZOBACTAM 3.375 GM VIAL IVPB ONE ×3 (01:10→17:38)
[2020-05-31] MEDS: PIPERACILLIN/TAZOB 3.375 GM 3.375 GM in DEXTROSE 5%-WATER - 50 ML IVPB SCH ×3 (01:22→17:47)
[2020-05-31] MEDS: INSULIN SLIDING SCALE (NOVOLOG) 1 VIAL SQ SCH ×4 (06:17→22:07)
[2020-05-31 07:09] LABS: POTASSIUM 3.6 mmol/L (3.5-5.1)
[2020-05-31 07:16] LABS: BLOOD UREA NITROGEN 9.2 mg/dL (7-18); MAGNESIUM 1.5 mg/dL (1.8-2.4)
[2020-05-31 07:18] LABS: CALCIUM 8.6 mg/dL (8.5-10.1)
[2020-05-31 07:19] LABS: CREATININE 0.9 mg/dL (0.55-1.3)
[2020-05-31] MEDS: THIAMINE HCL 100 MG TABLET (FP) PO SCH (09:01)
[2020-05-31] MEDS: LOSARTAN POTASSIUM 50 MG TABLET PO SCH (09:01)
[2020-05-31] MEDS: HEPARIN NA (PORCINE) 5,000 UNITS/ML 1ML VIAL SQ SCH ×2 (09:02→22:06)
[2020-05-31] MEDS ORDERED: amLODIPine BESYLATE 2.5 MG TABLET (FP) PO SCH (10:00)
[2020-05-31] MEDS ORDERED: ASPIRIN 81 MG CHEWABLE TABLETS PO SCH (10:00)
[2020-05-31] MEDS ORDERED: LIDOCAINE HCL 1%, 10 MG/ML (20ML VIAL) ONE (10:24)
[2020-05-31] MEDS ORDERED: BUPIVACAINE HCL 100 ML ONE (10:24)
[2020-05-31] MEDS ORDERED: DEXAMETHASONE SOD PHOSPHATE 4 MG/1 ML VIAL ONE (10:24)
[2020-05-31] MEDS ORDERED: MIDAZOLAM HCL 2 MG/2 ML SINGLE DOSE VIAL ONE ×2 (11:09→11:35)
[2020-05-31] MEDS ORDERED: ONDANSETRON 4 MG/2 ML VIAL IVPUSH PRN (13:11)
[2020-05-31 13:18] LABS: BASO % 1.5 % (0-2.0); EOS % 3.1 % (0-4.5); HEMATOCRIT 32.3 % (35.4-49); LYMPH % 20.6 % (8-40); MCH 31.2 pg (25.7-33.7); MEAN CELL VOLUME 91.9 fl (80-96); MEAN PLT VOLUME 9.2 fl (7.5-11.1); MONO % 6.9 % (3.8-10.2); NEUT % 67.9 % (42.8-82.8); PLATELET COUNT 325 K/MM3 (134-434); RBC 3.52 M/mm3 (4.00-5.60); RDW 16.2 % (11.9-15.9); WHITE BLOOD COUNT 6.5 K/mm3 (4.0-10.0)
[2020-05-31] MEDS: TOLNAFTATE 1% POWDER 45 GM POW TP SCH ×2 (13:24→22:10)
[2020-05-31] MEDS: MINERAL OIL/PET HY-PHL TOPICAL OINTMENT 454 GM JAR TP SCH (13:24)
[2020-05-31] MEDS: COLLAGENASE CLOSTRIDIUM HIST. 30 GRAMS TUBE TP SCH (13:24)
[2020-05-31 15:38] VITALS: BMI 32.5
[2020-05-31] MEDS: oxyCODONE HCL 5 MG TABLET PO PRN (17:23)
[2020-05-31] MEDS: INSULIN (LEVEMIR) 100 UNITS/ML UNITS SQ SCH (22:06)
[2020-06-01] MEDS ORDERED: PIPERACILLIN/TAZOBACTAM 3.375 GM VIAL IVPB ONE ×3 (02:18→18:45)
[2020-06-01] MEDS ORDERED: DEXTROSE 5%-WATER - 50 ML IVPB ONE ×3 (02:18→18:45)
[2020-06-01] MEDS: oxyCODONE HCL 5 MG TABLET PO PRN ×2 (02:24→16:56)
[2020-06-01] MEDS: PIPERACILLIN/TAZOB 3.375 GM 3.375 GM in DEXTROSE 5%-WATER - 50 ML IVPB SCH ×3 (02:29→18:53)
[2020-06-01] MEDS: INSULIN SLIDING SCALE (NOVOLOG) 1 VIAL SQ SCH ×4 (06:13→21:07)
[2020-06-01] MEDS ORDERED: PT OWN MED DRAWER 7, Y5N ONE (09:44)
[2020-06-01] MEDS: ASPIRIN 81 MG CHEWABLE TABLETS PO SCH (09:48)
[2020-06-01] MEDS: THIAMINE HCL 100 MG TABLET (FP) PO SCH (09:48)
[2020-06-01] MEDS: amLODIPine BESYLATE 5 MG TABLET (FP) PO SCH (09:48)
[2020-06-01] MEDS: MULTIVITAMINS (DAILY MVI) TABLET (FP) PO SCH (09:48)
[2020-06-01] MEDS: LOSARTAN POTASSIUM 50 MG TABLET PO SCH (09:48)
[2020-06-01] MEDS: HEPARIN NA (PORCINE) 5,000 UNITS/ML 1ML VIAL SQ SCH ×3 (09:48→21:08)
[2020-06-01] MEDS: MINERAL OIL/PET HY-PHL TOPICAL OINTMENT 454 GM JAR TP SCH (09:48)
[2020-06-01] MEDS: TOLNAFTATE 1% POWDER 45 GM POW TP SCH ×2 (09:50→21:08)
[2020-06-01] MEDS: INSULIN (LEVEMIR) 100 UNITS/ML UNITS SQ SCH (21:07)
[2020-06-02] MEDS ORDERED: PIPERACILLIN/TAZOBACTAM 3.375 GM VIAL IVPB ONE ×3 (01:58→17:18)
[2020-06-02] MEDS ORDERED: DEXTROSE 5%-WATER - 50 ML IVPB ONE ×3 (01:58→17:18)
[2020-06-02] MEDS: PIPERACILLIN/TAZOB 3.375 GM 3.375 GM in DEXTROSE 5%-WATER - 50 ML IVPB SCH ×3 (02:03→18:28)
[2020-06-02] MEDS: INSULIN SLIDING SCALE (NOVOLOG) 1 VIAL SQ SCH ×4 (06:33→21:14)
[2020-06-02 08:19] LABS: BASO % 0.9 % (0-2.0); EOS % 1.9 % (0-4.5); HEMATOCRIT 32.4 % (35.4-49); HEMOGLOBIN 11.1 GM/dL (11.7-16.9); LYMPH % 20.6 % (8-40); MCH 31.1 pg (25.7-33.7); MCHC 34.2 g/dl (32.0-35.9); MEAN PLT VOLUME 9.3 fl (7.5-11.1); MONO % 8.2 % (3.8-10.2); NEUT % 68.4 % (42.8-82.8); PLATELET COUNT 358 K/MM3 (134-434); RBC 3.56 M/mm3 (4.00-5.60); RDW 15.8 % (11.9-15.9); WHITE BLOOD COUNT 8.4 K/mm3 (4.0-10.0)
[2020-06-02 08:34] LABS: POTASSIUM 4.3 mmol/L (3.5-5.1)
[2020-06-02 08:41] LABS: ALBUMIN 3.3 g/dl (3.4-5.0); BLOOD UREA NITROGEN 12.3 mg/dL (7-18)
[2020-06-02 08:44] LABS: BILIRUBIN,TOTAL 1.6 mg/dL (0.2-1); CREATININE 1.1 mg/dL (0.55-1.3)
[2020-06-02 08:45] LABS: TOT PROT 7.5 g/dl (6.4-8.2)
[2020-06-02] MEDS: HEPARIN NA (PORCINE) 5,000 UNITS/ML 1ML VIAL SQ SCH ×2 (10:46→21:15)
[2020-06-02] MEDS: LOSARTAN POTASSIUM 50 MG TABLET PO SCH (10:46)
[2020-06-02] MEDS: amLODIPine BESYLATE 5 MG TABLET (FP) PO SCH (10:46)
[2020-06-02] MEDS: MULTIVITAMINS (DAILY MVI) TABLET (FP) PO SCH (10:46)
[2020-06-02] MEDS: ASPIRIN 81 MG CHEWABLE TABLETS PO SCH (10:46)
[2020-06-02] MEDS: THIAMINE HCL 100 MG TABLET (FP) PO SCH (10:46)
[2020-06-02] MEDS: MINERAL OIL/PET HY-PHL TOPICAL OINTMENT 454 GM JAR TP SCH (14:50)
[2020-06-02] MEDS: TOLNAFTATE 1% POWDER 45 GM POW TP SCH ×2 (14:50→21:16)
[2020-06-02] MEDS: INSULIN (LEVEMIR) 100 UNITS/ML UNITS SQ SCH (21:15)
[2020-06-03] MEDS ORDERED: DEXTROSE 5%-WATER - 50 ML IVPB ONE ×3 (02:27→17:11)
[2020-06-03] MEDS ORDERED: PIPERACILLIN/TAZOBACTAM 3.375 GM VIAL IVPB ONE ×3 (02:27→17:11)
[2020-06-03] MEDS: PIPERACILLIN/TAZOB 3.375 GM 3.375 GM in DEXTROSE 5%-WATER - 50 ML IVPB SCH ×3 (02:42→17:57)
[2020-06-03] MEDS ORDERED: ACETAMINOPHEN 325 MG TABLET (FP) PO PRN (05:35)
[2020-06-03] MEDS: INSULIN SLIDING SCALE (NOVOLOG) 1 VIAL SQ SCH ×3 (06:00→17:31)
[2020-06-03 08:00] LABS: BASO % 0.9 % (0-2.0); EOS % 2.6 % (0-4.5); HEMATOCRIT 31.8 % (35.4-49); HEMOGLOBIN 10.9 GM/dL (11.7-16.9); LYMPH % 16.8 % (8-40); MCH 31.3 pg (25.7-33.7); MCHC 34.2 g/dl (32.0-35.9); MEAN CELL VOLUME 91.4 fl (80-96); MEAN PLT VOLUME 9.6 fl (7.5-11.1); MONO % 6.7 % (3.8-10.2); PLATELET COUNT 345 K/MM3 (134-434); RBC 3.48 M/mm3 (4.00-5.60); RDW 16.2 % (11.9-15.9)
[2020-06-03] MEDS ORDERED: PT OWN MED DRAWER 7, Y5N ONE (10:15)
[2020-06-03] MEDS: MULTIVITAMINS (DAILY MVI) TABLET (FP) PO SCH (10:31)
[2020-06-03] MEDS: LOSARTAN POTASSIUM 50 MG TABLET PO SCH (10:31)
[2020-06-03] MEDS: ASPIRIN 81 MG CHEWABLE TABLETS PO SCH (10:31)
[2020-06-03] MEDS: THIAMINE HCL 100 MG TABLET (FP) PO SCH (10:31)
[2020-06-03] MEDS: HEPARIN NA (PORCINE) 5,000 UNITS/ML 1ML VIAL SQ SCH (10:31)
[2020-06-03] MEDS: amLODIPine BESYLATE 5 MG TABLET (FP) PO SCH (10:31)
[2020-06-03] MEDS: TOLNAFTATE 1% POWDER 45 GM POW TP SCH (10:32)
[2020-06-03 14:26] VITALS: BP 135/90; PULSE 92; TEMP 99
[2020-06-03] MEDS: MINERAL OIL/PET HY-PHL TOPICAL OINTMENT 454 GM JAR TP SCH (16:36)
== END 2020-06-03 19:45 | disposition left against medical advice (07) | DRG 314 ==
LOC: JER 12:27 → JERBED 17:43 → J8W 20:25
PROVIDERS: ADMIT Internal Medicine; ATTEND Internal Medicine
PROC: 0QBR0ZX Excision of Left Toe Phalanx, Open Approach, Diagnostic (ICD-10-PCS; 2020-05-31)
PROC: 0Y6Q0Z0 Detachment at Left 1st Toe, Complete, Open Approach (ICD-10-PCS; principal; 2020-05-31 11:00)
DX: E11.69 Type 2 diabetes mellitus with other specified complication (principal); E11.621 Type 2 diabetes mellitus with foot ulcer; L97.528 Non-pressure chronic ulcer of other part of left foot with other specified severity; I10 Essential (primary) hypertension; L03.032 Cellulitis of left toe; E78.5 Hyperlipidemia, unspecified; E78.1 Pure hyperglyceridemia; F10.20 Alcohol dependence, uncomplicated; L02.612 Cutaneous abscess of left foot; E87.6 Hypokalemia; D64.9 Anemia, unspecified; K76.0 Fatty (change of) liver, not elsewhere classified; M86.8X7 Other osteomyelitis, ankle and foot; E11.42 Type 2 diabetes mellitus with diabetic polyneuropathy; L08.9 Local infection of the skin and subcutaneous tissue, unspecified; R10.9 Unspecified abdominal pain; S91.102A Unspecified open wound of left great toe without damage to nail, initial encounter; R79.89 Other specified abnormal findings of blood chemistry; E66.9 Obesity, unspecified; Z68.32 Body mass index [BMI] 32.0-32.9, adult; Z79.4 Long term (current) use of insulin; Z86.73 Personal history of transient ischemic attack (TIA), and cerebral infarction without residual deficits
CPT/HCPCS: 36415; 71045-TC-FY; 73610-TC-LT-FY; 73630-TC-LT; 73718-TC-LT; 74021-TC-FY; 76700-TC; 80048; 80053; 80061; 82550; 82553; 82962; 83036; 83605; 83721; 83735; 84484; 85025; 85610; 85651; 85730; 86140; 86850; 86900; 86901; 87040; 88305-TC; 88311-TC; 93005; 93010; 93306-TC; 94760; 99285-25; C9803; J1644; U0003

== ENCOUNTER 2021-01-19 20:49 | Inpatient (IN) | payer OTHER ==
[2021-01-19 20:53] VITALS: BMI 30.8
[2021-01-19] MEDS ORDERED: SODIUM CHLORIDE 1,000 ML IV STA (21:24)
[2021-01-19 21:35] LABS: BASO % 0.5 % (0-2.0); EOS % 0.9 % (0-4.5); HEMATOCRIT 34.3 % (35.4-49); HEMOGLOBIN 12.2 GM/dL (11.7-16.9); LYMPH % 27.4 % (8-40); MCH 33.1 pg (25.7-33.7); MCHC 35.5 g/dl (32.0-35.9); MEAN CELL VOLUME 93.2 fl (80-96); MEAN PLT VOLUME 9.2 fl (7.5-11.1); MONO % 7.8 % (3.8-10.2); NEUT % 63.4 % (42.8-82.8); PLATELET COUNT 230 10^3/uL (134-434); RBC 3.68 M/mm3 (4.00-5.60); RDW 16.8 % (11.9-15.9); WHITE BLOOD COUNT 5.6 K/mm3 (4.0-10.0)
[2021-01-19 21:43] LABS: INR 1.06 (0.83-1.09); PROTHROMBIN TIME (PATIENT) 12.8 SEC (9.7-13.0)
[2021-01-19 21:45] LABS: ACTIVATED PTT 29.4 SECONDS (25.2-36.5)
[2021-01-19] MEDS ORDERED: FOLIC ACID 1 MG TABLET (FP) PO ONE (21:56)
[2021-01-19] MEDS ORDERED: THIAMINE HCL 100 MG TABLET (FP) PO ONE (21:56)
[2021-01-19] MEDS ORDERED: MULTIVITAMINS (DAILY MVI) TABLET (FP) PO ONE (21:56)
[2021-01-19 21:58] LABS: CHLORIDE 90 mmol/L (98-107); SODIUM 133 mmol/L (136-145)
[2021-01-19 21:59] LABS: CALCIUM 7.2 mg/dL (8.5-10.1)
[2021-01-19 22:00] LABS: ALBUMIN 3.3 g/dl (3.4-5.0); BLOOD UREA NITROGEN 9.8 mg/dL (7-18); CO2 28 mmol/L (21-32); GLUCOSE,RANDOM 253 mg/dL (74-106)
[2021-01-19 22:00] LABS: MAGNESIUM 0.9 mg/dL (1.8-2.4)
[2021-01-19] MEDS ORDERED: MULTIVITAMINS (DAILY MVI) TABLET (FP) ONE (22:01)
[2021-01-19] MEDS ORDERED: ASPIRIN 81 MG CHEWABLE TABLETS PO ONE (22:01)
[2021-01-19] MEDS ORDERED: THIAMINE HCL 100 MG TABLET (FP) ONE (22:01)
[2021-01-19] MEDS ORDERED: FOLIC ACID 1 MG TABLET (FP) ONE (22:01)
[2021-01-19 22:03] LABS: CREATININE 1.3 mg/dL (0.55-1.3); SGOT/AST 150 U/L (15-37); SGPT/ALT 48 U/L (13-61)
[2021-01-19 22:05] LABS: BILIRUBIN,TOTAL 1.2 mg/dL (0.2-1); TOT PROT 7.2 g/dl (6.4-8.2)
[2021-01-19] MEDS ORDERED: MAGNESIUM SULF 50% (8.12 MEQ/2 ML-1 GM VIAL) IVPB ONE ×2 (22:05→22:06)
[2021-01-19 22:06] LABS: ALK PHOS 225 U/L (45-117)
[2021-01-19] MEDS ORDERED: CALCIUM GLUCONATE 10% - 1,000 MG/10 ML VIAL IVPB ONE (22:07)
[2021-01-19] MEDS ORDERED: ASPIRIN 81 MG CHEWABLE TABLETS ONE (22:11)
[2021-01-19] MEDS ORDERED: MAGNESIUM SULFATE IN WATER 2 GM/50 ML IVPB IVPB ONE ×2 (22:11→23:05)
[2021-01-19] MEDS ORDERED: CALCIUM CHLORIDE 1 GM/10 ML *DISP.SYRIN ONE (22:11)
[2021-01-19 22:38] LABS: ANION GAP 15 MMOL/L (8-16)
[2021-01-19] MEDS ORDERED: POTASSIUM CHLORIDE ORAL LIQUID 20 MEQ/15 ML PO ONE (22:39)
[2021-01-19] MEDS ORDERED: POTASSIUM CHLORIDE 20 MEQ PREMIX IVPB 100 ML IVPB ONE (22:39)
[2021-01-19] MEDS ORDERED: POTASSIUM CHLORIDE ORAL LIQUID 20 MEQ/15 ML ONE (23:24)
[2021-01-19] MEDS: KCL 10 MEQ IVPB 10 MEQ/100 ML INFUS.BAG IVPB SCH (23:40)
[2021-01-20 01:24] LABS: CHLORIDE 92 mmol/L (98-107); SODIUM 133 mmol/L (136-145)
[2021-01-20 01:25] LABS: CALCIUM 8.1 mg/dL (8.5-10.1)
[2021-01-20 01:26] LABS: ANION GAP 12 MMOL/L (8-16); BLOOD UREA NITROGEN 9.5 mg/dL (7-18); CO2 30 mmol/L (21-32); GLUCOSE,RANDOM 250 mg/dL (74-106); MAGNESIUM 2.2 mg/dL (1.8-2.4)
[2021-01-20] MEDS: KCL 10 MEQ IVPB 10 MEQ/100 ML INFUS.BAG IVPB SCH ×2 (01:27→03:47)
[2021-01-20 01:29] LABS: CREATININE 1.2 mg/dL (0.55-1.3); PHOSPHOROUS 3.3 mg/dL (2.5-4.9)
[2021-01-20] MEDS ORDERED: MECLIZINE HCL 25 MG TABLET (FP) PO PRN (08:25)
[2021-01-20 10:59] LABS: CHOLESTEROL 208 mg/dL (50-200)
[2021-01-20 11:00] LABS: LDL CHOLESTEROL (ONLY SJRH) 91 mg/dL (5-100); TRIGLYCERIDES 225 mg/dL (0-150)
[2021-01-20 11:03] LABS: HDL CHOLESTEROL 74 mg/dL (40-60)
[2021-01-20] MEDS: FENOFIBRIC ACID 135 MG CAP PO SCH (11:22)
[2021-01-20] MEDS: LOSARTAN POTASSIUM 50 MG TABLET PO SCH (11:23)
[2021-01-20] MEDS: ENOXAPARIN NA (PORCINE) 40 MG/0.4 ML DISP.SYRIN SQ SCH (11:23)
[2021-01-20] MEDS ORDERED: INSULIN (NOVOLOG) ASPART 100 UNITS/ML 10ML VIAL ONE (11:28)
[2021-01-20] MEDS: INSULIN SLIDING SCALE (NOVOLOG) 1 VIAL SQ SCH ×3 (11:29→21:16)
[2021-01-20] MEDS ORDERED: POTASSIUM CHLORIDE TABS 20 MEQ TABLET.ER (FP) PO ONE (11:30)
[2021-01-20 11:40] LABS: BASO % 0.4 % (0-2.0); EOS % 0.4 % (0-4.5); HEMATOCRIT 33.6 % (35.4-49); HEMOGLOBIN 11.8 GM/dL (11.7-16.9); LYMPH % 20.2 % (8-40); MCH 33.4 pg (25.7-33.7); MCHC 35.2 g/dl (32.0-35.9); MEAN PLT VOLUME 9.8 fl (7.5-11.1); MONO % 8.8 % (3.8-10.2); NEUT % 70.2 % (42.8-82.8); PLATELET COUNT 220 10^3/uL (134-434); RBC 3.53 M/mm3 (4.00-5.60); RDW 16.5 % (11.9-15.9); WHITE BLOOD COUNT 4.8 K/mm3 (4.0-10.0)
[2021-01-20] MEDS: ASPIRIN 325 MG ENTERIC COATED TABLET (FP) PO SCH (11:47)
[2021-01-20] MEDS ORDERED: PHENYLEPH/MINERAL OIL/PETROLAT 28 GM OINTMENT RC PRN (12:00)
[2021-01-20 12:08] LABS: CHLORIDE 95 mmol/L (98-107); SODIUM 133 mmol/L (136-145)
[2021-01-20 12:12] LABS: ALBUMIN 3.3 g/dl (3.4-5.0); CALCIUM 7.3 mg/dL (8.5-10.1)
[2021-01-20 12:13] LABS: CO2 29 mmol/L (21-32); GLUCOSE,RANDOM 384 mg/dL (74-106)
[2021-01-20 12:15] LABS: SGOT/AST 141 U/L (15-37); SGPT/ALT 47 U/L (13-61)
[2021-01-20 12:16] LABS: CHOLESTEROL 196 mg/dL (50-200); CREATININE 1.2 mg/dL (0.55-1.3); TRIGLYCERIDES 242 mg/dL (0-150)
[2021-01-20 12:17] LABS: LDL CHOLESTEROL (ONLY SJRH) 85 mg/dL (5-100); TOT PROT 7.2 g/dl (6.4-8.2)
[2021-01-20 12:18] LABS: ALK PHOS 243 U/L (45-117); HDL CHOLESTEROL 71 mg/dL (40-60)
[2021-01-20 12:25] LABS: ANION GAP 9 MMOL/L (8-16)
[2021-01-20] MEDS: POTASSIUM CHLORIDE TABS 20 MEQ TABLET.ER (FP) PO SCH (17:07)
[2021-01-20] MEDS: INSULIN (LEVEMIR) 100 UNITS/ML UNITS SQ SCH (21:16)
[2021-01-20] MEDS ORDERED: amLODIPine BESYLATE 5 MG TABLET (FP) PO ONE (23:15)
[2021-01-21] MEDS: INSULIN SLIDING SCALE (NOVOLOG) 1 VIAL SQ SCH ×4 (06:09→22:01)
[2021-01-21 08:06] LABS: BASO % 0.5 % (0-2.0); EOS % 1.9 % (0-4.5); HEMATOCRIT 31.5 % (35.4-49); HEMOGLOBIN 11.3 GM/dL (11.7-16.9); LYMPH % 26.9 % (8-40); MCH 33.7 pg (25.7-33.7); MCHC 35.8 g/dl (32.0-35.9); MEAN CELL VOLUME 94.1 fl (80-96); MEAN PLT VOLUME 9.8 fl (7.5-11.1); MONO % 10.2 % (3.8-10.2); NEUT % 60.5 % (42.8-82.8); PLATELET COUNT 211 10^3/uL (134-434); RBC 3.35 M/mm3 (4.00-5.60); RDW 16.4 % (11.9-15.9); WHITE BLOOD COUNT 4.5 K/mm3 (4.0-10.0)
[2021-01-21 08:18] LABS: CHLORIDE 100 mmol/L (98-107); SODIUM 139 mmol/L (136-145)
[2021-01-21 08:23] LABS: ALBUMIN 3.3 g/dl (3.4-5.0); BLOOD UREA NITROGEN 8.8 mg/dL (7-18); CALCIUM 7.5 mg/dL (8.5-10.1); CO2 31 mmol/L (21-32)
[2021-01-21 08:24] LABS: GLUCOSE,RANDOM 182 mg/dL (74-106)
[2021-01-21 08:27] LABS: SGPT/ALT 45 U/L (13-61)
[2021-01-21 08:28] LABS: BILIRUBIN,TOTAL 2.2 mg/dL (0.2-1); TOT PROT 7.1 g/dl (6.4-8.2)
[2021-01-21 08:29] LABS: ALK PHOS 235 U/L (45-117)
[2021-01-21 08:30] LABS: SGOT/AST 125 U/L (15-37)
[2021-01-21 08:57] LABS: ANION GAP 9 MMOL/L (8-16)
[2021-01-21] MEDS: LOSARTAN POTASSIUM 50 MG TABLET PO SCH (08:59)
[2021-01-21] MEDS: POTASSIUM CHLORIDE TABS 20 MEQ TABLET.ER (FP) PO SCH (08:59)
[2021-01-21] MEDS ORDERED: POTASSIUM CHLORIDE TABS 20 MEQ TABLET.ER (FP) PO ONE ×3 (11:30→22:26)
[2021-01-21] MEDS: ASPIRIN 325 MG ENTERIC COATED TABLET (FP) PO SCH (12:07)
[2021-01-21] MEDS: ENOXAPARIN NA (PORCINE) 40 MG/0.4 ML DISP.SYRIN SQ SCH (12:07)
[2021-01-21] MEDS: FENOFIBRIC ACID 135 MG CAP PO SCH (12:07)
[2021-01-21] MEDS ORDERED: LOSARTAN POTASSIUM 50 MG TABLET PO ONE (16:08)
[2021-01-21] MEDS ORDERED: MAGNESIUM OXIDE 400 MG TABLET (FP) PO ONE (16:09)
[2021-01-21 18:58] LABS: CALCIUM 7.4 mg/dL (8.5-10.1)
[2021-01-21 18:59] LABS: BLOOD UREA NITROGEN 8.6 mg/dL (7-18); MAGNESIUM 1.1 mg/dL (1.8-2.4)
[2021-01-21] MEDS: INSULIN (LEVEMIR) 100 UNITS/ML UNITS SQ SCH (22:00)
[2021-01-21] MEDS ORDERED: MAGNESIUM SULF 50% (8.12 MEQ/2 ML-1 GM VIAL) IVPB ONE (22:25)
[2021-01-21] MEDS: MAGNESIUM OXIDE 400 MG TABLET (FP) PO SCH (22:46)
[2021-01-22] MEDS: INSULIN SLIDING SCALE (NOVOLOG) 1 VIAL SQ SCH ×2 (06:09→12:18)
[2021-01-22 08:05] LABS: CHLORIDE 99 mmol/L (98-107); SODIUM 140 mmol/L (136-145)
[2021-01-22 08:14] LABS: ALBUMIN 3.2 g/dl (3.4-5.0); ANION GAP 9 MMOL/L (8-16); BLOOD UREA NITROGEN 7.9 mg/dL (7-18); CALCIUM 7.3 mg/dL (8.5-10.1); CO2 32 mmol/L (21-32); MAGNESIUM 1.5 mg/dL (1.8-2.4)
[2021-01-22 08:15] LABS: GLUCOSE,RANDOM 146 mg/dL (74-106)
[2021-01-22 08:17] LABS: CREATININE 0.8 mg/dL (0.55-1.3); PHOSPHOROUS 2.6 mg/dL (2.5-4.9); SGOT/AST 92 U/L (15-37); SGPT/ALT 39 U/L (13-61)
[2021-01-22 08:18] LABS: BILIRUBIN,TOTAL 1.5 mg/dL (0.2-1)
[2021-01-22 08:21] LABS: TOT PROT 6.9 g/dl (6.4-8.2)
[2021-01-22] MEDS: amLODIPine BESYLATE 2.5 MG TABLET (FP) PO SCH ×2 (08:57→12:19)
[2021-01-22] MEDS ORDERED: MAGNESIUM SULFATE IN WATER 4 GM/50 ML BAG IVPB ONE (09:00)
[2021-01-22] MEDS ORDERED: POTASSIUM CHLORIDE TABS 20 MEQ TABLET.ER (FP) PO ONE (09:00)
[2021-01-22 09:18] LABS: ALK PHOS 199 U/L (45-117)
[2021-01-22] MEDS: MAGNESIUM OXIDE 400 MG TABLET (FP) PO SCH (10:00)
[2021-01-22] MEDS ORDERED: LOSARTAN POTASSIUM 50 MG TABLET PO SCH (10:00)
[2021-01-22] MEDS ORDERED: REGADENOSON 0.4 MG/5 ML PRE-FILLED SYRINGE IVPUSH ONE ×2 (10:26→10:30)
[2021-01-22] MEDS ORDERED: PT OWN MED DRAWER 7, Y5N ONE (14:24)
[2021-01-22] MEDS: ASPIRIN 325 MG ENTERIC COATED TABLET (FP) PO SCH (14:28)
[2021-01-22] MEDS: FENOFIBRIC ACID 135 MG CAP PO SCH (14:29)
[2021-01-22] MEDS: ENOXAPARIN NA (PORCINE) 40 MG/0.4 ML DISP.SYRIN SQ SCH (14:32)
[2021-01-22 18:55] VITALS: BP 160/95; PULSE 95; TEMP 98.4
[2021-01-22] MEDS ORDERED: POTASSIUM CHLORIDE TABS 20 MEQ TABLET.ER (FP) PO SCH (22:00)
== END 2021-01-22 18:57 | disposition left against medical advice (07) | DRG 204 ==
LOC: JER 20:49 → JERBED 23:31 → J4W 01-20 10:53
PROVIDERS: ADMIT Internal Medicine; ATTEND Internal Medicine
DX: R55 Syncope and collapse (principal); I10 Essential (primary) hypertension; E78.5 Hyperlipidemia, unspecified; I25.10 Atherosclerotic heart disease of native coronary artery without angina pectoris; E11.51 Type 2 diabetes mellitus with diabetic peripheral angiopathy without gangrene; K76.0 Fatty (change of) liver, not elsewhere classified; E83.42 Hypomagnesemia; E87.6 Hypokalemia; E83.51 Hypocalcemia; E78.1 Pure hyperglyceridemia; G56.21 Lesion of ulnar nerve, right upper limb; E66.9 Obesity, unspecified; Z68.30 Body mass index [BMI] 30.0-30.9, adult; R94.5 Abnormal results of liver function studies; D64.9 Anemia, unspecified; Z86.73 Personal history of transient ischemic attack (TIA), and cerebral infarction without residual deficits
CPT/HCPCS: 36415; 70450-TC; 71046-TC-FY; 78452-TC; 80048; 80053; 80061; 80307; 82550; 82553; 82962; 83721; 83735; 83970; 84100; 84132; 84484; 85025; 85027; 85610; 85730; 93005; 93010; 93017; 93306-TC; 93880-TC; 97116-GP; 97161-GP; 99285-25; A9502; C9803; J2785; U0003; U0005

== ENCOUNTER 2021-10-12 01:51 | Inpatient (IN) | payer OTHER ==
[2021-10-12] MEDS ORDERED: VANCOMYCIN 1 GM in D5W (PRE-DOCKED) 1,000 MG/250 ML IVPB ONE (03:21)
[2021-10-12] MEDS ORDERED: PIPERACILLIN/TAZOB 3.375 GM 3.375 GM in DEXTROSE 5%-WATER - 50 ML IVPB ONE (03:21)
[2021-10-12] MEDS ORDERED: VANCOMYCIN 1 GRAM (PRE-DOCKED) 1,000 MG/250 ML BAG IVPB ONE (03:50)
[2021-10-12 04:02] LABS: HEMATOCRIT 26.4 % (35.4-49); HEMOGLOBIN 9.2 GM/dL (11.7-16.9); MCH 37.8 pg (25.7-33.7); MCHC 34.9 g/dl (32.0-35.9); MEAN CELL VOLUME 108.1 fl (80-96); MEAN PLT VOLUME 9.9 fl (7.5-11.1); PLATELET COUNT 247 10^3/uL (134-434); RBC 2.45 M/mm3 (4.00-5.60); RDW 18.1 % (11.9-15.9); WHITE BLOOD COUNT 8.4 K/mm3 (4.0-10.0)
[2021-10-12 04:14] LABS: CHLORIDE 98 mmol/L (98-107); SODIUM 136 mmol/L (136-145)
[2021-10-12 04:16] LABS: CALCIUM 7.8 mg/dL (8.5-10.1)
[2021-10-12 04:17] LABS: ALBUMIN 2.6 g/dl (3.4-5.0); BLOOD UREA NITROGEN 11.8 mg/dL (7-18); CO2 26 mmol/L (21-32); GLUCOSE,RANDOM 143 mg/dL (74-106)
[2021-10-12 04:20] LABS: SGOT/AST 364 U/L (15-37); SGPT/ALT 111 U/L (13-61)
[2021-10-12 04:21] LABS: TOT PROT 7.1 g/dl (6.4-8.2)
[2021-10-12 04:23] LABS: ALK PHOS 759 U/L (45-117)
[2021-10-12 04:28] LABS: ANION GAP 13 MMOL/L (8-16); BILIRUBIN,TOTAL 19.9 mg/dL (0.2-1)
[2021-10-12 04:29] LABS: ANISOCYTOSIS 2+; MACROCYTOSIS 1+
[2021-10-12] MEDS ORDERED: POTASSIUM CHLORIDE ORAL LIQUID 20 MEQ/15 ML PO ONE (04:39)
[2021-10-12] MEDS ORDERED: SODIUM CHLORIDE 0.9% 500 ML INFUS.BAG IV ONE (06:01)
[2021-10-12] MEDS ORDERED: PIPERACILLIN/TAZOB 3.375 GM 3.375 GM/50 ML BAG IVPB ONE (06:07)
[2021-10-12] MEDS ORDERED: POTASSIUM CHLORIDE ORAL LIQUID 20 MEQ/15 ML ONE (06:41)
[2021-10-12] MEDS ORDERED: KCL 10 MEQ IVPB 30 MEQ/300 ML INFUS.BAG IVPB ONE ×2 (07:09→19:13)
[2021-10-12] MEDS: KCL 10 MEQ IVPB 10 MEQ/100 ML INFUS.BAG IVPB SCH ×6 (07:32→21:37)
[2021-10-12] MEDS ORDERED: PATIENT'S OWN MEDICATION (NON-FORMULARY) (Dapagliflozin Propanediol [Farxiga] 10 MG Tablet PO SCH (12:30)
[2021-10-12] MEDS ORDERED: amLODIPine BESYLATE 10 MG TABLET (FP) ONE (13:19)
[2021-10-12] MEDS: amLODIPine BESYLATE 10 MG TABLET (FP) PO SCH (13:22)
[2021-10-12] MEDS: FENOFIBRIC ACID 135 MG CAP PO SCH (18:03)
[2021-10-12] MEDS: INSULIN SLIDING SCALE (NOVOLOG) 1 VIAL SQ SCH ×2 (18:06→23:02)
[2021-10-12 19:00] LABS: CHLORIDE 101 mmol/L (98-107); SODIUM 136 mmol/L (136-145)
[2021-10-12 19:05] LABS: BLOOD UREA NITROGEN 9.4 mg/dL (7-18); CALCIUM 7.2 mg/dL (8.5-10.1); CO2 24 mmol/L (21-32); CREATININE 1.1 mg/dL (0.55-1.3); GLUCOSE,RANDOM 244 mg/dL (74-106)
[2021-10-12 19:10] LABS: ANION GAP 11 MMOL/L (8-16)
[2021-10-12] MEDS ORDERED: HEPARIN NA (PORCINE) 5,000 UNITS/ML 1ML VIAL ONE (22:52)
[2021-10-12] MEDS: HEPARIN NA (PORCINE) 5,000 UNITS/ML 1ML VIAL SQ SCH (23:02)
[2021-10-13 07:15] LABS: HEMATOCRIT 21.3 % (35.4-49); HEMOGLOBIN 7.4 GM/dL (11.7-16.9); MCH 38.5 pg (25.7-33.7); MEAN CELL VOLUME 110.2 fl (80-96); PLATELET COUNT 236 10^3/uL (134-434); RBC 1.93 M/mm3 (4.00-5.60); RDW 17.1 % (11.9-15.9); WHITE BLOOD COUNT 7.7 K/mm3 (4.0-10.0)
[2021-10-13 07:35] LABS: CHLORIDE 105 mmol/L (98-107); SODIUM 139 mmol/L (136-145)
[2021-10-13 07:41] LABS: CALCIUM 7.1 mg/dL (8.5-10.1)
[2021-10-13 07:42] LABS: ALBUMIN 2.2 g/dl (3.4-5.0); BLOOD UREA NITROGEN 8.9 mg/dL (7-18); CO2 23 mmol/L (21-32); CREATININE 0.9 mg/dL (0.55-1.3); GLUCOSE,RANDOM 77 mg/dL (74-106)
[2021-10-13 07:43] LABS: SGPT/ALT 82 U/L (13-61)
[2021-10-13 07:45] LABS: SGOT/AST 238 U/L (15-37); TOT PROT 6.1 g/dl (6.4-8.2)
[2021-10-13 08:08] LABS: ALK PHOS 575 U/L (45-117); ANION GAP 12 MMOL/L (8-16); BILIRUBIN,TOTAL 19.1 mg/dL (0.2-1)
[2021-10-13] MEDS: INSULIN SLIDING SCALE (NOVOLOG) 1 VIAL SQ SCH ×4 (08:35→23:42)
[2021-10-13 09:09] LABS: ANISOCYTOSIS 3+; MACROCYTOSIS 3+
[2021-10-13] MEDS ORDERED: amLODIPine BESYLATE 5 MG TABLET (FP) ONE ×2 (09:46→09:59)
[2021-10-13] MEDS ORDERED: HEPARIN NA (PORCINE) 5,000 UNITS/ML 1ML VIAL ONE ×2 (09:46→23:35)
[2021-10-13] MEDS: HEPARIN NA (PORCINE) 5,000 UNITS/ML 1ML VIAL SQ SCH ×2 (09:58→23:41)
[2021-10-13] MEDS: FENOFIBRIC ACID 135 MG CAP PO SCH (09:59)
[2021-10-13] MEDS: amLODIPine BESYLATE 10 MG TABLET (FP) PO SCH (10:00)
[2021-10-13] MEDS ORDERED: NAPH,MB-DB/K PH,MBDB POWDER PACKET PO ONE (13:19)
[2021-10-13] MEDS ORDERED: NAPH,MB-DB/K PH,MBDB POWDER PACKET ONE (14:52)
[2021-10-13] MEDS ORDERED: POTASSIUM CHLORIDE ORAL LIQUID 20 MEQ/15 ML ONE ×2 (14:53→23:35)
[2021-10-13] MEDS ORDERED: MAGNESIUM SULFATE IN WATER 2 GM/50 ML IVPB IVPB ONE ×2 (14:53→20:04)
[2021-10-13] MEDS ORDERED: KCL 10 MEQ IVPB 10 MEQ/100 ML INFUS.BAG IVPB ONE ×3 (14:53→20:01)
[2021-10-13] MEDS: MAGNESIUM SULF 50% (8.12 MEQ/2 ML-1 GM VIAL) IVPB SCH ×2 (14:59→20:10)
[2021-10-13] MEDS: POTASSIUM CHLORIDE ORAL LIQUID 20 MEQ/15 ML PO SCH ×2 (14:59→23:42)
[2021-10-13] MEDS ORDERED: VANCOMYCIN/WATER BAGS 1,250 MG/250 ML BAG IVPB SCH (15:00)
[2021-10-13] MEDS ORDERED: PIPERACILLIN/TAZOB 3.375 GM 3.375 GM in DEXTROSE 5%-WATER - 50 ML IVPB SCH ×2 (15:01→19:02)
[2021-10-13] MEDS ORDERED: PIPERACILLIN/TAZOB 3.375 GM 3.375 GM/50 ML BAG IVPB ONE (16:21)
[2021-10-13] MEDS: KCL 10 MEQ IVPB 10 MEQ/100 ML INFUS.BAG IVPB SCH ×3 (16:40→20:04)
[2021-10-13] MEDS ORDERED: VANCOMYCIN/WATER BAGS 1,250 MG/250 ML BAG IVPB ONE (18:16)
[2021-10-14] MEDS ORDERED: PIPERACILLIN/TAZOBACTAM 3.375 GM VIAL IVPB ONE ×3 (03:27→16:42)
[2021-10-14] MEDS ORDERED: DEXTROSE 5%-WATER - 50 ML IVPB ONE ×3 (03:28→16:42)
[2021-10-14] MEDS: PIPERACILLIN/TAZOB 3.375 GM 3.375 GM in DEXTROSE 5%-WATER - 50 ML IVPB SCH ×3 (03:34→16:45)
[2021-10-14 04:33] VITALS: BMI 28.0
[2021-10-14] MEDS: INSULIN SLIDING SCALE (NOVOLOG) 1 VIAL SQ SCH ×4 (06:45→22:21)
[2021-10-14 07:48] LABS: HEMATOCRIT 20.7 % (35.4-49); HEMOGLOBIN 7.2 GM/dL (11.7-16.9); MCH 38.6 pg (25.7-33.7); MCHC 34.9 g/dl (32.0-35.9); MEAN CELL VOLUME 110.7 fl (80-96); PLATELET COUNT 243 10^3/uL (134-434); RBC 1.87 M/mm3 (4.00-5.60); RDW 16.5 % (11.9-15.9); WHITE BLOOD COUNT 6.8 K/mm3 (4.0-10.0)
[2021-10-14 07:53] LABS: CHLORIDE 107 mmol/L (98-107); SODIUM 138 mmol/L (136-145)
[2021-10-14 07:56] LABS: GLUCOSE,RANDOM 160 mg/dL (74-106)
[2021-10-14 07:57] LABS: ALBUMIN 2.3 g/dl (3.4-5.0); BLOOD UREA NITROGEN 6.6 mg/dL (7-18); CO2 21 mmol/L (21-32); MAGNESIUM 1.5 mg/dL (1.8-2.4)
[2021-10-14 07:59] LABS: SGPT/ALT 69 U/L (13-61)
[2021-10-14 08:00] LABS: CREATININE 0.9 mg/dL (0.55-1.3); SGOT/AST 203 U/L (15-37)
[2021-10-14 08:01] LABS: TOT PROT 5.8 g/dl (6.4-8.2)
[2021-10-14 08:02] LABS: ALK PHOS 481 U/L (45-117); ANION GAP 10 MMOL/L (8-16); BILIRUBIN,TOTAL 19.8 mg/dL (0.2-1); CALCIUM 6.9 mg/dL (8.5-10.1); PHOSPHOROUS 0.9 mg/dL (2.5-4.9)
[2021-10-14] MEDS ORDERED: MAGNESIUM SULF 50% (8.12 MEQ/2 ML-1 GM VIAL) IVPB ONE ×2 (09:06→17:00)
[2021-10-14] MEDS ORDERED: POTASSIUM CHLORIDE TABS 20 MEQ TABLET.ER (FP) PO ONE ×3 (09:07→13:50)
[2021-10-14] MEDS: amLODIPine BESYLATE 10 MG TABLET (FP) PO SCH (09:56)
[2021-10-14] MEDS: HEPARIN NA (PORCINE) 5,000 UNITS/ML 1ML VIAL SQ SCH ×2 (09:56→22:20)
[2021-10-14] MEDS: POTASSIUM CHLORIDE ORAL LIQUID 20 MEQ/15 ML PO SCH (10:01)
[2021-10-14 10:05] LABS: ANISOCYTOSIS 2+; MACROCYTOSIS 2+
[2021-10-14] MEDS ORDERED: CALCIUM GLUCONATE 10% - 1,000 MG/10 ML VIAL IVPB ONE (10:36)
[2021-10-14] MEDS ORDERED: SODIUM PHOSPHATE - 20 MM in SODIUM CHLORIDE 500 ML IVPB ONE (10:36)
[2021-10-14] MEDS: KCL 10 MEQ IVPB 10 MEQ/100 ML INFUS.BAG IVPB SCH ×6 (10:40→21:07)
[2021-10-14] MEDS: NAPH,MB-DB/K PH,MBDB POWDER PACKET PO SCH ×3 (10:55→22:23)
[2021-10-14] MEDS: FENOFIBRIC ACID 135 MG CAP PO SCH (12:14)
[2021-10-14 13:12] LABS: CHLORIDE 105 mmol/L (98-107); SODIUM 137 mmol/L (136-145)
[2021-10-14 13:13] LABS: CALCIUM 7.6 mg/dL (8.5-10.1)
[2021-10-14 13:14] LABS: BLOOD UREA NITROGEN 6.4 mg/dL (7-18); CO2 20 mmol/L (21-32); GLUCOSE,RANDOM 131 mg/dL (74-106)
[2021-10-14 13:17] LABS: CREATININE 0.9 mg/dL (0.55-1.3)
[2021-10-14 13:38] LABS: ANION GAP 12 MMOL/L (8-16)
[2021-10-14] MEDS ORDERED: KCL 10 MEQ IVPB 10 MEQ/100 ML INFUS.BAG IVPB SCH (19:45)
[2021-10-15] MEDS ORDERED: PIPERACILLIN/TAZOBACTAM 3.375 GM VIAL IVPB ONE ×3 (00:18→18:54)
[2021-10-15] MEDS ORDERED: DEXTROSE 5%-WATER - 50 ML IVPB ONE ×3 (00:19→18:54)
[2021-10-15] MEDS: PIPERACILLIN/TAZOB 3.375 GM 3.375 GM in DEXTROSE 5%-WATER - 50 ML IVPB SCH ×3 (00:24→20:20)
[2021-10-15] MEDS: NAPH,MB-DB/K PH,MBDB POWDER PACKET PO SCH ×3 (05:51→22:22)
[2021-10-15] MEDS: INSULIN SLIDING SCALE (NOVOLOG) 1 VIAL SQ SCH ×4 (06:10→22:23)
[2021-10-15] MEDS: HEPARIN NA (PORCINE) 5,000 UNITS/ML 1ML VIAL SQ SCH ×2 (09:11→22:22)
[2021-10-15] MEDS: amLODIPine BESYLATE 10 MG TABLET (FP) PO SCH (09:12)
[2021-10-15] MEDS: PENTOXIFYLLINE 400 MG TABLET.ER PO SCH ×2 (09:13→22:22)
[2021-10-15 09:48] LABS: CHLORIDE 108 mmol/L (98-107); SODIUM 139 mmol/L (136-145)
[2021-10-15 10:00] LABS: ALBUMIN 2.2 g/dl (3.4-5.0); ANION GAP 11 MMOL/L (8-16); BLOOD UREA NITROGEN 4.9 mg/dL (7-18); CALCIUM 7.2 mg/dL (8.5-10.1); CO2 20 mmol/L (21-32); GLUCOSE,RANDOM 110 mg/dL (74-106); MAGNESIUM 1.6 mg/dL (1.8-2.4)
[2021-10-15 10:03] LABS: SGPT/ALT 68 U/L (13-61)
[2021-10-15 10:04] LABS: CREATININE 0.8 mg/dL (0.55-1.3); SGOT/AST 196 U/L (15-37)
[2021-10-15 10:06] LABS: ALK PHOS 457 U/L (45-117)
[2021-10-15 10:20] LABS: BILIRUBIN,TOTAL 20.4 mg/dL (0.2-1); PHOSPHOROUS 1.1 mg/dL (2.5-4.9)
[2021-10-15] MEDS: POTASSIUM PHOSPHATE 30 MM in DEXTROSE 5%-WATER - 500 ML IVPB ONE (12:20)
[2021-10-15] MEDS: MAGNESIUM 2GM/50ML STERILE WATER IVPB IVPB SCH ×2 (12:20→22:37)
[2021-10-15] MEDS ORDERED: LOPERAMIDE HCL 2 MG CAPSULE PO ONE (12:22)
[2021-10-15] MEDS: POTASSIUM CHLORIDE TABS 20 MEQ TABLET.ER (FP) PO SCH ×2 (12:23→22:22)
[2021-10-16] MEDS ORDERED: DEXTROSE 5%-WATER - 50 ML IVPB ONE ×3 (04:36→22:59)
[2021-10-16] MEDS ORDERED: PIPERACILLIN/TAZOBACTAM 3.375 GM VIAL IVPB ONE ×4 (04:36→22:59)
[2021-10-16] MEDS: PIPERACILLIN/TAZOB 3.375 GM 3.375 GM in DEXTROSE 5%-WATER - 50 ML IVPB SCH ×3 (04:38→17:05)
[2021-10-16] MEDS: NAPH,MB-DB/K PH,MBDB POWDER PACKET PO SCH ×3 (05:46→21:45)
[2021-10-16] MEDS: INSULIN SLIDING SCALE (NOVOLOG) 1 VIAL SQ SCH ×4 (06:17→21:51)
[2021-10-16 08:34] LABS: HEMATOCRIT 28.9 % (35.4-49); HEMOGLOBIN 10.3 GM/dL (11.7-16.9); MCH 37.7 pg (25.7-33.7); MCHC 35.7 g/dl (32.0-35.9); MEAN CELL VOLUME 105.4 fl (80-96); MEAN PLT VOLUME 10.1 fl (7.5-11.1); PLATELET COUNT 317 10^3/uL (134-434); RBC 2.74 M/mm3 (4.00-5.60); RDW 20.5 % (11.9-15.9)
[2021-10-16 08:53] LABS: CHLORIDE 106 mmol/L (98-107); SODIUM 136 mmol/L (136-145)
[2021-10-16 09:02] LABS: ANION GAP 12 MMOL/L (8-16); CALCIUM 8.1 mg/dL (8.5-10.1); CO2 18 mmol/L (21-32)
[2021-10-16 09:03] LABS: GLUCOSE,RANDOM 127 mg/dL (74-106)
[2021-10-16 09:06] LABS: CREATININE 0.8 mg/dL (0.55-1.3); SGOT/AST 219 U/L (15-37); SGPT/ALT 75 U/L (13-61)
[2021-10-16 09:07] LABS: TOT PROT 6.9 g/dl (6.4-8.2)
[2021-10-16] MEDS ORDERED: MAGNESIUM SULF 50% (8.12 MEQ/2 ML-1 GM VIAL) IVPB ONE (09:19)
[2021-10-16 09:38] LABS: ALBUMIN 2.7 g/dl (3.4-5.0); ALK PHOS 498 U/L (45-117); BILIRUBIN,TOTAL 23.8 mg/dL (0.2-1); BLOOD UREA NITROGEN 3.8 mg/dL (7-18)
[2021-10-16 09:41] LABS: ANISOCYTOSIS 2+; MACROCYTOSIS 2+; PLATELET ESTIMATE INCREASED
[2021-10-16] MEDS ORDERED: ONDANSETRON 4 MG/2 ML VIAL IVPUSH ONE (10:30)
[2021-10-16] MEDS: POTASSIUM CHLORIDE TABS 20 MEQ TABLET.ER (FP) PO SCH (10:40)
[2021-10-16] MEDS: amLODIPine BESYLATE 10 MG TABLET (FP) PO SCH (10:40)
[2021-10-16] MEDS: PENTOXIFYLLINE 400 MG TABLET.ER PO SCH ×2 (10:41→21:45)
[2021-10-16] MEDS: HEPARIN NA (PORCINE) 5,000 UNITS/ML 1ML VIAL SQ SCH ×2 (10:41→21:44)
[2021-10-16] MEDS: KCL 10 MEQ IVPB 10 MEQ/100 ML INFUS.BAG IVPB SCH ×2 (11:03→12:42)
[2021-10-17] MEDS: PIPERACILLIN/TAZOB 3.375 GM 3.375 GM in DEXTROSE 5%-WATER - 50 ML IVPB SCH ×4 (00:26→23:31)
[2021-10-17] MEDS: ONDANSETRON 4 MG/2 ML VIAL IVPB PRN (03:29)
[2021-10-17] MEDS: INSULIN SLIDING SCALE (NOVOLOG) 1 VIAL SQ SCH ×4 (06:22→22:00)
[2021-10-17] MEDS: NAPH,MB-DB/K PH,MBDB POWDER PACKET PO SCH ×2 (06:22→13:13)
[2021-10-17 06:52] LABS: HEMATOCRIT 28.1 % (35.4-49); HEMOGLOBIN 9.9 GM/dL (11.7-16.9); MCH 37.1 pg (25.7-33.7); MCHC 35.1 g/dl (32.0-35.9); MEAN CELL VOLUME 105.7 fl (80-96); MEAN PLT VOLUME 9.9 fl (7.5-11.1); PLATELET COUNT 311 10^3/uL (134-434); RBC 2.66 M/mm3 (4.00-5.60); RDW 19.2 % (11.9-15.9); WHITE BLOOD COUNT 7.4 K/mm3 (4.0-10.0)
[2021-10-17 06:57] LABS: INR 1.27 (0.83-1.09); PROTHROMBIN TIME (PATIENT) 14.6 SEC (9.7-13.0)
[2021-10-17 07:00] LABS: ACTIVATED PTT 33.8 SECONDS (25.2-36.5)
[2021-10-17 07:22] LABS: CHLORIDE 104 mmol/L (98-107); SODIUM 134 mmol/L (136-145)
[2021-10-17 07:25] LABS: CALCIUM 8.6 mg/dL (8.5-10.1)
[2021-10-17 07:26] LABS: ALBUMIN 2.6 g/dl (3.4-5.0); ANION GAP 11 MMOL/L (8-16); BLOOD UREA NITROGEN 3.4 mg/dL (7-18); CO2 20 mmol/L (21-32); GLUCOSE,RANDOM 179 mg/dL (74-106); MAGNESIUM 1.7 mg/dL (1.8-2.4)
[2021-10-17 07:29] LABS: CREATININE 0.9 mg/dL (0.55-1.3); PHOSPHOROUS 1.4 mg/dL (2.5-4.9); SGOT/AST 208 U/L (15-37); SGPT/ALT 71 U/L (13-61)
[2021-10-17 07:30] LABS: TOT PROT 6.8 g/dl (6.4-8.2)
[2021-10-17 07:37] LABS: ALK PHOS 459 U/L (45-117)
[2021-10-17 07:56] LABS: BILIRUBIN,TOTAL 24.2 mg/dL (0.2-1)
[2021-10-17] MEDS ORDERED: PIPERACILLIN/TAZOBACTAM 3.375 GM VIAL IVPB ONE ×3 (08:47→23:25)
[2021-10-17] MEDS ORDERED: DEXTROSE 5%-WATER - 50 ML IVPB ONE ×3 (08:47→23:25)
[2021-10-17 09:04] LABS: ANISOCYTOSIS 2+; MACROCYTOSIS 2+
[2021-10-17] MEDS: HEPARIN NA (PORCINE) 5,000 UNITS/ML 1ML VIAL SQ SCH ×2 (09:08→21:59)
[2021-10-17] MEDS: amLODIPine BESYLATE 10 MG TABLET (FP) PO SCH (09:08)
[2021-10-17] MEDS: PENTOXIFYLLINE 400 MG TABLET.ER PO SCH ×2 (09:09→21:59)
[2021-10-17] MEDS: NADOLOL 20 MG TABLET (FP) PO SCH (09:13)
[2021-10-17] MEDS: MAGNESIUM SULF 50% (8.12 MEQ/2 ML-1 GM VIAL) IVPB SCH ×2 (11:58→16:43)
[2021-10-17] MEDS ORDERED: SODIUM PHOSPHATE - 20 MM in DEXTROSE 5%-WATER - 250 ML IVPB ONE (12:00)
[2021-10-17] MEDS: LACTULOSE 20 GM/30 ML UDC (FOR ORAL USE ONLY) PO SCH (21:59)
[2021-10-18] MEDS: ONDANSETRON 4 MG/2 ML VIAL IVPB PRN ×2 (05:08→13:36)
[2021-10-18] MEDS: INSULIN SLIDING SCALE (NOVOLOG) 1 VIAL SQ SCH ×4 (06:29→21:38)
[2021-10-18] MEDS ORDERED: PIPERACILLIN/TAZOBACTAM 3.375 GM VIAL IVPB ONE ×3 (08:30→23:46)
[2021-10-18] MEDS ORDERED: DEXTROSE 5%-WATER - 50 ML IVPB ONE ×3 (08:30→23:46)
[2021-10-18] MEDS: PIPERACILLIN/TAZOB 3.375 GM 3.375 GM in DEXTROSE 5%-WATER - 50 ML IVPB SCH ×2 (08:45→17:00)
[2021-10-18] MEDS: HEPARIN NA (PORCINE) 5,000 UNITS/ML 1ML VIAL SQ SCH ×2 (09:19→21:36)
[2021-10-18] MEDS: LACTULOSE 20 GM/30 ML UDC (FOR ORAL USE ONLY) PO SCH ×2 (09:19→21:36)
[2021-10-18] MEDS: PENTOXIFYLLINE 400 MG TABLET.ER PO SCH ×2 (09:19→21:36)
[2021-10-18] MEDS: NADOLOL 20 MG TABLET (FP) PO SCH (09:19)
[2021-10-18] MEDS: amLODIPine BESYLATE 10 MG TABLET (FP) PO SCH (09:20)
[2021-10-18 09:35] LABS: HEMATOCRIT 30.9 % (35.4-49); HEMOGLOBIN 10.5 GM/dL (11.7-16.9); MCH 36.3 pg (25.7-33.7); MEAN CELL VOLUME 106.6 fl (80-96); MEAN PLT VOLUME 10.6 fl (7.5-11.1); PLATELET COUNT 351 10^3/uL (134-434); RDW 18.1 % (11.9-15.9); WHITE BLOOD COUNT 7.4 K/mm3 (4.0-10.0)
[2021-10-18 09:57] LABS: CHLORIDE 102 mmol/L (98-107); SODIUM 133 mmol/L (136-145)
[2021-10-18 09:59] LABS: ALBUMIN 2.6 g/dl (3.4-5.0); CALCIUM 8.9 mg/dL (8.5-10.1)
[2021-10-18 10:00] LABS: ANION GAP 11 MMOL/L (8-16); BLOOD UREA NITROGEN 7.3 mg/dL (7-18); CO2 20 mmol/L (21-32); GLUCOSE,RANDOM 164 mg/dL (74-106)
[2021-10-18 10:02] LABS: SGPT/ALT 70 U/L (13-61)
[2021-10-18 10:03] LABS: SGOT/AST 211 U/L (15-37)
[2021-10-18 10:04] LABS: TOT PROT 6.8 g/dl (6.4-8.2)
[2021-10-18 10:06] LABS: ALK PHOS 450 U/L (45-117)
[2021-10-18 10:19] LABS: BILIRUBIN,TOTAL 24.8 mg/dL (0.2-1)
[2021-10-18 10:29] LABS: ANISOCYTOSIS 3+; MACROCYTOSIS 3+
[2021-10-19] MEDS: PIPERACILLIN/TAZOB 3.375 GM 3.375 GM in DEXTROSE 5%-WATER - 50 ML IVPB SCH ×2 (00:05→09:17)
[2021-10-19] MEDS: INSULIN SLIDING SCALE (NOVOLOG) 1 VIAL SQ SCH (06:23)
[2021-10-19 07:35] LABS: BASO % 1.6 % (0-2.0); EOS % 1.2 % (0-4.5); HEMATOCRIT 31.9 % (35.4-49); HEMOGLOBIN 11.1 GM/dL (11.7-16.9); LYMPH % 24.8 % (8-40); MCHC 34.7 g/dl (32.0-35.9); MEAN CELL VOLUME 106.6 fl (80-96); MEAN PLT VOLUME 10.2 fl (7.5-11.1); MONO % 4.4 % (3.8-10.2); PLATELET COUNT 345 10^3/uL (134-434); RDW 17.4 % (11.9-15.9); WHITE BLOOD COUNT 6.8 K/mm3 (4.0-10.0)
[2021-10-19 07:48] LABS: CHLORIDE 103 mmol/L (98-107); SODIUM 135 mmol/L (136-145)
[2021-10-19 08:00] LABS: ALBUMIN 2.4 g/dl (3.4-5.0); ANION GAP 11 MMOL/L (8-16); BLOOD UREA NITROGEN 11.8 mg/dL (7-18); CO2 21 mmol/L (21-32); GLUCOSE,RANDOM 136 mg/dL (74-106)
[2021-10-19 08:01] LABS: SGPT/ALT 72 U/L (13-61)
[2021-10-19 08:03] LABS: CREATININE 1.4 mg/dL (0.55-1.3); SGOT/AST 198 U/L (15-37)
[2021-10-19 08:04] LABS: ALK PHOS 451 U/L (45-117)
[2021-10-19 08:20] LABS: BILIRUBIN,TOTAL 23.5 mg/dL (0.2-1); TOT PROT 6.5 g/dl (6.4-8.2)
[2021-10-19] MEDS ORDERED: PIPERACILLIN/TAZOBACTAM 3.375 GM VIAL IVPB ONE (08:56)
[2021-10-19] MEDS ORDERED: DEXTROSE 5%-WATER - 50 ML IVPB ONE (08:57)
[2021-10-19] MEDS: LACTULOSE 20 GM/30 ML UDC (FOR ORAL USE ONLY) PO SCH (09:17)
[2021-10-19] MEDS: NADOLOL 20 MG TABLET (FP) PO SCH (09:17)
[2021-10-19] MEDS: amLODIPine BESYLATE 10 MG TABLET (FP) PO SCH (09:18)
[2021-10-19] MEDS: PENTOXIFYLLINE 400 MG TABLET.ER PO SCH (09:18)
[2021-10-19] MEDS: HEPARIN NA (PORCINE) 5,000 UNITS/ML 1ML VIAL SQ SCH (09:19)
[2021-10-19] MEDS ORDERED: ONDANSETRON 4 MG/2 ML VIAL IVPB PRN (10:23)
[2021-10-19 10:53] VITALS: BP 138/77; PULSE 86; TEMP 97.5
[2021-10-19] MEDS ORDERED: INSULIN SLIDING SCALE (NOVOLOG) 1 VIAL SQ SCH (11:00)
[2021-10-19 12:06] LABS: SARS-CoV-2 NAA Not Detected (Not Detected)
[2021-10-19] MEDS ORDERED: PIPERACILLIN/TAZOB 3.375 GM 3.375 GM in DEXTROSE 5%-WATER - 50 ML IVPB SCH (16:30)
[2021-10-19] MEDS ORDERED: LACTULOSE 20 GM/30 ML UDC (FOR ORAL USE ONLY) PO SCH (22:00)
[2021-10-19] MEDS ORDERED: PENTOXIFYLLINE 400 MG TABLET.ER PO SCH (22:00)
[2021-10-19] MEDS ORDERED: HEPARIN NA (PORCINE) 5,000 UNITS/ML 1ML VIAL SQ SCH (22:00)
[2021-10-20] MEDS ORDERED: amLODIPine BESYLATE 10 MG TABLET (FP) PO SCH (10:00)
[2021-10-20] MEDS ORDERED: NADOLOL 20 MG TABLET (FP) PO SCH (10:00)
== END 2021-10-19 11:53 | disposition short-term general hospital (02) | DRG 279 ==
LOC: JER 01:51 → JERBED 07:11 → J4S 10-14 02:31 → J5S 10-19 10:32
PROVIDERS: ADMIT Internal Medicine; ATTEND Internal Medicine
DX: K72.00 Acute and subacute hepatic failure without coma (principal); E11.40 Type 2 diabetes mellitus with diabetic neuropathy, unspecified; I10 Essential (primary) hypertension; E11.621 Type 2 diabetes mellitus with foot ulcer; L97.529 Non-pressure chronic ulcer of other part of left foot with unspecified severity; E11.65 Type 2 diabetes mellitus with hyperglycemia; K70.30 Alcoholic cirrhosis of liver without ascites; F10.20 Alcohol dependence, uncomplicated; E11.69 Type 2 diabetes mellitus with other specified complication; M86.8X7 Other osteomyelitis, ankle and foot; E78.5 Hyperlipidemia, unspecified; Z86.73 Personal history of transient ischemic attack (TIA), and cerebral infarction without residual deficits; J98.11 Atelectasis; E87.6 Hypokalemia; K76.0 Fatty (change of) liver, not elsewhere classified; D64.9 Anemia, unspecified; Z79.4 Long term (current) use of insulin; R91.8 Other nonspecific abnormal finding of lung field; E83.42 Hypomagnesemia; R19.7 Diarrhea, unspecified; E11.51 Type 2 diabetes mellitus with diabetic peripheral angiopathy without gangrene; R79.89 Other specified abnormal findings of blood chemistry; E87.8 Other disorders of electrolyte and fluid balance, not elsewhere classified
CPT/HCPCS: 36415; 36430; 73630-TC-LT; 73718-TC-LT; 74177-TC; 76700-TC; 80048; 80053; 82140; 82962; 83735; 84100; 85025; 85610; 85730; 86803; 86850; 86900; 86901; 86922; 87040; 87070; 87186; 87205; 87340; 93005; 93010; 99285-25; C9803-CS; J1644; P9058; Q9967; U0003; U0005

== ENCOUNTER 2022-08-13 06:43 | Observation (INO) | payer OTHER ==
[2022-08-13 06:53] VITALS: BMI 25.7
[2022-08-13] MEDS ORDERED: morphine CARPU-JECT 4 MG/1 ML DISP.SYRIN IVPUSH ONE ×2 (09:41→13:08)
[2022-08-13] MEDS ORDERED: morphine SULFATE 4 MG/ML VIAL ONE ×2 (09:50→13:09)
[2022-08-13 10:12] LABS: INR 0.92 (0.83-1.09); PROTHROMBIN TIME (PATIENT) 10.7 SEC (9.7-13.0)
[2022-08-13 10:15] LABS: ACTIVATED PTT 29.9 SECONDS (25.2-36.5)
[2022-08-13 10:20] LABS: BASO % 0.6 % (0-2.0); EOS % 1.2 % (0-4.5); HEMATOCRIT 28.5 % (35.4-49); HEMOGLOBIN 10.2 GM/dL (11.7-16.9); LYMPH % 15.5 % (8-40); MCH 32.5 pg (25.7-33.7); MCHC 35.9 g/dl (32.0-35.9); MEAN CELL VOLUME 90.4 fl (80-96); MEAN PLT VOLUME 8.8 fl (7.5-11.1); MONO % 10.3 % (3.8-10.2); NEUT % 72.4 % (42.8-82.8); PLATELET COUNT 218 10^3/uL (134-434); RBC 3.15 M/mm3 (4.00-5.60); RDW 13.2 % (11.9-15.9); WHITE BLOOD COUNT 5.6 K/mm3 (4.0-10.0)
[2022-08-13 10:35] LABS: ALBUMIN 3.7 g/dl (3.4-5.0); BLOOD UREA NITROGEN 25.2 mg/dL (7-18); CALCIUM 8.8 mg/dL (8.5-10.1)
[2022-08-13 10:37] LABS: CREATININE 1.4 mg/dL (0.55-1.3)
[2022-08-13 10:39] LABS: BILIRUBIN,TOTAL 0.5 mg/dL (0.2-1)
[2022-08-13 10:40] LABS: TOT PROT 7.2 g/dl (6.4-8.2)
[2022-08-13 10:43] LABS: N-TERMINAL BNP 168.7 pg/ml (5-125)
[2022-08-13 10:58] LABS: ERYTHROCYTE SEDIMENTATION RATE 16 mm/hr (0-20)
[2022-08-13] MEDS ORDERED: ACETAMINOPHEN 325 MG TABLET (FP) PO PRN (18:07)
[2022-08-13] MEDS: oxyCODONE HCL 5 MG TABLET PO PRN (20:12)
[2022-08-13] MEDS: INSULIN SLIDING SCALE (NOVOLOG) 1 VIAL SQ SCH (21:49)
[2022-08-13] MEDS: HEPARIN NA (PORCINE) 5,000 UNITS/ML 1ML VIAL SQ SCH ×2 (21:51→21:53)
[2022-08-14] MEDS: INSULIN SLIDING SCALE (NOVOLOG) 1 VIAL SQ SCH ×4 (06:41→21:18)
[2022-08-14 07:42] LABS: BASO % 0.8 % (0-2.0); EOS % 2.2 % (0-4.5); HEMATOCRIT 30.9 % (35.4-49); HEMOGLOBIN 10.9 GM/dL (11.7-16.9); LYMPH % 30.8 % (8-40); MCH 32.1 pg (25.7-33.7); MCHC 35.3 g/dl (32.0-35.9); MEAN CELL VOLUME 90.9 fl (80-96); MEAN PLT VOLUME 9.2 fl (7.5-11.1); MONO % 7.5 % (3.8-10.2); NEUT % 58.7 % (42.8-82.8); PLATELET COUNT 208 10^3/uL (134-434); RDW 13.4 % (11.9-15.9); WHITE BLOOD COUNT 5.5 K/mm3 (4.0-10.0)
[2022-08-14 08:00] LABS: ALBUMIN 3.6 g/dl (3.4-5.0); CALCIUM 9.1 mg/dL (8.5-10.1)
[2022-08-14 08:03] LABS: CREATININE 1.1 mg/dL (0.55-1.3)
[2022-08-14] MEDS: oxyCODONE HCL 5 MG TABLET PO PRN ×2 (08:03→20:04)
[2022-08-14 08:05] LABS: BILIRUBIN,TOTAL 0.8 mg/dL (0.2-1); TOT PROT 6.9 g/dl (6.4-8.2)
[2022-08-14] MEDS ORDERED: PATIENT'S OWN MEDICATION (NON-FORMULARY) (Dapagliflozin Propanediol 10 MG Tablet) PO SCH (10:00)
[2022-08-14] MEDS: HEPARIN NA (PORCINE) 5,000 UNITS/ML 1ML VIAL SQ SCH ×2 (11:22→21:17)
[2022-08-14] MEDS: DOCUSATE SODIUM 100 MG CAPSULE (FP) PO SCH ×2 (11:23→12:27)
[2022-08-14] MEDS: ASPIRIN 325 MG ENTERIC COATED TABLET (FP) PO SCH (11:23)
[2022-08-14] MEDS: FENOFIBRIC ACID 135 MG CAP PO SCH ×2 (12:22→12:27)
[2022-08-14] MEDS ORDERED: INSULIN (LEVEMIR) 100 UNITS/ML UNITS SQ SCH (22:00)
[2022-08-14] MEDS: GABAPENTIN 100 MG CAPSULE PO SCH (22:36)
[2022-08-15] MEDS: GABAPENTIN 100 MG CAPSULE PO SCH ×2 (06:28→15:30)
[2022-08-15] MEDS: INSULIN SLIDING SCALE (NOVOLOG) 1 VIAL SQ SCH ×2 (06:32→11:14)
[2022-08-15 07:18] LABS: BASO % 0.6 % (0-2.0); HEMATOCRIT 28.9 % (35.4-49); HEMOGLOBIN 10.4 GM/dL (11.7-16.9); LYMPH % 29.1 % (8-40); MCH 32.2 pg (25.7-33.7); MCHC 36.1 g/dl (32.0-35.9); MEAN CELL VOLUME 89.3 fl (80-96); MEAN PLT VOLUME 9.2 fl (7.5-11.1); MONO % 5.9 % (3.8-10.2); NEUT % 62.4 % (42.8-82.8); PLATELET COUNT 214 10^3/uL (134-434); RBC 3.23 M/mm3 (4.00-5.60); RDW 13.2 % (11.9-15.9); WHITE BLOOD COUNT 5.1 K/mm3 (4.0-10.0)
[2022-08-15 07:43] LABS: CHOLESTEROL 217 mg/dL (50-200); TRIGLYCERIDES 508 mg/dL (0-150)
[2022-08-15 07:44] LABS: LDL CHOLESTEROL (ONLY SJRH) 81 mg/dL (5-100)
[2022-08-15 07:46] LABS: HDL CHOLESTEROL 73 mg/dL (40-60)
[2022-08-15 07:48] LABS: ALBUMIN 3.4 g/dl (3.4-5.0); BLOOD UREA NITROGEN 18.8 mg/dL (7-18)
[2022-08-15 07:52] LABS: BILIRUBIN,TOTAL 0.8 mg/dL (0.2-1); TOT PROT 6.6 g/dl (6.4-8.2)
[2022-08-15 09:34] VITALS: BP 130/71; PULSE 99; RESP 18; TEMP 98
[2022-08-15] MEDS: DOCUSATE SODIUM 100 MG CAPSULE (FP) PO SCH (09:40)
[2022-08-15] MEDS: FENOFIBRIC ACID 135 MG CAP PO SCH (09:41)
[2022-08-15] MEDS: HEPARIN NA (PORCINE) 5,000 UNITS/ML 1ML VIAL SQ SCH (10:37)
[2022-08-15] MEDS: ASPIRIN 325 MG ENTERIC COATED TABLET (FP) PO SCH (10:37)
[2022-08-18 21:08] LABS: ALPHA 2 MACROGLOBULINS,QN 143 mg/dL (110-276); ALT(SGPT)P5P 41 IU/L (0-55); APOLIPOPROTEIN A-1. 199 mg/dL (101-178); CHOLESTEROL TOTAL 229 mg/dL (100-199); FIBROSIS SCORE- 0.32 (0.00-0.21); GLUCOSE SERUM 252 mg/dL (70-99); HEIGHT. 74 in (.); WEIGHT. 200 LBS (.)
== END 2022-08-15 17:46 | disposition left against medical advice (07) ==
LOC: JER 06:43 → JERBED 09:03 → J4S 18:19
PROVIDERS: ADMIT Internal Medicine; ATTEND Internal Medicine
PROC: 3E013VG Introduction of Insulin into Subcutaneous Tissue, Percutaneous Approach (ICD-10-PCS; principal; 2022-08-13)
PROC: 3E033NZ Introduction of Analgesics, Hypnotics, Sedatives into Peripheral Vein, Percutaneous Approach (ICD-10-PCS; 2022-08-13)
DX: I10 Essential (primary) hypertension (principal); E78.5 Hyperlipidemia, unspecified; Z86.73 Personal history of transient ischemic attack (TIA), and cerebral infarction without residual deficits; K76.0 Fatty (change of) liver, not elsewhere classified; F10.10 Alcohol abuse, uncomplicated; Z88.8 Allergy status to other drugs, medicaments and biological substances; E11.40 Type 2 diabetes mellitus with diabetic neuropathy, unspecified; R55 Syncope and collapse
CPT/HCPCS: 0241U-QW; 36415; 71046-TC-FY; 73630-TC-LT; 73630-TC-RT-FY; 76705-TC; 80053; 80061; 82105; 82140; 82550; 82553; 82962; 83036; 83880; 84484; 85025; 85610; 85651; 85730; 86140; 93005; 93010; 93306-TC; 93880-TC; 96372; 96374; 96375; 99285-25; G0378; J1644

== ENCOUNTER 2022-11-13 10:31 | Inpatient (IN) | payer OTHER ==
[2022-11-13] MEDS ORDERED: SODIUM CHLORIDE 0.9% 500 ML INFUS.BAG IV ONE (11:19)
[2022-11-13 11:27] VITALS: BMI 23.1
[2022-11-13 11:51] LABS: HEMATOCRIT 31.4 % (35.4-49); HEMOGLOBIN 11.1 GM/dL (11.7-16.9); MCH 32.2 pg (25.7-33.7); MCHC 35.2 g/dl (32.0-35.9); MEAN CELL VOLUME 91.5 fl (80-96); MEAN PLT VOLUME 8.7 fl (7.5-11.1); PLATELET COUNT 324 10^3/uL (134-434); RBC 3.43 M/mm3 (4.00-5.60); RDW 15.1 % (11.9-15.9); WHITE BLOOD COUNT 7.5 K/mm3 (4.0-10.0)
[2022-11-13 12:09] LABS: POTASSIUM 3.8 mmol/L (3.5-5.1)
[2022-11-13 12:12] LABS: ALBUMIN 3.2 g/dl (3.4-5.0); ANISOCYTOSIS 1+; BLOOD UREA NITROGEN 26.3 mg/dL (7-18); MACROCYTOSIS 0; MAGNESIUM 2.2 mg/dL (1.8-2.4)
[2022-11-13 12:15] LABS: CREATININE 1.9 mg/dL (0.55-1.3)
[2022-11-13 12:16] LABS: PHOSPHOROUS 1.8 mg/dL (2.5-4.9)
[2022-11-13 12:17] LABS: TOT PROT 7.1 g/dl (6.4-8.2)
[2022-11-13] MEDS ORDERED: POTASSIUM PHOSPHATE 30 MM in SODIUM CHLORIDE 500 ML IVPB ONE (17:13)
[2022-11-13] MEDS ORDERED: SODIUM CHLORIDE 1,000 ML IV SCH (17:15)
[2022-11-13] MEDS ORDERED: SODIUM CHLORIDE 0.45% 1,000 ML IV SCH (17:30)
[2022-11-13 19:06] LABS: EPI CELLS 11 /uL (0-25.1); HYALINE CASTS 3 /uL (0-3.1); PH,URINE 5.5 (5.0-8.0); URINE APPEARANCE CLEAR; URINE BACTERIA 0 /uL (0-1359); URINE BILIRUBIN NEGATIVE (NEGATIVE); URINE COLOR DK YELLOW; URINE GLUCOSE (UA) 3+ (NEGATIVE); URINE KETONE TRACE (NEGATIVE); URINE LEUK ESTERASE NEGATIVE (NEGATIVE); URINE NITRITE NEGATIVE (NEGATIVE); URINE PROTEIN 2+ (NEGATIVE); URINE RBC 3 /uL (0-23.9); URINE WBC 17 /uL (0-25.8)
[2022-11-13] MEDS ORDERED: INSULIN SLIDING SCALE (NOVOLOG) 1 VIAL SQ SCH (22:00)
[2022-11-13] MEDS: INSULIN (LEVEMIR) 100 UNITS/ML UNITS SQ SCH (22:28)
[2022-11-13] MEDS: GABAPENTIN 100 MG CAPSULE PO SCH (22:30)
[2022-11-14] MEDS: GABAPENTIN 100 MG CAPSULE PO SCH ×3 (06:55→22:35)
[2022-11-14] MEDS: INSULIN SLIDING SCALE (NOVOLOG) 1 VIAL SQ SCH ×4 (06:56→22:39)
[2022-11-14 08:16] LABS: BASO % 0.7 % (0-2.0); HEMATOCRIT 25.1 % (35.4-49); HEMOGLOBIN 9.1 GM/dL (11.7-16.9); LYMPH % 34.6 % (8-40); MCH 32.5 pg (25.7-33.7); MCHC 36.3 g/dl (32.0-35.9); MEAN CELL VOLUME 89.5 fl (80-96); MEAN PLT VOLUME 9.2 fl (7.5-11.1); MONO % 6.1 % (3.8-10.2); NEUT % 57.6 % (42.8-82.8); PLATELET COUNT 206 10^3/uL (134-434); RDW 14.9 % (11.9-15.9); WHITE BLOOD COUNT 4.8 K/mm3 (4.0-10.0)
[2022-11-14 08:40] LABS: POTASSIUM 4.3 mmol/L (3.5-5.1)
[2022-11-14 08:48] LABS: BLOOD UREA NITROGEN 19.8 mg/dL (7-18)
[2022-11-14 08:49] LABS: ALBUMIN 2.8 g/dl (3.4-5.0); CALCIUM 8.5 mg/dL (8.5-10.1); MAGNESIUM 1.9 mg/dL (1.8-2.4)
[2022-11-14 08:52] LABS: CREATININE 1.4 mg/dL (0.55-1.3); PHOSPHOROUS 3.6 mg/dL (2.5-4.9)
[2022-11-14 08:53] LABS: BILIRUBIN,TOTAL 1.8 mg/dL (0.2-1); TOT PROT 5.8 g/dl (6.4-8.2)
[2022-11-14] MEDS: ASPIRIN 325 MG ENTERIC COATED TABLET (FP) PO SCH (09:18)
[2022-11-14] MEDS: INSULIN (LEVEMIR) 100 UNITS/ML UNITS SQ SCH ×2 (09:19→22:38)
[2022-11-14] MEDS: ENOXAPARIN NA (PORCINE) 40 MG/0.4 ML DISP.SYRIN SQ SCH (09:21)
[2022-11-14] MEDS ORDERED: METOPROLOL TARTRATE 50 MG TABLET (FP) PO SCH (10:00)
[2022-11-14] MEDS ORDERED: LOSARTAN POTASSIUM 50 MG TABLET PO SCH (10:00)
[2022-11-14] MEDS ORDERED: SODIUM CHLORIDE 1,000 ML IV SCH (13:51)
[2022-11-15] MEDS: GABAPENTIN 100 MG CAPSULE PO SCH ×3 (05:36→21:00)
[2022-11-15] MEDS: INSULIN SLIDING SCALE (NOVOLOG) 1 VIAL SQ SCH ×4 (06:11→21:01)
[2022-11-15 08:25] LABS: POTASSIUM 3.9 mmol/L (3.5-5.1)
[2022-11-15 08:31] LABS: ALBUMIN 2.8 g/dl (3.4-5.0); BLOOD UREA NITROGEN 10.6 mg/dL (7-18); CALCIUM 8.5 mg/dL (8.5-10.1)
[2022-11-15 08:34] LABS: CREATININE 1.1 mg/dL (0.55-1.3)
[2022-11-15 08:35] LABS: BILIRUBIN,TOTAL 0.9 mg/dL (0.2-1); TOT PROT 6.1 g/dl (6.4-8.2)
[2022-11-15] MEDS: ASPIRIN 325 MG ENTERIC COATED TABLET (FP) PO SCH (10:03)
[2022-11-15] MEDS: MULTIVITAMINS (DAILY MVI) TABLET (FP) PO SCH (10:03)
[2022-11-15] MEDS: ENOXAPARIN NA (PORCINE) 40 MG/0.4 ML DISP.SYRIN SQ SCH (10:04)
[2022-11-15] MEDS: INSULIN (LEVEMIR) 100 UNITS/ML UNITS SQ SCH ×2 (11:14→21:01)
[2022-11-16] MEDS: GABAPENTIN 100 MG CAPSULE PO SCH ×2 (05:49→14:26)
[2022-11-16] MEDS: INSULIN SLIDING SCALE (NOVOLOG) 1 VIAL SQ SCH ×2 (06:08→11:55)
[2022-11-16] MEDS: MULTIVITAMINS (DAILY MVI) TABLET (FP) PO SCH (10:23)
[2022-11-16] MEDS: INSULIN (LEVEMIR) 100 UNITS/ML UNITS SQ SCH (10:23)
[2022-11-16] MEDS: ENOXAPARIN NA (PORCINE) 40 MG/0.4 ML DISP.SYRIN SQ SCH (10:23)
[2022-11-16] MEDS: ASPIRIN 325 MG ENTERIC COATED TABLET (FP) PO SCH (10:23)
[2022-11-16 14:29] VITALS: BP 143/74; PULSE 111; RESP 18; TEMP 98.4
== END 2022-11-16 16:13 | disposition home or self-care (01) | DRG 420 ==
LOC: JER 10:31 → JERBED 13:21 → J4S 16:36
PROVIDERS: ADMIT Internal Medicine; ATTEND Internal Medicine
DX: E11.65 Type 2 diabetes mellitus with hyperglycemia (principal); N17.9 Acute kidney failure, unspecified; E11.40 Type 2 diabetes mellitus with diabetic neuropathy, unspecified; D64.9 Anemia, unspecified; E78.5 Hyperlipidemia, unspecified; I10 Essential (primary) hypertension; K74.60 Unspecified cirrhosis of liver; R55 Syncope and collapse; L08.9 Local infection of the skin and subcutaneous tissue, unspecified; E11.51 Type 2 diabetes mellitus with diabetic peripheral angiopathy without gangrene
CPT/HCPCS: 0241U-QW; 36415; 71045-TC-FY; 76705-TC; 80053; 81003; 82010; 82962; 83036; 83735; 84100; 84484; 85025; 87086; 93005; 93010; 93880-TC; 99285-25

== ENCOUNTER 2024-01-03 12:59 | Emergency (ER) | payer OTHER ==
[2024-01-03 13:12] VITALS: RESP 18; TEMP 99.3; BMI 21.2
[2024-01-03] MEDS ORDERED: ONDANSETRON 4 MG/2 ML VIAL ONE (15:23)
[2024-01-03 15:26] LABS: BASO % 0.6 % (0-2.0); EOS % 0.2 % (0-4.5); HEMATOCRIT 21.4 % (35.4-49); HEMOGLOBIN 7.3 GM/dL (11.7-16.9); LYMPH % 24.2 % (8-40); MCH 35.8 pg (25.7-33.7); MCHC 34.2 g/dl (32.0-35.9); MEAN CELL VOLUME 104.7 fl (80-96); MEAN PLT VOLUME 8.8 fl (7.5-11.1); MONO % 8.4 % (3.8-10.2); NEUT % 66.6 % (42.8-82.8); PLATELET COUNT 205 10^3/uL (134-434); RBC 2.04 M/mm3 (4.00-5.60); RDW 18.4 % (11.9-15.9); WHITE BLOOD COUNT 6.6 K/mm3 (4.0-10.0)
[2024-01-03] MEDS: ONDANSETRON 4 MG/2 ML VIAL IVPUSH ONE (15:31)
[2024-01-03] MEDS: SODIUM CHLORIDE 1,000 ML IV STA (15:31)
[2024-01-03 15:54] LABS: POTASSIUM 3.5 mmol/L (3.5-5.1)
[2024-01-03 15:56] LABS: MAGNESIUM 1.2 mg/dL (1.8-2.4)
[2024-01-03 15:58] LABS: BLOOD UREA NITROGEN 4.9 mg/dL (7-18)
[2024-01-03 15:59] LABS: ALBUMIN 2.6 g/dl (3.4-5.0)
[2024-01-03 16:01] LABS: CREATININE 1.1 mg/dL (0.55-1.3); TOT PROT 6.7 g/dl (6.4-8.2)
[2024-01-03 16:03] LABS: BILIRUBIN,TOTAL 4.4 mg/dL (0.2-1)
[2024-01-03] MEDS ORDERED: LIDOCAINE VISCOUS 2% ORAL/TOP 15 ML UNIT-DOSE CUP ONE (17:08)
[2024-01-03] MEDS ORDERED: MAG HYDROX/AL HYDROX/SIMETH 30 ML UNIT-DOSE CUP ONE (17:08)
[2024-01-03] MEDS ORDERED: MAGNESIUM SULFATE IN WATER 2 GM/50 ML IVPB IVPB ONE (17:09)
[2024-01-03] MEDS ORDERED: FAMOTIDINE 10 MG/ML VIAL IVPB ONE (17:09)
[2024-01-03] MEDS: FAMOTIDINE 20 MG/50 ML IVPB 20 MG/50 ML MG IVPB ONE (17:25)
[2024-01-03] MEDS: MAGNESIUM SULFATE IN WATER 2 GM/50 ML IVPB IVPB ONE (17:25)
[2024-01-03] MEDS: LIDOCAINE VISCOUS 2% ORAL/TOP 15 ML UNIT-DOSE CUP MM ONE (17:25)
[2024-01-03] MEDS: MAG HYDROX/AL HYDROX/SIMETH 30 ML UNIT-DOSE CUP PO ONE (17:25)
[2024-01-03 21:06] VITALS: BP 149/79; PULSE 99
== END 2024-01-03 21:50 | disposition home or self-care (01) ==
LOC: JER 12:59
PROC: 3E033GC Introduction of Other Therapeutic Substance into Peripheral Vein, Percutaneous Approach (ICD-10-PCS; principal; 2024-01-03)
PROC: 3E033GC Introduction of Other Therapeutic Substance into Peripheral Vein, Percutaneous Approach (ICD-10-PCS; 2024-01-03)
PROC: 3E033GC Introduction of Other Therapeutic Substance into Peripheral Vein, Percutaneous Approach (ICD-10-PCS; 2024-01-03)
PROC: 3E0337Z Introduction of Electrolytic and Water Balance Substance into Peripheral Vein, Percutaneous Approach (ICD-10-PCS; 2024-01-03)
DX: R11.2 Nausea with vomiting, unspecified (principal); R12 Heartburn; R53.1 Weakness; R19.7 Diarrhea, unspecified; R10.11 Right upper quadrant pain; R10.12 Left upper quadrant pain
CPT/HCPCS: 36415; 74177-TC; 76705-TC; 80053; 82550; 82962; 83690; 83735; 84478; 84484; 85025; 93005; 93010; 96361; 96365; 96368; 96375; 99285-25

== ENCOUNTER 2024-03-13 19:21 | Inpatient (IN) | payer OTHER ==
[2024-03-13 20:42] LABS: BASO % 0.7 % (0-2.0); EOS % 0.3 % (0-4.5); HEMATOCRIT 21.9 % (35.4-49); HEMOGLOBIN 7.5 GM/dL (11.7-16.9); LYMPH % 21.3 % (8-40); MCHC 34.3 g/dl (32.0-35.9); MEAN CELL VOLUME 96.2 fl (80-96); MEAN PLT VOLUME 9.2 fl (7.5-11.1); MONO % 6.1 % (3.8-10.2); NEUT % 71.6 % (42.8-82.8); PLATELET COUNT 201 10^3/uL (134-434); RBC 2.28 M/mm3 (4.00-5.60); RDW 17.5 % (11.9-15.9); WHITE BLOOD COUNT 7.4 K/mm3 (4.0-10.0)
[2024-03-13 20:48] LABS: INR 1.26 (0.83-1.09); PROTHROMBIN TIME (PATIENT) 14.4 SEC (9.7-13.0)
[2024-03-13 21:02] LABS: POTASSIUM 3.3 mmol/L (3.5-5.1)
[2024-03-13 21:04] LABS: ALBUMIN 2.1 g/dl (3.4-5.0); CALCIUM 7.3 mg/dL (8.5-10.1)
[2024-03-13 21:07] LABS: PHOSPHOROUS 1.4 mg/dL (2.5-4.9)
[2024-03-13 21:08] LABS: CREATININE 1.3 mg/dL (0.55-1.3)
[2024-03-13 21:09] LABS: BILIRUBIN,TOTAL 3.8 mg/dL (0.2-1); TOT PROT 6.6 g/dl (6.4-8.2)
[2024-03-13 21:40] LABS: LACTIC ACID 9.1 mmol/L (0.4-2.0)
[2024-03-13] MEDS ORDERED: NAPH,MB-DB/K PH,MBDB POWDER PACKET ONE (21:56)
[2024-03-13] MEDS ORDERED: POTASSIUM CHLORIDE TABS 20 MEQ TABLET.ER (FP) PO ONE (21:56)
[2024-03-13] MEDS ORDERED: MAGNESIUM SULFATE IN WATER 2 GM/50 ML IVPB IVPB ONE (21:56)
[2024-03-13] MEDS ORDERED: POTASSIUM CHLORIDE ORAL LIQUID 20 MEQ/15 ML ONE (21:57)
[2024-03-13] MEDS: NAPH,MB-DB/K PH,MBDB POWDER PACKET PO ONE (22:09)
[2024-03-13] MEDS: MAGNESIUM SULF 50% (8.12 MEQ/2 ML-1 GM VIAL) IVPB ONE (22:09)
[2024-03-13] MEDS: POTASSIUM CHLORIDE ORAL LIQUID 20 MEQ/15 ML PO ONE (22:09)
[2024-03-13] MEDS: SODIUM CHLORIDE 1,000 ML IV STA (22:15)
[2024-03-14 00:02] LABS: LACTIC ACID 8.4 mmol/L (0.4-2.0)
[2024-03-14] MEDS: SODIUM CHLORIDE 1,000 ML IV STA (00:30)
[2024-03-14 01:57] LABS: CHLORIDE 104 mmol/L (98-107); POTASSIUM 3.3 mmol/L (3.5-5.1); SODIUM 136 mmol/L (136-145)
[2024-03-14 01:59] LABS: ALBUMIN 1.9 g/dl (3.4-5.0); ANION GAP 14 mmol/L (4-13); CO2 18 mmol/L (21-32)
[2024-03-14 02:00] LABS: BLOOD UREA NITROGEN 14.4 mg/dL (7-18); GLUCOSE,RANDOM 243 mg/dL (74-106)
[2024-03-14 02:02] LABS: SGPT/ALT 39 U/L (13-61)
[2024-03-14 02:03] LABS: CREATININE 1.4 mg/dL (0.55-1.3); SGOT/AST 243 U/L (15-37)
[2024-03-14 02:04] LABS: TOT PROT 5.8 g/dl (6.4-8.2)
[2024-03-14] MEDS ORDERED: chlordiazePOXIDE HCL 25 MG CAPSULE PO PRN (02:31)
[2024-03-14 02:58] LABS: ALK PHOS 551 U/L (45-117); CALCIUM 6.8 mg/dL (8.5-10.1)
[2024-03-14] MEDS: chlordiazePOXIDE HCL 25 MG CAPSULE PO ONE (03:42)
[2024-03-14] MEDS ORDERED: DOCUSATE SODIUM 100 MG CAPSULE (FP) PO PRN (04:18)
[2024-03-14] MEDS ORDERED: ONDANSETRON 4 MG TABLET PO PRN (04:35)
[2024-03-14] MEDS ORDERED: MAG HYDROX/AL HYDROX/SIMETH 30 ML UNIT-DOSE CUP PO PRN (04:35)
[2024-03-14] MEDS ORDERED: BISMUTH SUBSALICYLATE 524 MG/30 ML PO PRN (04:35)
[2024-03-14] MEDS ORDERED: DICYCLOMINE HCL 10 MG CAPSULE PO PRN (04:35)
[2024-03-14] MEDS ORDERED: BENZONATATE 200 MG CAPSULE PO PRN (04:35)
[2024-03-14 04:49] LABS: LACTIC ACID 7.2 mmol/L (0.4-2.0)
[2024-03-14] MEDS: FOLIC ACID INJECTION - 1 MG, THIAMINE HCL 100 MG, MULTIVIT INJECTION ADULT 10 ML in SOD... IVPB ONE (04:59)
[2024-03-14] MEDS ORDERED: LOPERAMIDE HCL 2 MG CAPSULE PO PRN (05:02)
[2024-03-14] MEDS ORDERED: chlordiazePOXIDE HCL 25 MG CAPSULE ONE (05:04)
[2024-03-14] MEDS: chlordiazePOXIDE HCL 25 MG CAPSULE PO SCH (05:10)
[2024-03-14 08:28] LABS: HEMATOCRIT 18.2 % (35.4-49); MCH 33.1 pg (25.7-33.7); MCHC 34.4 g/dl (32.0-35.9); MEAN CELL VOLUME 96.3 fl (80-96); MEAN PLT VOLUME 9.4 fl (7.5-11.1); PLATELET COUNT 169 10^3/uL (134-434); RBC 1.89 M/mm3 (4.00-5.60); RDW 17.4 % (11.9-15.9); WHITE BLOOD COUNT 5.1 K/mm3 (4.0-10.0)
[2024-03-14 08:51] LABS: POTASSIUM 3.3 mmol/L (3.5-5.1)
[2024-03-14 08:54] LABS: BLOOD UREA NITROGEN 14.4 mg/dL (7-18); CALCIUM 7.1 mg/dL (8.5-10.1)
[2024-03-14 08:55] LABS: MAGNESIUM 1.2 mg/dL (1.8-2.4)
[2024-03-14 08:57] LABS: BILIRUBIN,DIRECT 2.8 mg/dL (0.0-0.2)
[2024-03-14 08:58] LABS: PHOSPHOROUS 1.4 mg/dL (2.5-4.9)
[2024-03-14 08:59] LABS: BILIRUBIN,TOTAL 3.5 mg/dL (0.2-1); TOT PROT 6.2 g/dl (6.4-8.2)
[2024-03-14 09:00] LABS: CREATININE 1.2 mg/dL (0.55-1.3)
[2024-03-14 09:09] LABS: HEMOGLOBIN 6.3 GM/dL (11.7-16.9)
[2024-03-14] MEDS: PANTOPRAZOLE 40 MG TABLET PO SCH (11:40)
[2024-03-14 12:41] LABS: LACTIC ACID 5.7 mmol/L (0.4-2.0)
[2024-03-14] MEDS: MAGNESIUM OXIDE 400 MG TABLET (FP) PO ONE (14:38)
[2024-03-14] MEDS: POTASSIUM CHLORIDE ORAL LIQUID 20 MEQ/15 ML PO ONE (15:20)
[2024-03-14] MEDS: ALBUMIN HUMAN 25% 12.5 GM/50 ML VIAL IV SCH (16:51)
[2024-03-14] MEDS: FUROSEMIDE 40 MG/4 ML INJECTABLE VIAL IVPUSH ONE (16:51)
[2024-03-14] MEDS: SPIRONOLACTONE 25 MG TABLET PO ONE (17:13)
[2024-03-14] MEDS: POTASSIUM PHOSPHATE 15 MM in DEXTROSE 5%-WATER - 250 ML IVPB ONE (18:46)
[2024-03-14] MEDS: MAGNESIUM 2GM/50ML STERILE WATER IVPB IVPB ONE (19:45)
[2024-03-14 20:24] LABS: EPI CELLS 1 /uL (0-25.1); HYALINE CASTS 0 /uL (0-3.1); URINE APPEARANCE CLEAR; URINE BACTERIA 4778 /uL (0-1359); URINE BILIRUBIN 2+ (NEGATIVE); URINE COLOR DK YELLOW; URINE GLUCOSE (UA) 2+ (NEGATIVE); URINE KETONE NEGATIVE (NEGATIVE); URINE LEUK ESTERASE 2+ (NEGATIVE); URINE NITRITE POSITIVE (NEGATIVE); URINE PROTEIN TRACE (NEGATIVE); URINE RBC 15 /uL (0-23.9); URINE WBC 111 /uL (0-25.8)
[2024-03-14 20:34] LABS: URINE BARBITURATES NEGATIVE (NEGATIVE); URINE BENZODIAZEPINES NEGATIVE (NEGATIVE)
[2024-03-14 20:35] LABS: COCAINE, UR NEGATIVE (NEGATIVE); METHADONE, UR NEGATIVE (NEGATIVE); PHENCYCLIDINE,URINE NEGATIVE (NEGATIVE)
[2024-03-14 20:36] LABS: OPIATES, URI NEGATIVE (NEGATIVE); URINE AMPHETAMINES NEGATIVE (NEGATIVE)
[2024-03-14] MEDS: MAGNESIUM 1GM/D5W - 1 GM/100 ML IVPB IVPB ONE (21:53)
[2024-03-14] MEDS: NAPH,MB-DB/K PH,MBDB POWDER PACKET PO ONE (21:54)
[2024-03-14 22:36] LABS: YEAST NONE SEEN (NEGATIVE)
[2024-03-15] MEDS: chlordiazePOXIDE HCL 25 MG CAPSULE PO SCH (07:00)
[2024-03-15 09:05] LABS: BASO % 0.5 % (0-2.0); EOS % 0.8 % (0-4.5); HEMATOCRIT 24.5 % (35.4-49); HEMOGLOBIN 8.4 GM/dL (11.7-16.9); LYMPH % 20.3 % (8-40); MCH 31.7 pg (25.7-33.7); MCHC 34.1 g/dl (32.0-35.9); MEAN CELL VOLUME 92.9 fl (80-96); MEAN PLT VOLUME 9.4 fl (7.5-11.1); MONO % 5.9 % (3.8-10.2); NEUT % 72.5 % (42.8-82.8); PLATELET COUNT 159 10^3/uL (134-434); RBC 2.64 M/mm3 (4.00-5.60); RDW 18.8 % (11.9-15.9); WHITE BLOOD COUNT 5.7 K/mm3 (4.0-10.0)
[2024-03-15 09:06] LABS: POTASSIUM 3.8 mmol/L (3.5-5.1)
[2024-03-15 09:07] LABS: LACTIC ACID 3.4 mmol/L (0.4-2.0)
[2024-03-15 09:12] LABS: BLOOD UREA NITROGEN 13.5 mg/dL (7-18); CALCIUM 7.1 mg/dL (8.5-10.1)
[2024-03-15 09:15] LABS: CREATININE 1.1 mg/dL (0.55-1.3)
[2024-03-15 09:16] LABS: BILIRUBIN,TOTAL 4.7 mg/dL (0.2-1); TOT PROT 6.3 g/dl (6.4-8.2)
[2024-03-15] MEDS: MULTIVITAMINS (DAILY MVI) TABLET (FP) PO SCH (12:23)
[2024-03-15] MEDS: FOLIC ACID 1 MG TABLET (FP) PO SCH (12:23)
[2024-03-15] MEDS: LACTULOSE 20 GM/30 ML UDC (FOR ORAL USE ONLY) PO SCH (12:23)
[2024-03-15] MEDS: THIAMINE 100 MG TABLET PO SCH (12:23)
[2024-03-15] MEDS: RIFAXIMIN 550 MG TABLET PO SCH (12:48)
[2024-03-15 14:27] LABS: BF WBC & OTHER NUCLEATED CELLS 53 /mm3
[2024-03-15 14:29] LABS: BODY FLUID MACROPHAGES 47 %; BODY FLUID MESOTHELIAL 10 %
[2024-03-15] MEDS: FUROSEMIDE 40 MG/4 ML INJECTABLE VIAL IVPUSH ONE (14:32)
[2024-03-15 16:15] LABS: LACTIC ACID 3.8 mmol/L (0.4-2.0)
[2024-03-16] MEDS ORDERED: chlordiazePOXIDE HCL 10 MG CAPSULE PO PRN
[2024-03-16] MEDS: chlordiazePOXIDE HCL 10 MG CAPSULE PO SCH (06:25)
[2024-03-16] MEDS: SPIRONOLACTONE 25 MG TABLET PO SCH (11:20)
[2024-03-16] MEDS: INSULIN (NOVOLOG) ASPART 100 UNITS/ML 10ML VIAL SQ ONE (12:34)
[2024-03-16] MEDS: ALBUMIN HUMAN 25% 12.5 GM/50 ML VIAL IV SCH (12:35)
[2024-03-16] MEDS: METOLAZONE 2.5 MG TABLET (FP) PO SCH (13:32)
[2024-03-16 14:09] LABS: BODY FLUID ALBUMIN 0.7 g/dL (Not Estab.)
[2024-03-16] MEDS: FUROSEMIDE 40 MG/4 ML INJECTABLE VIAL IVPUSH SCH (14:12)
[2024-03-17] MEDS: chlordiazePOXIDE HCL 10 MG CAPSULE PO SCH (06:00)
[2024-03-17] MEDS: ALBUMIN HUMAN 25% 12.5 GM/50 ML VIAL IV SCH (07:44)
[2024-03-17 08:07] LABS: HEMATOCRIT 23.6 % (35.4-49); MCH 31.8 pg (25.7-33.7); MCHC 33.8 g/dl (32.0-35.9); MEAN PLT VOLUME 10.1 fl (7.5-11.1); PLATELET COUNT 151 10^3/uL (134-434); RBC 2.51 M/mm3 (4.00-5.60); RDW 19.4 % (11.9-15.9); WHITE BLOOD COUNT 8.8 K/mm3 (4.0-10.0)
[2024-03-17 08:26] LABS: POTASSIUM 3.8 mmol/L (3.5-5.1)
[2024-03-17 08:28] LABS: CALCIUM 7.1 mg/dL (8.5-10.1)
[2024-03-17 08:29] LABS: ALBUMIN 2.1 g/dl (3.4-5.0); BLOOD UREA NITROGEN 13.2 mg/dL (7-18)
[2024-03-17 08:32] LABS: CREATININE 1.3 mg/dL (0.55-1.3)
[2024-03-17 08:34] LABS: BILIRUBIN,TOTAL 3.2 mg/dL (0.2-1)
[2024-03-17] MEDS: PIPERACILLIN/TAZOB 3.375 GM 3.375 GM in DEXTROSE 5%-WATER - 50 ML IVPB SCH (15:48)
[2024-03-17] MEDS: INSULIN (NOVOLOG) ASPART 100 UNITS/ML 10ML VIAL SQ ONE (17:38)
[2024-03-17] MEDS: INSULIN ASPART SLIDING SCALE (NOVOLOG) 1 VIAL SQ SCH (21:48)
[2024-03-18 01:17] LABS: POTASSIUM 3.5 mmol/L (3.5-5.1)
[2024-03-18 01:18] LABS: CALCIUM 7.1 mg/dL (8.5-10.1)
[2024-03-18 01:19] LABS: ALBUMIN 2.2 g/dl (3.4-5.0); BLOOD UREA NITROGEN 13.4 mg/dL (7-18)
[2024-03-18 01:22] LABS: CREATININE 1.3 mg/dL (0.55-1.3)
[2024-03-18 01:24] LABS: BILIRUBIN,TOTAL 2.7 mg/dL (0.2-1)
[2024-03-18] MEDS: chlordiazePOXIDE HCL 10 MG CAPSULE PO ONE (05:11)
[2024-03-18 08:21] LABS: BASO % 0.5 % (0-2.0); EOS % 0.9 % (0-4.5); HEMATOCRIT 21.7 % (35.4-49); HEMOGLOBIN 7.5 GM/dL (11.7-16.9); LYMPH % 19.3 % (8-40); MCH 32.2 pg (25.7-33.7); MCHC 34.6 g/dl (32.0-35.9); MEAN CELL VOLUME 93.1 fl (80-96); MEAN PLT VOLUME 10.2 fl (7.5-11.1); MONO % 7.4 % (3.8-10.2); NEUT % 71.9 % (42.8-82.8); PLATELET COUNT 166 10^3/uL (134-434); RBC 2.33 M/mm3 (4.00-5.60); RDW 19.6 % (11.9-15.9); WHITE BLOOD COUNT 9.3 K/mm3 (4.0-10.0)
[2024-03-18] MEDS: MAGNESIUM SULFATE IN WATER 2 GM/50 ML IVPB IVPB SCH (08:47)
[2024-03-19] MEDS ORDERED: PIPERACILLIN/TAZOBACTAM 3.375 GM VIAL IVPB ONE (00:59)
[2024-03-19 07:43] LABS: HEMATOCRIT 18.9 % (35.4-49); HEMATOCRIT 19.3 % (35.4-49); MCH 31.8 pg (25.7-33.7); MCH 32.2 pg (25.7-33.7); MCHC 33.5 g/dl (32.0-35.9); MCHC 34.1 g/dl (32.0-35.9); MEAN CELL VOLUME 94.5 fl (80-96); MEAN CELL VOLUME 94.9 fl (80-96); MEAN PLT VOLUME 10.3 fl (7.5-11.1); MEAN PLT VOLUME 10.6 fl (7.5-11.1); PLATELET COUNT 161 10^3/uL (134-434); PLATELET COUNT 173 10^3/uL (134-434); RBC 2.03 M/mm3 (4.00-5.60); RDW 19.1 % (11.9-15.9); WHITE BLOOD COUNT 8.5 K/mm3 (4.0-10.0); WHITE BLOOD COUNT 8.9 K/mm3 (4.0-10.0)
[2024-03-19 07:48] LABS: HEMOGLOBIN 6.4 GM/dL (11.7-16.9)
[2024-03-19 07:49] LABS: HEMOGLOBIN 6.5 GM/dL (11.7-16.9)
[2024-03-19 08:10] LABS: POTASSIUM 4.3 mmol/L (3.5-5.1)
[2024-03-19 08:11] LABS: CALCIUM 7.4 mg/dL (8.5-10.1)
[2024-03-19 08:14] LABS: BLOOD UREA NITROGEN 16.1 mg/dL (7-18)
[2024-03-19 08:16] LABS: CREATININE 1.5 mg/dL (0.55-1.3)
[2024-03-19 08:18] LABS: BILIRUBIN,TOTAL 2.5 mg/dL (0.2-1); TOT PROT 5.3 g/dl (6.4-8.2)
[2024-03-19 09:23] LABS: ANISOCYTOSIS 1+; MACROCYTOSIS 1+
[2024-03-19] MEDS: MAGNESIUM SULFATE IN WATER 2 GM/50 ML IVPB IVPB ONE (10:44)
[2024-03-19 12:35] LABS: MAGNESIUM 1.4 mg/dL (1.8-2.4)
[2024-03-20 08:01] LABS: POTASSIUM 4.1 mmol/L (3.5-5.1)
[2024-03-20 08:03] LABS: ALBUMIN 2.4 g/dl (3.4-5.0); BLOOD UREA NITROGEN 17.1 mg/dL (7-18); CALCIUM 8.4 mg/dL (8.5-10.1)
[2024-03-20 08:06] LABS: CREATININE 1.4 mg/dL (0.55-1.3)
[2024-03-20 08:08] LABS: TOT PROT 6.2 g/dl (6.4-8.2)
[2024-03-20 08:27] LABS: HEMATOCRIT 29.5 % (35.4-49); HEMOGLOBIN 10.1 GM/dL (11.7-16.9); MCH 31.2 pg (25.7-33.7); MCHC 34.4 g/dl (32.0-35.9); MEAN CELL VOLUME 90.7 fl (80-96); MEAN PLT VOLUME 9.8 fl (7.5-11.1); PLATELET COUNT 181 10^3/uL (134-434); RBC 3.25 M/mm3 (4.00-5.60); RDW 20.6 % (11.9-15.9); WHITE BLOOD COUNT 9.8 K/mm3 (4.0-10.0)
[2024-03-20 08:30] LABS: BILIRUBIN,TOTAL 4.7 mg/dL (0.2-1)
[2024-03-20 10:03] LABS: ANISOCYTOSIS 0; MACROCYTOSIS 0
[2024-03-20] MEDS: FUROSEMIDE 40 MG/4 ML INJECTABLE VIAL IVPUSH SCH (15:53)
[2024-03-21] MEDS ORDERED: INSULIN ASPART SLIDING SCALE (NOVOLOG) 1 VIAL SQ ONE (06:41)
[2024-03-21 09:27] LABS: BASO % 1.2 % (0-2.0); EOS % 1.7 % (0-4.5); HEMATOCRIT 26.8 % (35.4-49); LYMPH % 23.8 % (8-40); MCH 30.8 pg (25.7-33.7); MCHC 33.7 g/dl (32.0-35.9); MEAN CELL VOLUME 91.5 fl (80-96); MEAN PLT VOLUME 9.9 fl (7.5-11.1); NEUT % 64.3 % (42.8-82.8); PLATELET COUNT 179 10^3/uL (134-434); RBC 2.92 M/mm3 (4.00-5.60); RDW 20.5 % (11.9-15.9); WHITE BLOOD COUNT 7.4 K/mm3 (4.0-10.0)
[2024-03-21 10:02] LABS: CREATININE 1.3 mg/dL (0.55-1.3)
[2024-03-21 10:04] LABS: BILIRUBIN,TOTAL 2.7 mg/dL (0.2-1)
[2024-03-21 10:07] LABS: ALBUMIN 2.2 g/dl (3.4-5.0); BLOOD UREA NITROGEN 18.3 mg/dL (7-18)
[2024-03-21 10:09] LABS: CALCIUM 8.3 mg/dL (8.5-10.1)
[2024-03-21] MEDS ORDERED: ALBUMIN HUMAN 25% 12.5 GM/50 ML VIAL IV SCH ×2 (11:15→22:00)
[2024-03-21] MEDS ORDERED: FUROSEMIDE 40 MG/4 ML INJECTABLE VIAL IVPUSH SCH ×3 (11:15→22:30)
[2024-03-21] MEDS: FUROSEMIDE 40 MG/4 ML INJECTABLE VIAL IVPUSH SCH (17:34)
[2024-03-21] MEDS: ALBUMIN HUMAN 25% 12.5 GM/50 ML VIAL IV SCH (18:02)
[2024-03-22] MEDS: METOLAZONE 2.5 MG TABLET (FP) PO SCH (10:30)
[2024-03-22] MEDS ORDERED: ALBUMIN HUMAN 25% 12.5 GM/50 ML VIAL IV SCH (11:15)
[2024-03-22 11:25] LABS: HEMATOCRIT 31.5 % (35.4-49); HEMOGLOBIN 10.9 GM/dL (11.7-16.9); MCH 31.5 pg (25.7-33.7); MCHC 34.5 g/dl (32.0-35.9); MEAN CELL VOLUME 91.5 fl (80-96); MEAN PLT VOLUME 9.8 fl (7.5-11.1); PLATELET COUNT 218 10^3/uL (134-434); RBC 3.44 M/mm3 (4.00-5.60); RDW 20.5 % (11.9-15.9); WHITE BLOOD COUNT 8.1 K/mm3 (4.0-10.0)
[2024-03-22] MEDS ORDERED: FUROSEMIDE 40 MG/4 ML INJECTABLE VIAL IVPUSH SCH (11:30)
[2024-03-22 11:40] LABS: POTASSIUM 4.1 mmol/L (3.5-5.1)
[2024-03-22 11:50] LABS: CALCIUM 8.6 mg/dL (8.5-10.1)
[2024-03-22 11:51] LABS: BLOOD UREA NITROGEN 20.6 mg/dL (7-18)
[2024-03-22 11:54] LABS: CREATININE 1.4 mg/dL (0.55-1.3)
[2024-03-22 11:55] LABS: ALBUMIN 2.9 g/dl (3.4-5.0)
[2024-03-22 11:56] LABS: BILIRUBIN,TOTAL 3.5 mg/dL (0.2-1); TOT PROT 7.6 g/dl (6.4-8.2)
[2024-03-22 13:01] LABS: ANISOCYTOSIS 0; MACROCYTOSIS 0; TARGET CELLS 1+
[2024-03-22] MEDS: RIFAXIMIN 550 MG TABLET PO SCH (21:54)
[2024-03-23 09:04] LABS: BASO % 1.3 % (0-2.0); EOS % 1.6 % (0-4.5); HEMATOCRIT 28.6 % (35.4-49); HEMOGLOBIN 9.8 GM/dL (11.7-16.9); MCH 31.4 pg (25.7-33.7); MCHC 34.2 g/dl (32.0-35.9); MEAN CELL VOLUME 91.7 fl (80-96); MEAN PLT VOLUME 9.4 fl (7.5-11.1); MONO % 6.8 % (3.8-10.2); NEUT % 62.3 % (42.8-82.8); PLATELET COUNT 189 10^3/uL (134-434); RBC 3.12 M/mm3 (4.00-5.60); RDW 20.3 % (11.9-15.9); WHITE BLOOD COUNT 7.4 K/mm3 (4.0-10.0)
[2024-03-23 09:14] LABS: POTASSIUM 3.7 mmol/L (3.5-5.1)
[2024-03-23 09:17] LABS: ALBUMIN 2.7 g/dl (3.4-5.0); BLOOD UREA NITROGEN 21.8 mg/dL (7-18); CALCIUM 8.2 mg/dL (8.5-10.1)
[2024-03-23 09:20] LABS: CREATININE 1.3 mg/dL (0.55-1.3)
[2024-03-23 09:22] LABS: BILIRUBIN,TOTAL 3.3 mg/dL (0.2-1); TOT PROT 6.9 g/dl (6.4-8.2)
[2024-03-23] MEDS: LACTULOSE 20 GM/30 ML UDC (FOR ORAL USE ONLY) PO SCH (10:28)
[2024-03-23] MEDS: METOLAZONE 5 MG TABLET PO SCH (10:29)
[2024-03-23 11:10] LABS: MAGNESIUM 1.1 mg/dL (1.8-2.4)
[2024-03-23 11:14] LABS: PHOSPHOROUS 3.1 mg/dL (2.5-4.9)
[2024-03-23] MEDS: MAGNESIUM 4GM/H20 - 4 GM/100 ML IVPB IVPB ONE (18:08)
[2024-03-25] MEDS ORDERED: BISMUTH SUBSALICYLATE 524 MG/30 ML PO PRN (07:24)
[2024-03-25] MEDS ORDERED: DICYCLOMINE HCL 10 MG CAPSULE PO PRN (07:24)
[2024-03-25] MEDS ORDERED: BENZONATATE 200 MG CAPSULE PO PRN (08:30)
[2024-03-25] MEDS ORDERED: MAG HYDROX/AL HYDROX/SIMETH 30 ML UNIT-DOSE CUP PO PRN (08:33)
[2024-03-25] MEDS ORDERED: ONDANSETRON 4 MG TABLET PO PRN (08:33)
[2024-03-25] MEDS: MULTIVITAMINS (DAILY MVI) TABLET (FP) PO SCH (09:18)
[2024-03-25] MEDS: SPIRONOLACTONE 25 MG TABLET PO SCH (09:19)
[2024-03-25] MEDS: PANTOPRAZOLE 40 MG TABLET PO SCH (09:19)
[2024-03-25] MEDS: THIAMINE 100 MG TABLET PO SCH (09:20)
[2024-03-25] MEDS: FOLIC ACID 1 MG TABLET (FP) PO SCH (09:20)
[2024-03-25] MEDS: FUROSEMIDE 40 MG/4 ML INJECTABLE VIAL IVPUSH SCH (09:20)
[2024-03-25 09:25] LABS: EOS % 1.2 % (0-4.5); HEMATOCRIT 27.2 % (35.4-49); HEMOGLOBIN 9.3 GM/dL (11.7-16.9); LYMPH % 27.2 % (8-40); MCH 31.5 pg (25.7-33.7); MCHC 34.3 g/dl (32.0-35.9); MEAN CELL VOLUME 91.9 fl (80-96); MEAN PLT VOLUME 9.4 fl (7.5-11.1); MONO % 5.7 % (3.8-10.2); NEUT % 64.9 % (42.8-82.8); PLATELET COUNT 175 10^3/uL (134-434); RBC 2.96 M/mm3 (4.00-5.60); RDW 20.2 % (11.9-15.9); WHITE BLOOD COUNT 7.3 K/mm3 (4.0-10.0)
[2024-03-25 09:39] LABS: POTASSIUM 3.7 mmol/L (3.5-5.1)
[2024-03-25 09:42] LABS: CALCIUM 8.2 mg/dL (8.5-10.1)
[2024-03-25 09:43] LABS: ALBUMIN 2.7 g/dl (3.4-5.0); BLOOD UREA NITROGEN 25.2 mg/dL (7-18); MAGNESIUM 1.2 mg/dL (1.8-2.4)
[2024-03-25 09:46] LABS: CREATININE 1.3 mg/dL (0.55-1.3)
[2024-03-25 09:47] LABS: BILIRUBIN,TOTAL 2.6 mg/dL (0.2-1)
[2024-03-25] MEDS: INSULIN ASPART SLIDING SCALE (NOVOLOG) 1 VIAL SQ SCH (11:23)
[2024-03-26] MEDS: MAGNESIUM OXIDE 400 MG TABLET (FP) PO SCH (09:24)
[2024-03-26] MEDS: MAGNESIUM 2GM/50ML STERILE WATER IVPB IVPB ONE (09:27)
[2024-03-26] MEDS ORDERED: MAGNESIUM OXIDE 400 MG TABLET (FP) PO ONE ×2 (18:01→18:45)
[2024-03-26] MEDS: MAGNESIUM OXIDE 400 MG TABLET (FP) PO ONE (20:23)
[2024-03-26] MEDS: DOCUSATE SODIUM 100 MG CAPSULE (FP) PO PRN (21:24)
[2024-03-27 09:48] LABS: BASO % 1.2 % (0-2.0); EOS % 1.4 % (0-4.5); HEMOGLOBIN 8.5 GM/dL (11.7-16.9); LYMPH % 23.7 % (8-40); MCH 31.3 pg (25.7-33.7); MEAN CELL VOLUME 92.2 fl (80-96); MEAN PLT VOLUME 9.8 fl (7.5-11.1); MONO % 8.1 % (3.8-10.2); NEUT % 65.6 % (42.8-82.8); PLATELET COUNT 149 10^3/uL (134-434); RBC 2.71 M/mm3 (4.00-5.60); RDW 19.7 % (11.9-15.9); WHITE BLOOD COUNT 6.1 K/mm3 (4.0-10.0)
[2024-03-27 10:11] LABS: POTASSIUM 3.9 mmol/L (3.5-5.1)
[2024-03-27 10:17] LABS: CALCIUM 8.2 mg/dL (8.5-10.1)
[2024-03-27 10:18] LABS: ALBUMIN 2.5 g/dl (3.4-5.0); BLOOD UREA NITROGEN 26.4 mg/dL (7-18)
[2024-03-27 10:21] LABS: CREATININE 1.1 mg/dL (0.55-1.3)
[2024-03-27 10:23] LABS: BILIRUBIN,TOTAL 2.1 mg/dL (0.2-1)
[2024-03-27 10:24] LABS: TOT PROT 6.6 g/dl (6.4-8.2)
[2024-03-28 09:17] LABS: POTASSIUM 4.4 mmol/L (3.5-5.1)
[2024-03-28 09:30] LABS: ALBUMIN 2.8 g/dl (3.4-5.0); BLOOD UREA NITROGEN 24.1 mg/dL (7-18); CALCIUM 8.7 mg/dL (8.5-10.1)
[2024-03-28 09:32] LABS: BILIRUBIN,TOTAL 1.8 mg/dL (0.2-1); TOT PROT 7.5 g/dl (6.4-8.2)
[2024-03-28 09:33] LABS: CREATININE 1.2 mg/dL (0.55-1.3)
[2024-03-28 09:54] VITALS: RESP 18
[2024-03-28 21:56] VITALS: BMI 25.4
[2024-03-29 09:01] LABS: BASO % 1.3 % (0-2.0); EOS % 2.3 % (0-4.5); HEMATOCRIT 24.9 % (35.4-49); HEMOGLOBIN 8.5 GM/dL (11.7-16.9); LYMPH % 20.9 % (8-40); MCH 31.6 pg (25.7-33.7); MEAN CELL VOLUME 92.7 fl (80-96); MEAN PLT VOLUME 10.5 fl (7.5-11.1); MONO % 7.3 % (3.8-10.2); NEUT % 68.2 % (42.8-82.8); PLATELET COUNT 153 10^3/uL (134-434); RBC 2.69 M/mm3 (4.00-5.60); RDW 19.2 % (11.9-15.9); WHITE BLOOD COUNT 7.5 K/mm3 (4.0-10.0)
[2024-03-29 09:14] LABS: POTASSIUM 4.6 mmol/L (3.5-5.1)
[2024-03-29 09:17] LABS: BLOOD UREA NITROGEN 20.4 mg/dL (7-18); CALCIUM 8.8 mg/dL (8.5-10.1)
[2024-03-29 09:21] LABS: CREATININE 1.2 mg/dL (0.55-1.3)
[2024-03-29 09:22] LABS: BILIRUBIN,TOTAL 1.5 mg/dL (0.2-1)
[2024-03-29 09:23] LABS: TOT PROT 7.1 g/dl (6.4-8.2)
[2024-03-29] MEDS: FUROSEMIDE 40 MG/4 ML INJECTABLE VIAL IVPUSH ONE (17:33)
[2024-03-29] MEDS: SPIRONOLACTONE 25 MG TABLET PO ONE (17:56)
[2024-03-29] MEDS: LOPERAMIDE HCL 2 MG CAPSULE PO PRN (22:13)
[2024-03-30 00:03] LABS: MAGNESIUM 1.5 mg/dL (1.8-2.4)
[2024-03-30 00:07] LABS: PHOSPHOROUS 2.4 mg/dL (2.5-4.9)
[2024-03-30 09:45] LABS: CALCIUM 8.6 mg/dL (8.5-10.1)
[2024-03-30 09:46] LABS: ALBUMIN 2.6 g/dl (3.4-5.0); BLOOD UREA NITROGEN 22.5 mg/dL (7-18)
[2024-03-30 09:49] LABS: CREATININE 1.4 mg/dL (0.55-1.3)
[2024-03-30 09:50] LABS: BILIRUBIN,TOTAL 1.7 mg/dL (0.2-1); TOT PROT 7.4 g/dl (6.4-8.2)
[2024-03-30 11:04] VITALS: BP 112/65; PULSE 105; TEMP 98.4
[2024-03-30 11:59] LABS: MAGNESIUM 1.5 mg/dL (1.8-2.4)
== END 2024-03-30 11:43 | DRG 280 ==
LOC: JER 19:21 → JERBED 21:02 → J4W 03-14 06:10 → J6S 03-24 23:29
PROVIDERS: ADMIT Internal Medicine; ATTEND Internal Medicine
PROC: 0W9G3ZZ Drainage of Peritoneal Cavity, Percutaneous Approach (ICD-10-PCS; principal; 2024-03-15)
PROC: 0W9G3ZZ Drainage of Peritoneal Cavity, Percutaneous Approach (ICD-10-PCS; 2024-03-15)
PROC: 0DJ08ZZ Inspection of Upper Intestinal Tract, Via Natural or Artificial Opening Endoscopic (ICD-10-PCS; 2024-03-15)
PROC: 30233N1 Transfusion of Nonautologous Red Blood Cells into Peripheral Vein, Percutaneous Approach (ICD-10-PCS; 2024-03-15)
PROC: HZ2ZZZZ Detoxification Services for Substance Abuse Treatment (ICD-10-PCS; 2024-03-15)
DX: K70.31 Alcoholic cirrhosis of liver with ascites (principal); R56.9 Unspecified convulsions; E87.29 Other acidosis; I47.29 Other ventricular tachycardia; R68.0 Hypothermia, not associated with low environmental temperature; E78.5 Hyperlipidemia, unspecified; F10.239 Alcohol dependence with withdrawal, unspecified; N39.0 Urinary tract infection, site not specified; E87.20 Acidosis, unspecified; T51.1X1A Toxic effect of methanol, accidental (unintentional), initial encounter; R74.8 Abnormal levels of other serum enzymes; K29.70 Gastritis, unspecified, without bleeding; E11.65 Type 2 diabetes mellitus with hyperglycemia; E43 Unspecified severe protein-calorie malnutrition; Z68.25 Body mass index [BMI] 25.0-25.9, adult; D64.9 Anemia, unspecified; E87.6 Hypokalemia; B95.2 Enterococcus as the cause of diseases classified elsewhere; E83.42 Hypomagnesemia; R29.6 Repeated falls; E83.39 Other disorders of phosphorus metabolism; B96.20 Unspecified Escherichia coli [E. coli] as the cause of diseases classified elsewhere; Z79.4 Long term (current) use of insulin; Z89.412 Acquired absence of left great toe; Z86.73 Personal history of transient ischemic attack (TIA), and cerebral infarction without residual deficits
CPT/HCPCS: 36415; 36430; 49083; 70450-TC; 71045-TC-FY; 74176-TC; 76942-TC; 80048; 80053; 80061; 80307; 81003; 82010; 82042; 82105; 82140; 82150; 82248; 82272; 82465; 82607; 82728; 82945; 82962; 82977; 83036; 83540; 83550; 83605; 83615; 83735; 83880; 83986; 84100; 84157; 84439; 84443; 84478; 84484; 85025; 85027; 85610; 85730; 86704; 86705; 86706; 86803; 86850; 86900; 86901; 86922; 87070; 87075; 87086; 87102; 87116; 87186; 87205; 87206; 87210; 87340; 87517; 87635; 88108; 88305-TC; 93005; 93010; 93306-TC; 97116-GP; 97162-GP; 99285-25; P9038; P9047; P9058